=== PATIENT | female | born 1950 | race Caucasian/White ===

== ENCOUNTER 2018-05-15 17:02 | Inpatient (IN) | payer MEDICARE ==
[2018-05-15] MEDS ORDERED: SODIUM CHLORIDE 0.9% 1,000 ML IV ONE ×2 (17:21→18:42)
[2018-05-15] MEDS ORDERED: ONDANSETRON 4 MG/2 ML VIAL IVP STA (17:22)
--- NOTE | 2018-05-15 17:37 | ED ---
General Adult HPI - General Chief complaint: Abdominal Pain Stated complaint: Abd.pain Time Seen by Provider: 05/15/18 17:05 Source: patient, EMS, RN notes reviewed Mode of arrival: EMS Limitations: no limitations - History of Present Illness Initial comments: This is a 67-year-old female who presents to the emergency department from [facility]. Patient states she woke up this morning and had nausea vomiting and diarrhea and then started having some abdominal pain. Patient states she went to [facility] at that point time. [facility] states that the patient had a possible twisting of the large bowel and malrotation of the cecum radiology read it as not able to discern whether was congenital or an internal hernia. Patient also had findings compatible with a colitis of the ascending and transverse colon. Currently patient states abdominal pain is much improved and she is mostly just nauseated. Patient denies any chest pain difficulty breathing or shortness of breath per patient denies any lightheadedness dizziness or near syncopal episode. Patient denies any blood or black stools. - Related Data Home Medications Medication Instructions Recorded Confirmed Aspirin EC [Ecotrin Low Dose] 81 mg PO DAILY 05/15/18 05/15/18 Naproxen Sodium [Aleve] 220 mg PO DAILY 05/15/18 05/15/18 amLODIPine [Norvasc] 5 mg PO DAILY 05/15/18 05/15/18 Allergies Allergy/AdvReac Type Severity Reaction Status Date / Time No Known Allergies Allergy Verified 05/15/18 17:30 Review of Systems ROS Statement: Those systems with pertinent positive or pertinent negative responses have been documented in the HPI. ROS Other: All systems not noted in ROS Statement are negative. Past Medical History Past Medical History: Hyperlipidemia, Hypertension, Osteoarthritis (OA) History of Any Multi-Drug Resistant Organisms: None Reported Past Surgical History: Appendectomy, Hysterectomy, Tonsillectomy Past Psychological History: Depression Smoking Status: Former smoker Past Alcohol Use History: Rare Past Drug Use History: None Reported General Exam - General Exam Comments Initial Comments: GENERAL: Patient is well-developed and well-nourished. Patient is nontoxic and well- hydrated and is in mild distress. ENT: Neck is soft and supple. No significant lymphadenopathy is noted. Oropharynx is clear. Moist mucous membranes. Neck has full range of motion without eliciting any pain. EYES: The sclera were anicteric and conjunctiva were pink and moist. Extraocular movements were intact and pupils were equal round and reactive to light. Eyelids were unremarkable. PULMONARY: Unlabored respirations. Good breath sounds bilaterally. No audible rales rhonchi or wheezing was noted. CARDIOVASCULAR: There is a regular rate and rhythm without any murmurs gallops or rubs. ABDOMEN: Mildly tender diffusely no point tenderness no rebound no guarding. No palpable organomegaly was noted. There is no palpable pulsatile mass. SKIN: Skin is clear with no lesions or rashes and otherwise unremarkable. NEUROLOGIC: Patient is alert and oriented x3. Cranial nerves II through XII are grossly intact. Motor and sensory are also intact. Normal speech, volume and content. Symmetrical smile. MUSCULOSKELETAL: Normal extremities with adequate strength and full range of motion. No lower extremity swelling or edema. No calf tenderness. LYMPHATICS: No significant lymphadenopathy is noted PSYCHIATRIC: Normal psychiatric evaluation. Normal interpersonal interactions appears functionally intact in deals appropriately with others. No signs of depression. No signs of anxiety. Limitations: no limitations Course Vital Signs 05/15/18 17:10 Temperature 99.3 F Pulse Rate 56 L Respiratory 18 Rate Blood Pressure 148/78 O2 Sat by Pulse 97 Oximetry Medical Decision Making - Medical Decision Making I spoke with Dr. Neff when the patient arrived I saw her. Dr. Neff came down and saw the patient and wanted the patient to be admitted to her service and she will see the patient again in the morning. Disposition Clinical Impression: Abdominal pain, Gastroenteritis, Colitis Disposition: ADMITTED IP TO THIS [facility] Referrals: Gigi Hatfield MD [Primary Care Provider] - 1-2 days Time of Disposition: 18:42
[2018-05-15] MEDS ORDERED: HYDROmorphone 1 MG/ML 1 ML SYRINGE IVP PRN (18:11)
--- NOTE | 2018-05-15 18:11 | P.GSHP ---
History of Present Illness H&P Date: 05/15/18 Chief Complaint: Abdominal pain, nausea, vomiting The patient is a 67-year-old female who developed abdominal pain this morning about 8:00 with associated nausea, vomiting, diarrhea the diarrhea persisted until about noon time. It then subsided. There was no blood in the stool or dark tarry stool. No blood in the emesis. The nausea persisted. She went into the emergency department in [facility] and a CT was done reporting possible twisting of the cecum. She is having some belching and passing flatus. It's uncomfortable in the right lower quadrant but not as much as earlier today. The patient's fairly comfortable if she just lays still. She thinks the discomfort is from retching so hard. Main complaint now is nausea. No previous episodes of anything like this in the past. No one else is been ill. No cough, fever or chills. No previous antibiotics. The patient has had previous total abdominal hysterectomy with incidental appendectomy. In questioning her she denied being told that there was any problem with the large bowel being "floppy " - Review of Systems All systems: negative Past Medical History Past Medical History: Hyperlipidemia, Hypertension, Osteoarthritis (OA) History of Any Multi-Drug Resistant Organisms: None Reported Past Surgical History: Appendectomy, Hysterectomy, Tonsillectomy Past Psychological History: Depression Smoking Status: Former smoker Past Alcohol Use History: Rare Past Drug Use History: None Reported Medications and Allergies Home Medications Medication Instructions Recorded Confirmed Type Aspirin EC [Ecotrin Low Dose] 81 mg PO DAILY 05/15/18 05/15/18 History Naproxen Sodium [Aleve] 220 mg PO DAILY 05/15/18 05/15/18 History amLODIPine [Norvasc] 5 mg PO DAILY 05/15/18 05/15/18 History Allergies Allergy/AdvReac Type Severity Reaction Status Date / Time No Known Allergies Allergy Verified 05/15/18 17:30 Surgical - Exam Osteopathic Statement: *. No significant issues noted on an osteopathic structural exam other than those noted in the History and Physical/Consult. Vital Signs Temp Pulse Resp BP Pulse Ox 99.3 F 56 L 18 148/78 97 05/15/18 17:10 05/15/18 17:10 05/15/18 17:10 05/15/18 17:10 11/16/18 17:10 - General well developed, no distress - ENT normal mucosa - Neck trachea midline, no lymphadectomy - Respiratory normal expansion, normal respiratory effort, clear to auscultation - Cardiovascular Rhythm: regular Abnormal Heart Sounds: no systolic murmur - Abdomen Abdomen: soft, tender (Mild tenderness in the right lower quadrant to deep palpation. No tenderness to percussion), bowel sounds (Slightly hypoactive), no guarding, no rebound, no distended Results - Imaging CT scan - abdomen: report reviewed, image reviewed CT scan - pelvis: report reviewed, image reviewed (No obstructive pattern. No free air or free fluid. Little hard for me to discern any significant swirling of the mesentery) Assessment and Plan (1) Abdominal pain Status: Acute Code(s): R10.9 - UNSPECIFIED ABDOMINAL PAIN SNOMED Code(s): 57972553 (2) Nausea and vomiting Status: Acute Code(s): R11.2 - NAUSEA WITH VOMITING, UNSPECIFIED SNOMED Code (s): 33045520 (3) Diarrhea Status: Acute Code(s): R19.7 - DIARRHEA, UNSPECIFIED SNOMED Code(s): 49199736 Plan: At present she has a nonsurgical abdomen. I would recommend admission. Hydrate , bowel rest, antibiotics and pain medications as necessary. Serial exams and x -rays. This was discussed with her and Dr. Caed. Questions were encouraged and answered. Further recommendations to follow.
[2018-05-15] MEDS ORDERED: ONDANSETRON 4 MG/2 ML VIAL IVP PRN ×2 (18:14→18:45)
[2018-05-15] MEDS ORDERED: PROCHLORPERAZINE 5 MG TAB PO PRN (18:14)
[2018-05-15 22:58] VITALS: BMI 26.4
--- NOTE | 2018-05-16 07:21 | XR ---
EXAMINATION TYPE: XR abdomen 2V , 3 VIEWS DATE OF EXAM ORDERED: 05/16/2018 HISTORY: rule out bowel obstruction. COMPARISON: None. FINDINGS: The lung bases are clear. Within the abdomen, the abdominal gas pattern is within normal limits. There is no evidence of obstru ction or free air. There is a moderate dextroscoliosis. IMPRESSION: NO ACUTE INTRA-ABDOMINAL ABNORMALITY.
[2018-05-16 08:27] LABS: Basophils % (A) 0 %; Eosinophils # (A) 0.1 k/uL (0-0.7); Eosinophils % (A) 1 %; HCT 41.4 % (34.0-46.0); HGB 13.6 gm/dL (11.4-16.0); Lymphocytes # (A) 1.9 k/uL (1.0-4.8); Lymphocytes % (A) 17 %; MCH 31.4 pg (25.0-35.0); MCHC 32.9 g/dL (31.0-37.0); MCV 95.5 fL (80.0-100.0); Mean Platelet Volume 7.4; Monocytes # (A) 0.8 k/uL (0-1.0); Monocytes % (A) 7 %; Neutrophils % (A) 72 %; Platelet Count 297 k/uL (150-450); RBC 4.33 m/uL (3.80-5.40); RDW 13.3 % (11.5-15.5); WBC 11.1 k/uL (3.8-10.6)
[2018-05-16 08:36] LABS: Albumin 3.7 g/dL (3.5-5.0); Calcium 8.9 mg/dL (8.4-10.2); Potassium 4.2 mmol/L (3.5-5.1); Total Bilirubin 0.4 mg/dL (0.2-1.3); Total Protein 6.4 g/dL (6.3-8.2)
[2018-05-16] MEDS ORDERED: PANTOPRAZOLE 40 MG/10 ML VIAL IV SCH (09:00)
--- NOTE | 2018-05-16 10:36 | P.PN ---
Subjective Progress Note Date: 05/16/18 Principal diagnosis: Abdominal pain, nausea, vomiting, diarrhea The patient was admitted through the ER last night with abdominal pain, nausea, vomiting, diarrhea. Her symptoms totally resolved overnight. She feels great. She wants to eat. Passing some flatus. No further diarrhea. In further discussion, the patient volunteers that she's had some episodic diarrhea long with nausea that occur every 3-4 weeks for the last 3-6 months. Typically that will resolve fairly quickly after she is "cleaned out ". Yesterday the pain was worse along with the nausea and vomiting. Denies any family history of inflammatory bowel disease, celiac disease. Objective - Vital Signs Vital signs: Vital Signs Temp 98.9 F 05/16/18 07:00 Pulse 70 05/16/18 07:00 Resp 18 05/16/18 07:00 BP 134/69 05/16/18 07:00 Pulse Ox 97 05/16/18 07:00 Intake & Output 05/15/18 05/16/18 05/16/18 18:59 06:59 18:59 Intake Total 1200 Balance 1200 Weight 74.389 kg 74.389 kg Intake: Intake, IV Titration 1200 Amount Sodium Chloride 0.9% 1, 1200 000 ml @ 100 mls/hr IV . Q10H ONE Rx#:[id number] Other: Voiding Method Toilet # Voids 3 - Constitutional General appearance: Present: cooperative, no acute distress - Respiratory Respiratory: bilateral: CTA - Gastrointestinal General gastrointestinal: Present: normal bowel sounds, soft. Absent: distended , hyperactive bowel sounds, tenderness - Labs CBC & Chem 7: 05/16/18 06:32 05/16/18 06:32 Labs: Abnormal Lab Results - Last 24 Hours (Table) 05/16/18 05/16/18 Range/Units 06:32 06:32 WBC 11.1 H (3.8-10.6) k/uL Neutrophils # 8.0 H (1.3-7.7) k/uL BUN 20 H (7-17) mg/dL Assessment and Plan (1) Abdominal pain Current Visit: Yes Status: Acute Code(s): R10.9 - UNSPECIFIED ABDOMINAL PAIN SNOMED Code(s): 62001530 (2) Nausea and vomiting Current Visit: No Status: Acute Code(s): R11.2 - NAUSEA WITH VOMITING, UNSPECIFIED SNOMED Code(s): 04757200 (3) Diarrhea Current Visit: No Status: Acute Code(s): R19.7 - DIARRHEA, UNSPECIFIED SNOMED Code(s): 21240187 Plan: Her symptoms have currently resolved. Her x-ray this morning was unremarkable. White count was decreased at 11,000 versus 14,[address] [facility]. A diet will be initiated. If she is able to tolerate that, we'll discharge her after supper. He can follow her up as an outpatient for endoscopy to rule out anything such as early inflammatory bowel disease or gluten enteropathy. Further recommendations to follow.
[2018-05-16] MEDS ORDERED: ASPIRIN 81 MG PO SCH (10:45)
[2018-05-16] MEDS ORDERED: NAPROXEN 250 MG TAB PO SCH (10:45)
[2018-05-16] MEDS ORDERED: amLODIPine 5 MG TAB PO SCH (10:45)
[2018-05-16 14:14] VITALS: TEMP 98.9
[2018-05-16 14:27] VITALS: BP 123/67; PULSE 66; RESP 20
== END 2018-05-16 18:31 | disposition home or self-care (01) | DRG 392 ==
LOC: EC 17:02 → 4SSUR 18:11
PROVIDERS: ADMIT Surgery; ATTEND Surgery
DX: R10.9 Unspecified abdominal pain (principal); E78.5 Hyperlipidemia, unspecified; I10 Essential (primary) hypertension; Z87.891 Personal history of nicotine dependence; Z90.710 Acquired absence of both cervix and uterus; R11.2 Nausea with vomiting, unspecified; R19.7 Diarrhea, unspecified; Z79.1 Long term (current) use of non-steroidal anti-inflammatories (NSAID); Z79.82 Long term (current) use of aspirin; Z79.899 Other long term (current) drug therapy; M19.90 Unspecified osteoarthritis, unspecified site
CPT/HCPCS: 74019; 80053; 85025; 96361; 96374; 96375; 99285

== ENCOUNTER 2018-07-18 17:30 | Inpatient (IN) | payer MEDICARE ==
[2018-07-19] MEDS: SODIUM CHLORIDE 0.9% 1,000 ML IV SCH (09:30)
[2018-07-19 10:01] LABS: Glucose,Whole Blood 110 mg/dL (75-99)
[2018-07-19] MEDS ORDERED: SODIUM CHLORIDE 0.9% 1,000 ML IV SCH (10:30)
[2018-07-19 10:51] VITALS: BMI 25.4
[2018-07-19] MEDS ORDERED: ALPRAZolam 0.25 MG TAB PO PRN (11:17)
[2018-07-19] MEDS ORDERED: NALOXONE 0.4 MG/ML 1 ML VIAL IV PRN (11:17)
[2018-07-19] MEDS ORDERED: ACETAMINOPHEN TAB 325 MG TAB PO PRN (11:17)
--- NOTE | 2018-07-19 11:17 | P.HPIM ---
History of Present Illness H&P Date: 07/19/18 This is a 68-year-old female who is a patient of Dr. Gigi Loera. Patient has history of hypertension and family history of coronary artery disease with her father. Father suffered a DE at the age of 49 and test with CHF 59. Patient has history of chronic back pain and knee pain which she uses medical marijuana. Last use was on Friday. Patient presented to the hospital with intermittent bolus of abdominal pain and nausea and diarrhea. Initially her pain was in the right upper quadrant. She was scheduled for EGD and a colonoscopy of outpatient through her primary care physician. However due to her elevated troponin surgery recommended that the patient have a heart cath prior to any surgical intervention. EKG does not reveal any acute changes. Patient has been transferred here for a cardiac cath In approximately around noon. Patient states that she does not have any chest discomfort or difficulty breathing. Patient states that she was having some epigastric pain however that has subsided. Review of Systems Constitutional: Denies chills, Denies fever Eyes: denies blurred vision, denies pain Ears, nose, mouth and throat: Denies headache, Denies nasal congestion, Denies nasal discharge, Denies sore throat Cardiovascular: Denies chest pain, Denies decreased exercise tolerance, Denies leg edema, Denies palpitations, Denies shortness of breath Respiratory: Denies cough, Denies dyspnea Gastrointestinal: Reports abdominal pain, Denies change in bowel habits, Denies diarrhea, Denies nausea, Denies vomiting Genitourinary: Denies dysuria, Denies hematuria Musculoskeletal: Denies myalgias Integumentary: Denies pruritus, Denies rash Neurological: Denies numbness, Denies weakness Psychiatric: Denies anxiety, Denies depression Endocrine: Denies fatigue, Denies weight change Past Medical History Past Medical History: Hyperlipidemia, Hypertension, Osteoarthritis (OA) History of Any Multi-Drug Resistant Organisms: None Reported Past Surgical History: Appendectomy, Hysterectomy, Tonsillectomy Additional Past Surgical History / Comment(s): R bunyonectomy Past Anesthesia/Blood Transfusion Reactions: No Reported Reaction Past Psychological History: Depression Smoking Status: Never smoker Past Alcohol Use History: Rare Past Drug Use History: Marijuana Additional Drug Use History / Comment(s): medical marijuana - Past Family History Father Family Medical History: Myocardial Infarction (DE) Mother Family Medical History: Thyroid Disorder Additional Family Medical History / Comment(s): scoliosis Medications and Allergies Home Medications Medication Instructions Recorded Confirmed Type Aspirin EC [Ecotrin Low Dose] 81 mg PO DAILY 05/15/18 05/15/18 History Naproxen Sodium [Aleve] 220 mg PO DAILY 05/15/18 05/15/18 History amLODIPine [Norvasc] 5 mg PO DAILY 05/15/18 05/15/18 History Allergies Allergy/AdvReac Type Severity Reaction Status Date / Time No Known Allergies Allergy Verified 05/15/18 17:30 Physical Exam Vitals: Vital Signs Temp Pulse Resp BP BP Pulse Ox 07/19/18 10:20 60 12 93 L 07/19/18 10:10 63 10 L 118/79 96 07/19/18 10:06 98.6 F 13 118/79 96 Intake and Output 07/18/18 07/19/18 07/19/18 22:59 06:59 14:59 Intake Total 75 Balance 75 Intake: IV 75 Sodium Chloride 0.9% 1, 75 000 ml @ 75 mls/hr IV . [id number] [facility] Rx#:[id number] Other: Weight 71.4 kg - Constitutional General appearance: average body habitus, cooperative, no acute distress - EENT Eyes: anicteric sclerae, EOMI, PERRLA ENT: hearing grossly normal, NA/AT Ears: bilateral: normal - Neck Neck: no lymphadenopathy, normal ROM, no rigidity - Respiratory Respiratory: bilateral: CTA, negative: diminished, dullness, rales, rhonchi, wheezing, prolonged expiration, prolonged inspiration - Cardiovascular Rhythm: regular Heart sounds: normal: S1, S2 Abnormal Heart Sounds: no systolic murmur, no diastolic murmur, no rub, no S3 Gallop, no S4 Gallop, no click, no other - Gastrointestinal General gastrointestinal: normal bowel sounds, no organomegaly, soft, no tenderness - Integumentary Integumentary: normal, normal turgor - Neurologic Neurologic: CNII-XII intact - Musculoskeletal Musculoskeletal: gait normal, generalized weakness - Psychiatric Psychiatric: A&O x's 3, appropriate affect, intact judgment & insight Results Labs: Abnormal Lab Results - Last 24 Hours (Table) 07/19/18 Range/Units 09:58 POC Glucose (mg/dL) 110 H (75-99) mg/dL Thrombosis Risk Factor Assmnt - Choose All That Apply Any of the Below Risk Factors Present?: No Each Risk Factor Represents 2 Points: Age 61-74 years Other congenital or acquired thrombophilia - If yes, enter type in comment: No Thrombosis Risk Factor Assessment Total Risk Factor Score: 2 Thrombosis Risk Factor Assessment Level: Low Risk Assessment and Plan Plan: 1. Abdominal pain consult surgery. May schedule EGD and colonoscopy for outpatient. 2. Nausea and vomiting. Zofran 4 mg as needed. 3. Elevated troponin. Consult cardiology. Have her drip DC'd at this time. Cardiac cath scheduled for noon. Nitro placed in place. 4. Hypertension. Continue amlodipine 5 mg by mouth. 5. GI prophylaxis. Pepcid 20 mg by mouth 6. DVT prophylaxis. Heparin drip DC'd for cardiac catheterization. Discharge plan: Possible discharge in 1 day pending heart catheterization results. DNP note has been reviewed and discussed with Dr. Andersen and the impression and plan of care has been directed as dictated.
[2018-07-19] MEDS ORDERED: ASPIRIN 325 MG TAB PO STA (11:21)
[2018-07-19] MEDS ORDERED: SODIUM CHLORIDE 0.9% 1,000 ML in EMPTY BAG 1 BAG IV ONE (11:21)
[2018-07-19] MEDS ORDERED: ATORVASTATIN 80 MG TAB PO STA (11:21)
[2018-07-19] MEDS ORDERED: NITROGLYCERIN SL TABS 0.4 MG TAB SUBLINGUAL PRN (11:21)
[2018-07-19] MEDS: ASPIRIN 325 MG TAB PO STA ×2 (11:39)
[2018-07-19] MEDS ORDERED: LIDOCAINE 1% INJ 10MG/ML (20 ML MDV) ONE (12:32)
[2018-07-19] MEDS ORDERED: fentaNYL (PF) 50 MCG/ML 2 ML AMP ONE (12:32)
[2018-07-19] MEDS ORDERED: fentaNYL (PF) 50 MCG/ML 2 ML AMP IVP ONE (12:35)
[2018-07-19] MEDS ORDERED: MIDAZOLAM 2 MG/2 ML VIAL IVP ONE (12:35)
[2018-07-19] MEDS ORDERED: LIDOCAINE 1% (PF) 10MG/ML VIAL SQ ONE (12:38)
[2018-07-19] MEDS ORDERED: IV FLUID CONTINUATION 650 ML IV ONE (12:41)
[2018-07-19] MEDS ORDERED: IOPAMIDOL-370 125ML BTL INJ ONE (13:00)
[2018-07-19] MEDS ORDERED: RX INFO: IV CONTRAST WAS GIVEN 1 EACH MISC MISCELLANE PRN (13:13)
--- NOTE | 2018-07-19 13:21 | P.CARDCATH ---
Date of Procedure: 07/19/18 Preoperative Diagnosis: Positive troponins, recurrent abdominal and chest pains Postoperative Diagnosis: Minimal coronary artery disease Procedure(s) Performed: Left heart catheterization without left ventriculography Description of Procedure: HISTORY: This is a 68-year-old female was admitted to [facility] with complaints of recurrent abdominal pain, nausea vomiting. Patient also had a blood test which showed abnormal troponin values. Her EKG did not reveal any acute changes except PVCs. Her echo showed normal LV function. Patient was seen by surgical consult. They wanted to make sure that patient doesn't have an underlying ischemic heart disease, because of abnormal troponin, before proceeding with GI evaluation. CONSENT:I have discussed the risks, benefits and alternative therapies for the above-mentioned procedure and for both sedation/analgesia as well as necessary blood product administration, if indicated, as they pertain to this patient. The patient has indicated understanding and acceptance of the risks and procedures discussed. PROCEDURE: Patient was brought to the lab in a fasting state. Patient was given some IV sedation. The right groin is infiltrated with lidocaine and right femoral artery was entered using Seldinger technique. A 6-Indonesian catheter was left in place and selective coronary arteriography was performed. Patient tolerated the procedure well. Femoral angiogram was performed and Angio-Seal was applied for hemostasis. No immediate complications were noted and patient was transferred to [facility] in a stable condition Conscious Sedation: Versed 1mg Fentanyl 50 g Duration 16minutes HEMODYNAMICS: The aortic pressure is about 110/70. Left ventricular end- diastolic pressure is 4 to 8. There is no gradient across the aortic valve. SELECTIVE CORONARY ARTERIOGRAPHY: LEFT MAIN: Long and free of occlusive disease THE LEFT ANTERIOR DESCENDING CORONARY ARTERY:. There is mild calcification left anterior descending coronary artery. Mild intimal plaque is noted in the LAD and also the diagonal branch. The diagonal branch is a good caliber vessel with mild plaque in the origin and not chemically significant obstructive disease THE LEFT CIRCUMFLEX AND IS CORONARY ARTERY:. This is a moderate caliber vessel with a small OM branch. Circumflex coronary artery has mild intimal plaque without any significant obstructive disease THE RIGHT CORONARY ARTERY:. This is a dominant vessel giving rise to PDA and PLV. Again this vessel has mild intimal plaque without any Sigmund focal lesions LEFT VENTRICULOGRAPHY: Not performed FINAL IMPRESSION: Mild diffuse plaque and calcification without any clinically significant obstructive disease PLAN: Risk factor modification and medical therapy PROGNOSIS:. Fair
[2018-07-19] MEDS ORDERED: NAPROXEN 250 MG TAB PO PRN ×2 (15:54)
[2018-07-19] MEDS: FAMOTIDINE 20 MG TAB PO SCH (20:33)
[2018-07-20] MEDS: SODIUM CHLORIDE 0.9% 1,000 ML IV SCH (02:43)
[2018-07-20 07:39] VITALS: BP 120/69; PULSE 61; RESP 14; TEMP 98.5
[2018-07-20 08:40] LABS: Basophils % (A) 0 %; Eosinophils # (A) 0.3 k/uL (0-0.7); Eosinophils % (A) 3 %; HCT 39.9 % (34.0-46.0); HGB 13.1 gm/dL (11.4-16.0); Lymphocytes # (A) 1.3 k/uL (1.0-4.8); Lymphocytes % (A) 14 %; MCH 31.2 pg (25.0-35.0); MCHC 32.9 g/dL (31.0-37.0); MCV 94.8 fL (80.0-100.0); Mean Platelet Volume 7.5; Monocytes # (A) 0.7 k/uL (0-1.0); Monocytes % (A) 7 %; Neutrophils # (A) 6.5 k/uL (1.3-7.7); Neutrophils % (A) 70 %; Platelet Count 241 k/uL (150-450); RBC 4.21 m/uL (3.80-5.40); RDW 13.2 % (11.5-15.5); WBC 9.2 k/uL (3.8-10.6)
[2018-07-20 08:49] LABS: Potassium 3.6 mmol/L (3.5-5.1)
[2018-07-20] MEDS ORDERED: amLODIPine 5 MG TAB PO SCH (09:00)
[2018-07-20] MEDS: FAMOTIDINE 20 MG TAB PO SCH (09:39)
--- NOTE | 2018-07-20 09:52 | P.DS ---
Providers Date of admission: 07/19/18 09:50 Expected date of discharge: 07/20/18 Attending physician: Mili Marino Consults: 07/19/18 10:42 Consult Physician Routine Consulting Provider: Alycia Goins Consult Reason/Comments: chest pain, positive trop Do you want consulting provider notified?: Already Contacted Primary care physician: Stated None Hospital Course: This is a 68-year-old female who is a patient of Dr. Gigi Loera. Patient has history of hypertension and family history of coronary artery disease with her father. Father suffered a [place] at the age of 49 and test with CHF 61. Patient has history of chronic back pain and knee pain which she uses medical marijuana. Last use was on Friday. Patient presented to the hospital with intermittent bolus of abdominal pain and nausea and diarrhea. Initially her pain was in the right upper quadrant. She was scheduled for EGD and a colonoscopy of outpatient through her primary care physician. However due to her elevated troponin surgery recommended that the patient have a heart cath prior to any surgical intervention. EKG does not reveal any acute changes. Patient has been transferred here for a cardiac cath In approximately around noon. Patient states that she does not have any chest discomfort or difficulty breathing. Patient states that she was having some epigastric pain however that has subsided. 07/20: Patient underwent heart catheterization with Dr. Goins visit found mild diffuse plaque and calcification without any clinically significant obstructive disease. Plan for risk factor modification medical therapy. Patient will be discharged home today in stable condition. She does have EGD scheduled on Friday with Dr. Neff. We will not make any medication changes at this time but patient has been instructed to hold aspirin and avoid Aleve and all nonsteroidal anti-inflammatories. She denies having any chest pain at this time and states she only had epigastric discomfort when she came in. She had her breakfast this morning without any difficulty. Patient will be discharged home today in stable condition. Discharge diagnoses: 1. Epigastric pain, scheduled for EGD Friday with Dr. Neff. 2. Nausea and vomiting, resolved. 3. Elevated troponin without acute coronary disease. 4. Hypertension. Discharge plan: Home. Impression and plan of care have been directed as dictated by the signing physician. Moriah Munroe nurse practitioner acting as scribe for signing physician. Patient Condition at Discharge: Good Plan - Discharge Summary New Discharge Prescriptions: Continue amLODIPine [Norvasc] 5 mg PO DAILY Aspirin [Adult Low Dose Aspirin EC] 81 mg PO DAILY #0 Discontinued Naproxen Sodium [Aleve] 880 mg PO DAILY Discharge Medication List amLODIPine [Norvasc] 5 mg PO DAILY 05/15/18 [History] Aspirin [Adult Low Dose Aspirin EC] 81 mg PO DAILY #0 07/20/18 [Rx] Follow up Appointment(s)/Referral(s): Gigi Hatfield MD [REFERRING] - 1 Week
--- NOTE | 2018-07-20 10:56 | P.PN ---
Subjective This is a pleasant 68-year-old female past medical history significant for hypertension and dyslipidemia. She underwent cardiac catheterization with Dr. Goins yesterday secondary to abnormal troponins. Catheterization revealed mild diffuse intimal plaque and calcification without any clinically significant obstructive disease. She is seen and examined this morning resting comfortably in bed in no acute distress. She states she has been up ambulating with no significant chest discomfort. Right groin soft, nontender with no evidence of bleeding or ecchymosis. Distal pulses strong and intact. Blood pressure 120/69 heart rate 61 afebrile maintaining oxygen saturation on room air. Laboratory data reviewed, WBC 9.2, hemoglobin 13.1, platelets 241, sodium 137, potassium 3.6, creatinine 0.81. Currently maintained on amlodipine 5 mg daily. GENERAL: Well-appearing, well-nourished and in no acute distress. NECK: Supple without JVD or thyromegaly. LUNGS: Breath sounds clear to auscultation bilaterally. Respiration equal and unlabored. No wheezes, rales or rhonchi. HEART: Regular rate and rhythm without murmurs, rubs or gallops. S1 and S2 heard. EXTREMITIES: Normal range of motion, no edema. No clubbing or cyanosis. Peripheral pulses intact. Right groin soft, dry and intact. No evidence of hematoma or ecchymosis. ASSESSMENT Troponin elevation s/p cardiac catheterization Hypertension PLAN Stable from a cardiac perspective. May proceed with outpatient endoscopy/colonoscopy as schedule for Friday. Follow up with Dr. Goins in 1-week for groin check. Nurse Practitioner note has been reviewed, I agree with a documented findings and plan of care. Patient was seen and examined. Objective - Vital Signs Vital signs: Vital Signs Temp 98.5 F 07/20/18 07:37 Pulse 61 07/20/18 07:37 Resp 14 07/20/18 07:37 BP 120/69 07/20/18 07:37 Pulse Ox 98 07/20/18 07:37 Intake & Output 07/19/18 07/20/18 07/20/18 18:59 06:59 18:59 Intake Total 625 1640 Output Total 450 Balance 625 1190 Weight 71.4 kg Intake: IV 625 20 Sodium Chloride 0.9% 1, 525 20 000 ml @ 75 mls/hr IV . [id number] [facility] Rx#:[id number] Oral 1620 Output: Urine 450 Other: # Voids 1 2 - Labs CBC & Chem 7: 07/20/18 08:12 07/20/18 08:12 Labs: Abnormal Lab Results - Last 24 Hours (Table) 07/20/18 Range/Units 08:12 BUN 18 H (7-17) mg/dL Glucose 122 H (74-99) mg/dL
== END 2018-07-20 12:02 | disposition home or self-care (01) | DRG 287 ==
LOC: 2SICU 07-19 09:50 → 4SSUR 07-19 21:44
PROVIDERS: ADMIT Internal Medicine; ATTEND Internal Medicine
PROC: B2111ZZ Fluoroscopy of Multiple Coronary Arteries using Low Osmolar Contrast (ICD-10-PCS; 2018-07-19)
PROC: 4A023N7 Measurement of Cardiac Sampling and Pressure, Left Heart, Percutaneous Approach (ICD-10-PCS; principal; 2018-07-19 12:20)
DX: R07.9 Chest pain, unspecified (principal); R77.9 Abnormality of plasma protein, unspecified; R10.13 Epigastric pain; I10 Essential (primary) hypertension; E78.5 Hyperlipidemia, unspecified; F32.9 Major depressive disorder, single episode, unspecified; G89.29 Other chronic pain; M19.90 Unspecified osteoarthritis, unspecified site; M25.569 Pain in unspecified knee; M54.9 Dorsalgia, unspecified; R10.11 Right upper quadrant pain; R11.2 Nausea with vomiting, unspecified; Z79.82 Long term (current) use of aspirin; Z79.899 Other long term (current) drug therapy; Z90.710 Acquired absence of both cervix and uterus; Z90.49 Acquired absence of other specified parts of digestive tract; Z82.49 Family history of ischemic heart disease and other diseases of the circulatory system; Z83.49 Family history of other endocrine, nutritional and metabolic diseases; Z82.69 Family history of other diseases of the musculoskeletal system and connective tissue
CPT/HCPCS: 80048; 85025; 93458

== ENCOUNTER 2018-09-30 09:10 | Day surgery (SDC) | payer MEDICARE ==
[2018-09-25 13:23] VITALS: BMI 25.4
[~2018-09-30 09:10] MED LIST: LACTATED RINGERS 1,000 ML IV SCH
[2018-09-30 09:41] VITALS: TEMP 98.4
[2018-09-30] MEDS ORDERED: LIDOCAINE 1% 20 ML VIAL (10MG/ML) FOR IV START INTRADERMA ONE (09:51)
[2018-09-30] MEDS ORDERED: LIDOCAINE 1% INJ 10MG/ML (20 ML MDV) ONE (09:52)
[2018-09-30] MEDS ORDERED: GLYCOPYRROLATE 0.2 MG/ML 2 ML VIAL ONE (09:52)
[2018-09-30] MEDS ORDERED: PROPOFOL 10 MG/ML 20 ML VIAL IV ONE (09:52)
[2018-09-30 10:58] VITALS: BP 170/110; PULSE 74; RESP 16
[2018-09-30] MEDS: HYDROmorphone 1 MG/ML 1 ML SYRINGE IVP STA ×2 (11:29→11:34)
[2018-09-30] MEDS ORDERED: ONDANSETRON 4 MG/2 ML VIAL IVP ONE (12:04)
--- NOTE | 2018-09-30 12:06 | XR ---
"2 view abdomen HISTORY: Rule out perforation, vomiting 2 views of the abdomen on 3 images Lateral decubitus view is limited, air-filled loops of small and large bowel are present without obst ruction. No evident pneumoperitoneum. There is overlying artifact present. There is a scoliosis, dege nerative disc change. Lung bases are clear. IMPRESSION: Lateral decubitus view is limited. Repeat will be performed at no additional charge the p atient should be requested. A Yellow level critical message alert has been initiated for Miko Peacock MD via the [employer] 0 | Critical Results System on 09/30/2018 12:03 PM. This message alert has been sent to Miko Peacock MD via the preferences provided by the clinician for the receipt of Radiology Critical Findings. [facility] ID [id number]."
--- NOTE | 2018-09-30 12:26 | P.PCN ---
Date of Procedure: 09/30/18 Procedure(s) Performed: PREOPERATIVE DIAGNOSIS: Abdominal pain, nausea vomiting, change in bowel habits with frequent diarrhea POSTOPERATIVE DIAGNOSIS: Gastritis with small ulcerations, mild distal esophagitis, diverticulosis with tortuous colon PROCEDURE: 1. EGD with biopsy 2. Colonoscopy with random biopsy AN[place]: [facility] [place]ON: Miko Peacock M.D. SPECIMENS: Gastric ulcer, distal esophagus, random colon ENDOSCOPIC PROCEDURE: The patient was on the endoscopy table in the left decubitus position. The Olympus gastroscope was inserted into the oropharynx and passed under direct visualization to the region of the third portion of the duodenum. From that point the scope was slowly withdrawn inspecting all surfaces carefully. There were no neoplastic inflammatory or polypoid lesions throughout the duodenum. The pylorus was widely patent. The stomach was carefully inspected. There was evidence of some old blood within the stomach. The patient had gastritis present with a few small superficial ulcerations involving the prepyloric and antral region. Biopsies of the small ulcers took place. Retroflexion revealed a normal hiatus. The patient's distal esophagus had a single small linear erosion measuring less than 1 cm. The remainder the esophagus appear normal. A biopsy of the distal esophagitis took place. The patient was kept on the endoscopy table in the left decubitus position. The Olympus colonoscope was inserted into the anus and passed under direct visualization to the base of the cecum. The appendiceal orifice was visualized. From that point the scope was slowly withdrawn inspecting all surfaces carefully. There were no neoplastic inflammatory or polypoid lesions throughout the cecum, ascending, transverse, descending, sigmoid and rectum. There was mild diverticulosis noted in the sigmoid colon. The sigmoid colon was somewhat tortuous and spastic in nature. The patient's prep was somewhat suboptimal with some retained liquid and solid stool seen scattered throughout. Random biopsies of the colon took place to rule out microscopic colitis. Digital rectal examination was normal. The patient was taken to the recovery room in stable condition per anesthesia guidelines. RECOMMENDATIONS: Await biopsy results. Begin antiacid therapy. Minimize NSAID use.
== END 2018-09-30 13:55 | disposition home or self-care (01) ==
LOC: ORWHC2ENDO 09:10
PROVIDERS: ATTEND Surgery
DX: K29.50 Unspecified chronic gastritis without bleeding (principal); K20.9 Esophagitis, unspecified; K57.90 Diverticulosis of intestine, part unspecified, without perforation or abscess without bleeding; Q43.8 Other specified congenital malformations of intestine; I10 Essential (primary) hypertension; Z79.82 Long term (current) use of aspirin; Z79.899 Other long term (current) drug therapy
CPT/HCPCS: 88305; 74019; 45380; 43239; J2405; J2001; J1170; J2704

== ENCOUNTER 2018-10-19 08:33 | Observation (INO) | payer MEDICARE ==
[2018-10-19] MEDS ORDERED: SODIUM CHLORIDE 0.9% 1,000 ML IV STA (08:58)
[2018-10-19] MEDS ORDERED: METOCLOPRAMIDE 5 MG/ML 2 ML VIAL IVP STA (08:58)
[2018-10-19] MEDS ORDERED: diphenhydrAMINE 50 MG/ML 1 ML VIAL IVP STA (08:58)
[2018-10-19] MEDS ORDERED: FAMOTIDINE 20 MG/2 ML VIAL IV STA (08:59)
--- NOTE | 2018-10-19 09:02 | ED ---
General Adult HPI - General Chief complaint: Nausea/Vomiting/Diarrhea Stated complaint: Vomiting Time Seen by Provider: 10/19/18 08:51 Source: patient, RN notes reviewed Mode of arrival: wheelchair Limitations: no limitations - History of Present Illness Initial comments: Patient is a pleasant 68-year-old female presenting to the emergency Department with vomiting. Onset was 7 AM this morning. Patient does have history of similar episodes multiple times over the past 6 months. Patient had diarrhea 2 days ago however none since that time. Patient has had several episodes of vomiting this morning and has continued nausea. Patient did not take any medication at home. Patient does have some discomfort in the epigastric region. Patient states this is similar to previous vomiting episodes. No chest pain. Patient has had recent cardiac workup. No fevers. Patient denies alcohol or marijuana use. Patient is not diabetic. Patient denies any incontinence. - Related Data Home Medications Medication Instructions Recorded Confirmed amLODIPine [Norvasc] 5 mg PO DAILY 05/15/18 10/19/18 Atorvastatin [Lipitor] 20 mg PO DAILY 10/19/18 10/19/18 Naproxen Sodium [Aleve] 220 mg PO BID PRN 10/19/18 10/19/18 Omeprazole 20 mg PO DAILY 10/19/18 10/19/18 Previous Rx's Medication Instructions Recorded Aspirin [Adult Low Dose Aspirin EC] 81 mg PO DAILY #0 07/20/18 Allergies Allergy/AdvReac Type Severity Reaction Status Date / Time No Known Allergies Allergy Verified 10/19/18 09:10 Review of Systems ROS Statement: Those systems with pertinent positive or pertinent negative responses have been documented in the HPI. ROS Other: All systems not noted in ROS Statement are negative. Constitutional: Denies: fever Eyes: Denies: eye pain ENT: Denies: ear pain Respiratory: Denies: cough Cardiovascular: Denies: chest pain Endocrine: Denies: fatigue Gastrointestinal: Reports: as per HPI, abdominal pain, nausea, vomiting. Denies: constipation Genitourinary: Denies: dysuria Musculoskeletal: Denies: back pain Skin: Denies: rash Neurological: Denies: weakness Past Medical History Past Medical History: Hyperlipidemia, Hypertension, Osteoarthritis (OA) Additional Past Medical History / Comment(s): n/v, diarrhea History of Any Multi-Drug Resistant Organisms: None Reported Past Surgical History: Appendectomy, Hysterectomy, Tonsillectomy Additional Past Surgical History / Comment(s): R bunionectomy Past Anesthesia/Blood Transfusion Reactions: No Reported Reaction Past Psychological History: Depression Smoking Status: Never smoker - Past Family History Father Family Medical History: Myocardial Infarction ([place]) Mother Family Medical History: Thyroid Disorder Additional Family Medical History / Comment(s): scoliosis General Exam Limitations: no limitations General appearance: alert, in no apparent distress Head exam: Present: atraumatic Eye exam: Present: normal appearance Neck exam: Present: normal inspection Respiratory exam: Present: normal lung sounds bilaterally Cardiovascular Exam: Present: regular rate, normal rhythm Expanded Peripheral pulses: 2+: Posterior Tibialis (R), Posterior Tibialis (L), Dorsalis Pedis (R), Dorsalis Pedis (L) GI/Abdominal exam: Present: soft, tenderness (Mild tenderness in the epigastric region). Absent: distended, guarding, rebound, rigid Extremities exam: Present: normal inspection Back exam: Present: normal inspection Neurological exam: Present: alert Psychiatric exam: Present: normal affect, normal mood Skin exam: Present: normal color Course Vital Signs 10/19/18 10/19/18 10/19/18 08:41 11:43 13:00 Temperature 97.6 F Pulse Rate 77 82 Respiratory 26 H 16 16 Rate Blood Pressure 174/95 167/94 O2 Sat by Pulse 100 98 Oximetry - Reevaluation(s) Reevaluation #1: 10/19/18 11:23 Patient reevaluated and still complains of feeling nauseated and sore. Abdomen nontender. 10/19/18 14:04 Patient again reevaluated and states her symptoms have improved however starting to worsen again. Patient requests morphine and Zofran stating that usually helps her. Case was discussed with Dr. martínez, covering for Dr. Loera, who will admit. Medical Decision Making - Lab Data Result diagrams: 10/19/18 09:50 10/19/18 09:50 Lab Results 10/19/18 10/19/18 10/19/18 Range/Units 09:31 09:50 09:50 WBC 14.6 H (3.8-10.6) k/uL RBC 5.07 (3.80-5.40) m/uL Hgb 15.4 (11.4-16.0) gm/dL Hct 48.2 H (34.0-46.0) % MCV 95.1 (80.0-100.0) fL MCH 30.3 (25.0-35.0) pg MCHC 31.9 (31.0-37.0) g/dL RDW 13.7 (11.5-15.5) % Plt Count 356 (150-450) k/uL Neutrophils % 85 % Lymphocytes % 8 % Monocytes % 3 % Eosinophils % 2 % Basophils % 0 % Neutrophils # 12.4 H (1.3-7.7) k/uL Lymphocytes # 1.2 (1.0-4.8) k/uL Monocytes # 0.5 (0-1.0) k/uL Eosinophils # 0.3 (0-0.7) k/uL Basophils # 0.1 (0-0.2) k/uL PT (9.0-12.0) sec INR (<1.2) APTT (22.0-30.0) sec Sodium 141 (137-145) mmol/L Potassium 4.5 (3.5-5.1) mmol/L Chloride 106 (98-107) mmol/L Carbon Dioxide 23 (22-30) mmol/L Anion Gap 12 mmol/L BUN 15 (7-17) mg/dL Creatinine 0.66 (0.52-1.04) mg/dL Est GFR (CKD-EPI)AfAm >90 (>60 ml/min/1.73 sqM) Est GFR (CKD-EPI)NonAf >90 (>60 ml/min/1.73 sqM) Glucose 161 H (74-99) mg/dL Calcium 9.9 (8.4-10.2) mg/dL Total Bilirubin 0.6 (0.2-1.3) mg/dL AST 27 (14-36) U/L ALT 36 (9-52) U/L Alkaline Phosphatase 141 H (38-126) U/L Total Protein 7.5 (6.3-8.2) g/dL Albumin 4.8 (3.5-5.0) g/dL Amylase 50 (30-110) U/L Lipase 60 (23-300) U/L Urine Color Light Yellow Urine Appearance Clear (Clear) Urine pH 7.5 (5.0-8.0) Ur Specific [place] 1.010 (1.001-1.035) Urine Protein Trace H (Negative) Urine Glucose (UA) Trace H (Negative) Urine Ketones Negative (Negative) Urine Blood Negative (Negative) Urine Nitrite Negative (Negative) Urine Bilirubin Negative (Negative) Urine Urobilinogen <2.0 (<2.0) mg/dL Ur Leukocyte Esterase Negative (Negative) 10/19/18 Range/Units 09:50 WBC (3.8-10.6) k/uL RBC (3.80-5.40) m/uL Hgb (11.4-16.0) gm/dL Hct (34.0-46.0) % MCV (80.0-100.0) fL MCH (25.0-35.0) pg MCHC (31.0-37.0) g/dL RDW (11.5-15.5) % Plt Count (150-450) k/uL Neutrophils % % Lymphocytes % % Monocytes % % Eosinophils % % Basophils % % Neutrophils # (1.3-7.7) k/uL Lymphocytes # (1.0-4.8) k/uL Monocytes # (0-1.0) k/uL Eosinophils # (0-0.7) k/uL Basophils # (0-0.2) k/uL PT 9.7 (9.0-12.0) sec INR 0.9 (<1.2) APTT 22.0 (22.0-30.0) sec Sodium (137-145) mmol/L Potassium (3.5-5.1) mmol/L Chloride (98-107) mmol/L Carbon Dioxide (22-30) mmol/L Anion Gap mmol/L BUN (7-17) mg/dL Creatinine (0.52-1.04) mg/dL Est GFR (CKD-EPI)AfAm (>60 ml/min/1.73 sqM) Est GFR (CKD-EPI)NonAf (>60 ml/min/1.73 sqM) Glucose (74-99) mg/dL Calcium (8.4-10.2) mg/dL Total Bilirubin (0.2-1.3) mg/dL AST (14-36) U/L ALT (9-52) U/L Alkaline Phosphatase (38-126) U/L Total Protein (6.3-8.2) g/dL Albumin (3.5-5.0) g/dL Amylase (30-110) U/L Lipase (23-300) U/L Urine Color Urine Appearance (Clear) Urine pH (5.0-8.0) Ur Specific [place] (1.001-1.035) Urine Protein (Negative) Urine Glucose (UA) (Negative) Urine Ketones (Negative) Urine Blood (Negative) Urine Nitrite (Negative) Urine Bilirubin (Negative) Urine Urobilinogen (<2.0) mg/dL Ur Leukocyte Esterase (Negative) - Radiology Data Radiology results: image reviewed (Abdominal x-ray shows nonobstructive pattern) Disposition Clinical Impression: Intractable nausea and vomiting Disposition: ADMITTED IP TO THIS HOSP Is patient prescribed a controlled substance at d/c from ED?: No Referrals: Gigi Hatfield MD [Primary Care Provider] - 1-2 days Decision Time: 14:04
[2018-10-19 10:16] LABS: Appearance,Urine Clear (Clear); Bilirubin,Urine Negative (Negative); Blood,Urine Negative (Negative); Color,Urine Light Yellow; Glucose,Urine (UA) Trace (Negative); Ketones,Urine Negative (Negative); Leukocyte Esterase,Urine Negative (Negative); Nitrite,Urine Negative (Negative); PH, Urine 7.5 (5.0-8.0); Protein,Urine Trace (Negative); Urobilinogen,Urine <2.0 mg/dL (<2.0)
[2018-10-19 10:18] LABS: Basophils # (A) 0.1 k/uL (0-0.2); Basophils % (A) 0 %; Eosinophils # (A) 0.3 k/uL (0-0.7); Eosinophils % (A) 2 %; HCT 48.2 % (34.0-46.0); HGB 15.4 gm/dL (11.4-16.0); Lymphocytes # (A) 1.2 k/uL (1.0-4.8); Lymphocytes % (A) 8 %; MCH 30.3 pg (25.0-35.0); MCHC 31.9 g/dL (31.0-37.0); MCV 95.1 fL (80.0-100.0); Monocytes # (A) 0.5 k/uL (0-1.0); Monocytes % (A) 3 %; Neutrophils # (A) 12.4 k/uL (1.3-7.7); Neutrophils % (A) 85 %; Platelet Count 356 k/uL (150-450); RBC 5.07 m/uL (3.80-5.40); RDW 13.7 % (11.5-15.5); WBC 14.6 k/uL (3.8-10.6)
[2018-10-19 10:19] LABS: ALT 36 U/L (9-52); AST 27 U/L (14-36); Albumin 4.8 g/dL (3.5-5.0); Alkaline Phosphatase 141 U/L (38-126); Amylase 50 U/L (30-110); Anion Gap 12 mmol/L; Blood Urea Nitrogen 15 mg/dL (7-17); Calcium 9.9 mg/dL (8.4-10.2); Carbon Dioxide 23 mmol/L (22-30); Chloride 106 mmol/L (98-107); Glucose 161 mg/dL (74-99); Lipase 60 U/L (23-300); Potassium 4.5 mmol/L (3.5-5.1); Sodium 141 mmol/L (137-145); Total Bilirubin 0.6 mg/dL (0.2-1.3); Total Protein 7.5 g/dL (6.3-8.2)
[2018-10-19 10:26] LABS: INR 0.9 (<1.2); Prothrombin Time 9.7 sec (9.0-12.0)
--- NOTE | 2018-10-19 10:32 | XR ---
EXAMINATION TYPE: XR KUB DATE OF EXAM: 10/19/2018 COMPARISON: NONE HISTORY: Pain TECHNIQUE: Single supine KUB image of the abdomen is obtained FINDINGS: Small bowel demonstrates no evidence for dilatation or air fluid levels. Gas and fecal material is seen in non-distended colon. No convincing evidence for pneumoperitoneum. No unusual calcifications. The lung bases are clear. The osseous structures are intact. Scoliotic curvature of the lumbar spine convex to the right. IMPRESSION: 1. Overall nonobstructive bowel gas pattern.
[2018-10-19] MEDS ORDERED: ONDANSETRON 4 MG/2 ML VIAL IVP STA ×2 (11:23→14:04)
[2018-10-19] MEDS ORDERED: DICYCLOMINE 10 MG/ML 2 ML AMP IM STA (11:23)
[2018-10-19] MEDS ORDERED: MORPHINE SULFATE 4 MG/ML SYRINGE IV STA (14:04)
[2018-10-19] MEDS ORDERED: NALOXONE 0.4 MG/ML 1 ML VIAL IV PRN (14:05)
[2018-10-19] MEDS ORDERED: MORPHINE SULFATE 4 MG/ML SYRINGE IV PRN (14:05)
[2018-10-19] MEDS ORDERED: ONDANSETRON 4 MG/2 ML VIAL IVP PRN (14:05)
[2018-10-19] MEDS: SODIUM CHLORIDE 0.9% 1,000 ML IV SCH ×2 (14:58→23:52)
[2018-10-19] MEDS: PANTOPRAZOLE 40 MG/10 ML VIAL IV SCH (15:58)
[2018-10-19] MEDS ORDERED: NAPROXEN 250 MG TAB PO PRN (17:49)
[2018-10-19] MEDS ORDERED: PANTOPRAZOLE 40 MG TABLET PO SCH (18:00)
[2018-10-19] MEDS: ASPIRIN 81 MG PO SCH (18:12)
[2018-10-19] MEDS: ATORVASTATIN 20 MG TAB PO SCH (18:12)
[2018-10-19] MEDS: amLODIPine 5 MG TAB PO SCH (18:12)
[2018-10-19] MEDS ORDERED: ENOXAPARIN 40 MG/0.4 ML SYRINGE SQ SCH (22:45)
[2018-10-19] MEDS: DICYCLOMINE 20 MG TAB PO SCH (23:52)
--- NOTE | 2018-10-20 00:29 | HP ---
HISTORY AND PHYSICAL DATE OF ADMISSION: 10/19/2018 DATE OF SERVICE: 10/19/2018 PRESENTING COMPLAINT: Abdominal pain, nausea, vomiting, diarrhea. HISTORY OF PRESENTING COMPLAINT: This is a pleasant 68-year-old patient who follows with Dr. Gigi Hatfield. Chronic stable medical conditions include GERD, hypertension, hyperlipidemia, osteoarthritis. The patient did have an EGD on September [address] Peacock that showed some gastric ulcers and gastritis. Patient presents with a conglomeration of symptoms. They started way back in January and she gets them maybe once a month. Typically the patient will have a bout of nausea, vomiting, abdominal cramping and diarrhea, and this could last for about a good 12 hours or more, then it settles down. The patient keeps repeatedly having these episodes. The patient had yet another episode today in a similar fashion with nausea, vomiting, abdominal pain, cramping, diarrhea. She got morphine in the ER. Symptoms are greatly improved right now. Patient does have a formed bowel movement otherwise daily. REVIEW OF SYSTEMS: CONSTITUTIONAL: Tired. HEENT: None. RESPIRATORY: None. CARDIOVASCULAR: None. GASTROINTESTINAL: As above. GENITOURINARY: None. MUSCULOSKELETAL: Arthritic pain in joints. DERMATOLOGICAL: None. HEMATOLOGICAL: None. LYMPHATICS: None. PSYCHIATRY: None. NEUROLOGICAL: None. PAST MEDICAL HISTORY: 1. GERD. 2. Hyperlipidemia. 3. Hypertension. 4. Osteoarthritis. 5. Gastric ulcers. 6. Distal esophagitis. 7. Colonic diverticulosis. 8. Tortuous colon. PAST SURGICAL HISTORY: 1. Appendectomy. 2. Hysterectomy. 3. Orthopedic surgery. 4. Tonsillectomy. SOCIAL HISTORY: The patient lives with her son, Chaot. 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 No smoking. Does medical marijuana. FAMILY HISTORY: Myocardial infarction, scoliosis. HOME MEDICATIONS: 1. Lipitor 20 mg a day. 2. Norvasc 5 mg a day. 3. Omeprazole 20 mg a day. 4. Naproxen 220 mg b.i.d. p.r.n. 5. Aspirin 81 mg a day. ALLERGIES: NONE. PHYSICAL EXAMINATION: Temperature 97.6, pulse 77, respiration 26, blood pressure 174/95, pulse ox 100% on room air. GENERAL APPEARANCE: Average build. Lying in bed. A bit anxious-appearing. EYES: Pupils equal. Conjunctivae normal. HEENT: External appearance of nose and ears normal. Oral cavity normal. NECK: JVD not raised. Mass not palpable. RESPIRATORY: Effort normal. LUNGS: Fair air entry. CARDIOVASCULAR: First and second sounds normal. No edema. ABDOMEN: Mild tenderness. No guarding or rigidity. Liver and spleen not palpable. LYMPHATIC: No lymph node palpable in neck or axillae. PSYCHIATRY: Alert and oriented x3. Mood and affect slightly anxious-appearing. NEUROLOGICAL: Pupils equal. Cranial nerves grossly intact. Power and sensation grossly intact. INVESTIGATIONS: White count 14.6, hemoglobin 15.4. Potassium 4.5. BUN and creatinine are normal. ASSESSMENT: 1. This is a patient who gets an episode about once a month which is a combination of abdominal pain which is severe, nausea, vomiting, diarrhea. Otherwise, patient's stools are normal and daily. Recent EGD did show a torturous colon and some gastric ulcers and gastritis and duodenitis. It seems at this point the patient may have a hyperacidity syndrome that could be present. At the same time, we need to rule out neuroendocrine tumors of the GI tract with such an episodic presentation. Irritable bowel syndrome is in the differential. 1. Gastroesophageal reflux disease. 2. Hyperlipidemia. 3. Essential hypertension. 4. Gastritis and peptic ulcer disease. Patient does take naproxen. PLAN: Will stop patient's morphine. Will use Bentyl. Will get a GI opinion. Further workup can be done as an outpatient. For tonight we will give patient some IV fluids. Care was discussed at length with the patient. She agrees with the plan. We will observe the patient overnight, and she should be able to be discharged home tomorrow after being seen by GI. This is not a surgical presentation. Care was discussed with the patient. Questions were answered. MMODL / IJN: [id number] /
[2018-10-20] MEDS: SODIUM CHLORIDE 0.9% 1,000 ML IV SCH ×2 (06:13→16:26)
[2018-10-20] MEDS: DICYCLOMINE 20 MG TAB PO SCH ×3 (07:53→17:48)
[2018-10-20] MEDS: ASPIRIN 81 MG PO SCH (07:54)
[2018-10-20] MEDS: PANTOPRAZOLE 40 MG/10 ML VIAL IV SCH (07:54)
[2018-10-20] MEDS: ATORVASTATIN 20 MG TAB PO SCH (07:54)
[2018-10-20] MEDS: amLODIPine 5 MG TAB PO SCH (07:54)
--- NOTE | 2018-10-20 11:11 | P.GSCN ---
<Viola Almaraz - Last Filed: 10/20/18 11:02> History of Present Illness Consult date: 10/20/18 Reason for Consult: Intractable nausea and vomiting Requesting physician: Venkat Head History of present illness: CHIEF COMPLAINT: Nausea and vomiting HISTORY OF PRESENT ILLNESS: 68-year-old female who presented to emergency room with nausea and vomiting x 1 day. Patient also experiencing epi gastric pain. Patient reports having similar episodes about once a month for the past 9 months. She has been evaluated by Dr. Peacock in the past and underwent EGD and colonoscopy on 09/30/2018 revealing gastritis with small ulcerations, mild distal esophagitis, and diverticulosis with tortuous colon. Pathology was negative. This morning, the patient feels much better. She denies epigastric pain. Denies nausea or vomiting. Tolerating clear liquid diet. PAST MEDICAL HISTORY: See list. PAST SURGICAL HISTORY: See list. SOCIAL HISTORY: No illicit drug use. REVIEW OF SYSTEMS: CONSTITUTIONAL: Denies fever or chills. HEENT: Denies blurred vision, vision changes, or eye pain. Denies hemoptysis CARDIOVASCULAR: Denies chest pain or pressure. RESPIRATORY: No shortness of breath. GASTROINTESTINAL: Refer to HPI for pertinent findings HEMATOLOGIC: Denies bleeding disorders. GENITOURINARY: Denies any blood in urine. SKIN: Denies pruitis. Denies rash. PHYSICAL EXAM: VITAL SIGNS: Reviewed. GENERAL: Well-developed in no acute distress. HEENT: No sclera icterus. Extraocular movements grossly intact. Moist buccal mucosa. Head is atraumatic, normocephalic. ABDOMEN: Soft. Nondistended. Nontender. NEUROLOGIC: Alert and oriented. Cranial nerves II through XII grossly intact. LABORATORY DATA: WBC 14.6. Hemoglobin 15.4. Bilirubin 0.6. AST 27. ALT 36. Alkaline phosphatase 141. Amylase 50. Lipase 60. IMAGING: KUB X-Ray: Overall nonobstructive bowel gas pattern ASSESSMENT: 1. Epigastric pain, nausea, vomiting, acute on chronic 2. Recent EGD and colonoscopy revealing gastritis with small ulcerations, mild distal esophagitis, and diverticulosis with tortuous colon PLAN: 1. No surgical intervention recommended 2. Await GI consultation 3. Diet per GI and primary team Nurse practitioner note has been reviewed by physician. Signing provider agrees with the documented findings, assessment, and plan of care. Past Medical History Past Medical History: GERD/Reflux, Hyperlipidemia, Hypertension, Osteoarthritis (OA) Additional Past Medical History / Comment(s): Previous episodes of n/v, diarrhea, 09/30/18 EGD/colonoscopy showed gastritis/ small ulcerations/ distal esophagitis/diverticulosis. History of Any Multi-Drug Resistant Organisms: None Reported Past Surgical History: Appendectomy, Hysterectomy, Orthopedic Surgery, Tonsillectomy Additional Past Surgical History / Comment(s): 09/30/18 EGD with bx and colonoscopy with bx, R bunionectomy Past Anesthesia/Blood Transfusion Reactions: No Reported Reaction Smoking Status: Never smoker - Past Family History Father Family Medical History: Myocardial Infarction ([place]) Mother Family Medical History: Thyroid Disorder Additional Family Medical History / Comment(s): scoliosis Medications and Allergies Home Medications Medication Instructions Recorded Confirmed Type amLODIPine [Norvasc] 5 mg PO DAILY 05/15/18 10/19/18 History Aspirin [Adult Low Dose Aspirin EC] 81 mg PO DAILY #0 07/20/18 10/19/18 Rx Atorvastatin [Lipitor] 20 mg PO DAILY 10/19/18 10/19/18 History Omeprazole 20 mg PO DAILY 10/19/18 10/19/18 History Dicyclomine [Bentyl] 10 mg PO Q6H PRN #30 capsule 10/20/18 Rx Allergies Allergy/AdvReac Type Severity Reaction Status Date / Time No Known Allergies Allergy Verified 10/19/18 09:10 Surgical - Exam Vital Signs Temp Pulse Resp BP Pulse Ox 97.6 F 77 26 H 174/95 100 10/19/18 08:41 10/19/18 08:41 10/19/18 08:41 10/19/18 08:41 10/19/18 08:41 Results - Labs 10/19/18 09:50 10/19/18 09:50 <Miko Peacock - Last Filed: 10/20/18 16:55> History of Present Illness History of present illness: As above. Patient's pain has once again resolved. Appreciate GI evaluation. At the time of the patient's last evaluation we suggested outpatient GI consult if symptoms recurred. We'll defer to them at this time. We'll sign off. Please call if needed. Surgical - Exam Vital Signs Temp Pulse Resp BP Pulse Ox 97.6 F 77 26 H 174/95 100 10/19/18 08:41 10/19/18 08:41 10/19/18 08:41 10/19/18 08:41 10/19/18 08:41 Results - Labs 10/19/18 09:50 10/19/18 09:50
--- NOTE | 2018-10-20 11:49 | P.CONS ---
History of Present Illness - Reason for Consult Consult date: 10/20/18 Nausea vomiting Requesting physician: Matt Clement - Chief Complaint Nausea vomiting - History of Present Illness 68-year-old female admitted with acute on chronic nausea vomiting. Past medical history of chronic marijuana usage 50 years, GERD, hyperlipidemia, hypertension, depression, arthritis, heart catheterization June 2018 evaluation of abnormal troponin revealed mild diffuse intimal plaque and calcification without significant obstructive disease. Status post EGD colonoscopy evaluation [address] Peacock for evaluation abdominal pain nausea vomiting with findings of gastritis small ulcerations mild distal esophagitis tortuous colon colonic diverticulosis. Biopsies negative for H. pylori and/or significant acute findings. White count 14.6. Hemoglobin 15.4. Platelets 356. INR 0.9. BUN 15. Creatinine 0.6. Sodium 141 potassium 4.5. LFTs stable total bilirubin 0.6. AST 27. ALT 36. AP 141 lipase 60. KUB overall nonobstructive bowel gas pattern. Denies hematemesis hematochezia melena fever or chills. Denies facial flushing. [place] [facility] [place]. Admitted with intractable nonbloody diarrhea and nausea vomiting that seems to occur on a monthly basis since January 2018 with unclear etiology. She has lost 55 pounds with slight change in her appetite over the last several months. No rashes fever or chills, no changes in medications diet or recent travels. No history of personal or familial inflammatory bowel disease or GI cancers. Pain is described as crampy pressure like sometimes in the lower abdomen sometimes in the midepigastric region. Diarrhea seems to precede nausea vomiting however she's had a few episodes were nausea vomiting has preceded the diarrhea. Diarrhea usually lasts 1-2 days several times during the day as well as the nausea vomiting. These symptoms do not awaken her through the night. No changes in her marijuana practices smokes couple times a week. Patient states she had a CT of the abdomen earlier this year upon review of medical records CT result could not be found. In between episodes of nausea and then diarrhea patient passes formed nonbloody bowel movements in between without abdominal pain. No history of these types of symptoms. Review of Systems Constitutional: Denies fever, chills, sweats, weight gain, or loss. HEENT: Negative for migraines, blurred vision or loss, earaches, drainage, tinnitus, oral mucosal lesions, dysphagia, or odynophagia. CARDIAC: Negative for chest pain, arrhythmias, or palpitation. RESPIRATORY: Negative for shortness of breath, hemoptysis, cough, or sputum production. GI: See HPI for pertinent findings. : Negative for hematuria, urgency, frequency, polyuria, or dysuria. GYNc: Negative vaginal discharge. MUSCULOSKELETAL: Negative for muscle aches, swelling, arthritis, and arthralgias. NEUROLOGIC: Negative for stroke or TIA. ENDOCRINE: Negative for thyroid problems. SKIN: Negative for rash or itching. PSYCHIATRIC: Negative history for depression and anxiety Past Medical History Past Medical History: GERD/Reflux, Hyperlipidemia, Hypertension, Osteoarthritis (OA) Additional Past Medical History / Comment(s): Previous episodes of n/v, diarrhea, 09/30/18 EGD/colonoscopy showed gastritis/ small ulcerations/ distal esophagitis/diverticulosis. History of Any Multi-Drug Resistant Organisms: None Reported Past Surgical History: Appendectomy, Hysterectomy, Orthopedic Surgery, Tonsillectomy Additional Past Surgical History / Comment(s): 09/30/18 EGD with bx and colonoscopy with bx, R bunionectomy Past Anesthesia/Blood Transfusion Reactions: No Reported Reaction Smoking Status: Never smoker - Past Family History Father Family Medical History: Myocardial Infarction ([place]) Mother Family Medical History: Thyroid Disorder Additional Family Medical History / Comment(s): scoliosis Medications and Allergies Home Medications Medication Instructions Recorded Confirmed Type amLODIPine [Norvasc] 5 mg PO DAILY 05/15/18 10/19/18 History Aspirin [Adult Low Dose Aspirin EC] 81 mg PO DAILY #0 07/20/18 10/19/18 Rx Atorvastatin [Lipitor] 20 mg PO DAILY 10/19/18 10/19/18 History Naproxen Sodium [Aleve] 220 mg PO BID PRN 10/19/18 10/19/18 History Omeprazole 20 mg PO DAILY 10/19/18 10/19/18 History Allergies Allergy/AdvReac Type Severity Reaction Status Date / Time No Known Allergies Allergy Verified 10/19/18 09:10 Physical Exam Vitals: Vital Signs Temp Pulse Pulse Resp BP BP Pulse Ox 10/20/18 06:02 99.0 F 66 18 102/52 95 10/19/18 22:00 98.2 F 72 20 105/66 97 10/19/18 15:24 98.4 F 74 16 182/83 99 10/19/18 15:00 98.7 F 77 20 175/93 98 10/19/18 13:00 82 16 167/94 98 10/19/18 11:43 16 Intake and Output 10/19/18 10/20/18 10/20/18 22:59 06:59 14:59 Intake Total 1000 Balance 1000 Intake: Amount of Fluid Infused ( 1000 ml) Other: # Voids 2 2 General appearance: The patient is alert, oriented, in no acute distress. HET: Head is normocephalic and atraumatic. Pupils are equal and reactive. Oropharynx is clear without lesions. Neck: Supple without lymphadenopathy. Trachea midline. Heart: S1 S2. Regular rate and rhythm. Lungs: No crackles or wheezes are heard. Abdomen: Soft, nontender, nondistended with bowel sounds. No peritoneal signs. No palpable organomegaly or masses. Extremities: Normal skin color and turgor. No cyanosis, rash, ulceration, clubbing, or edema. Radial and pedal pulses are 2/4 bilaterally. Neurological: No focal deficits. Strength and sensation are grossly intact. Results CBC & Chem 7: 10/19/18 09:50 10/19/18 09:50 Labs: Abnormal Lab Results - Last 24 Hours (Table) 10/19/18 10/19/18 10/19/18 Range/Units 09:31 09:50 09:50 WBC 14.6 H (3.8-10.6) k/uL Hct 48.2 H (34.0-46.0) % Neutrophils # 12.4 H (1.3-7.7) k/uL Glucose 161 H (74-99) mg/dL Alkaline Phosphatase 141 H (38-126) U/L Urine Protein Trace H (Negative) Urine Glucose (UA) Trace H (Negative) Abdominal x-ray: report reviewed (Dr. Gold) Assessment and Plan (1) Intractable nausea and vomiting Narrative/Plan: 68-year-old female long-standing marijuana usage with a past medical history of hypertension heart catheterization July 18 no significant occlusive disease presents with intractable nausea vomiting nonbloody diarrhea associated with intermittent lower sometimes midepigastric crampy abdominal pain nonradiating which lasted for approximate 1-2 days happens on a monthly basis since January 2018 without clear etiology. Differentials to consider but not excluded are cannabinoid-induced nausea vomiting abdominal pain from chronic long-standing usage, celiac sprue, nonocclusive mesenteric ischemia, functional irritable bowel syndrome-D. Infectious parasitic pathology felt to be less likely. Current Visit: Yes Status: Acute Code(s): R11.2 - NAUSEA WITH VOMITING, UNSPECIFIED SNOMED Code(s): 717836372 Plan: 1. Celiac panel. Sed rate CRP. Stool studies including giardia antigen. Dr. Gold recommend CT abdominal imaging with emphasis on evaluation of vasculature. 2. Further direction will be based on clinical course and CT review. Continue Bentyl 20 mg 4 times daily. 3. Supportive measures GI prophylaxis. Light diet as tolerated. Thank you for this kind referral and the opportunity to participate in the care of your patient. This consultation was discussed with Dr. Gold. The impression and plan of care have been directed as dictated.
[2018-10-20] MEDS: IOPAMIDOL-300 CONTRAST 30 ML VIAL (ORAL USE) PO PRN ×2 (12:29→13:30)
[2018-10-20 14:19] VITALS: BMI 24.2
[2018-10-20 14:25] VITALS: BP 117/69; PULSE 59; RESP 16; TEMP 98.8
--- NOTE | 2018-10-20 15:02 | CT ---
EXAMINATION TYPE: CT abdomen pelvis w con DATE OF EXAM: 10/20/2018 COMPARISON: Outside CT 05/15/2018 HISTORY: 68-year-old female Nausea and vomiting for 9 months TECHNIQUE: Contiguous axial scanning of the abdomen and pelvis following administration of 100 ml Omn ipaque 300 IV contrast. Delayed images through the kidneys and coronal/sagittal reconstructions perf ormed. CT DLP: 1135 mGycm Automated exposure control for dose reduction was used. FINDINGS: Heart normal size without pericardial effusion. Lung bases clear without pleural effusion. Ectatic lower descending thoracic aorta at 2.7 cm. Focal moderate atherosclerotic calcifications at the origin of the SMA. The celiac axis appears paten t. The left gastric artery is very small and not well evaluated. There may be a replaced or accessory right hepatic artery from the SMA. Mild atherosclerotic calcifications within the abdominal aorta an d iliac arteries. Small amount of focal fat along the anterior falciform ligament. No biliary ductal dilatation. Portal venous system is patent. The upper SMV and IMV branches appear patent on the delayed images. Gallbladder, adrenal glands, kidneys, spleen, and pancreas show no gross abnormality. No dilated small bowel, free fluid, or free air. No mesenteric or retroperitoneal lymphadenopathy. Mild overall stool burden. No pericolonic inflammatory change. The cecum is low hanging in the pelvis . Mild circumferential bladder wall thickening. Uterus surgically absent. Neither ovary clearly visuali zed and may be absent or obscured by adjacent bowel loops. No abnormal fluid collection in the pelvis or pelvic lymphadenopathy. Bones: Mild degenerative changes of the hips. Degenerative disc disease and facet arthropathy through out the visualized spine. Grade 1 retrolistheses at L1-L2, L2-L3, and L3-L4. IMPRESSION: 1. FOCAL MODERATE ATHEROSCLEROTIC CALCIFICATIONS AT THE ORIGIN OF THE SMA. THE LEFT GASTRIC ARTERY WELL THE JESSENIA ARE VERY SMALL AND NOT WELL ASSESSED ON THIS CONVENTIONAL ABDOMINAL CT. 2. THERE MAY BE AN ACCESSORY OR REPLACED RIGHT HEPATIC ARTERY FROM THE SMA. 3. OTHERWISE, NO SIGNIFICANT STENOSIS OR VISCERAL ARTERIAL OCCLUSION IDENTIFIED. 4. THE PORTAL VENOUS SYSTEM APPEARS PATENT ESPECIALLY WHEN CORRELATING WITH THE DELAYED KIDNEY IMAGES . 5. MILD CIRCUMFERENTIAL BLADDER WALL THICKENING. CORRELATE TO EXCLUDE CYSTITIS.
[2018-10-20 17:21] LABS: Gliadin AB IgA, Unit <0.2 U/mL
--- NOTE | 2018-10-21 06:11 | DS ---
DISCHARGE SUMMARY DATE OF ADMISSION: 10/19/2018 DATE OF DISCHARGE: 10/20/2018 FINAL DIAGNOSES: 1. Episode of abdominal pain, nausea, vomiting, diarrhea, need to rule out a neuroendocrine tumor of the GI tract. 2. Irritable bowel syndrome possible. 3. Gastroesophageal reflux disease. 4. Hyperlipidemia. 5. Essential hypertension. 6. Gastritis and peptic ulcer disease per recent endoscopy. HOSPITAL COURSE: This patient presents with monthly episodes of what appears to be nausea, vomiting, diarrhea, abdominal pain, and otherwise she is totally normal. Such episodic presentation did raise the concern for underlying neuroendocrine tumor of the GI tract. I discussed this with Dr. Gold today. Also discussed this with the patient. In the meantime, did try the patient on Bentyl to which her symptoms are responding. The patient recently had a EGD, colonoscopy by Dr. Peacock, was found to have gastritis and peptic ulcer disease, small gastric ulcers. Hence patient naproxen has been discontinued. CT scan of the abdomen and pelvis unremarkable. Care was discussed with the patient. Symptoms are greatly improved. On examination, temperature 98.8, pulse 59, respirations 16, blood pressure 117/69, pulse ox 96% on room air. ABDOMEN: Soft, nontender. CONSULTATION: Dr. Peacock from General Surgery; Dr. Gold from GI. DISCHARGE MEDICATIONS: 1. Norvasc 5 mg a day. 2. Aspirin 81 mg a day. 3. Lipitor 20 mg a day. 4. Omeprazole 20 mg daily. 5. Bentyl 10 mg q.6 p.r.n. Naproxen discontinued. Follow up with Dr. Hatfield as needed. Follow up with Dr. Gold on 11/10/2018. MMODL / IJN: [id number] /
== END 2018-10-20 19:23 | disposition home or self-care (01) ==
LOC: EC 08:33 → 4MS4W 14:05
PROVIDERS: ADMIT Hospitalist; ATTEND Hospitalist
DX: R11.2 Nausea with vomiting, unspecified (principal); R19.7 Diarrhea, unspecified; R10.13 Epigastric pain; I10 Essential (primary) hypertension; E78.5 Hyperlipidemia, unspecified; M19.90 Unspecified osteoarthritis, unspecified site; K21.0 Gastro-esophageal reflux disease with esophagitis; K57.90 Diverticulosis of intestine, part unspecified, without perforation or abscess without bleeding; F32.9 Major depressive disorder, single episode, unspecified; K29.70 Gastritis, unspecified, without bleeding; K27.9 Peptic ulcer, site unspecified, unspecified as acute or chronic, without hemorrhage or perforation; Z79.82 Long term (current) use of aspirin; Z79.899 Other long term (current) drug therapy; Z82.49 Family history of ischemic heart disease and other diseases of the circulatory system; Z83.49 Family history of other endocrine, nutritional and metabolic diseases; Z90.49 Acquired absence of other specified parts of digestive tract; Z90.710 Acquired absence of both cervix and uterus
CPT/HCPCS: 96376 ×3; 96361 ×2; 96372 ×2; 96375 ×2; 96374; 99285; 36415; 80053; 85652; 82150; 83690; 85025; 85610; 85730; 86140; 81003; 83516 ×4; 87045; 87329; 83630; 87046; 74018; 74177; G0378 ×2; J2270; J1200; J0500; J2765; J2405; J1650; C9113 ×2; Q9967

== ENCOUNTER 2021-05-24 16:59 | Emergency (ER) | payer MEDICARE, OTHER ==
[2021-05-24 17:05] VITALS: TEMP 98.4
[2021-05-24] MEDS ORDERED: METOCLOPRAMIDE 5 MG/ML 2 ML VIAL IVP STA (17:37)
[2021-05-24] MEDS ORDERED: diphenhydrAMINE 50 MG/ML 1 ML VIAL IVP STA (17:37)
[2021-05-24] MEDS ORDERED: SODIUM CHLORIDE 0.9% 2,000 ML IV STA (17:37)
--- NOTE | 2021-05-24 18:09 | ED ---
General Adult HPI - General Chief complaint: Nausea/Vomiting/Diarrhea Stated complaint: gastroparesis, vomiting Time Seen by Provider: 05/24/21 17:07 Source: patient Mode of arrival: ambulatory Limitations: no limitations - History of Present Illness Initial comments: 70-year-old female with a past medical history of hyperlipidemia, hypertension, GERD, gastroparesis presents to the emergency room for nausea vomiting. Patient states she is having a gastroparesis flare. States she was at her mom's house and had just eaten Thanksgiving dinner when she started to have a gastroparesis flare. Patient states she does have nausea medicine at home but because she was at her mom's she did not want to go home and get it. She therefore came to the emergency room. Patient does admit to mild abdominal pain which is consistent with previous flares. Denies fevers.Patient has no other complaints at this time including shortness of breath, chest pain, headache, or visual changes. - Related Data Home Medications Medication Instructions Recorded Confirmed amLODIPine [Norvasc] 5 mg PO DAILY 05/15/18 10/19/18 Atorvastatin [Lipitor] 20 mg PO DAILY 10/19/18 10/19/18 Omeprazole 20 mg PO DAILY 10/19/18 10/19/18 Previous Rx's Medication Instructions Recorded Aspirin [Adult Low Dose Aspirin EC] 81 mg PO DAILY #0 07/20/18 Dicyclomine [Bentyl] 10 mg PO Q6H PRN #30 capsule 10/20/18 Allergies Allergy/AdvReac Type Severity Reaction Status Date / Time No Known Allergies Allergy Verified 10/19/18 09:10 Review of Systems ROS Statement: Those systems with pertinent positive or pertinent negative responses have been documented in the HPI. ROS Other: All systems not noted in ROS Statement are negative. Past Medical History Past Medical History: GERD/Reflux, Hyperlipidemia, Hypertension, Osteoarthritis (OA) Additional Past Medical History / Comment(s): Previous episodes of n/v, diarrhea, 09/30/18 EGD/colonoscopy showed gastritis/ small ulcerations/ distal esophagitis/diverticulosis. History of Any Multi-Drug Resistant Organisms: None Reported Past Surgical History: Appendectomy, Hysterectomy, Orthopedic Surgery, Tonsillectomy Additional Past Surgical History / Comment(s): 09/30/18 EGD with bx and colonoscopy with bx, R bunionectomy Past Anesthesia/Blood Transfusion Reactions: No Reported Reaction Past Psychological History: Depression Past Alcohol Use History: Rare Past Drug Use History: Marijuana - Past Family History Father Family Medical History: Myocardial Infarction ([place]) Mother Family Medical History: Thyroid Disorder Additional Family Medical History / Comment(s): scoliosis General Exam Limitations: no limitations General appearance: alert, in no apparent distress Head exam: Present: atraumatic Eye exam: Present: normal appearance, PERRL, EOMI. Absent: scleral icterus, conjunctival injection ENT exam: Present: normal exam, mucous membranes moist Neck exam: Present: normal inspection, full ROM. Absent: tenderness Respiratory exam: Present: normal lung sounds bilaterally. Absent: respiratory distress, wheezes Cardiovascular Exam: Present: regular rate, normal rhythm. Absent: normal heart sounds GI/Abdominal exam: Present: soft, normal bowel sounds. Absent: distended, tenderness Neurological exam: Present: alert Course Vital Signs 05/24/21 17:00 Temperature 98.4 F Pulse Rate 104 H Respiratory 22 Rate Blood Pressure 166/86 O2 Sat by Pulse 98 Oximetry Medical Decision Making - Medical Decision Making Vitals are stable. CBC does show leukocytosis however this is likely reactive to vomiting. CMP unremarkable. X-ray KUB is unremarkable. No sign of obstruction. Patient was reevaluated after nausea medication given. Had significant improvement in symptoms. Patient can be discharged home to follow up with primary care. She will return here for any worsening symptoms. - Lab Data Result diagrams: 05/24/21 19:05 05/24/21 19:05 Lab Results 05/24/21 05/24/21 Range/Units 19:05 19:05 WBC 18.8 H (3.8-10.6) k/uL RBC 4.80 (3.80-5.40) m/uL Hgb 15.8 (11.4-16.0) gm/dL Hct 46.7 H (34.0-46.0) % MCV 97.2 (80.0-100.0) fL MCH 33.0 (25.0-35.0) pg MCHC 33.9 (31.0-37.0) g/dL RDW 13.1 (11.5-15.5) % Plt Count 324 (150-450) k/uL MPV 7.6 Neutrophils % 89 % Lymphocytes % 6 % Monocytes % 3 % Eosinophils % 0 % Basophils % 0 % Neutrophils # 16.8 H (1.3-7.7) k/uL Lymphocytes # 1.2 (1.0-4.8) k/uL Monocytes # 0.6 (0-1.0) k/uL Eosinophils # 0.0 (0-0.7) k/uL Basophils # 0.1 (0-0.2) k/uL Sodium 137 (137-145) mmol/L Potassium 3.5 (3.5-5.1) mmol/L Chloride 102 (98-107) mmol/L Carbon Dioxide 19 L (22-30) mmol/L Anion Gap 16 mmol/L BUN 15 (7-17) mg/dL Creatinine 0.71 (0.52-1.04) mg/dL Est GFR (CKD-EPI)AfAm >90 (>60 ml/min/1.73 sqM) Est GFR (CKD-EPI)NonAf 88 (>60 ml/min/1.73 sqM) Glucose 167 H (74-99) mg/dL Calcium 9.3 (8.4-10.2) mg/dL Total Bilirubin 0.6 (0.2-1.3) mg/dL AST 32 (14-36) U/L ALT 26 (4-34) U/L Alkaline Phosphatase 152 H (38-126) U/L Total Protein 7.8 (6.3-8.2) g/dL Albumin 4.9 (3.5-5.0) g/dL Lipase 63 (23-300) U/L Disposition Clinical Impression: Nausea & vomiting Disposition: HOME SELF-CARE Condition: Good Instructions (If sedation given, give patient instructions): Acute Nausea and Vomiting (ED) Additional Instructions: Please take your home nausea medications. Follow-up with your doctor tomorrow. If you have worsening symptoms return to the emergency room. Is patient prescribed a controlled substance at d/c from ED?: No Referrals: Giig Hatfield MD [Primary Care Provider] - 1-2 days Time of Disposition: 20:02
--- NOTE | 2021-05-24 19:05 | XR ---
EXAMINATION TYPE: XR KUB DATE OF EXAM: 05/24/2021 COMPARISON: 10/19/2018 HISTORY: 70 years Female. STUDY INDICATION GIVEN: pain . TECHNIQUE: Upright AP abdominal radiograph IMPRESSION: No pneumoperitoneum or pneumatosis. No intestinal obstruction. Moderate scattered stool throughout the colon. No abnormal calcifications or organomegaly. S-shaped scoliosis of the spine is stable in appearance. No acute osseous abnormality. Degenerative changes are seen throughout the spine. Mild bilateral hip joint osteoarthrosis. Lung base atelectasis and/or scarring is stable in appearance compared to prior. At the inferior boundaries of the x-ray there is partial visualization of a radiopaque device, clinic al correlation recommended.
[2021-05-24 19:13] LABS: Basophils # (A) 0.1 k/uL (0-0.2); Basophils % (A) 0 %; Eosinophils % (A) 0 %; HCT 46.7 % (34.0-46.0); HGB 15.8 gm/dL (11.4-16.0); Lymphocytes # (A) 1.2 k/uL (1.0-4.8); Lymphocytes % (A) 6 %; MCHC 33.9 g/dL (31.0-37.0); MCV 97.2 fL (80.0-100.0); Mean Platelet Volume 7.6; Monocytes # (A) 0.6 k/uL (0-1.0); Monocytes % (A) 3 %; Neutrophils # (A) 16.8 k/uL (1.3-7.7); Neutrophils % (A) 89 %; Platelet Count 324 k/uL (150-450); RDW 13.1 % (11.5-15.5); WBC 18.8 k/uL (3.8-10.6)
[2021-05-24 19:25] LABS: ALT 26 U/L (4-34); AST 32 U/L (14-36); African American GFR (CKD) >90 (>60 ml/min/1.73 sqM); Albumin 4.9 g/dL (3.5-5.0); Alkaline Phosphatase 152 U/L (38-126); Anion Gap 16 mmol/L; Blood Urea Nitrogen 15 mg/dL (7-17); Calcium 9.3 mg/dL (8.4-10.2); Carbon Dioxide 19 mmol/L (22-30); Chloride 102 mmol/L (98-107); Glucose 167 mg/dL (74-99); Lipase 63 U/L (23-300); Non-African American GFR(CKD) 88 (>60 ml/min/1.73 sqM); Potassium 3.5 mmol/L (3.5-5.1); Sodium 137 mmol/L (137-145); Total Bilirubin 0.6 mg/dL (0.2-1.3); Total Protein 7.8 g/dL (6.3-8.2)
[2021-05-24] MEDS ORDERED: ONDANSETRON 4 MG/2 ML VIAL IVP STA (19:53)
[2021-05-24 20:15] VITALS: BP 122/72; PULSE 85; RESP 16
== END 2021-05-24 20:15 | disposition home or self-care (01) ==
LOC: EC 16:59
DX: R11.2 Nausea with vomiting, unspecified (principal); I10 Essential (primary) hypertension; E78.5 Hyperlipidemia, unspecified; K21.9 Gastro-esophageal reflux disease without esophagitis; M19.90 Unspecified osteoarthritis, unspecified site; F12.90 Cannabis use, unspecified, uncomplicated; Z79.82 Long term (current) use of aspirin; Z79.899 Other long term (current) drug therapy
CPT/HCPCS: 36415; 80053; 83690; 85025; 74018; 99284; 96374; 96375; J1200; J2765

== ENCOUNTER → 2023-04-22 | Outpatient (CLI) | payer MEDICARE, OTHER ==
--- NOTE | 2023-04-23 12:57 | MR ---
EXAMINATION TYPE: MR lumbar spine wo con DATE OF EXAM: 04/22/2023 5:15 PM CLINICAL INDICATION:Female, 72 years old with history of M41.26 IDIOPATHIC SCOLIOSIS, LUMBAR REGION,M 47.8178,M47.816, Low back pain that radiates down both legs. COMPARISON: None TECHNIQUE: Multi planar, multi sequence imaging was performed utilizing: T1-weighted, T2-weighted, a nd turbo inversion recovery imaging of the lumbar spine. IV Contrast: . (None if empty) FINDINGS: Alignment: The lumbar vertebral bodies have preserved heights and scoliosis alignment Cord: The conus medullaris and the distal spinal cord appear unremarkable with regards to their signa l intensity and morphology. Bones/Discs: Multiple level degeneration changes throughout the spine with disc space narrowing, scol iosis, osteophytes, disc desiccation and facet joint arthropathy. Suspected synovial cyst at the leve l of the left L4-L5 facet joint. Measuring 11 mm in the paraspinal muscles. Pseudoarthrosis of the sp inous processes and lower lumbar spine. Some reactive bony edema most pronounced in the upper lumbar spine at the T12-L1 adjoining endplates and T10-T11 adjoining endplates.. T12-L1: Central and left central disc sequestration which impresses upon the spinal cord. series 411 image 6. Facet joint arthropathy with moderate to severe right and severe left neural foraminal steno sis. L1-L2: Disc bulge and facet joint arthropathy result in mild spinal canal and severe left and mild to moderate right neural foraminal stenosis. L2-L3: Disc bulge and facet joint arthropathy result in mild spinal canal and moderate severe left an d moderate right neural foraminal stenosis. L3-L4: Disc bulge and facet joint arthropathy result in moderate spinal canal and moderate to severe bilateral neural foraminal stenosis. L4-L5: Disc bulge and facet joint arthropathy result in mild spinal canal and moderate to severe righ t and mild to moderate left bilateral neural foraminal stenosis. L5-S1: The disc is rounded posterior morphology without significant spinal canal stenosis. Facet join t arthropathy with moderate severe left and moderate. Bilateral neural foraminal stenosis. No significant spinal canal or neural foraminal stenosis in the remainder of the visualized levels. Other findings: None. IMPRESSION: 1. T12-L1 sequestration which mildly impresses upon the anterior spinal cord. Disc material is at th e level of T12. 2. Severe Degeneration changes of the spine as described above with ultra levels of severe spinal ca nal stenosis. 3. Findings suggestive of Baastrup's disease.
== END | disposition home or self-care (01) ==
LOC: RADMRIMAIN 16:25
PROVIDERS: ATTEND Physical Medicine & Rehabilitation
DX: M48.062 Spinal stenosis, lumbar region with neurogenic claudication (principal); M51.17 Intervertebral disc disorders with radiculopathy, lumbosacral region; M47.26 Other spondylosis with radiculopathy, lumbar region; M41.26 Other idiopathic scoliosis, lumbar region
CPT/HCPCS: 72148

== ENCOUNTER → 2023-06-24 | Outpatient (CLI) | payer MEDICARE, OTHER ==
--- NOTE | 2023-06-24 08:02 | MR ---
EXAMINATION TYPE: MR brain/cspine wo/w DATE OF EXAM: 06/24/2023 7:32 AM CLINICAL INDICATION:Female, 73 years old with history of M62.81 muscle weakness R29.6 repeated falls; PHH, Unsteady gait, weakness, falls COMPARISON: None. TECHNIQUE: Multi planar, multi sequence imaging was performed through the brain including: T1, T2, Inversion rec overy, Diffusion weighted imaging, and gradient echo imaging. No gadolinium was given. Multi planar, multi sequence imaging was performed utilizing: T1-weighted, T2-weighted, and turbo inv ersion recovery imaging of the cervical spine. IV Contrast: 7 cc Gadavist FINDINGS: The delatorre-white junctions, ventricular system, and cisterns appear unremarkable minimal deep white mat ter changes few scattered foci and left external capsule/insular cortex white matter.. Midline struct ures show no abnormality. Diffusion-weighted imaging shows no evidence of restricted diffusion. The s usceptibility weighted images do not reveal any evidence for micro-hemorrhage. The bone marrow signal is within normal limits. Paranasal sinuses and mastoid air cells: No significant paranasal sinus disease. Visualized orbits: Orbital contents are intact. Alignment: The cervical vertebral bodies have preserved heights. Alignment is within normal limits gi clarence patient positioning. Bones: Scattered Modic endplate changes with osteophytes and disc space narrowing. Multilevel degener ative disc disease is noted and most pronounced at the C3-C7 vertebral levels. Cord: The spinal cord is unremarkable with regards to their signal intensity and morphology. Discs: Intervertebral disc signal is maintained. C2-C3: No significant disc pathology. The spinal canal is patent. Bilateral facet and uncovertebral joint arthropathy are present with moderate left and no significant right neural foraminal stenosis. C3-C4: A disc osteophyte complex is present with mild spinal canal stenosis. Bilateral facet and unc overtebral joint arthropathy are present with moderate to severe bilateral neural foraminal stenosis. C4-C5: A disc osteophyte complex is present with moderate spinal canal stenosis. Bilateral facet and uncovertebral joint arthropathy are present with severe right and moderate to severe left neural for aminal stenosis. C5-C6: No significant disc pathology. The spinal canal is patent. Bilateral facet and uncovertebral joint arthropathy are present with severe bilateral neural foraminal stenosis. C6-C7: A disc osteophyte complex is present with mild spinal canal stenosis. Bilateral facet and unco vertebral joint arthropathy are present with severe bilateral neural foraminal stenosis. C7-T1: No significant disc pathology. The spinal canal is patent. Bilateral facet and uncovertebral joint arthropathy are present with moderate bilateral neural foraminal stenosis. Other: None. IMPRESSION: 1. No evidence for disc herniation. 2. Spinal canal stenosis worse at C4-C5 with moderate spinal canal stenosis. 3. Severe disc degeneration with associated osteoarthritic changes with multilevel moderate and stacy re neural foraminal stenosis. 4. No evidence of intracranial mass or acute/subacute infarct. 5. Minimal Nonspecific white matter changes, likely secondary to small vessel ischemic disease.
== END | disposition home or self-care (01) ==
LOC: RADMRIMAIN 06:21
PROVIDERS: ATTEND Psychiatry & Neurology Neurology
DX: M50.31 Other cervical disc degeneration, high cervical region (principal); M62.81 Muscle weakness (generalized); R29.6 Repeated falls; M48.02 Spinal stenosis, cervical region; M47.812 Spondylosis without myelopathy or radiculopathy, cervical region; R90.82 White matter disease, unspecified
CPT/HCPCS: 70553; 72156; A9585

== ENCOUNTER → 2023-07-16 | Outpatient (CLI) | payer MEDICARE, OTHER ==
--- NOTE | 2023-07-18 09:27 | MR ---
EXAMINATION TYPE: MR thoracic spine wo con DATE OF EXAM: 07/16/2023 COMPARISON: NONE HISTORY: 73-year-old female [id number], Back pain, numbness and tingling. Scoliosis. TECHNIQUE: Multiplanar, multisequence images of the thoracic spine were obtained without IV contrast. FINDINGS: There is a prominent levoconvex scoliosis centered at the thoracolumbar junction. Severe degenerative disc disease towards the right along the side of concavity along with prominent edematous Modic type I endplate change. This corresponds to the right T10-T11 level. Counting sequence shows moderate to advanced spondylotic changes in the cervical spine. Moderate to s evere spinal canal stenosis from disc osteophyte complex and thickened ligamentum flavum at C4-C5 imp ressing upon to both the dorsal and ventral cord. Additional moderate spinal canal narrowing at C3-C4 with abutment of both the dorsal and ventral cord. Moderate to advanced degenerative disc disease throughout the remainder of the thoracic spine with de siccated, narrowed, and bulging disks throughout. Corresponding facet arthropathy and ligamentum flavum thickening. There is grade 1 anterolisthesis at T10-T11 and T11-T12. Vertebral body heights are preserved. No suspicious bone marrow placement. Changes result in mild multilevel spinal canal stenoses with variable abutment of both the dorsal and ventral cord. However, the combination of disc osteophyte complex, grade 1 anterolisthesis, facet arthropathy, liga mentum flavum thickening at T10-T11 contributes to a more moderate to severe spinal canal stenosis wi th circumferential narrowing of the cord and abnormal cord signal change at this level. At T12-L1, there is a central disc extrusion with superior migration of disc material. There is moderate multilevel neural foraminal stenoses on both sides though severe on the right at T9 -T10, T10-T11, and T11-T12. Ectasia lower descending thoracic aorta. 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 IMPRESSION: 1. Degenerated levoconvex scoliosis at the thoracolumbar junction. Resultant severe degenerative disc disease and extensive edematous Modic type I endplate change was right at T10-T11. 2. Moderate to advanced multilevel degenerative disc disease and facet arthropathy throughout. Degene rative grade 1 anterolisthesis T10-T11 and T11-T12. 3. Mild spinal canal stenoses throughout the thoracic spine. However, moderate to severe at T10-T11 w ith circumferential narrowing of the cord and abnormal cord signal change here, likely chronic compre ssive myelomalacia. 4. Moderate multilevel neural foraminal stenoses on both sides. However, severe on the right from T9 through T12 levels. 5. Central disc extrusion at T12-L1 with superior migration of disc material. Mildly narrowing the sp inal canal. 6. Moderate to advanced spondylotic change also seen in the cervical spine on the counting series. Re isac to recent cervical spine MRI of 06/24/2023.
== END | disposition home or self-care (01) ==
LOC: RADMRIMAIN 11:27
PROVIDERS: ATTEND Orthopaedic Surgery Orthopaedic Surgery of the Spine
DX: M47.894 Other spondylosis, thoracic region (principal); M41.85 Other forms of scoliosis, thoracolumbar region; M47.812 Spondylosis without myelopathy or radiculopathy, cervical region; M50.321 Other cervical disc degeneration at C4-C5 level; M25.78 Osteophyte, vertebrae; M48.02 Spinal stenosis, cervical region; M48.04 Spinal stenosis, thoracic region; M99.72 Connective tissue and disc stenosis of intervertebral foramina of thoracic region
CPT/HCPCS: 72146

== ENCOUNTER → 2023-08-13 | Outpatient (CLI) | payer MEDICARE, OTHER ==
[2023-08-13 16:54] LABS: INR 0.9 (<1.2); Partial Thromboplastin Time 25.2 sec (22.0-30.0); Prothrombin Time 9.8 sec (10.0-12.5)
[2023-08-14 03:46] LABS: Basophils # (A) 0.06 X 10*3/uL (0.00-0.10); Basophils % (A) 0.7 %; Eosinophils # (A) 0.67 X 10*3/uL (0.04-0.35); Eosinophils % (A) 7.8 %; HGB 14.3 g/dL (12.0-15.0); Lymphocytes # (A) 2.02 X 10*3/uL (0.90-5.00); Lymphocytes % (A) 23.5 %; MCH 31.6 pg (27.0-32.0); MCHC 31.8 g/dL (32.0-37.0); MCV 99.3 FL (80.0-97.0); Monocytes # (A) 0.88 X 10*3/uL (0.20-1.00); Monocytes % (A) 10.3 %; NRBC Per 100 WBC 0 X 10*3/uL (0.00-0.01); Neutrophils # (A) 4.92 X 10*3/uL (1.80-7.70); Neutrophils % (A) 57.4 %; Platelet Count 397 X 10*3/uL (140-440); RBC 4.53 X 10*6/uL (4.10-5.20); RDW 12.9 % (11.5-14.5); WBC 8.58 X 10*3/uL (4.50-10.00)
[2023-08-14 03:48] LABS: Blood Urea Nitrogen 13.5 mg/dL (9.0-27.0); Calcium 9.4 mg/dL (8.7-10.3); Carbon Dioxide 24.4 mmol/L (21.6-31.8); Chloride 101 mmol/L (96-109); Glucose 87 mg/dL (70-110); Potassium 4.4 mmol/L (3.5-5.5); Sodium 139 mmol/L (135-145)
[2023-08-14 04:28] LABS: Appearance,Urine Cloudy (Clear); Bilirubin,Urine Negative (Negative); Blood,Urine Negative (Negative); Color,Urine Yellow (Yellow); Ketones,Urine Negative (Negative); Nitrite,Urine Positive (Negative); Specific Gravity,Urine 1.009 (1.001-1.030); Urobilinogen,Urine 0.2 E.U./DL
[2023-08-14 04:47] LABS: Bacteria,Urine 4+ (None Seen)
--- NOTE | 2023-08-14 10:54 | XR ---
EXAMINATION TYPE: XR chest 2V DATE OF EXAM: 08/14/2023 9:19 AM CLINICAL INDICATION:Female, 73 years old with history of 2V CH XR; COMPARISON: Chest radiographs from 08/13/2023 TECHNIQUE: XR chest 2V Frontal and lateral views of the chest. FINDINGS: Lungs/Pleura: There is no evidence of pleural effusion, focal consolidation, or pneumothorax. Pulmonary vascularity: Unremarkable. Heart/mediastinum: Cardiomediastinal silhouette is unremarkable. Musculoskeletal: No acute osseous pathology. IMPRESSION: No acute cardiopulmonary disease/process.
== END | disposition home or self-care (01) ==
LOC: LABPAT 14:56
PROVIDERS: ATTEND Orthopaedic Surgery Orthopaedic Surgery of the Spine
DX: Z01.818 Encounter for other preprocedural examination (principal); M48.04 Spinal stenosis, thoracic region; Z22.322 Carrier or suspected carrier of Methicillin resistant Staphylococcus aureus
CPT/HCPCS: 36415; 71046; 80048; 81001; 85025; 85610; 85730; 86850; 86900; 86901; 87070

== ENCOUNTER 2023-08-20 11:36 | Day surgery (SDC) | payer MEDICARE, OTHER ==
[2023-08-20 13:18] LABS: Glucose,Whole Blood 110 mg/dL (70-110)
[2023-08-20] MEDS: LACTATED RINGERS 1,000 ML IV ONE ×5 (13:24→17:01)
[2023-08-20] MEDS ORDERED: ONDANSETRON 4 MG/2 ML VIAL ONE (13:25)
[2023-08-20] MEDS: ONDANSETRON 4 MG/2 ML VIAL IVP ONE (13:32)
[2023-08-20] MEDS ORDERED: PHENYLEPHRINE 10 MG/ML VIAL ONE (16:28)
[2023-08-20] MEDS ORDERED: fentaNYL (PF) 50 MCG/ML 2 ML AMP ONE (16:28)
[2023-08-20] MEDS ORDERED: SUCCINYLCHOLINE CHLORIDE 200 MG/10 ML VIAL IV ONE (16:28)
[2023-08-20] MEDS ORDERED: NEOSTIGMINE 1 MG/ML 10 ML VIAL ONE (16:28)
[2023-08-20] MEDS ORDERED: ROCURONIUM 10 MG/ML (5 ML VIAL) IV ONE (16:28)
[2023-08-20] MEDS ORDERED: GLYCOPYRROLATE 0.2 MG/ML 2 ML VIAL ONE (16:28)
[2023-08-20] MEDS ORDERED: PROPOFOL 10 MG/ML 20 ML VIAL IV ONE (16:28)
[2023-08-20] MEDS ORDERED: MIDAZOLAM 2 MG/2 ML VIAL ONE (16:28)
[2023-08-20] MEDS ORDERED: LIDOCAINE 1% INJ 10MG/ML (20 ML MDV) ONE (16:28)
--- NOTE | 2023-08-20 16:28 | P.HPOR ---
History of Present Illness H&P Date: 08/20/23 Chief Complaint: Lower extremity weakness and repeated falling Patient is a very pleasant 73-year-old female who has been having significant difficulty with her back and her lower extremities. She has been having worsening symptoms since March of last year. Over the past month she has had significant advancement and has been having falling. She says she fell maybe 60 times over the past 6 months. She says that she is having more difficulty and having use a walker. She says her legs do not feel as though she can control them very well. She is not having trouble with bowel or bladder function. She feels weakness at her proximal thighs and her proximal legs. She was found to have evidence of significant changes at her lumbar spine as well as severe stenosis at T10-11. The T10-11 area showed evidence of thoracic myelomalacia which correlated with her myelopathic myelopathy symptoms. With her significant weakness we discussed various treatment options including possibly surgery. The patient denies any specific trauma but she has had multiple falls. She feels weak at the bilateral extremities worse on the left than the right. She denies any chest pain shortness of breath. Review of Systems As stated per HPI Past Medical History Past Medical History: GERD/Reflux, Hyperlipidemia, Hypertension, Osteoarthritis (OA) Additional Past Medical History / Comment(s): hx. of gastritis/ small ulcerations/ distal esophagitis/diverticulosis. hiatal hernia, frequent falls recently related to back, lots of bruises, legs are numb & tingling, can't really feel feet, just started A/B for UTI today History of Any Multi-Drug Resistant Organisms: None Reported Past Surgical History: Appendectomy, Hysterectomy, Orthopedic Surgery, Tonsillectomy Additional Past Surgical History / Comment(s): 09/30/18 EGD with bx and colonoscopy with bx, R bunionectomy Past Anesthesia/Blood Transfusion Reactions: No Reported Reaction Additional Past Anesthesia/Blood Transfusion Reaction / Comment(s): no hx. of transfusion reaction Smoking Status: Former smoker - Past Family History Father Family Medical History: Myocardial Infarction ([place]) Mother Family Medical History: Thyroid Disorder Additional Family Medical History / Comment(s): scoliosis Medications and Allergies Home Medications Medication Instructions Recorded Confirmed Type amLODIPine [Norvasc] 5 mg PO DAILY 05/15/18 08/20/23 History Atorvastatin [Lipitor] 40 mg PO HS 10/19/18 08/20/23 History Omeprazole 40 mg PO BID 10/19/18 08/20/23 History Gabapentin [Neurontin] 300 mg PO TID 08/18/23 08/20/23 History Metoclopramide [Reglan] 5 mg PO QAM 08/18/23 08/20/23 History Montelukast [Singulair] 10 mg PO DAILY 08/18/23 08/20/23 History Naproxen [Naprosyn] 500 mg PO BID 08/18/23 08/20/23 History Nitrofurantoin Monohyd/M-Cryst 100 mg PO Q12HR 08/19/23 08/20/23 History [Macrobid] Allergies Allergy/AdvReac Type Severity Reaction Status Date / Time No Known Allergies Allergy Verified 08/20/23 13:06 Physical Examination Osteopathic Statement: *. No significant issues noted on an osteopathic structural exam other than those noted in the History and Physical/Consult. - L Spine: dermatomal strength & reflexes bilateral Strength: hip flexion: 3/5 Strength: hip extension: 3/5 (There is significant weakness bilateral lower extr emities. She barely is able to lift her leg up off the bed on the right. She has significant difficulty lifting her leg off the bed on the left. May be 3 out of 5 strength with hip flexion and knee extension bilaterally.) Strength: ankle dorsiflexion: 3/5 (Significant weakness bilaterally with dorsiflexion and plantarflexion. No pain with internal and external rotation. Abdomen soft nontender back. Back is clear.) Results MRI findings with severe stenosis at T10-11. There is significant degenerative scoliosis. There is degenerative disc disease throughout her lumbar spine. There is mild to moderate foraminal stenosis in her lumbar spine. Assessment and Plan Assessment: Thoracic myelopathy Severe thoracic stenosis T10-11 Bilateral lower extremity weakness Significant gait abnormality with difficulty ambulating resulting in multiple falls due to her myelopathy and myelomalacia Plan: The patient has significant thoracic myelopathy and lower extremity weakness. This is causing her significant troubles with her ambulation and weakness in her bilateral lower extremities. She has been going through this for the past several months and we have discussed this case with her in the office. We discussed the issues with her spinal cord dysfunction and spinal cord injury and the changes within her spinal cord itself. We believe that that is directly affecting her lower extremity function. She does have significant changes of her lumbar spine with scoliosis and degenerative disc disease but she does not have severe stenosis at her lower lumbar spine. I think that the primary issues with her lower extremity stem from her thoracic myelopathy and myelomalacia. I discussed this with her at length. I think that she could have some benefit with decompression at T10-11. We also discussed possibility of decompression and extended thoracolumbar fusion to address the curve. I think that we should see how it does with the decompression at the area of severe stenosis and thoracic myelopathy as this gives her the most chance of improving her function in her lower extremities. We discussed this at length. I discussed the risk complications alternatives and benefits. I discussed the risk of bleeding risk infection risk and need for further surgery risk of decrease or loss of motion loss of function nerve damage dural tear the possibly of continued weakness in her lower extremity as well as the likelihood that she will not regain all of her function back and her lower extremities was explained to her at length. I repeatedly answered her quite questions and explained this to her. She seemed to understand and chooses to proceed with surgical intervention for decompression laminectomy at T10-11. Will plan to plan to proceed with surgery.
[2023-08-20] MEDS: GELATIN SPONGE,ABSORB (LARGE) 1 EACH SPONGE MISCELLANE ONE (16:31)
[2023-08-20] MEDS: ceFAZolin 1,000 MG in SODIUM CHLORIDE 0.9% IRRIGATIO 1,000 ML IRRIGATION PRN (16:31)
[2023-08-20] MEDS: THROMBIN (BOVINE) 5,000 UNIT VIAL MISCELLANE ONE (16:31)
[2023-08-20] MEDS: LIDOCAINE 1%-EPI 1:100,000 50 ML VIAL SQ ONE (16:59)
[2023-08-20] MEDS: methylPREDNISolone ACETATE 40 MG/ML 1 ML VIAL INJ ONE ×2 (17:19→17:42)
[2023-08-20] MEDS ORDERED: BENZOCAINE/MENTHOL LOZENG 1 EACH LOZENGE MUCOUS MEM PRN (17:47)
[2023-08-20] MEDS ORDERED: ONDANSETRON 4 MG/2 ML VIAL IVP PRN (17:47)
[2023-08-20] MEDS ORDERED: ACETAMINOPHEN TAB 500 MG TAB PO PRN (17:47)
[2023-08-20] MEDS ORDERED: HYDROmorphone 1 MG/ML 1 ML SYRINGE IVP PRN (17:47)
[2023-08-20] MEDS ORDERED: CYCLOBENZAPRINE 10 MG TAB PO PRN (17:47)
[2023-08-20] MEDS ORDERED: IBUPROFEN 600 MG TAB PO PRN (17:47)
[2023-08-20] MEDS ORDERED: HYDROmorphone 0.5 MG/0.5 ML SYRINGE IVP PRN (17:47)
--- NOTE | 2023-08-20 17:56 | P.OP ---
Date of Procedure: 08/20/23 Preoperative Diagnosis: Thoracic myelopathy, severe stenosis T10-11, lower extremity weakness, gait abnormality with recent frequent falls due to myelopathy, myelomalacia at the thoracic spine, scoliosis Postoperative Diagnosis: Same Anesthesia: GETA Pathology: none sent Condition: stable Disposition: PACU Description of Procedure: BRIEF OPERATIVE NOTE Preoperative Diagnosis:Thoracic myelopathy, severe stenosis T10-11, lower extremity weakness, gait abnormality with recent frequent falls due to myelopathy, myelomalacia at the thoracic spine, scoliosis Postoperative Diagnosis:Thoracic myelopathy, severe stenosis T10-11, lower extremity weakness, gait abnormality with recent frequent falls due to myelopathy, myelomalacia at the thoracic spine, scoliosis Procedure: Laminectomy and decompression T10-11 with foraminotomy Surgeon: Dr. Rodriguez Die Turner: Isaac BENTON who is present throughout the entire the case persistence during positioning, dissection, exposure, visualization, and all crucial elements of the case as well as closure. Anesthesia: General anesthesia Estimated blood loss: Approximately 50 cc Complications: None apparent Components implanted: None Disposition: To recovery room in good stable condition. OPERATIVE INDICATIONS The patient has been having issues in their lower back and lower extremities. T he patient was having significant difficulty with her mobilization and ambulation. She has been having increasing difficulty since March but she feels she may has been having difficulty for almost a year. Over the past month she has been having significant worsening where she has had recurrent falls and she feels she is falling more than 60 times over the past 6 months. She is having greater difficulty with her ambulation and mobilization and feels weak in her bilateral lower extremities. She is found to have evidence of significant scoliosis at her lumbar spine. She has significant degenerative changes. She has mild to moderate foraminal stenosis of her lumbar spine. Her more significant issues seem to be that of severe stenosis at T10-11. She was having evidence of severe stenosis at T10-11 with evidence of myelomalacia at that level. This seemed to be causing her myelopathy and thus the difficulty and myelopathic symptoms in her lower extremities. The patient has been through conservative treatment. We discussed various treatment options including surgery, and the patient wishes to proceed with surgery we discussed possibility of decompression and fusion at multiple levels including potential stabilization through her curvature or the possibility of addressing the severe myelopathy and stenosis at T10-11 alone. We felt that she could do well with laminectomy de compression at T10-11. We discussed the risk, patient's alternatives and benefits of surgery including but not limited to, risk of bleeding risk of infection, risk of need for further surgery, risk of decreased, loss of motion, loss of function, nerve damage, paralysis, heart attack, blindness and . OPERATIVE SUMMARY After discussing all the risks, patient alternatives and benefits at length, the patient elected to proceed with surgical intervention, signed informed consent, and presented for their procedure. The patient was seen and examined in the preoperative holding area and the surgical site was marked. The patient was given antibiotics and brought to the operating room. The patient was sedated and intubated by anesthesia in standard fashion. The patient was positioned on to the operating room table in a prone position on the appropriate frame which was well-padded and well molded. We were careful to pad any bony prominences and pressure points. We were careful to maintain the patient's cervical spine and good neutral alignment and position throughout. The patient was prepped and draped in a normal standard fashion. An appropriate timeout and keystone protocol performed. We were able to proceed with the surgery. Fluoroscopy was utilized to establish the appropriate level. The local wound area was infiltrated with local anesthetic. We used C arm guidance to the as positively establish the level at T10-11 referencing from the last vertebral body as L5 and extending up to T10-11. An incision was made at the midline longitudinally over the appropriate levels at T 1011. Dissection was taken down subcutaneously to the level of the fascia which was split midline. Dissection was taken over the lamina. Intraoperative fluoroscopy was taken which showed a marker at the appropriate level positively at T10-11. With the appropriate level positively confirmed, we were able to proceed with laminectomy. The wound was copiously irrigated and suctioned dry as had been done periodically throughout the case. I performed a laminectomy with a combination of curettes and a high-speed bur and Kerrison rongeurs. There was severe stenosis at that level centrally. There was also evidence of a cystic structure on the right side at the facet joint which was removed to provide further decompression. A small medial facetectomy was performed again further access. A partial foraminotomy was also performed. Significant portions of the ligamentum flavum were taken down. I was able to achieve excellent central decompression at T10-11. The level did not appear to be grossly destabilized. There is no evidence of dural tear or leak. Good hemostasis maintained. The wound was copiously irrigated and suctioned dry. Good decompression and discectomy was noted. We were able to proceed with closure. The epidural area was infiltrated 40 mg Depo-Medrol. The fascia was closed for a watertight closure. The subcuticular tissue was closed with absorbable suture. The wound was cleaned and dried and dressed with the appropriate dressing. The drapes were broken down. The patient was gently rolled back onto their hospital bed being careful to maintain their cervical spine and good neutral alignment and position. They were woken up by anesthesia, extubated, and brought to the recovery room in good stable condition. The patient will be admitted to the hospital for observation and for appropriate postoperative care, medical management and monitoring. We will continue to follow them closely about the postoperative course.
--- NOTE | 2023-08-20 18:30 | FL ---
EXAMINATION TYPE: FL guidance operating room, XR thoracic spine 2V Intraoperative/procedural fluorosc opic services were provided. Total fluoroscopy time is 24 seconds with a total of 6 submitted images to PACS. Please see the operative/procedural note for further details. DAP: 4.694 Gycm2
[2023-08-20] MEDS: GABAPENTIN 300 MG CAP PO SCH (19:49)
[2023-08-20] MEDS: SODIUM CHLORIDE 0.9% 1,000 ML IV SCH (19:49)
[2023-08-20] MEDS: NITROFURANTOIN MONOHYD/M-CRYST 100 MG CAP PO SCH (19:49)
[2023-08-20] MEDS: ATORVASTATIN 40 MG TAB PO SCH (19:49)
[2023-08-20] MEDS ORDERED: NAPROXEN 500 MG PO SCH (21:00)
[2023-08-20] MEDS: HYDROcodone/APAP 5-325MG 1 EACH TAB PO PRN (21:50)
[2023-08-21] MEDS: PANTOPRAZOLE 40 MG TABLET PO SCH (06:08)
[2023-08-21] MEDS: MONTELUKAST 10 MG TAB PO SCH (08:06)
[2023-08-21] MEDS: amLODIPine 5 MG TAB PO SCH (08:06)
[2023-08-21] MEDS: METOCLOPRAMIDE 5 MG TAB PO SCH (08:06)
--- NOTE | 2023-08-21 09:59 | P.PN ---
Progress Note - Text Progress Note Date: 08/21/23 Postoperative day #1 Patient is seen and examined today at bedside. The patient has some pain around the surgical site as expected. Pain is being controlled with medication. He has been up with physical therapy and is mobilizing well with her walker. She voids but she has significant postvoid residual. She had 800 cc postvoid residual. Physical Exam Afebrile with stable vital signs Abdomen is soft nontender. Chest has good excursion deep and space expiration The incision site is clean dry and intact. No erythema there is no purulence. Extremities have not had neurologic change from prior to surgery. Calves and thighs were soft nontender without evidence of DVT. Assessment/Plan Postoperative day #1 status post decompression laminectomy at T10-11 for her severe stenosis with thoracic myelopathy and myelomalacia with lower extremity weakness Gait abnormality with difficulty ambulating due to lower extremity weakness from her myelopathy Urinary retention, likely due to myelopathy Patient is progressing as expected from the surgery. We will continue to increase the patient's mobilization with therapy. She seems to ambulate well but has frequent falls at home. We still need to consider the possibility of placement however she would like to go home and is making good progress with physical therapy. The patient has urinary retention. It is difficult to know how long it has been going on with her as she says she is able to void normally. She is able to void on her own but scanning shows that she has significant post residual retention. This is likely due to her myelopathy and her thoracic spine. She does have changes at her urine which may be contributing as well. She is currently on Macrobid. She will have a Da Silva catheter placed to try to give her some bladder rest and see if she is able to void well tomorrow. We will continue pain control with oral or IV medications. We'll continue to follow patient closely.
[2023-08-21] MEDS: TAMSULOSIN 0.4 MG CAP.ER.24H PO SCH (11:23)
--- NOTE | 2023-08-21 11:44 | P.CONS ---
History of Present Illness - Reason for Consult UTI - History of Present Illness Patient is admitted for decompression laminectomy T10-11 for thoracic myelopathy and myelomalacia with lower extremity weakness. Patient is presently clinically doing well. Pain is fairly controlled patient is passing gas does have bowel sounds. Patient is on nitrofurantoin for UTI that was diagnosed to be pulled 2 days before hospitalization for symptoms of increased urinary frequency. Patient is otherwise clinically doing well. Patient blood pressure is low normal which is expected for surgery patient takes amlodipine at home. REVIEW OF SYSTEMS: CONSTITUTIONAL: No fever, no malaise, no fatigue. HEENT: No recent visual problems or hearing problems. Denied any sore throat. CARDIOVASCULAR: No chest pain, orthopnea, PND, no palpitations, no syncope. PULMONARY: No shortness of breath, no cough, no hemoptysis. GASTROINTESTINAL: No diarrhea, no nausea, no vomiting, no abdominal pain. NEUROLOGICAL: No headaches, no weakness, no numbness. HEMATOLOGICAL: Denies any bleeding or petechiae. GENITOURINARY: Denies any burning micturition, frequency, or urgency. MUSCULOSKELETAL/RHEUMATOLOGICAL: Denies any joint pain, swelling, or any muscle pain. ENDOCRINE: Denies any polyuria or polydipsia. The rest of the 14-point review of systems is negative. PHYSICAL EXAMINATION: GENERAL: The patient is alert and oriented x3, not in any acute distress. Well developed, well nourished. HEENT: Pupils are round and equally reacting to light. EOMI. No scleral icterus. No conjunctival pallor. Normocephalic, atraumatic. No pharyngeal erythema. No thyromegaly. CARDIOVASCULAR: S1 and S2 present. No murmurs, rubs, or gallops. PULMONARY: Chest is clear to auscultation, no wheezing or crackles. ABDOMEN: Soft, nontender, nondistended, normoactive bowel sounds. No palpable organomegaly. MUSCULOSKELETAL: No joint swelling or deformity. EXTREMITIES: No cyanosis, clubbing, or pedal edema. NEUROLOGICAL: Still has some lower extremity weakness SKIN: No rashes. Assessment and plan -Perioperative hypotension expected postoperatively hold off on amlodipine for a day probably can resume tomorrow -UTI that was diagnosed before hospitalization continue 1 more day of antibiotic completing 3 days of therapy with nitrofurantoin. -Gastroesophageal reflux disease -Hyperlipidemia -Status post laminectomy and decompression surgery T11-12: Pain management DVT prophylaxis as per primary service Past Medical History Past Medical History: GERD/Reflux, Hyperlipidemia, Hypertension, Osteoarthritis (OA) Additional Past Medical History / Comment(s): hx. of gastritis/ small ulcerations/ distal esophagitis/diverticulosis. hiatal hernia, frequent falls recently related to back, lots of bruises, legs are numb & tingling, can't really feel feet, just started A/B for UTI today History of Any Multi-Drug Resistant Organisms: None Reported Past Surgical History: Appendectomy, Hysterectomy, Orthopedic Surgery, Tonsillectomy Additional Past Surgical History / Comment(s): 09/30/18 EGD with bx and colonoscopy with bx, R bunionectomy Past Anesthesia/Blood Transfusion Reactions: No Reported Reaction Additional Past Anesthesia/Blood Transfusion Reaction / Comm: no hx. of transfusion reaction Past Psychological History: Depression Additional Psychological History / Comment(s): Pt resides with son, Chato. She is independent. She works for [email or web address]. Smoking Status: Former smoker Past Alcohol Use History: Rare Additional Past Alcohol Use History / Comment(s): smoked for a year @age of 20 Past Drug Use History: Marijuana Additional Drug Use History / Comment(s): doesn't use anymore, only topical prn - Past Family History Father Family Medical History: Myocardial Infarction ([place]) Mother Family Medical History: Thyroid Disorder Additional Family Medical History / Comment(s): scoliosis Medications and Allergies Home Medications Medication Instructions Recorded Confirmed Type amLODIPine [Norvasc] 5 mg PO DAILY 05/15/18 08/20/23 History Atorvastatin [Lipitor] 40 mg PO HS 10/19/18 08/20/23 History Omeprazole 40 mg PO BID 10/19/18 08/20/23 History Gabapentin [Neurontin] 300 mg PO TID 08/18/23 08/20/23 History Metoclopramide [Reglan] 5 mg PO QAM 08/18/23 08/20/23 History Montelukast [Singulair] 10 mg PO DAILY 08/18/23 08/20/23 History Naproxen [Naprosyn] 500 mg PO BID 08/18/23 08/20/23 History Nitrofurantoin Monohyd/M-Cryst 100 mg PO Q12HR 08/19/23 08/20/23 History [Macrobid] Allergies Allergy/AdvReac Type Severity Reaction Status Date / Time No Known Allergies Allergy Verified 08/20/23 13:06 Physical Exam Vitals: Vital Signs Temp Pulse Pulse Resp BP Pulse Ox 08/21/23 06:56 99.5 F 98 18 109/71 91 L 08/21/23 02:01 98.9 F 98 18 116/66 91 L 08/20/23 18:58 80 16 138/70 97 08/20/23 18:45 76 16 140/70 99 08/20/23 18:30 76 16 124/71 100 08/20/23 18:15 75 16 114/65 96 08/20/23 18:03 97.2 F L 77 16 118/60 98 08/20/23 13:12 98.0 F 100 16 137/69 95 Intake and Output 08/20/23 08/21/23 08/21/23 22:59 06:59 14:59 Intake Total 951 Output Total 50 1350 Balance 901 -1350 Intake: IV 951 Output: Urine 1350 Straight 1350 Estimated Blood Loss 50 Other: Voiding Method Toilet # Voids 3 Weight 63.1 kg
[2023-08-21] MEDS: KETOROLAC 15 MG/ML 1 ML VIAL IVP PRN (13:48)
[2023-08-22 08:17] VITALS: RESP 17
--- NOTE | 2023-08-22 10:43 | P.DS ---
Providers Date of admission: 08/20/2023 Expected date of discharge: 08/22/23 Attending physician: Katie Rodriguez Consults: 08/20/23 17:47 Consult Physician Routine Consulting Provider: Hernandez Mariano Consult Reason/Comments: Medical management Do you want consulting provider notified?: Yes Primary care physician: Gigi Hatfield - Discharge Diagnosis(es) (1) Myelopathy concurrent with and due to spinal stenosis of thoracic region Current Visit: Yes Status: Acute (2) Lower extremity weakness Current Visit: Yes Status: Acute (3) Frequent falls Current Visit: Yes Status: Acute (4) Myelomalacia Current Visit: Yes Status: Acute (5) Hyperlipidemia Current Visit: Yes Status: Acute (6) Urinary tract infection Current Visit: Yes Status: Acute (7) GERD (gastroesophageal reflux disease) Current Visit: Yes Status: Acute (8) Status post laminectomy Current Visit: Yes Status: Acute (9) Scoliosis Current Visit: Yes Status: Acute (10) Thoracic stenosis Current Visit: Yes Status: Acute (11) Gait abnormality Current Visit: Yes Status: Acute Hospital Course: This is a pleasant 73-year-old female who presented with T10-11 severe thoracic spinal stenosis, thoracic myelopathy, lower extremity weakness, gait abnormality with multiple recent falls due to myelopathy, thoracic myelomalacia, and scoliosis who failed outpatient conservative therapy. She was admitted for T10- 11 laminectomy and decompression with foraminotomy. The patient tolerated the procedure well and did well postoperatively. He does feel her mobility has improved as compared to Friday prior to surgical intervention. She does co ntinue to have a significantly unsteady gait with lower extremity weakness and heaviness. She has been working with physical therapy. She is utilizing a walker to aid in ambulation. She does have a walker at home. Given her improvement, she feels she is ready for discharge home today. She would be willing to discharge home with home care. Condition on day of discharge stable. Patient will be discharged home. Patient was cleared preoperatively for surgery by Dr. Gigi Hatfield. Patient currently denies any nausea, vomiting, fever, or chills. Patient is eating without difficulty. Patient may shower Optifoam dressing intact. Patient may remove Optifoam dressing in 3 days and shower without a dressing at that time. Patient should refrain from driving until at least after their first follow-up appointment in the office. Patient should avoid excessive bending, lifting, and twisting; no lifting greater than 10 pounds. She is strongly encouraged to continue utilizing a walker to aid in ambulation. She was able to void independently yesterday postoperatively but had approximately 800 postvoid residual. Da Silva catheter was reinserted. This has been discontinued this morning. Patient is currently planning for a voiding trial. We did discuss if she is able to void but has too high of a post residual void we would plan for reinsertion of Da Silva catheter with plans to fo llow-up with urology. Discussed with the patient that some of her difficulties with significant post residual could be in relation to her myelopathy at her thoracic cord. That she must be cleared by medicine prior to discharge home. If she is unable to void independently or has significant post residual after voiding, we will plan for medicine to clear her for discharge with Da Silva catheter most likely with Flomax prescription. MAPS has been reviewed today, 09/20/2023, with an Overall Overdose Risk Score of 000. An "Opiod Start Talking" Form has been signed and placed in the patient's chart. A prescription has been written for Hydrocodone 5 mg / 325 mg, 1 tab, every 8 hours, as needed for acute pain, dispense #21. Prescription is sent to the [facility] pharmacy located within [facility] per request of the patient. Patient's other medical diagnoses include hyperlipidemia, urinary tract infection, and GERD. She will be discharged home with home health services. Physical Exam on day of discharge: Patient is awake, alert, and oriented 3 Vital signs stable Good chest excursion with deep inspiration and expiration Abdomen soft nontender No signs or symptoms of DVT; no calf pain Extensor hallucis longus, plantarflexion, and dorsiflexion positive sustained bilateral lower extremities Neurovascularly intact bilateral lower extremities No pain with palpation around the surgical site at the thoracic spine Incision is clean and intact with 1 small area of dried blood at the lower thoracic spine; no erythema, purulence, or signs of infection Optifoam dressing intact Procedures: T10-11 laminectomy and decompression with foraminotomy Patient Condition at Discharge: Stable Plan - Discharge Summary Discharge Rx Participant: Yes New Discharge Prescriptions: New HYDROcodone/APAP 5-325MG [[place] 5] 1 each PO Q8HR PRN #21 tab PRN Reason: Pain No Action amLODIPine [Norvasc] 5 mg PO DAILY Omeprazole 40 mg PO BID Atorvastatin [Lipitor] 40 mg PO HS Metoclopramide [Reglan] 5 mg PO QAM Montelukast [Singulair] 10 mg PO DAILY Gabapentin [Neurontin] 300 mg PO TID Naproxen [Naprosyn] 500 mg PO BID Nitrofurantoin Monohyd/M-Cryst [Macrobid] 100 mg PO Q12HR Discharge Medication List amLODIPine [Norvasc] 5 mg PO DAILY 05/15/18 [History] Atorvastatin [Lipitor] 40 mg PO HS 10/19/18 [History] Omeprazole 40 mg PO BID 10/19/18 [History] Gabapentin [Neurontin] 300 mg PO TID 08/18/23 [History] Metoclopramide [Reglan] 5 mg PO QAM 08/18/23 [History] Montelukast [Singulair] 10 mg PO DAILY 08/18/23 [History] Naproxen [Naprosyn] 500 mg PO BID 08/18/23 [History] Nitrofurantoin Monohyd/M-Cryst [Macrobid] 100 mg PO Q12HR 08/19/23 [History] HYDROcodone/APAP 5-325MG [[place] 5] 1 each PO Q8HR PRN #21 tab 08/22/23 [Rx] Follow up Appointment(s)/Referral(s): Isaac Garcia, BAKARI [PHYSICIAN TRACK REPAIR PERSON] - 2 Weeks (Patient may follow-up with Isaac Garcia PA-C or Dr. Abram Rodriguez at [facility] in 2-3 weeks following discharge. ) Activity/Diet/Wound Care/Special Instructions: 1. Patient may shower with Optifoam dressing intact. 2. Patient may remove Optifoam dressing in 3 days and shower without a dressing at that time. 3. Patient should refrain from driving until at least after their first follow- up appointment in the office. 4. Patient should avoid excessive bending, twisting, lifting; avoid overhead lifting; no lifting greater than 10 pounds 5. Patient is strongly encouraged to continue utilizing a walker to aid in ambulation 6. Take medications as prescribed 7. Do not soak in tub Discharge Disposition: HOME WITH HOME HEALTH SERVICES
[2023-08-22] MEDS ORDERED: CALCIUM CARBONATE 500 MG CHEWABLE PO PRN (11:23)
[2023-08-22 15:13] VITALS: BP 133/76; PULSE 118; TEMP 98.9
--- NOTE | 2023-08-23 21:54 | P.PN ---
Subjective Progress Note Date: 08/22/23 Patient is admitted for decompression laminectomy T10-11 for thoracic myelopathy and myelomalacia with lower extremity weakness. Patient is presently clinically doing well. Pain is fairly controlled patient is passing gas does have bowel sounds. Patient is on nitrofurantoin for UTI that was diagnosed to be pulled 2 days before hospitalization for symptoms of increased urinary frequency. Patient is otherwise clinically doing well. Patient blood pressure is low normal which is expected for surgery patient takes amlodipine at home. 08/22/2023 Patient is seen in follow-up today postoperative day #1 decompression and laminectomy T10-T11. She is reporting minimal back pain rating it about a 5 out of 10 and states that when she is using her new medication the pain is even less. She has been up and ambulating with physical therapy and recommended for home with home care services. She was having issues with urinary retention postoperatively, indwelling catheter has not been removed and patient is able to urinate without difficulty. Postvoid residual is normal. She has not had a bowel movement in 2 days and we are recommending to continue bowel regimen while using narcotics for pain management and patient is agreeable to this plan of care. hemodynamically she is stable and she is cleared medically for discharge home. review of Systems Constitutional: Denied any fatigue denied any fever. Cardio vascular: denied any chest pain, palpitations Gastrointestinal: denied any nausea, vomiting, diarrhea Pulmonary: Denied any shortness of breath cough Neurologic denied any new focal deficits All inpatient medications were reviewed and appropriate changes in these medications as dictated in the interval history and assessment and plan. PHYSICAL EXAMINATION: GENERAL: The patient is alert and oriented x3, not in any acute distress. Well developed, well nourished. HEENT: Pupils are round and equally reacting to light. EOMI. No scleral icterus. No conjunctival pallor. Normocephalic, atraumatic. No pharyngeal erythema. No thyromegaly. CARDIOVASCULAR: S1 and S2 present. No murmurs, rubs, or gallops. PULMONARY: Chest is clear to auscultation, no wheezing or crackles. ABDOMEN: Soft, nontender, nondistended, normoactive bowel sounds. No palpable organomegaly. MUSCULOSKELETAL: No joint swelling or deformity. EXTREMITIES: No cyanosis, clubbing, or pedal edema. NEUROLOGICAL: Still has some lower extremity weakness SKIN: No rashes. Assessment and plan -Perioperative hypotension expected postoperatively recommended to hold amlodipine on discharge and monitor BP at home. -UTI that was diagnosed before hospitalization continue 1 more day of antibiotic completing 3 days of therapy with nitrofurantoin. -Gastroesophageal reflux disease -Hyperlipidemia -Status post laminectomy and decompression surgery T11-12: Pain management DVT prophylaxis as per primary service Medically patient is stable for discharge home. Thank you for this consultation. The impression and plan of care has been dictated by Marcy Soni, Nurse Practitioner as directed. Dr. Chacorta MD I have performed a history and physical examination and medical decision making of this patient, discussed the same with the dictator, and agree with the dictators assessment and plan as written, documented as a scribe. Based on total visit time, I have performed more than 50% of this visit. Objective - Vital Signs Vital signs: Vital Signs Temp 98.3 F 08/22/23 06:50 Pulse 91 08/22/23 06:50 Resp 17 08/22/23 06:50 BP 102/72 08/22/23 06:50 Pulse Ox 94 L 08/22/23 06:50 FiO2 Intake & Output 08/21/23 08/22/23 08/22/23 18:59 06:59 18:59 Output Total 1250 1500 300 Balance -1250 -1500 -300 Output: Urine 1250 1500 300 Straight 550 300 Other: Voiding Method Toilet Assessment and Plan Time with Patient: Less than 30
== END 2023-08-22 14:57 | disposition home health service (06) ==
LOC: OR 11:36 → 4SSUR 18:03 → OR 08-22 14:57
PROVIDERS: ATTEND Orthopaedic Surgery Orthopaedic Surgery of the Spine
DX: M48.04 Spinal stenosis, thoracic region (principal); M51.06 Intervertebral disc disorders with myelopathy, lumbar region; M41.9 Scoliosis, unspecified; I10 Essential (primary) hypertension; E78.5 Hyperlipidemia, unspecified; K21.00 Gastro-esophageal reflux disease with esophagitis, without bleeding; Z90.49 Acquired absence of other specified parts of digestive tract; Z90.89 Acquired absence of other organs; Z90.710 Acquired absence of both cervix and uterus; Z98.890 Other specified postprocedural states; Z87.891 Personal history of nicotine dependence; Z82.49 Family history of ischemic heart disease and other diseases of the circulatory system; Z83.49 Family history of other endocrine, nutritional and metabolic diseases; Z79.899 Other long term (current) drug therapy
CPT/HCPCS: 97530 ×2; 97161; 97166; 72070; 63046; J1030; J0690 ×3; J2405; J1885 ×2

== ENCOUNTER → 2023-12-23 | Outpatient (CLI) | payer MEDICARE, OTHER ==
--- NOTE | 2023-12-28 23:01 | MR ---
EXAMINATION TYPE: MR lumbar spine wo/w con DATE OF EXAM: 12/23/2023 COMPARISON: NONE HISTORY: 73-year-old female Frequent falls, perry leg weakness Technique: Multiplanar, multisequence images of the lumbar spine were obtained before and after admin istration of 6 mL intravenous Gadavist gadolinium contrast. FINDINGS: S-shaped scoliosis of the lumbar spine. Advanced hypertrophic facet arthropathy throughout. Degenerative grade 1 retrolisthesis L1-L2, L2-L3, L3-L4. Grade 1 anterolisthesis L4-L5. 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 Moderate to advanced disc/endplate degenerative change throughout. Bulging discs are present at multi ple levels. Conus medullaris is normal. Heterogeneous marrow signal without suspicious bone marrow replacement. Some edematous Modic type I e ndplate changes present towards the left at L3-L4 and more extensively at T10-T11. At T10-T11, there may be a focal moderate to severe spinal canal stenosis due to disc bulge and ligam entum flavum thickening. Severe right and moderate left neural foraminal stenosis. At T12/L1, diffuse disc bulge with superimposed central disc extrusion with superior migration of dis c material resulting in focal moderate spinal canal stenosis. Severe bilateral neuroforaminal stenosi s. At L1-L2, hypertrophic facet arthropathy with ligamentum flavum thickening, disc osteophyte complex, and grade 1 retrolisthesis. Changes result in mild canal stenosis. Moderate left neural foraminal juan luis nosis. At L2-L3 hypertrophic facet arthropathy with posterior discussed by complex and grade 1 retrolisthesi s. There is mild spinal canal stenosis with moderate left neuroforaminal stenosis. At L3-L4, hypertrophic facet arthropathy with ligamentum flavum thickening, prominent dorsal pleural fat, diffuse disc bulge, grade 1 retrolisthesis. Focal moderate spinal canal stenosis with moderate t o severe right and mild to moderate left neural foraminal stenosis. At L4-L5, severe hypertrophic facet arthropathy with ligament of flavum thickening, diffuse disc bulg e, grade 1 anterolisthesis. There is mild overall spinal canal stenosis with right lateral recess juan luis nosis, severe right neural foraminal stenosis. At L5-S1, hypertrophic facet arthropathy with moderate to severe bilateral neural foraminal stenoses, left greater than right. Ectatic proximal abdominal aorta to 2.8 cm. IMPRESSION: 1. Degenerated S-shaped scoliosis of the lumbar spine. Marked edematous Modic type I endplate change toward the left at T10-T11 and to a lesser extent toward the left at L3-L4. 2. Degenerative grade 1 spondylolisthesis L1-L2, L2-L3, L3-L4, L4-L5. 3. Changes result in moderate to severe spinal canal stenosis at T10-T11 with flattening of both the dorsal and ventral cord. Moderate at L3-L4 and mild at other levels. 4. Right lateral recess stenosis at L4-L5 and variable moderate neural foraminal stenoses as outlined above. Severe at T10-T11, T12-L1, L4-L5, and L5-S1.
== END | disposition home or self-care (01) ==
LOC: RADMRIMAIN 11:27
PROVIDERS: ATTEND Psychiatry & Neurology Neurology
DX: M43.16 Spondylolisthesis, lumbar region (principal); M48.04 Spinal stenosis, thoracic region; M48.062 Spinal stenosis, lumbar region with neurogenic claudication; M41.86 Other forms of scoliosis, lumbar region; M99.72 Connective tissue and disc stenosis of intervertebral foramina of thoracic region; M99.73 Connective tissue and disc stenosis of intervertebral foramina of lumbar region; M47.816 Spondylosis without myelopathy or radiculopathy, lumbar region
CPT/HCPCS: 72158; A9585

== ENCOUNTER → 2024-01-21 | Outpatient (CLI) | payer MEDICARE, OTHER ==
--- NOTE | 2024-01-21 15:55 | MR ---
EXAMINATION TYPE: MR thoracic spine wo con DATE OF EXAM: 01/21/2024 3:40 PM CLINICAL INDICATION:Female, 73 years old with history of M47.817 SPONDYLS W/O MYELOPATHY; PHH, Freque nt falls, Numbness of legs x9 months, Back surgery T10/11 laminectomy COMPARISON: No priors. TECHNIQUE: Multi planar, multi sequence imaging was performed utilizing: T1-weighted, short-tau inver sam recovery and T2-weighted of the thoracic spine. IV Contrast: cc (none if empty) FINDINGS: Multilevel degeneration changes throughout the spine with disc space narrowing osteophyte formation a nd facet joint arthropathy disc bulging at nearly every disc level with osteophytes are present. Ther e is spinal canal stenosis worse at T10-T11 with severe spinal canal stenosis and abnormal cord edema . There is severe bilateral neural foraminal stenosis at T10-T11. Degeneration changes throughout the remainder of the spine also present with multilevel neural forami nal stenosis worse at T9-T10 with severe bilateral, T11-T12 with severe bilateral severe right and mo derate left. At T12-L1 with severe left and moderate to severe right. There is disc extrusion/sequestration at the level of T12 vertebral body with disc material posterior to the vertebral body measuring 18 x 6 x 13 mm with moderate spinal canal stenosis when taking into account facet joint arthropathy. No evidence for bony edema to suggest fracture. Postsurgical changes in the expected T10-T11 region p osteriorly with laminectomy findings. IMPRESSION: 1. T10-T11 degeneration changes with severe spinal canal stenosis remaining. Abnormal cord signal re fransisca present from 07/16/2023. Overall findings of the spinal cord are not significantly changed. Ther e is severe bilateral neural foraminal stenosis at this level. 2. Disc extrusion protrusion/sequestration at the level of T12. Findings similar to prior on 07/16/19. 3. Severe degeneration changes throughout the remainder the spine without significant spinal canal s tenosis other than T10-T11. Neural foraminal stenosis of high-grade stenosis throughout the lower tho racic upper lumbar spine as described above.
== END | disposition home or self-care (01) ==
LOC: RADMRIMAIN 14:50
PROVIDERS: ATTEND Orthopaedic Surgery Orthopaedic Surgery of the Spine
DX: M47.816 Spondylosis without myelopathy or radiculopathy, lumbar region (principal); M47.817 Spondylosis without myelopathy or radiculopathy, lumbosacral region; M48.061 Spinal stenosis, lumbar region without neurogenic claudication; M51.24 Other intervertebral disc displacement, thoracic region; M51.36 Other intervertebral disc degeneration, lumbar region; M51.37 Other intervertebral disc degeneration, lumbosacral region; M62.830 Muscle spasm of back; M50.322 Other cervical disc degeneration at C5-C6 level; M50.321 Other cervical disc degeneration at C4-C5 level; M50.30 Other cervical disc degeneration, unspecified cervical region; M50.323 Other cervical disc degeneration at C6-C7 level; M47.894 Other spondylosis, thoracic region; M51.34 Other intervertebral disc degeneration, thoracic region; M48.04 Spinal stenosis, thoracic region; R29.2 Abnormal reflex; R53.1 Weakness
CPT/HCPCS: 72146

== ENCOUNTER → 2024-07-07 | Outpatient (CLI) | payer MEDICARE, OTHER ==
[2024-07-07 14:59] LABS: Partial Thromboplastin Time 23.1 sec (22.0-30.0); Prothrombin Time 10.7 sec (10.0-12.5)
[2024-07-07 19:56] LABS: BUN/Creat Ratio 24.29 Ratio (12.00-20.00); Chloride 102 mmol/L (96-109); Glucose 99 mg/dL (70-110); Potassium 4.5 mmol/L (3.5-5.5); Sodium 140 mmol/L (135-145)
[2024-07-07 19:57] LABS: ALT 17 U/L (8-44); AST 20 U/L (13-35); Albumin 4.3 g/dL (3.8-4.9); Albumin/Globulin Ratio 2.26 Ratio (1.60-3.17); Alkaline Phosphatase 141 U/L (41-126); Calcium 9.5 mg/dL (8.7-10.3); Carbon Dioxide 24.4 mmol/L (21.6-31.8); Globulin 1.9 g/dL (1.6-3.3); Total Bilirubin 0.3 mg/dL (0.3-1.2); Total Protein 6.2 g/dL (6.2-8.2)
[2024-07-07 20:11] LABS: HCT 37.6 % (37.2-46.3); HGB 11.5 g/dL (12.0-15.0); MCH 25.7 pg (27.0-32.0); MCHC 30.6 g/dL (32.0-37.0); MCV 84.1 FL (80.0-97.0); Mean Platelet Volume 9.5 FL (9.5-12.2); NRBC Per 100 WBC 0 X 10*3/uL (0.00-0.01); Platelet Count 434 X 10*3/uL (140-440); RBC 4.47 X 10*6/uL (4.10-5.20); RDW 17.2 % (11.5-14.5)
== END | disposition home or self-care (01) ==
LOC: LABPAT 13:58
PROVIDERS: ATTEND Orthopaedic Surgery
DX: Z01.818 Encounter for other preprocedural examination (principal); Z22.322 Carrier or suspected carrier of Methicillin resistant Staphylococcus aureus; M17.11 Unilateral primary osteoarthritis, right knee
CPT/HCPCS: 36415; 80053; 85027; 85610; 85730; 87070; 93005

== ENCOUNTER 2024-07-13 07:48 | Inpatient (IN) | payer MEDICARE, OTHER ==
[~2024-07-13 07:48] MED LIST changes: +HYDROmorphone 0.5 MG/0.5 ML SYRINGE IVP PRN; -LACTATED RINGERS 1,000 ML IV SCH; +LIDOCAINE 1% (10MG/ML) FOR IV START INTRADERMA PRN; +fentaNYL (PF) 50 MCG/ML 2 ML AMP IVP PRN
[2024-07-13] MEDS: IV FLUID CONTINUATION 1,000 ML IV ONE (08:23)
[2024-07-13] MEDS: LACTATED RINGERS 1,000 ML IV SCH (08:29)
[2024-07-13] MEDS: DEXAMETHASONE SOD PHOSPHATE 4 MG/ML 1 ML VIAL IV ONE (08:29)
[2024-07-13] MEDS: ONDANSETRON 4 MG/2 ML VIAL IVP ONE (08:30)
[2024-07-13] MEDS: MIDAZOLAM 2 MG/2 ML VIAL IV PRN (08:30)
[2024-07-13] MEDS ORDERED: NALOXONE 0.4 MG/ML 1 ML VIAL IV PRN (08:44)
[2024-07-13] MEDS ORDERED: ONDANSETRON 4 MG/2 ML VIAL IVP PRN (08:44)
[2024-07-13] MEDS ORDERED: bisacodyL 10 MG SUPP RECTAL PRN (08:44)
[2024-07-13] MEDS ORDERED: HYDROmorphone 0.5 MG/0.5 ML SYRINGE IVP PRN ×2 (08:44)
[2024-07-13] MEDS ORDERED: MAGNESIUM HYDROXIDE 2,400 MG/30 ML CUP PO PRN (08:44)
[2024-07-13] MEDS ORDERED: NA PHOS,M-B/NA PHOS,DI-BA 133 ML ENEMA RECTAL PRN (08:44)
[2024-07-13] MEDS ORDERED: HYDROcodone/APAP 7.5-325MG 1 EACH TAB PO PRN (08:46)
[2024-07-13] MEDS ORDERED: SODIUM CHLORIDE 0.9% (PF) 10 ML VIAL ONE (08:57)
[2024-07-13] MEDS ORDERED: PROPOFOL 10 MG/ML 20 ML VIAL IV ONE (08:57)
[2024-07-13] MEDS ORDERED: fentaNYL (PF) 50 MCG/ML 2 ML AMP ONE (08:57)
[2024-07-13] MEDS ORDERED: TRANEXAMIC 1,000 MG/100ML-NACL PREMIX BAG ONE (08:57)
[2024-07-13] MEDS ORDERED: ROPIVACAINE 5 MG/ML 30 ML VIAL ONE (08:57)
[2024-07-13] MEDS: ceFAZolin 1,000 MG in SODIUM CHLORIDE 0.9% 1,000 ML IRRIGATION ONE (09:00)
--- NOTE | 2024-07-13 10:01 | P.ANPRN ---
Procedure Note - Anesthesia - Nerve Block Performed Right Adductor Canal Infusion Time Out Performed: Yes ([id number]) Date of Procedure: 07/13/24 Location of Patient: PreOp Indication: Acute Post-Operative Pain, Dx/Pain Location (right knee), Requested by Surgeon Specifically requested for management of pain by DrPhil: David Lynn Sedation Type: Sedate with meaningful contact maintained Preparation: Sterile Prep, Sterile Dressing Position: Supine Catheter: Indwelling Needle Gauge: 18 Ultrasound used to visualize needle placement: Yes Ultrasound used to observe medication spread: Yes Injectate: 0.5% Ropivacaine (see comment for volume) (20 mL +10 mL of normal saline) Blood Aspirated: No Pain Paresthesia on Injection Noted: No Resistance on Injection: Normal Image Stored and Saved: Yes Events: Uneventful and Well Tolerated Right iPack Single Time Out Performed: Yes Date of Procedure: 07/13/24 Location of Patient: PreOp Indication: Acute Post-Operative Pain, Dx/Pain Location (right knee), Requested by Surgeon Specifically requested for management of pain by : David Lynn Sedation Type: Sedate with meaningful contact maintained Preparation: Sterile Prep Position: Left Lateral Catheter: None Needle Types: Pajunk Needle Gauge: 21 Ultrasound used to visualize needle placement: Yes Ultrasound used to observe medication spread: Yes Injectate: 0.5% Ropivacaine (see comment for volume) (20 mL +10 mL of normal saline) Blood Aspirated: No Pain Paresthesia on Injection Noted: No Resistance on Injection: Normal Image Stored and Saved: Yes Events: Uneventful and Well Tolerated
--- NOTE | 2024-07-13 10:17 | P.OP ---
Date of Procedure: 07/13/24 Preoperative Diagnosis: Severe osteoarthritis, right knee Postoperative Diagnosis: Severe osteoarthritis, right knee Procedure(s) Performed: Right total knee arthroplasty Implants: [employer] Journey II CR Oxinium Bi-cruciate stabalized femoral component size 5, right [employer] Journey nonporous tibial baseplate size 4, right [employer] Journey II, Constrained articular insert, size 9 mm, Size 3-4, right [employer] Journey Isis II resurfacing patellar component, oval, 29 mm All components were cemented using Palacos R bone cement The articulation is Oxinium on polyethylene Anesthesia: spinal Surgeon: David Lynn Plywood Stock Grader #1: Denise Cazares Estimated Blood Loss (ml): 50 Pathology: none sent Condition: stable Disposition: PACU Indications for Procedure: The patient's knee is end-stage, and conservative management has failed. The operation of knee replacement has been discussed at length in the office, as well as potential risks and complications. These are inclusive of, but not limited to: Infection, bleeding, scarring, discomfort, stiffness, blood vessel and nerve damage, need for further surgery, failure to relieve symptoms, persistence, recurrence, or worsening of problems, loosening, dislocation, wear, blood clot, pulmonary embolism, , gait dysfunction, stiffness, and other risks as discussed in the office. Patient elects to proceed and the consent form has been signed. Operative Findings: The operative findings are consistent with severe osteoarthritis of the right knee Description of Procedure: The patient was seen in the preoperative area, the consent was reviewed and the operative site was marked with a skin marker. The patient verified the procedure and the operative site. An adductor canal pain catheter and an iPACK block were placed by anesthesia in the preoperative area. The patient was then brought to the operating room and positioned on the operating room table in the supine position. Preoperative antibiotics and a gram of tranexamic acid were given intravenously. A spinal anesthetic was administered by the anesthesia department. Care was taken to make sure that all pressure points were adequately padded. A tourniquet was placed on the upper thigh and the lower extremity was prepped with ChloraPrep and draped in usual sterile fashion. A universal time-out was then performed which confirmed the patient's name, surgical site, ALLERGIES, and consent. The lower extremity was then exsanguinated and tourniquet was inflated to 250 mmHg. A standard anterior midline approach to the knee was performed. The skin and subcutaneous tissue were sharply dissected down to the patellar tendon. A medial parapatellar arthrotomy was then performed. The knee was then extended, the patellar was everted, and the knee was flexed. The infra-patellar fat pad was removed in order to enhance exposure. The anterior horns of both menisci were excised, and a release was performed to the posterior medial aspect of the knee. On gross visual inspection, there was complete loss of articular cartilage in the medial and patellofemoral joint spaces. There was also significant cartilage damage in the lateral compartment. There were multiple periarticular osteophytes globally about the knee which were then removed with a Ronguer. The femoral canal was then opened with the 9.5 mm intramedullary drill. The 8 mm intramedullary karina was then inserted into the femoral canal with the distal femoral cutting guide set for 5 of valgus. The distal femoral cutting block was then pinned in place. The intramedullary karina was then removed, and the distal femur was then cut. The cutting block was then removed and the cut was checked for symmetry. The resected bone was then measured to confirm the appropriate distal femoral resection. Next, the sizing guide was then placed and set for 3 external rotation based off of the epicondylar axis and Laramie's line. Pins were then placed and the drill holes, and the femur was sized with the sizing stylus. The pins were then removed, and the sizing guide was then removed. The spikes of the appropriate size femoral block was then placed into the predrilled holes, and malleted into place. Two 45 mm pins were then placed into the fixation holes on the cutting block. An wander wing was then used to ensure there would be no notching with the anterior cut. The anterior condyles were cut without notching. The anterior chord cut was then performed, followed by the posterior cut, posterior chamfer cut, and the anterior chamfer cut. The collateral ligaments were protected during the entire process. The cutting block was then removed. Any remaining bone and osteophytes were removed from the femur with a Ronguer. Attention was then directed to the tibia. The remaining ACL was removed with a Ronguer, and the tibia was then gently subluxed forward with a large bent knee retractor. Any remaining menisci were excised. The posterior lateral corner was cauterized in order to coagulate the lateral geniculate artery. The extra medullary tibial cutting guide was then placed, set for the appropriate rotation, slope, and depth of resection. The proximal tibia cutting guide was then pinned in place. Proximal tibia was then cut and sized. A curved osteotome was then used to remove any posterior osteophytes from the distal femur. The femoral trial was placed. The box ream guide was then used to remove the intracondylar femoral bone. The box notch trial was then placed. The tibial trial was placed with the appropriate-sized insert. The knee was able to fully extend and flex to 130 and was stable throughout all range of motion. The knee was then extended and the patella was everted. Patella was then measured, and then using an osteotomy guide, the patella was cut at the appropriate level. The patellar component was sized. The patellar drill guide was placed and the patella was drilled. The patella trial was then placed. The knee was then taken through range of motion with the patella trial and the patella tracked normally using the no thumbs technique. The patella trial was then removed. The knee was then flexed and lug holes were drilled through the femoral trial and the femoral trial was then removed. The tibial was then re-exposed, and the tibial broach guide was then pinned in place after it was set for the appropriate rotation to allow for the most coverage without overhang. The tibia was then reamed and broached. The femoral canal was plugged with autologous bone. The cut surfaces of bone were then irrigated with pulsatile lavage. The knee was also irrigated with Irrisept solution. The components were then opened, the cement was mixed. Cement was placed on the backside of the femoral, tibial, and patellar components. Cement was then applied to the tibial surface and pressurized into the surface using finger pressurization technique. The tibial component was then applied and excess cement was removed after it was impacted securely noted to be flush with the cut surface. In similar fashion, the cement was applied to the cut femoral surface, pressur ized and using finger pressurization the component was impacted in place. Excess cement was removed. The polyethylene spacer was then implanted and locked into position. Patellar component was then applied in a similar technique and the patellar clamp was used to hold patella in place while the cement hardened. The knee was held in full extension while the cement hardened. Once the cement had fully hardened, the knee was reinspected. Any other cement extrusion was removed the final range of motion testing showed range of motion from 0-130 with excellent stability, both medial and laterally and appropriate alignment of the leg. Patella tracked normally. After the cemented hardened, the tourniquet was released and hemostasis was obtained. A second gram of transexamic acid was given intravenously. The knee was again irrigated. The knee was again taken through range of motion and found to be stable throughout all range of motion of 0-130, and the patella tracked normally. The fascia was then closed with 0 Vicryl followed by #2 strata fix suture. The subcutaneous tissue was closed with 3-0 Vicryl and 3-0 monocryl. Exofin glue was used for the skin and placed with the knee in flexion. After the glue had dried, and Optafoam silver impregnated dressing was applied. A lightly compressive dressing was applied using web roll and Jass wrap. Patient was then transferred to the stretcher and taken to recovery room in stable condition. Sponge and needle counts were correct. The events and promotions assistant CHETAN Montana was required due the complexity surgery and the need for a skilled communication assistant. She assisted in positioning, draping, retraction, and closure of the wound.
[2024-07-13] MEDS: ROPIVACAINE 1,100 MG, SODIUM CHLORIDE 0.9% 500 ML 330 ML, EMPTY PAIN BALL 1 EACH MISCELLANE PRN (11:09)
--- NOTE | 2024-07-13 11:31 | XR ---
EXAMINATION TYPE: XR knee limited RT DATE OF EXAM: 07/13/2024 11:25 AM COMPARISON: None. CLINICAL INDICATION: Female, 74 years old with history of Evaluation for Postop abnormality and align ment, pain TECHNIQUE: 2 view(s) obtained. FINDINGS: Tibial and femoral components have been placed. No acute fracture or dislocation evident. Postsurgica l soft tissue changes are present. IMPRESSION: 1. No acute fractures post right knee replacement [facility], , 07/13/2024 11:29 AM
[2024-07-13] MEDS: GABAPENTIN 300 MG CAP PO STA (15:41)
[2024-07-13] MEDS: HYDROmorphone 0.5 MG/0.5 ML SYRINGE IVP PRN (16:00)
[2024-07-13] MEDS: SODIUM CHLORIDE 0.9% 1,000 ML IV SCH (16:05)
[2024-07-13] MEDS: methocarbamoL 750 MG TAB PO SCH (18:07)
[2024-07-13] MEDS: HYDROcodone/APAP 7.5-325MG 1 EACH TAB PO PRN (18:16)
[2024-07-13] MEDS: PANTOPRAZOLE 40 MG TABLET PO SCH (18:16)
[2024-07-13] MEDS: diazePAM 5 MG TAB PO STA (20:44)
[2024-07-13] MEDS: ASPIRIN 325 MG TAB PO SCH (22:17)
[2024-07-13] MEDS: GABAPENTIN 300 MG CAP PO SCH (22:18)
[2024-07-13] MEDS: SENNOSIDES-DOCUSATE SODIUM 1 EACH TAB PO SCH (22:18)
[2024-07-13] MEDS: NAPROXEN 250 MG TAB PO SCH (22:18)
[2024-07-13] MEDS: ATORVASTATIN 40 MG TAB PO SCH (22:18)
--- NOTE | 2024-07-14 07:05 | P.PN ---
Progress Note - Text Progress Note Date: 07/14/24 Postoperative day # 1 status post total knee arthroplasty, on adductor canal perineural catheter placed for postoperative analgesia. Ropivacaine 0.2% 8 mL per hour through ON-Q pump continuous infusion. Pain is well controlled. On visual analog scale 2/10 Patient is taking PRN oral pain medications. Reports knee stiffness which is bothering her. Catheter site: Looks Ok. There is no erythema or tenderness. Continue with the current pain management plan and will follow.
[2024-07-14] MEDS: MONTELUKAST 10 MG TAB PO SCH (08:03)
[2024-07-14] MEDS: METOCLOPRAMIDE 5 MG TAB PO SCH (08:03)
[2024-07-14] MEDS: amLODIPine 10 MG TAB PO SCH (08:04)
[2024-07-14] MEDS: FLUoxetine HCL 20 MG CAP PO SCH (08:04)
[2024-07-14] MEDS: CYCLOBENZAPRINE 10 MG TAB PO PRN (08:04)
[2024-07-14 09:39] LABS: HCT 27.7 % (37.2-46.3); HGB 8.7 g/dL (12.0-15.0); MCH 26.6 pg (27.0-32.0); MCHC 31.4 g/dL (32.0-37.0); MCV 84.7 FL (80.0-97.0); Mean Platelet Volume 10.6 FL (9.5-12.2); NRBC Per 100 WBC 0 X 10*3/uL (0.00-0.01); Platelet Count 280 X 10*3/uL (140-440); RBC 3.27 X 10*6/uL (4.10-5.20); RDW 17.3 % (11.5-14.5); WBC 10.54 X 10*3/uL (4.50-10.00)
--- NOTE | 2024-07-14 11:18 | P.PN ---
Subjective Progress Note Date: 07/14/24 Principal diagnosis: Primary osteoarthritis right knee. Status post total right knee arthroplasty. This is a 74-year-old female who is postop day #1 status post total right knee arthroplasty. She is having some difficulty with independent ADLs and ambulation. She is requesting transfer to inpatient rehab. Vital signs and labs are stable. Objective - Vital Signs Vital signs: Vital Signs Temp 98.0 F 07/14/24 07:13 Pulse 71 07/14/24 07:13 Resp 18 07/14/24 07:13 BP 106/58 07/14/24 07:13 Pulse Ox 97 07/14/24 07:13 FiO2 Intake & Output 07/13/24 07/14/24 07/14/24 18:59 06:59 18:59 Intake Total 651 360 Output Total 50 Balance 601 360 Weight 54.9 kg Intake: IV 651 Oral 360 Output: Estimated Blood Loss 50 Other: Voiding Method Bedpan # Voids 1 1 - Exam This is a 74-year-old female in no acute distress. She is alert and oriented x 3. Exam of the right lower extremity reveals that her dressing is clean, dry and intact. She has full foot and ankle motion without difficulty or pain. Neurovascular status to the lower extremity is intact. - Labs CBC & Chem 7: 07/14/24 03:35 Labs: Abnormal Lab Results - Last 24 Hours (Table) 07/14/24 Range/Units 03:35 WBC 10.54 H (4.50-10.00) X 10*3/uL RBC 3.27 L (4.10-5.20) X 10*6/uL Hgb 8.7 L (12.0-15.0) g/dL Hct 27.7 L (37.2-46.3) % MCH 26.6 L (27.0-32.0) pg MCHC 31.4 L (32.0-37.0) g/dL RDW 17.3 H (11.5-14.5) % Assessment and Plan (1) Osteoarthritis of right knee Current Visit: Yes Status: Acute Code(s): M17.11 - UNILATERAL PRIMARY OSTEOARTHRITIS, RIGHT KNEE SNOMED Code(s): 053645633157465 (2) Status post total right knee replacement Current Visit: Yes Status: Acute Code(s): Z96.651 - PRESENCE OF RIGHT ARTIFICIAL KNEE JOINT SNOMED Code(s): 1937352073858 Plan: The clinical findings are discussed with the patient. We are planning discharge to inpatient rehab on Friday. Continue current care and physical therapy.
[2024-07-14 11:31] LABS: Basophils # (A) 0.03 X 10*3/uL (0.00-0.10); Basophils % (A) 0.3 %; Eosinophils # (A) 0.01 X 10*3/uL (0.04-0.35); Eosinophils % (A) 0.1 %; Lymphocytes # (A) 1.44 X 10*3/uL (0.90-5.00); Lymphocytes % (A) 13.7 %; Monocytes # (A) 1.58 X 10*3/uL (0.20-1.00); Neutrophils # (A) 7.44 X 10*3/uL (1.80-7.70); Neutrophils % (A) 70.5 %
[2024-07-14 17:06] LABS: ALT 13 U/L (8-44); AST 19 U/L (13-35); Albumin 3.6 g/dL (3.8-4.9); Albumin/Globulin Ratio 2.25 Ratio (1.60-3.17); Alkaline Phosphatase 108 U/L (41-126); BUN/Creat Ratio 30.43 Ratio (12.00-20.00); Blood Urea Nitrogen 21.3 mg/dL (9.0-27.0); Calcium 8.2 mg/dL (8.7-10.3); Carbon Dioxide 24.2 mmol/L (21.6-31.8); Chloride 103 mmol/L (96-109); Globulin 1.6 g/dL (1.6-3.3); Glucose 107 mg/dL (70-110); Potassium 3.6 mmol/L (3.5-5.5); Sodium 136 mmol/L (135-145); Total Bilirubin <0.2 mg/dL (0.3-1.2); Total Protein 5.2 g/dL (6.2-8.2)
[2024-07-14 17:17] LABS: Basophils # (A) 0.05 X 10*3/uL (0.00-0.10); Basophils % (A) 0.6 %; Eosinophils # (A) 0.14 X 10*3/uL (0.04-0.35); Eosinophils % (A) 1.6 %; HCT 29.3 % (37.2-46.3); HGB 8.8 g/dL (12.0-15.0); Lymphocytes # (A) 1.97 X 10*3/uL (0.90-5.00); Lymphocytes % (A) 22.4 %; MCH 25.6 pg (27.0-32.0); MCV 85.2 FL (80.0-97.0); Monocytes # (A) 1.37 X 10*3/uL (0.20-1.00); Monocytes % (A) 15.6 %; NRBC Per 100 WBC 0 X 10*3/uL (0.00-0.01); Neutrophils # (A) 5.21 X 10*3/uL (1.80-7.70); Neutrophils % (A) 59.3 %; Platelet Count 271 X 10*3/uL (140-440); RBC 3.44 X 10*6/uL (4.10-5.20); RDW 17.5 % (11.5-14.5); WBC 8.78 X 10*3/uL (4.50-10.00)
--- NOTE | 2024-07-14 22:09 | PN ---
PROGRESS NOTE DATE OF SERVICE: 07/14/2024 CHIEF COMPLAINT: Arthritis of the right knee. HISTORY OF PRESENT ILLNESS: This lady is doing fairly well except for some discomfort. PHYSICAL EXAMINATION: VITAL SIGNS: Normal. CHEST: Clear. CARDIAC: Normal. IMPRESSION: 1. Status post right knee replacement. 2. History of hypertension. 3. Anemia with hemoglobin of 8.7. PLAN: Repeat CBC and follow hemoglobin. MMODL / IJN: [id number] /
--- NOTE | 2024-07-14 22:58 | CONS ---
CONSULTATION CHIEF COMPLAINT: Arthritis of the right knee. HISTORY OF PRESENT ILLNESS: This lady has come in for an elective right knee replacement, where she has apparently had a significant problem with osteoarthritis. She has been unable to fully extend that knee. She is not a patient of mine, but it would appear that she has been treated for hypertension, depression, hyperlipidemia, arthritis, GERD, respiratory problems. REVIEW OF SYSTEMS: She denies any headaches, chest pain, shortness of breath, abdominal pain, neurologic problems, etc. Past medical history, family history, personal and social histories reveal that she is on amlodipine, Prozac, gabapentin, methocarbamol, Lipitor, Reglan, Singulair, Naprosyn, and Prilosec. The remainder of her history is unremarkable. PHYSICAL EXAMINATION: VITAL SIGNS: Normal. HEAD, EARS, EYES, NOSE, MOUTH, AND THROAT: Normal. CHEST: Clear. CARDIAC: Sounds like sinus rhythm with no murmurs or extra sounds. ABDOMEN: Soft, nontender. EXTREMITIES: Normal except for the right knee, where dressing is dry and knee is propped up on a pillow and flexed about 45 degrees. IMPRESSION: She is admitted to the hospital with diagnoses of, 1. Osteoarthritis of the right knee. 2. History of hypertension. 3. History of hyperlipidemia. 4. History of gastritis. RECOMMENDATIONS: None. I will be happy to follow for any medical issues or necessities that come up during her admission. Thank you respectfully, AUBREY / JAIME: [id number] /
--- NOTE | 2024-07-15 13:51 | P.PN ---
Subjective This is a 74-year-old female who is status post right total knee arthroplasty. This is postoperative day #2 and patient is seen and evaluated at bedside today. Patient states that she has chronic spasms of the right leg and this has been contributing to her difficulty with mobilization. Otherwise, patient denies any new complaints today. Objective - Vital Signs Vital signs: Vital Signs Temp 98.8 F 07/15/24 07:04 Pulse 75 07/15/24 07:04 Resp 18 07/15/24 07:04 BP 99/60 07/15/24 07:04 Pulse Ox 95 07/15/24 07:04 FiO2 Intake & Output 07/14/24 07/15/24 07/15/24 18:59 06:59 18:59 Intake Total 780 Balance 780 Intake: Oral 780 Other: Voiding Method Bedpan Bedside Commode Bedpan # Voids 2 6 - Exam Vital signs are stable. Patient is in no acute distress and is alert and oriented 3. Calf is soft and nontender to palpation. Dressing is clean, dry, and intact. Patient has full foot and ankle motion without pain or difficulty. Sensation intact. Neurovascular status and circulatory status are intact. - Labs CBC & Chem 7: 07/14/24 11:26 07/14/24 11:26 Labs: Abnormal Lab Results - Last 24 Hours (Table) 07/14/24 07/14/24 Range/Units 11:26 11:26 RBC 3.44 L (4.10-5.20) X 10*6/uL Hgb 8.8 L (12.0-15.0) g/dL Hct 29.3 L (37.2-46.3) % MCH 25.6 L (27.0-32.0) pg MCHC 30.0 L (32.0-37.0) g/dL RDW 17.5 H (11.5-14.5) % Monocytes # 1.37 H (0.20-1.00) X 10*3/uL BUN/Creatinine Ratio 30.43 H (12.00-20.00) Ratio Calcium 8.2 L (8.7-10.3) mg/dL Total Bilirubin <0.2 L (0.3-1.2) mg/dL Total Protein 5.2 L (6.2-8.2) g/dL Albumin 3.6 L (3.8-4.9) g/dL Assessment and Plan (1) Osteoarthritis of right knee Current Visit: Yes Status: Acute Code(s): M17.11 - UNILATERAL PRIMARY OSTEOARTHRITIS, RIGHT KNEE SNOMED Code(s): 764591756802335 (2) Status post total right knee replacement Current Visit: Yes Status: Acute Code(s): Z96.651 - PRESENCE OF RIGHT ARTIFICIAL KNEE JOINT SNOMED Code(s): 0857595574270 Plan: #1 Continue with routine postoperative care and pain control, leave dressing in place for 7 days. #2 Anticoagulation with aspirin. #3 Physical therapy today. #4 Appreciate input from internal medicine. #5 Anticipate discharge to [facility] on 07/17/2024.
--- NOTE | 2024-07-16 08:56 | P.PN ---
Progress Note - Text Progress Note Date: 07/16/24 Orthopedics: History of present illness: She is a very pleasant 74-year-old female who is seen and examined at bedside for follow-up evaluation of her right knee. She is status post right total knee arthroplasty performed by Dr. David Lynn on 07/13/2024. She states she feels she is doing well postoperatively. She does have some ongoing right knee pain and difficulty with her mobilization. She is planned for discharge to rehabilitation facility tomorrow, 07/17/2024. Her pain is currently adequately controlled. She does not have any complaints at the bedside. Physical Exam Total Knee Arthroplasty: Status post surgical day number 3 Patient is awake, alert, and oriented 3 Vital signs stable Good chest excursion with deep inspiration and expiration No signs or symptoms of DVT; no calf pain Dressing to right knee is clean, dry, and intact; no erythema, purulence, or signs of infection Patient has full foot and ankle motion without difficulty bilateral lower extremities Dorsiflexion, plantar flexion, and extensor hallucis longus positive sustained on the right Neurovascular status left lower extremity intact Assessment: Status post right total knee arthroplasty performed on 07/13/2024 Right knee pain Hypertension Hyperlipidemia Plan: 1. Patient to remain weight-bear as tolerated on the lower extremity; is encouraged to utilize a walker to aid in ambulation as needed; patient may work with physical therapy to increase mobility and ambulation 2. Continue pain control 3. Keep surgical dressing over the right knee clean, dry and intact; may elevate right knee and apply ice over the incision for comfort and support as needed. 4. Patient to continue with anticoagulation therapy aspirin 5. We'll continue to follow the patient; she is currently planning for dis charge to rehabilitation facility tomorrow, 07/17/2024 6. Patient can follow-up with Denise Cazares PA-C or Dr. David Lynn at [facility] in 2-3 weeks following discharge
[2024-07-16 10:18] LABS: Basophils # (A) 0.03 X 10*3/uL (0.00-0.10); Basophils % (A) 0.4 %; Eosinophils # (A) 0.49 X 10*3/uL (0.04-0.35); Eosinophils % (A) 6.4 %; HCT 27.4 % (37.2-46.3); HGB 8.4 g/dL (12.0-15.0); Lymphocytes # (A) 1.55 X 10*3/uL (0.90-5.00); Lymphocytes % (A) 20.3 %; MCH 25.8 pg (27.0-32.0); MCHC 30.7 g/dL (32.0-37.0); MCV 84.3 FL (80.0-97.0); Mean Platelet Volume 10.6 FL (9.5-12.2); Monocytes # (A) 1.06 X 10*3/uL (0.20-1.00); Monocytes % (A) 13.9 %; NRBC Per 100 WBC 0 X 10*3/uL (0.00-0.01); Neutrophils # (A) 4.47 X 10*3/uL (1.80-7.70); Neutrophils % (A) 58.7 %; Platelet Count 254 X 10*3/uL (140-440); RBC 3.25 X 10*6/uL (4.10-5.20); WBC 7.62 X 10*3/uL (4.50-10.00)
[2024-07-17 02:12] VITALS: TEMP 98.1
[2024-07-17 08:02] VITALS: BP 106/62; PULSE 78; RESP 18
--- NOTE | 2024-07-17 11:06 | P.DS ---
Providers Date of admission: 07/14/24 10:44 Expected date of discharge: 07/17/24 Attending physician: David Lynn Consults: 07/13/24 08:44 Consult Physician Routine Consulting Provider: Silas Leyva Consult Reason/Comments: medical management Do you want consulting provider notified?: Yes Primary care physician: Gigi Hatfield - Discharge Diagnosis(es) (1) Osteoarthritis of right knee Patient was admitted to the OR on 07/13/24 to undergo a right total knee arthroplasty. She had failed conservative measures as an outpatient and desired to proceed with elective surgery after given informed consent. She underwent the above procedure which she tolerated well without complication. Postoperative hospital course has remained without complication. On day of discharge she is afebrile, vital signs stable, labs within acceptable ranges, tolerating by mouth meds and diet, voiding without difficulty, positive flatus, denies abdominal pain or calf pain, pain is controlled on oral pain medication and has no new complaints. Wound is benign, neurovascular status is intact, calf is soft and nontender, abdomen soft and nontender. Review of systems is negative for numbness, tingling, fever, chills, chest pain, shortness of breath, nausea, vomiting, dizziness, headaches, slurred speech or other. Current Visit: Yes Status: Acute Priority: Medium Procedures: Right TKA Patient Condition at Discharge: Good Plan - Discharge Summary Discharge Rx Participant: No New Discharge Prescriptions: New Aspirin 325 mg PO BID #60 tab Sennosides [Senokot] 2 tab PO DAILY PRN #60 tablet PRN Reason: Constipation HYDROcodone/APAP 7.5-325MG [[place] 7.5-325] 1 - 2 tab PO Q6H PRN #32 tab PRN Reason: Pain No Action Omeprazole 40 mg PO BID Atorvastatin [Lipitor] 40 mg PO HS Metoclopramide [Reglan] 5 mg PO QAM Montelukast [Singulair] 10 mg PO DAILY Gabapentin [Neurontin] 300 mg PO TID Naproxen [Naprosyn] 500 mg PO BID FLUoxetine HCL [PROzac] 40 mg PO QAM amLODIPine 10 mg PO QAM methocarbamoL 750 mg PO Q8H Discharge Medication List Atorvastatin [Lipitor] 40 mg PO HS 10/19/18 [History] Omeprazole 40 mg PO BID 10/19/18 [History] Gabapentin [Neurontin] 300 mg PO TID 08/18/23 [History] Metoclopramide [Reglan] 5 mg PO QAM 08/18/23 [History] Montelukast [Singulair] 10 mg PO DAILY 08/18/23 [History] Naproxen [Naprosyn] 500 mg PO BID 08/18/23 [History] FLUoxetine HCL [PROzac] 40 mg PO QAM 07/07/24 [History] amLODIPine 10 mg PO QAM 07/07/24 [History] methocarbamoL 750 mg PO Q8H 07/07/24 [History] Aspirin 325 mg PO BID #60 tab 07/13/24 [Rx] Sennosides [Senokot] 2 tab PO DAILY PRN #60 tablet 07/13/24 [Rx] HYDROcodone/APAP 7.5-325MG [[place] 7.5-325] 1 - 2 tab PO Q6H PRN #32 tab 07/15/24 [Rx] Follow up Appointment(s)/Referral(s): David Lynn DO [Doctor of Osteopathic Medicine] - 07/28/24 2:50 pm Activity/Diet/Wound Care/Special Instructions: Weightbearing as tolerated with a walker. Leave dressing intact. Dressing may be removed by home care nurse or by patient in 7 days. Then change dressing twice daily until follow up. May shower with initial dressing intact and after removal. If dressing become saturated, please remove. Recommend use of compression stockings daily until follow up to help prevent swe lling and blood clots. May remove at night before sleeping. Please take aspirin 325mg twice daily for 30 days to prevent blood clots. Please follow [facility] with [facility] and call with any questions or concerns, . Discharge Disposition: TRANSFER TO SNF/ECF
--- NOTE | 2024-07-18 03:05 | PN ---
PROGRESS NOTE CHIEF COMPLAINT: Status post right TKA. HISTORY OF PRESENT ILLNESS: This lady is doing fairly well, but she is not able to strengthen the knee very well. She is not having a great deal of pain. PHYSICAL EXAM: HEAD, EARS, EYES, NOSE, MOUTH, AND THROAT: Normal. CHEST: Clear. CARDIAC: Reveals murmur. ABDOMEN: Soft, nontender. EXTREMITIES: The knee is flexed. IMPRESSION: 1. Status post right knee replacement. 2. Cardiac murmur. PLAN: Echocardiogram. This patient's mother had a TAVR. MMODL / IJN: [id number] /
--- NOTE | 2024-07-18 03:11 | PN ---
PROGRESS NOTE DATE OF SERVICE: 07/16/2024 CHIEF COMPLAINT: Status post right knee replacement. HISTORY OF PRESENT ILLNESS: This lady is doing well. She still is having difficulty extending the knee. PHYSICAL EXAM: CHEST: Clear. CARDIAC: Reveals the murmur. ABDOMEN: Soft, nontender. IMPRESSION: 1. Status post right knee replacement. 2. Cardiac murmur. PLAN: Progress activity and possibly home soon. MMODL / IJN: [id number] /
--- NOTE | 2024-07-20 18:09 | CDI ---
Documentation Clarification Form Date: 07/20/2024 06:00:06 PM From: Tricia Rojo Phone: Admit Date: 07/14/2024 10:44:00 AM Patient Name: Jihan Phillips Visit Number: [id number] Discharge Date: 07/17/2024 03:15:00 PM ATTENTION: The Clinical Documentation Specialists (CDI) and [facility] Coding Staff appreciate your assistance in clarifying documentation. Please respond to the clarification below the line at the bottom and electronically sign. The CDI & [facility] Coding staff will review the response and follow-up if needed. Please note: Queries are made part of the Legal Health Record. If you have any questions, please contact the author of this message via ITS. Doctor/Provider: Silas Leyva Unspecified anemia is documented per Progress Note 07/14. Additional specificity regarding the type of anemia is requested. History/Risk Factors: 74yo F, RT knee OA sp TKA, HTN, HLD, anemia, former smoker Clinical indicators: Hgb: 07/14 03:35 8.7 07/14 11:26 8.8 07/16 8.4 Hct: 07/14 03:35 27.7 07/14 11:26 29.3 07/16 27.4 Treatment: monitored Please clarify the type and acuity of anemia: [ ] Acute blood loss anemia [ ] Acute on chronic blood loss anemia [ ] Unable to determine [ ] Other, please specify (Template Last Revised: July 2020) MTDD
--- NOTE | 2024-08-20 19:16 | MISC ---
MISCELLANOUS REPORT Unable to determine. MMODL / IJN: [id number] /
--- NOTE | 2024-08-20 21:01 | MISC ---
MISCELLANOUS REPORT Unable to determine. MMODL / IJN: [id number] /
== END 2024-07-17 15:15 | DRG 470 ==
LOC: OR 07:48 → 4SSUR 15:56 → OR 07-14 10:44 → 4SSUR 07-14 10:44
PROVIDERS: ADMIT Orthopaedic Surgery; ATTEND Orthopaedic Surgery
PROC: 3E0T3BZ Introduction of Anesthetic Agent into Peripheral Nerves and Plexi, Percutaneous Approach (ICD-10-PCS; 2024-07-13)
PROC: 0SRC069 Replacement of Right Knee Joint with Oxidized Zirconium on Polyethylene Synthetic Substitute, Cemented, Open Approach (ICD-10-PCS; principal; 2024-07-13 09:00)
DX: M17.11 Unilateral primary osteoarthritis, right knee (principal); D64.9 Anemia, unspecified; I10 Essential (primary) hypertension; E78.5 Hyperlipidemia, unspecified; R01.1 Cardiac murmur, unspecified; M21.061 Valgus deformity, not elsewhere classified, right knee; Z79.1 Long term (current) use of non-steroidal anti-inflammatories (NSAID); Z79.899 Other long term (current) drug therapy; Z87.891 Personal history of nicotine dependence
CPT/HCPCS: 64448; 64999; 80053; 85025

== ENCOUNTER → 2024-09-08 | Outpatient (CLI) | payer MEDICARE, OTHER ==
--- NOTE | 2024-09-08 18:02 | MR ---
INDICATION: Patient age:Female; 74 years old; Reason for study: M48.02 SPINAL STENOSIS, CERVICAL REGION; PHH. COMPARISON: MR thoracic spine 01/21/2024, 07/16/2023, MRI brain/C-spine 06/24/2023. TECHNIQUE: Multi planar, multi sequence imaging was performed of the cervical spine. No Gadolinium wa s given. FINDINGS: Alignment: The cervical vertebral bodies have preserved heights. Mild retrolisthesis of C3 on C4 and C4 on C5 again. Bones: Multilevel anterior osteophytosis. No abnormal STIR signal. Cord: The spinal cord is unremarkable with regards to their signal intensity and morphology. Discs: Multilevel disc desiccation is present with disc height loss. C2-C3: No significant disc pathology. The spinal canal is patent. Bilateral facet and uncovertebral joint arthropathy are present with moderate left and no significant right neural foraminal stenosis. C3-C4: A disc osteophyte complex is present with mild spinal canal stenosis. Bilateral facet and unco vertebral joint arthropathy are present with moderate to severe right neural foraminal stenosis. Danae re left neural foraminal stenosis. C4-C5: A disc osteophyte complex is present with moderate spinal canal stenosis. Bilateral facet and uncovertebral joint arthropathy are present with moderate to severe bilateral neural foraminal stenos is. C5-C6: Disc osteophyte complex present with mild effacement of the anterior thecal sac. Mild spinal c anal stenosis. Bilateral facet and uncovertebral joint arthropathy are present with moderate to sever e bilateral neural foraminal stenosis. C6-C7: A disc osteophyte complex is present with mild spinal canal stenosis. Bilateral facet and unco vertebral joint arthropathy are present with moderate right and moderate to severe left neural forami nal stenosis. C7-T1: No significant disc pathology. The spinal canal is patent. Bilateral facet and uncovertebral j oint arthropathy are present with moderate bilateral neural foraminal stenosis. Other: None. IMPRESSION: Overall similar examination with moderate to severe degenerative disc disease with associated osteoar thritic changes as described above. No disc herniation. Spinal canal stenosis is most pronounced from C3 through C5. [facility], , 09/08/2024 6:00 PM
== END | disposition home or self-care (01) ==
LOC: RADMRIMAIN 16:05
PROVIDERS: ATTEND Specialist
DX: M48.02 Spinal stenosis, cervical region (principal); M50.30 Other cervical disc degeneration, unspecified cervical region
CPT/HCPCS: 72141

== ENCOUNTER → 2024-11-04 | Outpatient (CLI) | payer MEDICARE, OTHER ==
--- NOTE | 2024-11-05 22:31 | CT ---
EXAMINATION TYPE: CT CervThorLumbar spine wo con DATE OF EXAM: 11/04/2024 5:36 PM COMPARISON: None. 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 TECHNIQUE: Contrast used: mL of , (none if empty) Oral contrast used: (none if empty) Axial images at 5 mm thick sections. Reconstructed images in the coronal and sagittal planes. FINDINGS: Scoliosis is present with convexity to the right within the lumbar spine. There is some exaggeration of the lordosis within the lumbar spine. Multilevel degenerative disc changes are present. There appe ars to be loss of disc height C3-4 through C6-7. Disc space narrowing is present diffusely throughout the thoracic spine. Vacuum disc phenomenon and loss of disc height is present T12-L1 through L3-4. There is loss of disc height L4-5 and L5-S1. Severe foraminal stenosis is present on the left at L1-L2. Multilevel addition al foraminal stenosis is through the lumbar spine. Postsurgical pedicles screws are present T9-T12. Spondylosis is evident within the cervical spine and to a lesser degree within the thoracic spine. No spondylolisthesis is evident. No obvious spinal canal stenosis present. Some narrowing may be presen t L4-5. No acute fractures are identified. No compression deformities are evident. Foraminal stenosis is with in the mid to lower cervical spine. Some apical scarring is present on the left. IMPRESSION: 1. POSTSURGICAL CHANGES T9-T12 WITH PEDICLE SCREWS. 2. MULTILEVEL DEGENERATIVE DISC CHANGES. 3. THERE ARE MULTIPLE LEVELS OF FORAMINAL STENOSIS THROUGHOUT THE AXIAL SKELETON. THE MOST SEVERE MAY BE AT THE LEFT L1-2 LEVEL [facility], , 11/05/2024 10:28 PM
== END | disposition home or self-care (01) ==
LOC: RADCTMAIN 16:45
PROVIDERS: ATTEND Orthopaedic Surgery
DX: M48.061 Spinal stenosis, lumbar region without neurogenic claudication (principal); G95.9 Disease of spinal cord, unspecified; M47.816 Spondylosis without myelopathy or radiculopathy, lumbar region; Z98.1 Arthrodesis status
CPT/HCPCS: 72125; 72128; 72131

== ENCOUNTER → 2024-12-28 | Outpatient (CLI) | payer MEDICARE, OTHER | END | disposition home or self-care (01) | LOC: LABPAT 15:27 | PROVIDERS: ATTEND Orthopaedic Surgery | DX: Z01.812 Encounter for preprocedural laboratory examination (principal); M50.00 Cervical disc disorder with myelopathy, unspecified cervical region; Z22.322 Carrier or suspected carrier of Methicillin resistant Staphylococcus aureus | CPT/HCPCS: 86850; 86900; 86901; 87070 ==

== ENCOUNTER 2024-12-30 09:41 | Inpatient (IN) | payer MEDICARE, OTHER ==
[2024-12-27 10:35] VITALS: BMI 23.4
[~2024-12-30 09:41] MED LIST changes: +GABAPENTIN 300 MG CAP PO PRN; +TRANEXAMIC 1,000 MG/100ML-NACL 1,000 MG in SALINE 1 100ML.BAG IVPB PRN; -fentaNYL (PF) 50 MCG/ML 2 ML AMP IVP PRN
[2024-12-30] MEDS: IV FLUID CONTINUATION 1,000 ML IV ONE (09:56)
[2024-12-30] MEDS: LACTATED RINGERS 1,000 ML IV SCH (10:11)
[2024-12-30] MEDS: LACTATED RINGERS 1,000 ML IV ONE ×2 (10:11→14:32)
[2024-12-30] MEDS: ACETAMINOPHEN TAB 500 MG TAB PO PRN (10:14)
[2024-12-30] MEDS: ONDANSETRON 4 MG/2 ML VIAL IVP PRN (10:14)
[2024-12-30] MEDS: DEXAMETHASONE SOD PHOSPHATE 4 MG/ML 1 ML VIAL IVP STA (10:40)
[2024-12-30] MEDS ORDERED: HYDROmorphone (PF) 1 MG/ML ONE (11:20)
[2024-12-30] MEDS ORDERED: KETAMINE HCL IN 0.9 % NACL 50 MG/5 ML SYRINGE ONE (11:20)
[2024-12-30] MEDS ORDERED: WATER FOR INJECTION, STERILE 10 ML VIAL IV ONE (11:20)
[2024-12-30] MEDS ORDERED: TRANEXAMIC 1,000 MG/100ML-NACL PREMIX BAG ONE (11:20)
[2024-12-30] MEDS ORDERED: PROPOFOL 10 MG/ML 20 ML VIAL IV ONE (11:20)
[2024-12-30] MEDS ORDERED: SUCCINYLCHOLINE CHLORIDE 200 MG/10 ML VIAL IV ONE (11:20)
[2024-12-30] MEDS ORDERED: LIDOCAINE 1% INJ 10MG/ML (20 ML MDV) ONE (11:20)
[2024-12-30] MEDS ORDERED: MIDAZOLAM 2 MG/2 ML VIAL ONE (11:20)
[2024-12-30] MEDS ORDERED: ePHEDrine 50 MG/ML 1 ML VIAL ONE (11:20)
[2024-12-30] MEDS ORDERED: fentaNYL (PF) 50 MCG/ML 2 ML AMP ONE (11:20)
[2024-12-30] MEDS: GELATIN SPONGE,ABSORB (LARGE) 1 EACH SPONGE MISCELLANE ONE (12:20)
[2024-12-30] MEDS: THROMBIN (BOVINE) 5,000 UNIT VIAL TOPICAL ONE (12:21)
--- NOTE | 2024-12-30 15:11 | P.HPOR ---
History of Present Illness H&P Date: 12/30/24 [facility] PROVIDER: BRYANT Dec 30, 2024 12:00?PM H&P SPINE SURGERY CLINICAL AND RISK REVIEW Jihan Phillips is a 74 yo female presenting for evaluation of Neck pain, UE pain and weakness with radiculopathy. It was my pleasure to have seen and examined Jihan Phillips. In our visit today we have had a chance to go over subjective complaints, physical examination findings and treatments including the natural course history without intervention and various interventional options. The patient's imaging demonstrates the following findings: C3-7 severe spondylosis with severe stenosis, multilevel HNP Severe disc collapse and compression C3-7 Myelomalacia On a physical exam,Jihna Phillips demonstrates the following findings: Cervical myelopathy UE and LE weakness UE radiculopathy I have explained to the patient that as their condition progresses it will cause further neurological deficits and eventual paralysis. Based on the patients imaging, physical exam, and the rapid progression and disabling nature of their symptoms, at this time I recommend surgery in the form of a: C3-7 ANTERIOR CERVICAL DISECTOMY AND FUSION. I discussed the risk and benefits of this procedure at length with Jihan Phillips. The patient has agreed to consider pursuing the procedure above mentioned. Prior to surgery, they should follow up with her PCP (Cardio, ID, IM etc) for clearance. Questions were invited and answered, and the patient wishes to proceed as outlined below. Currently, I am recommending: C3-7 ANTERIOR CERVICAL DISECTOMY AND FUSION Obtain appropriate presurgical workup and clearances as discussed with the patient. Review of surgical risks and benefits as well as an educational packet on the proposed surgical procedure. Risks: All surgical procedures come with inherent risks, including those related to positioning, anesthesia, intraoperative findings, and postoperative complications. It is important to understand that surgery does not come with any guarantee of a successful outcome as complications and adverse events are always possible. The patient was given a handout in the office today discussing the surgical procedure and risks associated with the intervention, both of which were discussed with the patient. These risks include but are not limited to the following: Experiencing same, different or even worse symptoms in back, neck, arms, or legs compared to before surgery. Requiring further surgery or other forms of treatment presently or at some time in the future at same or other levels of the intended spine surgery. On an extreme but fortunately relatively rare basis severe complications such as blindness, stroke, heart attack, temporary and/or permanent nerve injury, paralysis, coma, or may occur, sometimes without known explanation. Surgical complications may include but are not limited to risk of infection, fluid accumulation in the surgical dissection site, including a seroma or hematoma, that requires additional surgery, wound drainage, bleeding, new numbness or weakness, vision changes/loss, spinal fluid leakage, non-healing and/or infected incision, headaches, difficulty or inability to swallow, hoarseness, hemopneumothorax, pneumothorax, impotence, retrograde ejaculation, vaginal dryness; injury to nerves, spinal cord, blood vessels, lymphatics or other vital organs (i.e., bowel injury, injury to the great vessels); heterotopic bone formation; complications related to the hardware such as scre ws, rods, cages including misplaced hardware, device failure, instrumentation at the wrong spine level, hardware fracture/breakage, or hardware loosening; vertebral failure of the spinal column above or below the newly placed hardware; retained surgical instrumentations or devices and the need for further surgery. Medical risks of the planned spine surgery include but are not limited to generalized Infections to the whole body or local areas outside of the surgical site (sepsis), heart attack, bleeding, anaphylaxis, meningitis, seizure, epilepsy, hearing loss, burn garcia, laceration of the head or other areas of the body, bruising, hypersensitivity of the skin, bladder over distension; allergic reaction; shoulder injury related to positioning; fat, blood and air clots to other areas of the body like heart, lungs, brain; failure of internal organs such as lungs, kidneys, liver and excessive bleeding. If blood transfusions are necessary, note that transfusions may cause intolerance reactions such as anaphylaxis or other complex reactions. Despite best efforts, the results of spine surgery might not heal in terms of bone, soft tissues such as skin, fascia, ligaments, and joints. Additionally, in order to achieve best possible results, spine surgery may be carried out beyond the initially planned levels and involve decompression, fusion including insertion of hardware at levels other than the original intended area of surgical interest change some portions of the procedure in order to ensure the best possible outcomes. With spine surgery and spinal fusion, there are different off label uses of instrumentation (devices, implants and hardware) as well as biological substances (bone morphogenic proteins, demineralized bone matrix) as well as using extra bone from allograft sources (i.e. cadaver bone) or autograft (iliac crest bone, ribs, or the spine itself). The patient has been given information about these practices and their inherent risks and benefits. The patient has had a chance to review all the listed information, has been given print outs detailing this information, and has had all his/her questions answered to their satisfaction. It was my pleasure to have seen and examined Jihan Phillips. In our visit today we have had a chance to go over my understanding of our patient's current condition, the natural course history without intervention and various interventional options. Questions were invited and answered, and the patient wishes to proceed as outlined above. I have seen and examined the patient for 25 minutes and we have spent more than 50% of the time in repeat and detailed counseling about the patient's condition, its natural course history without and as much as can be predicted with surgery and re-review of various surgical treatment options. In conclusion, Jihan Phillips and their family requested we proceed with the above suggested surgery and are willing to accept risks and limitations of the suggested surgery as the nature of the disease process and our best attempts at treatment for the condition. In our visit today the patient and I have had a chance to go over my understanding of their current condition, the natural course history without intervention and various interventional options. Questions were invited and answered, and the patient wishes to proceed as outlined above. I will be sure to keep you updated after the patient returns here for further follow-up. Thank you again for your referral. Please do not hesitate to contact me if you have any further questions. Signed and authenticated by: Dec 30, 2024 12:00?PM EDT DO [facility] [address] [facility], [address] [address] This document is confidential, intended only for the named recipient(s) and may contain information that is privileged or exempt from disclosure under applicable law. If you are not the intended recipient(s), you are notified that the dissemination, distribution or copying of this information is strictly prohibited. If you received this message in error, please notify the sender then delete this message. Past Medical History Past Medical History: GERD/Reflux, Hyperlipidemia, Hypertension, Osteoarthritis (OA) Additional Past Medical History / Comment(s): Hx of gastritis/ small ulcerations/ distal esophagitis/diverticulosis/IBS, hiatal hernia. Hx of a slip/fall a week ago. Denies current skin issues. History of Any Multi-Drug Resistant Organisms: None Reported Past Surgical History: Appendectomy, Hysterectomy, Orthopedic Surgery, Tonsill ectomy Additional Past Surgical History / Comment(s): FEB 2024 & JUL 2023 BACK SURGERIES. 09/30/18 EGD with bx and colonoscopy with bx, R bunionectomy, Right TKA 06/2024. Past Anesthesia/Blood Transfusion Reactions: No Reported Reaction Additional Past Anesthesia/Blood Transfusion Reaction / Comment(s): hx of blood transfusion- no reaction Smoking Status: Former smoker - Past Family History Father Family Medical History: Myocardial Infarction (OR) Mother Family Medical History: Thyroid Disorder Additional Family Medical History / Comment(s): scoliosis. Maternal grandparents w/ hx of pancreatic and prostate CA. Medications and Allergies Home Medications Medication Instructions Recorded Confirmed Type Atorvastatin [Lipitor] 40 mg PO HS 10/19/18 12/30/24 History Omeprazole 40 mg PO BID 10/19/18 12/30/24 History Gabapentin [Neurontin] 300 mg PO TID 08/18/23 12/30/24 History Montelukast [Singulair] 10 mg PO HS 08/18/23 12/30/24 History Naproxen [Naprosyn] 500 mg PO BID 08/18/23 12/30/24 History FLUoxetine HCL [PROzac] 40 mg PO QAM 07/07/24 12/30/24 History amLODIPine 5 mg PO QAM 07/07/24 12/30/24 History methocarbamoL 750 mg PO TID 07/07/24 12/30/24 History Allergies Allergy/AdvReac Type Severity Reaction Status Date / Time No Known Allergies Allergy Verified 12/30/24 10:01 Physical Examination Osteopathic Statement: *. No significant issues noted on an osteopathic structural exam other than those noted in the History and Physical/Consult.
[2024-12-30] MEDS ORDERED: HYDROcodone/APAP 5-325MG 1 EACH TAB PO PRN (15:13)
[2024-12-30] MEDS ORDERED: MAGNESIUM HYDROXIDE 2,400 MG/30 ML CUP PO PRN (15:13)
[2024-12-30] MEDS ORDERED: HYDROmorphone 1 MG/ML 1 ML SYRINGE IVP PRN (15:13)
--- NOTE | 2024-12-30 15:15 | P.OP ---
Date of Procedure: 12/30/24 Preoperative Diagnosis: 1. C3-7 SPONDYLOSIS SEVERE WITH HNP AND SEVERE DISC COLLAPSE 2. C3-7 STENOSIS, SEVERE 3. MYELOPATHY, CERVICAL 4. UE AND LE WEAKNESS Postoperative Diagnosis: 1. C3-7 SPONDYLOSIS SEVERE WITH HNP AND SEVERE DISC COLLAPSE 2. C3-7 STENOSIS, SEVERE 3. MYELOPATHY, CERVICAL 4. UE AND LE WEAKNESS Procedure(s) Performed: 1. C3-4 ANTERIOR CERVICAL ARTHRODESIS 2. C4-5 ANTERIOR CERVICAL ARTHRODESIS 3. C5-6 ANTERIOR CERVICAL ARTHRODESIS 4. C6-7 ANTERIOR CERVICAL ARTHRODESIS 5. C3-7 ANTERIOR CERVICAL INSTRUMENTATION 6. C34, C45, C56, C67 INSERTION OF BIOMECHANICAL DEVICE, CAGES x4 USE OF IONM USE OF IO MICROSCOPE Implants: MIKAELA SECURE C 12, 14, 10 MM PLATE SCREW MAGNATOS Anesthesia: FIGUEROAA Surgeon: Harpal Martinez Jukebox Checker #1: Lurdes Renteria (WAS PRESENT AND ASSISTED WITH ALL ASPECTS OF THE CASE FROM POSITION TO DRESSING PLACEMENT) Estimated Blood Loss (ml): 25 IV fluids (ml): 1,200 Urine output (ml): 250 Pathology: none sent Condition: stable Disposition: PACU Indications for Procedure: Jihan Phillips is a 74 yo female presenting for evaluation of Neck pain, UE pain and weakness with radiculopathy. It was my pleasure to have seen and examined Jihan Phillips. In our visit today we have had a chance to go over subjective complaints, physical examination findings and treatments including the natural course history without intervention and various interventional options. The patient's imaging demonstrates the following findings: C3-7 severe spondylosis with severe stenosis, multilevel HNP Severe disc collapse and compression C3-7 Myelomalacia On a physical exam,Jihan Phillips demonstrates the following findings: Cervical myelopathy UE and LE weakness UE radiculopathy I have explained to the patient that as their condition progresses it will cause further neurological deficits and eventual paralysis. Based on the patients imaging, physical exam, and the rapid progression and disabling nature of their symptoms, at this time I recommend surgery in the form of a: C3-7 ANTERIOR CERVICAL DISECTOMY AND FUSION. I discussed the risk and benefits of this procedure at length with Jihan Phillips. The patient has agreed to consider pursuing the procedure above mentioned. Prior to surgery, they should follow up with her PCP (Cardio, ID, IM etc) for clearance. Questions were invited and answered, and the patient wishes to proceed as outlined below. Currently, I am recommending: C3-7 ANTERIOR CERVICAL DISECTOMY AND FUSION Description of Procedure: C3-7 ACDF The patient was seen and examined in the preoperative area. All preoperative protocols were followed. Informed consent was obtained, risks and benefits of the procedure were discussed at length. Risks including bleeding infection d amage to the surrounding tissue and risk of reoperation were discussed with the patient. Risk of anesthesia up to and including was discussed with the patient. These are outlined in the risk review. They were willing to accept these risks and all the risks of surgery. The patient was given a weight-based dose of antibiotics in the form of 2 g Ancef. The patient was seen and evaluated by the anesthesia team who deemed them fit for surgery. The site was marked, the patient was willing to proceed with the procedure. The patient was transferred to the operative suite by the Department of anesthesia. They were then drifted off to sleep by the department anesthesia and GETA was performed. The patient tolerated this well. Da Silva catheter was placed by nursing staff, a-traumatically. Once confirmation of lines and ventilation the patient was transferred to a Supine Timo table very carefully. All bony prominences including wrists, elbows, axilla, chest, hips, and thighs, and feet were padded very well. Special attention was paid to the genitalia, and these were padded accordingly. SCDs were placed on bilateral lower extremities and were connected. Arms were well padded and placed at their side thumbs up. Once in position, again we confirmed good ventilation capabilities and that lines were running appropriately. The patients Cervical spine was then exposed. 1010s were placed outlining the incision site. Standard alcohol was used to clean the incision site and allowed to dry. C-arm was used to bio-breann the patient and confirm level for incision which was marked with a skin marker. Operative briefing was performed with all teams and everyone in agreement to proceed. The patient was then prepped and draped in a normal sterile fashion. Timeout was then performed, and all parties agreed with the procedure to be performed. Transverse skin incision was then made on the RIGHT side of the patient's neck 3 cm and dissection taken down to the platysma which was split transversely. Sub platysma flap was made, and interval identified between SCM and medial structures. Omohyoid was visualized and protected. Blunt dissection taken down to the anterior cervical fascia which was identified. Blunt probe was then placed and lateral image taken which confirmed levels for operation. These levels were then marked with a bovi. Subperiosteal dissection of the longissimus muscles were then done over these levels identifying uncovertebral joints bilaterally. The retractor was then placed deep to these muscles and held in place with a bed arm. Starting at C6-7, [place] pins were placed into C6 and C7 and gentle distraction taken out over the levels. Susan rongeur used to remove disc material. Operating microscope brought in for visualization. Complete discectomy performed at this level with curette, rongure and pituitary. High speed vandana used to remove osteophytes anteriorly and posteriorly until PLL was identified. 6-0 up curette then used to identify the canal and resect the PLL. 2-0 and 3-0 Kerrison used then to remove PLL and disc herniation and performed b/l foraminotomies. Once good decompression was accomplished, meticulous hemostasis was performed. Sizers were then placed under lateral fluoroscopy until the desired height and lordosis. Cage was then selected, packed with autograft and allograft and placed under lateral imaging. Once in good position it was tested and stable. Motors run before and after cage placement were stable. The wound was irrigated, and autograft placed lateral to the cage anteriorly for fusion. The caspar pin was then removed from C7 and placed into C5. Gentle distraction taken out over C5-6 now. Complete discectomy done at C5-6 as described including decompression, b/l foraminotomies and PLL resection. Burring of endplates was minimal, osteophytes removed as described. Spacers were then sized and placed under lateral imaging. Cage selected, packed with graft and placed under lateral images. Once in position, meticulous hemostasis performed, and motors remained stable before and after cage placement. AP image confirmed good placement of cages. The wound was irrigated. The caspar pin was then removed from C6 and placed into C4. Gentle distraction taken out over C4-5 now. Complete discectomy done at C4-5 as described including decompression, b/l foraminotomies and PLL resection. Burring of endplates was minimal, osteophytes removed as described. Spacers were then sized and placed under lateral imaging. Cage selected, packed with graft and placed under lateral images. Once in position, meticulous hemostasis performed, and motors remained stable before and after cage placement. AP image confirmed good placement of cages. The wound was irrigated. The caspar pin was removed from C5 and placed in C3. Gentle distraction taken out over C3-4 now. Complete discectomy done at C3-4 as described including decompression, b/l foraminotomies and PLL resection. Burring of endplates was minimal, osteophytes removed as described. Spacers were then sized and placed under lateral imaging. Cage selected, packed with graft and placed under lateral images. Once in position, meticulous hemostasis performed, and motors remained stable before and after cage placement. AP image confirmed good placement of cages. The wound was irrigated. Anterior instrumentation was then done at each level securing the plate and screws with locking mechanisms. All locking mechanisms were set, and all screws had good purchase. Final AP and lateral images taken confirmed good placement of hardware and good reduction and mosque of height. The wound was then irrigated copiously with NSS. Surgicel placed deep in the wound. A deep drain placed out a separate incision and sewed into place. Layered closure then performed with 3-0 Vicryl in the platysma and subQ tissue. 4-0 Strata fix in the subcuticular tissue. The wound was then cleaned, and dried and skin glue placed. Once glue dried on Opifoam was placed. The patient was then transferred back to their hospital bed a-traumatically. The drain continued to hold suction. They were placed in a soft collar. They were then awakened by the department of anesthesia having tolerated the procedure well without complications.
--- NOTE | 2024-12-30 15:59 | XR ---
Cervical spine Limited HISTORY: Cervical fusion. COMPARISON: None. TECHNIQUE: 33.7 seconds of fluoroscopy and 3 intraoperative spot films were obtained demonstrating ce rvical fusion in progress. IMPRESSION: Fluoroscopic guidance for cervical fusion. [facility], Workstation: MARIO 12/30/2024 3:57 PM
[2024-12-30] MEDS: ONDANSETRON 4 MG/2 ML VIAL IVP ONE (17:57)
[2024-12-30] MEDS: ACETAMINOPHEN TAB 325 MG TAB PO SCH (18:01)
--- NOTE | 2024-12-30 18:49 | CT ---
EXAMINATION TYPE: CT cervical spine wo con CT DLP: 314.2 mGycm, Automated exposure control for dose reduction was used. DATE OF EXAM: 12/30/2024 6:33 PM COMPARISON: Cervical spine fluoroscopic images 12/30/2024, CT cervical thoracolumbar spine 11/04/2024, MR cervical spine 09/08/2024. CLINICAL INDICATION:Female, 74 years old with history of s/p C3-C7 ACDF; PHH, post op, pain TECHNIQUE: Axial CT images from the skull base to the inferior aspect of T2 we obtained without intra venous contrast. Coronal and sagittal reformatted images were also reviewed. FINDINGS: Postsurgical changes to the cervical spine from anterior fusion with intervertebral disc cages from C 3 through C7. Hardware appears intact with appropriate alignment. No acute fracture or dislocation. T here is expected surrounding soft tissue gas and edema. Right anterior cervical approach drainage cat heter identified with tip in the prevertebral space anterior to the C5-C6 disc space. No evidence for significant spinal canal stenosis. Multilevel neural foraminal stenosis secondary to uncovertebral h ypertrophy and bilateral facet arthropathy. Degenerative minimal grade 1 retrolisthesis of C2 on C3. Multilevel disc space narrowing with endplate sclerosis and anterior osteophytosis of the upper thora cic spine. Fusion of the bilateral C2-C3 facet joints. Biapical pleural-parenchymal scarring. Some tracheal adhesions identified. IMPRESSION: Postsurgical changes without evidence of immediate post operative complication. [facility], , 12/30/2024 6:46 PM
[2024-12-30] MEDS: HYDROmorphone 0.5 MG/0.5 ML SYRINGE IVP PRN (20:02)
[2024-12-30] MEDS: HYDROcodone/APAP 7.5-325MG 1 EACH TAB PO PRN (22:56)
[2024-12-31 05:58] LABS: Basophils # (A) 0.01 10*3/uL (0.00-0.10); Basophils % (A) 0.1 %; Eosinophils # (A) 0.00 10*3/uL (0.04-0.35); Eosinophils % (A) 0.0 %; HCT 36.7 % (37.2-46.3); HGB 11.8 g/dL (12.0-15.0); Lymphocytes # (A) 0.57 10*3/uL (0.90-5.00); Lymphocytes % (A) 3.3 %; MCH 26.9 pg (27.0-32.0); MCHC 32.2 g/dL (32.0-37.0); MCV 83.6 fL (80.0-97.0); Monocytes # (A) 1.07 10*3/uL (0.20-1.00); Monocytes % (A) 6.2 %; Neutrophils # (A) 15.61 10*3/uL (1.80-7.70); Neutrophils % (A) 89.8 %; Platelet Count 335 10*3/uL (140-440); RBC 4.39 10*6/uL (4.10-5.20); RDW 18.7 % (11.5-14.5); WBC 17.36 10*3/uL (4.50-10.00)
[2024-12-31 06:07] LABS: African American GFR (CKD) >90 (>60 ml/min/1.73 sqM); Anion Gap 13 mmol/L; Blood Urea Nitrogen 11 mg/dL (7-17); Calcium 9.6 mg/dL (8.4-10.2); Carbon Dioxide 22 mmol/L (22-30); Chloride 98 mmol/L (98-107); Glucose 137 mg/dL (74-99); Non-African American GFR(CKD) >90 (>60 ml/min/1.73 sqM); Potassium 4.0 mmol/L (3.5-5.1); Sodium 133 mmol/L (137-145)
[2024-12-31] MEDS: ONDANSETRON 4 MG/2 ML VIAL IVP PRN (06:08)
--- NOTE | 2024-12-31 08:49 | P.PN ---
Subjective Progress Note Date: 12/31/24 Principal diagnosis: C3-7 severe spondylosis with severe stenosis, multilevel HNP Severe disc collapse and compression C3-7 Myelomalacia Patient seen and examined this morning. Patient has been having difficulty with nausea and vomiting throughout the night. Patient does report some improvement with this symptom. Patient has remained with head of bed at 10 degrees. Inform ed patient and staff to leave patient in this position until nausea resolves and then slowly raise head of bed every hour throughout the day. If her symptoms return please return patient to a flat position. Patient does deny any headache, blurred vision, or dizziness. Inquired with patient about previous surgeries if she had postop nausea, patient denies. Surgical incision to the anterior cervical spine, dressing is clean dry and intact with DUYEN drain present. We will place a hold on physical therapy until nausea is relieved and patient is able to sit upright without symptoms. Encourage patient to utilize incentive spirometer 10 times per hour while awake. Objective - Vital Signs Vital signs: Vital Signs Temp 98.3 F 12/31/24 08:00 Pulse 98 12/31/24 08:00 Resp 20 12/31/24 08:00 BP 135/73 12/31/24 08:00 Pulse Ox 97 12/31/24 08:00 FiO2 Intake & Output 12/30/24 12/31/24 12/31/24 18:59 06:59 18:59 Intake Total 1500 Output Total 875 1010 Balance 625 -1010 Weight 54.43 kg Intake: IV 1500 Output: Drainage 10 Neck 10 Urine 850 1000 Estimated Blood Loss 25 Other: Voiding Method Indwelling Catheter - Exam Physical Examination General: The patient is awake and alert, in no acute distress. Skin: Skin is warm and dry with no obvious rashes or lesions. Surgical incision to the anterior cervical spine, dressing is clean dry and intact with DUYEN drain present. Eye: Pupils are equal, round and reactive to light, extra-ocular movements are intact; there is normal conjunctiva bilaterally. Neck: The neck is supple, there mild tenderness around the incision site. Respiratory: Respirations are non-labored. Gastrointestinal: Soft, non-distended, non-tender abdomen. Back: There is no tenderness to palpation in the midline, paralumbar, parathoracic or buttocks region. There is no obvious deformity. Musculoskeletal: ROM limited secondary to pain and stiffness from surgical procedure. Right: Shoulder abduction 5/5, elbow flexors 5/5, wrist dorsiflexors 5/ 5. finger abductor 5/5, control systems eng 5/5, hip flexor 4/5, knee flexor KENDALL, ankle dorsiflexor 5/5, ankle plantarflexion 5/5 and extensor hallucis 5/5 Left: Shoulder abduction 5/5, elbow flexors 5/5, wrist dorsiflexors 5/5. finger abductor 5/5, control systems eng 5/5, hip flexor 5/5, knee flexor 5/5, ankle dorsiflexor 5/5, ankle plantarflexion 5/5 and extensor hallucis 5/5. Neurological: CN 2-12 intact. There are no obvious motor or sensory deficits. Movement and coordination equal and intact. Sensory exam to light touch intact C5-T1 and intact from L2-S1. Reflexes 2/4 in bilateral upper and lower extremities. Negative Hoffmans, babinski, and clonus signs. Psychiatric: Cooperative, appropriate mood & affect, normal judgment. - Labs CBC & Chem 7: 12/31/24 04:45 12/31/24 04:40 Labs: Abnormal Lab Results - Last 24 Hours (Table) 12/31/24 12/31/24 Range/Units 04:40 04:45 WBC 17.36 H (4.50-10.00) 10*3/uL Hgb 11.8 L (12.0-15.0) g/dL Hct 36.7 L (37.2-46.3) % MCH 26.9 L (27.0-32.0) pg RDW 18.7 H (11.5-14.5) % Immature Gran # 0.10 H (0.00-0.04) 10*3/uL Neutrophils # 15.61 H (1.80-7.70) 10*3/uL Lymphocytes # 0.57 L (0.90-5.00) 10*3/uL Monocytes # 1.07 H (0.20-1.00) 10*3/uL Eosinophils # 0.00 L (0.04-0.35) 10*3/uL Sodium 133 L (137-145) mmol/L Creatinine 0.38 L (0.52-1.04) mg/dL Glucose 137 H (74-99) mg/dL Assessment and Plan Assessment: Postop day 1: C3-C7 anterior cervical discectomy and fusion Plan: -Appreciate consultant electronics and team management. -Activity: Head of bed is currently at 10 degrees, attempt to raise head of bed throughout the day as nausea dissipates. If her symptoms return, place head of bed to a flat position. - We have placed a hold on physical therapy and Occupational Therapy until patient is able to sit upright without symptoms. - Hard cervical collar at all times. -Pain control: Adequate at this time -Meds: reviewed -GI ppx: senna, Miralax - Maintain Da Silva catheter. -DVT PPX: Aspirin 81mg daily -Hygiene: Maintain incision clean and dry. -Drains: Maintain for now. Continue to monitor and record output q shift. -Encourage IS 10x/hr -Dispo: Clinically pending *I reviewed and discussed this case with my attending Dr. Martinez, whom has reviewed this chart and films and is in agreement with assessment and plan of care as outlined above. I have personally seen and examined the patient, performed the documentation and the assessment and plan as written. Number of minutes spent on the visit: 20m.
[2024-12-31] MEDS: SENNOSIDES-DOCUSATE SODIUM 1 EACH TAB PO SCH (10:11)
[2024-12-31] MEDS: SCOPOLAMINE 1 MG/72 HR PATCH TRANSDERM SCH (10:13)
[2024-12-31 12:01] LABS: Glucose,Whole Blood 108 mg/dL (70-110)
[2025-01-01] MEDS: MORPHINE SULFATE 4 MG/ML SYRINGE IVP PRN (08:25)
--- NOTE | 2025-01-01 09:53 | P.PN ---
Subjective Progress Note Date: 01/01/25 Principal diagnosis: C3-7 severe spondylosis with severe stenosis, multilevel HNP Severe disc collapse and compression C3-7 Myelomalacia Patient seen and examined this morning. Patient continues to report episodes of nausea. New orders have been placed. Patient has been refusing pain medication and refusing to eat. Strong encouragement for patient to continue with progressing her activity and increase her oral intake to be able to tolerate pain medications. Patient is stating that her pain is more focused to her right knee and buttock. Patient had a total right knee arthoplasty performed in June [address] Lynn. Patient did not follow up with care and currently is unable to extend her right leg. Right knee manipulation was attempted during her cervical surgery with no success of repositioning with extension. Continue with ice or heat therapy to the right knee for pain management. Encourage patient to utilize incentive spirometer 10 times per hour while awake. Objective - Vital Signs Vital signs: Vital Signs Temp 98.0 F 01/01/25 07:31 Pulse 86 01/01/25 07:31 Resp 17 01/01/25 07:31 BP 162/77 01/01/25 07:31 Pulse Ox 95 01/01/25 07:31 FiO2 Intake & Output 12/31/24 01/01/25 01/01/25 18:59 06:59 18:59 Intake Total 540 Output Total 1345 450 Balance -1345 90 Intake: Oral 540 Output: Drainage 20 0 Neck 20 0 Urine 1325 450 Other: Voiding Method Indwelling Catheter Indwelling Catheter # Bowel Movements 0 - Exam Physical Examination General: The patient is awake and alert, in no acute distress. Skin: Skin is warm and dry with no obvious rashes or lesions. Surgical incision to the anterior cervical spine, dressing is clean dry and intact with DUYEN drain present. Eye: Pupils are equal, round and reactive to light, extra-ocular movements are intact; there is normal conjunctiva bilaterally. Neck: The neck is supple, there mild tenderness around the incision site. Respiratory: Respirations are non-labored. Gastrointestinal: Soft, non-distended, non-tender abdomen. Back: There is no tenderness to palpation in the midline, paralumbar, parathoracic or buttocks region. There is no obvious deformity. Musculoskeletal: ROM limited secondary to pain and stiffness from surgical procedure. Right: Shoulder abduction 5/5, elbow flexors 5/5, wrist dorsiflexors 5/5. finger abductor 5/5, clinical laboratory medical director 5/5, hip flexor 4/5, knee flexor KENDALL, ankle dorsiflexor 5/5, ankle plantarflexion 5/5 and extensor hallucis 5/5 Left: Shoulder abduction 5/5, elbow flexors 5/5, wrist dorsiflexors 5/5. finger abductor 5/5, clinical laboratory medical director 5/5, hip flexor 5/5, knee flexor 5/5, ankle dorsiflexor 5/5, ankle plantarflexion 5/5 and extensor hallucis 5/5. Neurological: CN 2-12 intact. There are no obvious motor or sensory deficits. Movement and coordination equal and intact. Sensory exam to light touch intact C5-T1 and intact from L2-S1. Reflexes 2/4 in bilateral upper and lower extremities. Negative Hoffmans, babinski, and clonus signs. Psychiatric: Cooperative, appropriate mood & affect, normal judgment. - Labs CBC & Chem 7: 12/31/24 04:45 12/31/24 04:40 Assessment and Plan Assessment: Postop day 2: C3-C7 anterior cervical discectomy and fusion Plan: -Appreciate retirement sales consultant and team management. -Activity: Reposition patient q2 2 hours. Patient may be transferred to chair, and to be up for all meals as tolerated. - Daily PT/OT - Hard cervical collar at all times. -Pain control: Adequate at this time -Meds: reviewed -GI ppx: senna, Miralax - Maintain Da Silva catheter. -DVT PPX: Aspirin 81mg daily -Hygiene: Maintain incision clean and dry. -Drains: Maintain for now. Continue to monitor and record output q shift. -Encourage IS 10x/hr -Dispo: Clinically pending *I reviewed and discussed this case with my attending Dr. Martinez, whom has reviewed this chart and films and is in agreement with assessment and plan of care as outlined above. I have personally seen and examined the patient, performed the documentation and the assessment and plan as written. Number of minutes spent on the visit: 20m.
[2025-01-01] MEDS: KETOROLAC 15 MG/ML 1 ML VIAL IVP SCH (11:00)
[2025-01-01] MEDS: METOCLOPRAMIDE 5 MG/ML 2 ML VIAL IVP SCH (11:00)
[2025-01-01 11:02] LABS: Glucose,Whole Blood 130 mg/dL (70-110)
[2025-01-01] MEDS ORDERED: RX INFO: IV CONTRAST WAS GIVEN 1 EACH MISC MISCELLANE PRN (11:34)
[2025-01-01 11:35] LABS: Basophils # (A) 0.05 10*3/uL (0.00-0.10); Basophils % (A) 0.2 %; Eosinophils # (A) 0.00 10*3/uL (0.04-0.35); Eosinophils % (A) 0.0 %; HCT 38.3 % (37.2-46.3); HGB 13.0 g/dL (12.0-15.0); Lymphocytes # (A) 0.76 10*3/uL (0.90-5.00); Lymphocytes % (A) 3.5 %; MCH 27.3 pg (27.0-32.0); MCHC 33.9 g/dL (32.0-37.0); MCV 80.5 fL (80.0-97.0); Monocytes # (A) 1.72 10*3/uL (0.20-1.00); Monocytes % (A) 7.9 %; Neutrophils # (A) 19.11 10*3/uL (1.80-7.70); Neutrophils % (A) 87.3 %; Platelet Count 410 10*3/uL (140-440); RBC 4.76 10*6/uL (4.10-5.20); RDW 18.1 % (11.5-14.5); WBC 21.88 10*3/uL (4.50-10.00)
[2025-01-01 11:48] LABS: ALT 22 U/L (4-34); AST 47 U/L (14-36); African American GFR (CKD) >90 (>60 ml/min/1.73 sqM); Albumin 4.8 g/dL (3.5-5.0); Albumin/Globulin Ratio 1.8; Alkaline Phosphatase 157 U/L (38-126); Anion Gap 18 mmol/L; Blood Urea Nitrogen 10 mg/dL (7-17); Calcium 10.2 mg/dL (8.4-10.2); Carbon Dioxide 20 mmol/L (22-30); Chloride 95 mmol/L (98-107); Globulin 2.7 g/dL; Glucose 132 mg/dL (74-99); Non-African American GFR(CKD) >90 (>60 ml/min/1.73 sqM); Potassium 3.5 mmol/L (3.5-5.1); Sodium 133 mmol/L (137-145); Total Protein 7.5 g/dL (6.3-8.2)
--- NOTE | 2025-01-01 12:01 | CT ---
EXAMINATION TYPE: CODE STROKE: CT brain wo contr DATE OF EXAM: 01/01/2025 11:46 AM COMPARISON: None. CLINICAL INDICATION: Female, 74 years old with history of confusion, code stroke difficulty speaking TECHNIQUE: Brain: Axial CT images of the brain were obtained with coronal and sagittal reformats created and rev iewed. Contrast used: None. Oral contrast used: None. CT DLP: 386.8 mGycm, Automated exposure control for dose reduction was used. FINDINGS: Brain: Extra-axial spaces: No abnormal extra-axial fluid collections. Ventricular system: Dilatation in proportion to cerebral atrophy. Cerebral parenchyma: left basal ganglia/external capsule low attenuating area series 3032 image 24 im age mild scattered cerebral atrophy.. No acute intraparenchymal hemorrhage or mass effect. The delatorre- white junction is well differentiated. Scattered hypoattenuating areas are seen within the white abbi er. Cerebellum: Unremarkable. Mass effect: No evidence of midline shift. Intracranial vasculature: Atherosclerotic calcifications of the intracranial vessels. Soft tissues: Normal. Calvarium/osseous structures: No depressed skull fracture. Paranasal sinuses and mastoid air cells: Mild scattered paranasal sinus disease. Visualized orbits: Orbital contents are intact. IMPRESSION: 1. Hypodense area in the left basal ganglia /external capsule concerning for acute/subacute CVA in th is setting of neurological deficit 2. Nonspecific white matter changes, likely secondary to chronic small vessel ischemic disease. [facility], , 01/01/2025 11:58 AM
[2025-01-01 12:07] LABS: INR 1.0 (<1.2); Partial Thromboplastin Time 22.5 sec (22.0-30.0); Prothrombin Time 10.9 sec (10.0-12.5)
--- NOTE | 2025-01-01 12:47 | CT ---
EXAMINATION TYPE: CT angio head neck DATE OF EXAM: 01/01/2025 12:03 PM COMPARISON: CT brain same day. CLINICAL INDICATION: Female, 74 years old with history of code stroke; PHH, code stroke difficulty sp eaking TECHNIQUE: Axially acquired helical CT angiogram of the head and neck was obtained with contrast. Axi al images are supplemented with 3D reconstructions and MIP images which were post-processed at an in dependent workstation. NASCET criteria used. Contrast used:65ml mL of Isovue 370 with IV Contrast, Oral contrast used: None. CT DLP: 386.8 mGycm, Automated exposure control for dose reduction was used. FINDINGS: CTA HEAD: No evidence of acute intracranial hemorrhage, mass effect, or midline shift. The ventricles, sulci, a nd cisterns are unremarkable. Vertebral arteries: The vertebral arteries are patent. Vertebral artery dominance: Left Basilar artery: The basilar artery is intact. The basilar artery bifurcation is normal. Internal Carotid arteries: The cervical, petrous, cavernous and supraclinoid segments are normal. JENNIFER: Patent with no evidence of aneurysm. ACOM: Present without evidence of aneurysm. MCA: Patent with no evidence of aneurysm. MEDICAL OFFICER PSYCHIATRY: Patent with no evidence of aneurysm. PCOM: Hypoplastic bilaterally. Dural sinuses: Patent. CTA NECK: Right Carotid System: The common carotid artery and external carotid artery are patent. The carotid bifurcation demonstrate s no evidence of hemodynamically significant stenosis. The remaining portions of the internal carotid artery demonstrate normal size without significant narrowing. Left Carotid System: The common carotid artery and external carotid artery are patent. The carotid bifurcation demonstrate s no evidence of hemodynamically significant stenosis. The remaining portions of the internal carotid artery demonstrate normal size without significant narrowing. Vertebral arteries are patent without evidence hemodynamically significant stenosis. Left dominant ve rtebral artery system There is a three-vessel aortic arch. The origins of the great vessels are patent. No evidence of hemo dynamically significant stenosis. Fixation hardware throughout the cervical spine extending from C3-C4 through C6-C7 disc spaces anteri dylan. No significant central canal stenosis. Multilevel degeneration changes of the spine. IMPRESSION: 1. No evidence of dissection of the cervical internal carotid arteries or vertebral arteries. 2. No any evidence of significant stenosis at the carotid bifurcations. 3. No evidence of intracranial high-grade stenosis or intracranial aneurysm. 4. Postsurgical changes of the spine. 5. Left dominant vertebral artery system. [facility], , 01/01/2025 12:44 PM
--- NOTE | 2025-01-01 14:19 | P.CONS ---
History of Present Illness - Reason for Consult Consult date: 01/01/25 Medical management Requesting physician: Harpal Martinez - Chief Complaint Cervical spine surgery - History of Present Illness This is a 74-year-old patient, follows with Dr. Gigi Hatfield. Chronic medical condition include IBS, hyperlipidemia, hypertension, peptic ulcer disease. Patient had surgery on the right knee by Dr. Lynn earlier this year and has a frozen right knee. Unable to extend the same. Patient been having neck pain for some time. Patient also had upper extremity pain weakness radiculopathy. She was found to have C3-C7 severe spondylosis with severe stenosis. And severe disc collapse and compression C3-C7. Myelomalacia. On December 30 patient underwent arthrodesis insertion of biomechanical device cage x 4. Patient also has a anterior DUYEN drain. This morning when I arrived to see the patient code stroke had been called. Patient having significant pain at the operative site. She had been switched over from Dilaudid to morphine which the first 2 she received earlier today. Along with [place]. Patient's speech was found a bit slurred by the nurse. Somewhat restless. No new weakness was noticed. Teleneurology was consulted earlier. Patient had some fluctuation in her mentation. She could tell me that she is in the ER. She said she is here because she has been having falls. She thought it was May and 2025. She has a cervical collar. Has had only 5 to 10 cc output through the DUYEN drain per shift. Review of systems difficult to obtain as patient is rather delirious Social history: Non-smoker. Denies alcohol. Her son lives next-door Physical examination: VITAL SIGNS: 98, 86, 17, 162 x 77, 95% room air this morning GENERAL: BMI 23.4, thin built, somewhat restless moving about. EYES: Pupils equal. Conjunctiva carolin l. HEENT: External appearance of nose and ears normal, oral cavity grossly normal. NECK: Hard collar in place. Anterior DUYEN drain.'s some blood soaking of the dressing.. HEART: First and second heart sounds are normal; no edema. LUNGS: Respiratory rate normal; clear to auscultation. ABDOMEN: Soft, nontender, liver spleen not palpable, no masses palpable. PSYCH: Patient think she is in the ER. She thinks is 2025. She thinks she is here because she has been falling at home.]l. MUSCULOSKELETAL: Cervical hard collar. Evidence of OA in the joints. Right knee is flexed unable to be extended NEUROLOGICAL: [Cranial nerves grossly intact; no facial asymmetry, patient got good power in both the hands. LYMPHATICS: No lymph nodes palpable in the axilla and neck INVESTIGATIONS, reviewed in the clinical context: January 01: White count 21.8 hemoglobin 13 platelets 410 sodium 133 potassium 3.5 BUN 10 creatinine 0.49 December 31: White count 7.3 hemoglobin 11.[address] brain without contrast [January 01] left basal ganglia external capsule low attenuating area series 3032. Reported as hypodense area in the left basal ganglia external capsule concern for acute/subacute CVA. CT angio head and neck: Unremarkable other findings in the full report Assessment plan: - Acute mental status changes. Patient noticed to be delirious with fluctuating mentation. Earlier this morning she was hold her regular conversation with the nurse. Patient then switched from Dilaudid to morphine which patient received 4 mg along with [place]. Patient's speech was only found to be slurred which could well be from the pain medications. Patient has some reported findings in the CT scan. But that does not explain patient's change in mentation delirium. Patient's strength in both the arms is good. I still highly doubt acute stroke. Stroke team has been consulted. Follow-up with them. Neurochecks. Hold off adding any antiplatelet agents given that patient has still has some soaking from the dressing over the neck. Probable acute delirium from pain medications Doubt acute stroke but needs to be ruled out Patient removed to the ICU/telemetry floor has there is a staffing shortage in the ICU. - Leukocytosis. No current evidence of any infection. Will follow-up with Ortho. No respiratory symptoms reported. Will check a UA - Essential hypertension Resume amlodipine 5 mg a day - Depression otherwise specified Prozac 40 mg a day - Hyperlipidemia Lipitor 40 mg nightly - GERD/history of peptic ulcer disease Omeprazole I discussed my thoughts with Dr. Martinez over the phone. Rest follow-up with neurology. Will also order a carotid Doppler and a 2D echo. The Doppler be difficult at this point because of the hard collar. Thank you Dr. Martinez Past Medical History Past Medical History: GERD/Reflux, Hyperlipidemia, Hypertension, Osteoarthritis (OA) Additional Past Medical History / Comment(s): Hx of gastritis/ small ulcerations/ distal esophagitis/diverticulosis/IBS, hiatal hernia. Hx of a slip/fall a week ago. Denies current skin issues. History of Any Multi-Drug Resistant Organisms: None Reported Past Surgical History: Appendectomy, Hysterectomy, Orthopedic Surgery, Tonsillectomy Additional Past Surgical History / Comment(s): FEB 2024 & JUL 2023 BACK SURGERIES. 09/30/18 EGD with bx and colonoscopy with bx, R bunionectomy, Right TKA 06/2024. Past Anesthesia/Blood Transfusion Reactions: No Reported Reaction Additional Past Anesthesia/Blood Transfusion Reaction / Comm: hx of blood transfusion- no reaction Past Psychological History: Depression Additional Psychological History / Comment(s): Managed on medication. Smoking Status: Former smoker Past Alcohol Use History: None Reported Additional Past Alcohol Use History / Comment(s): smoked for a year @ age of 20 Past Drug Use History: None Reported Additional Drug Use History / Comment(s): doesn't use anymore, only topical prn - Past Family History Father Family Medical History: Myocardial Infarction (PR) Mother Family Medical History: Thyroid Disorder Additional Family Medical History / Comment(s): scoliosis. Maternal grandparents w/ hx of pancreatic and prostate CA. Medications and Allergies Home Medications Medication Instructions Recorded Confirmed Type Atorvastatin [Lipitor] 40 mg PO HS 10/19/18 12/30/24 History Omeprazole 40 mg PO BID 10/19/18 12/30/24 History Gabapentin [Neurontin] 300 mg PO TID 08/18/23 12/30/24 History Montelukast [Singulair] 10 mg PO HS 08/18/23 12/30/24 History Naproxen [Naprosyn] 500 mg PO BID 08/18/23 12/30/24 History FLUoxetine HCL [PROzac] 40 mg PO QAM 07/07/24 12/30/24 History amLODIPine 5 mg PO QAM 07/07/24 12/30/24 History methocarbamoL 750 mg PO TID 07/07/24 12/30/24 History Allergies Allergy/AdvReac Type Severity Reaction Status Date / Time No Known Allergies Allergy Verified 12/30/24 10:01 Physical Exam Vitals: Vital Signs Temp Pulse Pulse Resp BP Pulse Ox 01/01/25 08:31 86 94 17 01/01/25 07:31 98.0 F 86 17 162/77 95 12/31/24 23:59 98.2 F 94 14 133/73 95 12/31/24 18:07 98.2 F 88 20 135/87 93 L Intake and Output 12/31/24 01/01/25 01/01/25 22:59 06:59 14:59 Intake Total 540 Output Total 1335 450 Balance -1335 90 Intake: Oral 540 Output: Drainage 10 0 Neck 10 0 Urine 1325 450 Other: Voiding Method Indwelling Catheter Indwelling Catheter # Bowel Movements 0 Results CBC & Chem 7: 01/01/25 11:20 01/01/25 11:20 Labs: Abnormal Lab Results - Last 24 Hours (Table) 01/01/25 01/01/25 01/01/25 Range/Units 11:01 11:20 11:20 WBC 21.88 H (4.50-10.00) 10*3/uL RDW 18.1 H (11.5-14.5) % MPV 9.4 L (9.5-12.2) fL Immature Gran # 0.24 H (0.00-0.04) 10*3/uL Neutrophils # 19.11 H (1.80-7.70) 10*3/uL Lymphocytes # 0.76 L (0.90-5.00) 10*3/uL Monocytes # 1.72 H (0.20-1.00) 10*3/uL Eosinophils # 0.00 L (0.04-0.35) 10*3/uL Sodium 133 L (137-145) mmol/L Chloride 95 L (98-107) mmol/L Carbon Dioxide 20 L (22-30) mmol/L Creatinine 0.49 L (0.52-1.04) mg/dL Glucose 132 H (74-99) mg/dL POC Glucose (mg/dL) 130 H (70-110) mg/dL AST 47 H (14-36) U/L Alkaline Phosphatase 157 H (38-126) U/L
[2025-01-01] MEDS: GABAPENTIN 300 MG CAP PO SCH (15:12)
[2025-01-01] MEDS: PANTOPRAZOLE 40 MG TABLET PO SCH (15:12)
[2025-01-01] MEDS: amLODIPine 5 MG TAB PO SCH (15:12)
[2025-01-01 15:50] LABS: Bilirubin,Urine Negative (Negative); Blood,Urine Large (Negative); Color,Urine Light Yellow; Glucose,Urine (UA) Negative (Negative); Ketones,Urine 3+ (Negative); Leukocyte Esterase,Urine Negative (Negative); Mucus,Urine Rare /hpf; Nitrite,Urine Negative (Negative); PH, Urine 6.5 (5.0-8.0); Protein,Urine 3+ (Negative); RBC,Urine 26 /hpf (0-5); Squamous Epithelial Cell,Urine <1 /hpf (0-4); Urobilinogen,Urine <2.0 mg/dL (<2.0); WBC,Urine 2 /hpf (0-5)
[2025-01-01 15:51] LABS: Specific Gravity,Urine >1.050 (1.001-1.035)
[2025-01-01] MEDS: ATORVASTATIN 40 MG TAB PO SCH (21:41)
[2025-01-01] MEDS: MONTELUKAST 10 MG TAB PO SCH (21:41)
[2025-01-02] MEDS: CYCLOBENZAPRINE 5 MG TAB PO PRN (04:36)
[2025-01-02 07:39] LABS: Basophils # (A) 0.04 10*3/uL (0.00-0.10); Basophils % (A) 0.3 %; Eosinophils # (A) 0.05 10*3/uL (0.04-0.35); Eosinophils % (A) 0.3 %; HCT 35.4 % (37.2-46.3); HGB 11.8 g/dL (12.0-15.0); Lymphocytes # (A) 1.41 10*3/uL (0.90-5.00); Lymphocytes % (A) 9.7 %; MCH 27.0 pg (27.0-32.0); MCHC 33.3 g/dL (32.0-37.0); MCV 81.0 fL (80.0-97.0); Monocytes # (A) 1.73 10*3/uL (0.20-1.00); Monocytes % (A) 11.9 %; Neutrophils # (A) 11.20 10*3/uL (1.80-7.70); Neutrophils % (A) 77.2 %; Platelet Count 304 10*3/uL (140-440); RBC 4.37 10*6/uL (4.10-5.20); RDW 18.9 % (11.5-14.5); WBC 14.51 10*3/uL (4.50-10.00)
[2025-01-02 08:07] LABS: ALT 22 U/L (4-34); AST 48 U/L (14-36); African American GFR (CKD) >90 (>60 ml/min/1.73 sqM); Albumin 3.9 g/dL (3.5-5.0); Alkaline Phosphatase 131 U/L (38-126); Anion Gap 11 mmol/L; Blood Urea Nitrogen 17 mg/dL (7-17); Calcium 9.6 mg/dL (8.4-10.2); Carbon Dioxide 24 mmol/L (22-30); Chloride 98 mmol/L (98-107); Glucose 83 mg/dL (74-99); Non-African American GFR(CKD) 88 (>60 ml/min/1.73 sqM); Potassium 3.0 mmol/L (3.5-5.1); Sodium 133 mmol/L (137-145); Total Protein 6.2 g/dL (6.3-8.2)
--- NOTE | 2025-01-02 11:08 | P.PN ---
Subjective Progress Note Date: 01/02/25 Principal diagnosis: C3-7 severe spondylosis with severe stenosis, multilevel HNP Severe disc collapse and compression C3-7 Myelomalacia Patient seen and examined this morning. Patient is resting comfortably in bed. Patient did have an episode of confusion with loss of his words yesterday morning code stroke was initiated and patient was transferred to [facility]. Upon entering the room this morning patient is alert and oriented. She states that she was aware of her loss of words and did not understand what was going on. Patient states she is feeling much better. She denies any nausea. Surgical incision to the anterior cervical spine, edges are well-approximated with glue intact. DUYEN drain has been removed and new dressing applied. Patient may take breaks from the hard cervical collar while laying in bed. Patient has developed an abrasion under the chin due to the padding being moist. Prescription for new pads will be placed in chart. Continue with ice or heat therapy to the right knee for pain management. Encourage patient to utilize incentive spirometer 10 times per hour while awake. Patient states she does plan on subacute rehab at discharge. Objective - Vital Signs Vital signs: Vital Signs Temp 98.6 F 01/02/25 08:00 Pulse 93 01/02/25 08:00 Resp 18 01/02/25 08:00 BP 118/76 01/02/25 08:00 Pulse Ox 96 01/02/25 08:00 FiO2 Intake & Output 01/01/25 01/02/25 01/02/25 18:59 06:59 18:59 Intake Total 120 Output Total 800 200 0 Balance -680 -200 0 Weight 55 kg Intake: Oral 120 Output: Drainage 0 0 Neck 0 0 Urine 800 200 Other: Voiding Method Indwelling Catheter Indwelling Catheter Indwelling Catheter - Exam Physical Examination General: The patient is awake and alert, in no acute distress. Skin: Skin is warm and dry, there is a small abrasion that has developed under the chin from padding od collar being wet. Surgical incision to the anterior cervical spine, edges are well-approximated with glue intact. DUYEN drain has been removed and new dressing applied. Eye: Pupils are equal, round and reactive to light, extra-ocular movements are intact; there is normal conjunctiva bilaterally. Neck: The neck is supple, there mild tenderness around the incision site. Limited range of motion secondary to surgical procedure and [place] hard cervical collar intact. Respiratory: Respirations are non-labored. Gastrointestinal: Soft, non-distended, non-tender abdomen. Back: There is no tenderness to palpation in the midline, paralumbar, parathor acic or buttocks region. There is no obvious deformity. Musculoskeletal: ROM limited secondary to pain and stiffness from surgical procedure. Right: Shoulder abduction 5/5, elbow flexors 5/5, wrist dorsiflexors 5/5. finger abductor 5/5, oracle database analyst 5/5, hip flexor 4/5, knee flexor KENDALL, ankle dorsiflexor 5/5, ankle plantarflexion 5/5 and extensor hallucis 5/5 Left: Shoulder abduction 5/5, elbow flexors 5/5, wrist dorsiflexors 5/5. finger abductor 5/5, oracle database analyst 5/5, hip flexor 5/5, knee flexor 5/5, ankle dorsiflexor 5/5, ankle plantarflexion 5/5 and extensor hallucis 5/5. Neurological: CN 2-12 intact. There are no obvious motor or sensory deficits. Movement and coordination equal and intact. Sensory exam to light touch intact C5-T1 and intact from L2-S1. Reflexes 2/4 in bilateral upper and lower extremities. Negative Hoffmans, babinski, and clonus signs. Psychiatric: Cooperative, appropriate mood & affect, normal judgment. - Labs CBC & Chem 7: 01/02/25 06:46 01/02/25 06:46 Labs: Abnormal Lab Results - Last 24 Hours (Table) 01/01/25 01/01/25 01/01/25 Range/Units 11:01 11:20 11:20 WBC 21.88 H (4.50-10.00) 10*3/uL Hgb (12.0-15.0) g/dL Hct (37.2-46.3) % RDW 18.1 H (11.5-14.5) % MPV 9.4 L (9.5-12.2) fL Immature Gran # 0.24 H (0.00-0.04) 10*3/uL Neutrophils # 19.11 H (1.80-7.70) 10*3/uL Lymphocytes # 0.76 L (0.90-5.00) 10*3/uL Monocytes # 1.72 H (0.20-1.00) 10*3/uL Eosinophils # 0.00 L (0.04-0.35) 10*3/uL Sodium 133 L (137-145) mmol/L Potassium (3.5-5.1) mmol/L Chloride 95 L (98-107) mmol/L Carbon Dioxide 20 L (22-30) mmol/L Creatinine 0.49 L (0.52-1.04) mg/dL Glucose 132 H (74-99) mg/dL POC Glucose (mg/dL) 130 H (70-110) mg/dL AST 47 H (14-36) U/L Alkaline Phosphatase 157 H (38-126) U/L Total Protein (6.3-8.2) g/dL Ur Specific Bowen (1.001-1.035) Urine Protein (Negative) Urine Ketones (Negative) Urine Blood (Negative) Urine RBC (0-5) /hpf Urine Mucus (None) /hpf 01/01/25 01/02/25 01/02/25 Range/Units 15:00 06:46 06:46 WBC 14.51 H (4.50-10.00) 10*3/uL Hgb 11.8 L (12.0-15.0) g/dL Hct 35.4 L (37.2-46.3) % RDW (11.5-14.5) % MPV (9.5-12.2) fL Immature Gran # 0.08 H (0.00-0.04) 10*3/uL Neutrophils # 11.20 H (1.80-7.70) 10*3/uL Lymphocytes # (0.90-5.00) 10*3/uL Monocytes # 1.73 H (0.20-1.00) 10*3/uL Eosinophils # (0.04-0.35) 10*3/uL Sodium 133 L (137-145) mmol/L Potassium 3.0 L (3.5-5.1) mmol/L Chloride (98-107) mmol/L Carbon Dioxide (22-30) mmol/L Creatinine (0.52-1.04) mg/dL Glucose (74-99) mg/dL POC Glucose (mg/dL) (70-110) mg/dL AST 48 H (14-36) U/L Alkaline Phosphatase 131 H (38-126) U/L Total Protein 6.2 L (6.3-8.2) g/dL Ur Specific Bow[place] >1.050 H (1.001-1.035) Urine Protein 3+ H (Negative) Urine Ketones 3+ H (Negative) Urine Blood Large H (Negative) Urine RBC 26 H (0-5) /hpf Urine Mucus Rare H (None) /hpf Assessment and Plan Assessment: Postop day 3: C3-C7 anterior cervical discectomy and fusion Plan: -Appreciate security consultant and team management. -Activity: Reposition patient q2 2 hours. Patient may be transferred to chair, and to be up for all meals as tolerated. - Daily PT/OT - Hard cervical collar at all times, may remove while laying in bed and for showers. -Pain control: Adequate at this time -Meds: reviewed -GI ppx: senna, Miralax -Discontinue laird cath -DVT PPX: Aspirin 81mg daily -Hygiene: Maintain incision clean and dry. -Encourage IS 10x/hr -Dispo: Anticipate discharge in the next 24 hours. Patient is requesting subacute rehab *I reviewed and discussed this case with my attending Dr. Martinez, whom has reviewed this chart and films and is in agreement with assessment and plan of care as outlined above. I have personally seen and examined the patient, performed the documentation and the assessment and plan as written. Number of minutes spent on the visit: 20m.
--- NOTE | 2025-01-02 15:43 | P.CNNES ---
History of Present Illness Consult date: 01/02/25 Reason for Consult: Code stroke History of Present Illness: The patient is a 74-year-old female who is seen in neurologic consultation on 11/02/2024, in collaboration with Gwen Castillo, via teleneurology. History is obtained from the patient and review of the chart. The patient is status post multilevel cervical spinal fusion. Apparently yesterday morning, the patient was noted by nursing to have some confusion and difficulty with speech. The patient reports that she knew what she wanted to say but could not get her words out. She does recall being confused. A code stroke was called and the patient was sent down for a stat head CT and CT angiogram of the head and neck. This imaging has been reviewed. The radiologist reports an area involving the left basal ganglia, which may be consistent with acute/subacute ischemia. I have reviewed this image and am not certain that this represents acute ischemia. Unfortunately, there was no documentation of any specific events which occurred leading to calling the code stroke. In review of the medical consultation, the patient was reportedly having difficulty with speech and confusion, after receiving 4 mg of morphine. The patient had also reportedly received [place]. The patient herself states that she believes the confusion and difficulty with speech occurred following received bolus of Dilaudid. I am unable to determine, based on the MAR, what meds were received at what times. This morning, the patient reports that she feels back to her baseline. She does recall the events of yesterday. She denies associated headache, vision changes, weakness, numbness and difficulty swallowing. The patient does report that she had severe neck pain while this event was occurring. The patient believes that her symptoms lasted for approximately 2 hours. The patient denies a history of stroke. Past Medical History Past Medical History: GERD/Reflux, Hyperlipidemia, Hypertension, Osteoarthritis (OA) Additional Past Medical History / Comment(s): Hx of gastritis/ small ulcerations/ distal esophagitis/diverticulosis/IBS, hiatal hernia. Hx of a slip/fall a week ago. Denies current skin issues. History of Any Multi-Drug Resistant Organisms: None Reported Past Surgical History: Appendectomy, Hysterectomy, Orthopedic Surgery, Tonsillectomy Additional Past Surgical History / Comment(s): FEB 2024 & JUL 2023 BACK SURGERIES. 09/30/18 EGD with bx and colonoscopy with bx, R bunionectomy, Right TKA 06/2024. Past Anesthesia/Blood Transfusion Reactions: No Reported Reaction Additional Past Anesthesia/Blood Transfusion Reaction / Comment(s): hx of blood transfusion- no reaction Past Psychological History: Depression Additional Psychological History / Comment(s): Managed on medication. Smoking Status: Former smoker Past Alcohol Use History: None Reported Additional Past Alcohol Use History / Comment(s): smoked for a year @ age of 20 Past Drug Use History: None Reported Additional Drug Use History / Comment(s): doesn't use anymore, only topical prn - Past Family History Father Family Medical History: Myocardial Infarction (MT) Mother Family Medical History: Thyroid Disorder Additional Family Medical History / Comment(s): scoliosis. Maternal grandparents w/ hx of pancreatic and prostate CA. Medications and Allergies Home Medications Medication Instructions Recorded Confirmed Type Atorvastatin [Lipitor] 40 mg PO HS 10/19/18 12/30/24 History Omeprazole 40 mg PO BID 10/19/18 12/30/24 History Gabapentin [Neurontin] 300 mg PO TID 08/18/23 12/30/24 History Montelukast [Singulair] 10 mg PO HS 08/18/23 12/30/24 History Naproxen [Naprosyn] 500 mg PO BID 08/18/23 12/30/24 History FLUoxetine HCL [PROzac] 40 mg PO QAM 07/07/24 12/30/24 History amLODIPine 5 mg PO QAM 07/07/24 12/30/24 History methocarbamoL 750 mg PO TID 07/07/24 12/30/24 History Allergies Allergy/AdvReac Type Severity Reaction Status Date / Time No Known Allergies Allergy Verified 12/30/24 10:01 Physical Examination - Vital Signs Vital Signs: Vital Signs Temp Pulse Resp BP Pulse Ox 01/02/25 08:00 98.6 F 93 18 118/76 96 01/02/25 04:00 98.2 F 89 16 103/64 92 L 01/01/25 22:57 99.3 F 85 16 99/62 94 L 01/01/25 20:00 98.8 F 92 18 98/60 95 01/01/25 16:00 99.4 F 93 18 146/78 93 L Intake and Output 01/01/25 01/02/25 01/02/25 22:59 06:59 14:59 Intake Total 120 Output Total 800 200 0 Balance -680 -200 0 Intake: Oral 120 Output: Drainage 0 0 Neck 0 0 Urine 800 200 Other: Voiding Method Indwelling Catheter Indwelling Catheter Indwelling Catheter Weight 55 kg General: The patient is well-nourished, well-developed and in no acute distress. HEENT: Head is atraumatic, normocephalic. Fundus not visualized. There is no scleral icterus. Mucous membranes are moist. Neck: Hard cervical collar is in place Heart: Regular rate and rhythm Lungs: There is no shortness of breath or cough Extremities: Without edema. The patient's right knee is flexed and unable to be extended, as a result of her previous knee surgery. Neurological examination Mental status: The patient is awake, alert and oriented x 3. Speech is clear. There is no dysarthria or aphasia Cranial nerves: Pupils are equal at 4 mm and reactive. Visual corona are full to confrontation. Extraocular movements are intact. There is no nystagmus. Facial sensation is intact. There is no facial asymmetry. Hearing is grossly intact. Uvula and palate are midline. Shoulder shrug is symmetric. Tongue protrudes midline. Motor: Strength is 5/5 throughout, with the exception of left hip flexor at 4/5. Sensation: Intact to light touch throughout. There is no extinction with double simultaneous stimulation. Coordination: [id number], rapid alternating movements and [id number] testing is intact. There is no pronator drift. Deep tendon reflexes: 2+/4+ in the bilateral upper extremities. Bilateral patellar reflexes 3+/4+. Plantar responses are extensor bilaterally. Gait: Not assessed Results CT scan of the brain and CT angiogram images have been personally reviewed. I am not convinced that the reported left basal ganglia acute ischemic infarct is actually present. - Laboratory Findings CBC and BMP: 01/02/25 06:46 01/02/25 06:46 Abnormal Lab Findings: Abnormal Labs 12/31/24 12/31/24 01/01/25 04:40 04:45 11:01 WBC 17.36 H Hgb 11.8 L Hct 36.7 L MCH 26.9 L RDW 18.7 H MPV Immature Gran # 0.10 H Neutrophils # 15.61 H Lymphocytes # 0.57 L Monocytes # 1.07 H Eosinophils # 0.00 L Sodium 133 L Potassium Chloride Carbon Dioxide Creatinine 0.38 L Glucose 137 H POC Glucose (mg/dL) 130 H AST Alkaline Phosphatase Total Protein Ur Specific [place] Urine Protein Urine Ketones Urine Blood Urine RBC Urine Mucus 01/01/25 01/01/25 01/01/25 11:20 11:20 15:00 WBC 21.88 H Hgb Hct MCH RDW 18.1 H MPV 9.4 L Immature Gran # 0.24 H Neutrophils # 19.11 H Lymphocytes # 0.76 L Monocytes # 1.72 H Eosinophils # 0.00 L Sodium 133 L Potassium Chloride 95 L Carbon Dioxide 20 L Creatinine 0.49 L Glucose 132 H POC Glucose (mg/dL) AST 47 H Alkaline Phosphatase 157 H Total Protein Ur Specific [place] >1.050 H Urine Protein 3+ H Urine Ketones 3+ H Urine Blood Large H Urine RBC 26 H Urine Mucus Rare H 01/02/25 01/02/25 06:46 06:46 WBC 14.51 H Hgb 11.8 L Hct 35.4 L MCH RDW MPV Immature Gran # 0.08 H Neutrophils # 11.20 H Lymphocytes # Monocytes # 1.73 H Eosinophils # Sodium 133 L Potassium 3.0 L Chloride Carbon Dioxide Creatinine Glucose POC Glucose (mg/dL) AST 48 H Alkaline Phosphatase 131 H Total Protein 6.2 L Ur Specific [place] Urine Protein Urine Ketones Urine Blood Urine RBC Urine Mucus Assessment and Plan Assessment: 1. Episode of confusion and reported expressive aphasia at which time a code s troke was called. Possible TIA versus medication effect versus small ischemic infarct (less likely) 2. Recent history of multilevel cervical spine surgery with associated pain and use of pain medications 3. History of hypertension 4. History of hyperlipidemia 5. History of previous right knee replacement with chronic flexion of the right knee Plan: 1. Stroke order set has been placed 2. MRI of the brain has been ordered 3. Agree with adjustment of the patient's pain medications 4. Continue atorvastatin 40 mg daily 5. Aspirin 81 mg should be initiated for further stroke prevention 6. Lipid panel, hemoglobin A1c and TSH have been ordered Thank you for allowing us to participate in care of this patient Dr. Ziegler will assume neurologic coverage of this patient as of January 03, 2025 Time with Patient: Greater than 30 (65 minutes were spent caring for this patient today including, obtaining history, examining the patient, reviewing imaging, chart documentation, labs, placing orders and creating this note)
--- NOTE | 2025-01-02 17:18 | P.PN ---
Progress Note - Text Progress Note Date: 01/02/25 - Chief Complaint Cervical spine surgery - History of Present Illness This is a 74-year-old patient, follows with Dr. Gigi Hatfield. Chronic medical condition include IBS, hyperlipidemia, hypertension, peptic ulcer disease. Patient had surgery on the right knee by Dr. Lynn earlier this year and has a frozen right knee. Unable to extend the same. Patient been having neck pain for some time. Patient also had upper extremity pain weakness radiculopathy. She was found to have C3-C7 severe spondylosis with severe stenosis. And severe disc collapse and compression C3-C7. Myelomalacia. On December 30 patient underwent arthrodesis insertion of biomechanical device cage x 4. Patient also has a anterior DUYEN drain. This morning when I arrived to see the patient code stroke had been called. Patient having significant pain at the operative site. She had been switched over from Dilaudid to morphine which the first 2 she received earlier today. Along with [place]. Patient's speech was found a bit slurred by the nurse. Somewhat restless. No new weakness was noticed. Teleneurology was consulted earlier. Patient had some fluctuation in her mentation. She could tell me that she is in the ER. She said she is here because she has been having falls. She thought it was May and 2025. She has a cervical collar. Has had only 5 to 10 cc output through the DUYEN drain per shift. January 02: Patient doing much better today having a full conversation. Good horticulture professor in both the arms. No focal symptoms. [place] Silva catheter to be discontinued. Was up in the chair. Started to eat better. Seen by neurology. Stroke felt to be less likely. MRI of the brain has been ordered. Delirium from yesterday complete resolved felt to be from pain medications. Patient denies any urinary or respiratory symptoms. Had elevated white count yesterday. Has come down to 14.5. No fever. Hold off any antibiotics for now. Active Medications Acetaminophen (Acetaminophen Tab 325 Mg Tab) 650 mg PO Q6HR [facility] Stop: 01/29/25 17:59 Last Admin: 01/02/25 12:29 Dose: 650 mg Hydrocodone Bitart/Acetaminophen (Hydrocodone/Apap 5-325mg 1 Each Tab) 1 each PO Q4HR PRN PRN Reason: Pain Scale 4 - 6 Stop: 01/29/25 15:12 Hydrocodone Bitart/Acetaminophen (Hydrocodone/Apap 7.5-325mg 1 Each Tab) 1 each PO Q4HR PRN PRN Reason: Pain Scale 7 to 10 Stop: 01/29/25 15:17 Last Admin: 01/01/25 09:13 Dose: 1 each Amlodipine Besylate (Amlodipine 5 Mg Tab) 5 mg PO QAM [facility] Last Admin: 01/02/25 08:51 Dose: 5 mg Atorvastatin Calcium (Atorvastatin 40 Mg Tab) 40 mg PO HS [facility] Last Admin: 01/01/25 21:41 Dose: 40 mg Cyclobenzaprine HCl (Cyclobenzaprine 5 Mg Tab) 5 mg PO TID PRN PRN Reason: Muscle Spasm Stop: 01/29/25 15:12 Last Admin: 01/02/25 04:36 Dose: 5 mg Fluoxetine HCl (Fluoxetine Hcl 20 Mg Cap) 40 mg PO QAM [facility] Last Admin: 01/02/25 08:51 Dose: 40 mg Gabapentin (Gabapentin 300 Mg Cap) 300 mg PO TID [facility] Last Admin: 01/02/25 08:51 Dose: 300 mg Lactated Ringer's (Lactated Ringers) 1,000 mls @ 20 mls/hr IV .Q24H [facility] Stop: 01/29/25 09:33 Last Admin: 01/02/25 08:13 Dose: Not Given Ketorolac Tromethamine (Ketorolac 15 Mg/Ml 1 Ml Vial) 15 mg IVP Q6HR [facility] Stop: 01/06/25 09:16 Last Admin: 01/02/25 12:30 Dose: 15 mg Lidocaine HCl (Lidocaine 1% (10mg/Ml) For Iv Start) 0.1 ml INTRADERMA PER PROTOCOL PRN PRN Reason: IV Start Stop: 01/29/25 09:33 Magnesium Hydroxide (Magnesium Hydroxide 2,400 Mg/30 Ml Cup) 2,400 mg PO DAILY PRN PRN Reason: Constipation Stop: 01/29/25 15:12 Metoclopramide HCl (Metoclopramide 5 Mg/Ml 2 Ml Vial) 10 mg IVP Q6HR [facility] Last Admin: 01/02/25 12:30 Dose: 10 mg Miscellaneous Information (Rx Info: Iv Contrast Was Given 1 Each Misc) 1 each MISCELLANE DAILY PRN PRN Reason: Per Protocol Stop: 01/03/25 11:35 Montelukast Sodium (Montelukast 10 Mg Tab) 10 mg PO HS [facility] Last Admin: 01/01/25 21:41 Dose: 10 mg Morphine Sulfate (Morphine Sulfate 4 Mg/Ml Syringe) 4 mg IVP Q3HR PRN PRN Reason: Pain Last Admin: 01/01/25 15:46 Dose: 4 mg Pantoprazole Sodium (Pantoprazole 40 Mg Tablet) 40 mg PO BID [facility] Last Admin: 01/02/25 08:51 Dose: 40 mg Polyethylene Glycol (Polyethylene Glycol 3350 17 Gm Powd.Pack) 17 gm PO DAILY [facility] Stop: 01/30/25 08:59 Last Admin: 01/02/25 08:13 Dose: Not Given Scopolamine (Scopolamine 1 Mg/72 Hr Patch) 1 patch TRANSDERM Q72H [facility] Last Admin: 12/31/24 10:13 Dose: 1 patch Senna/Docusate Sodium (Sennosides-Docusate Sodium 1 Each Tab) 2 each PO DAILY [facility] Stop: 01/30/25 08:59 Last Admin: 01/02/25 08:13 Dose: Not Given Social history: Non-smoker. Denies alcohol. Her son lives next-door Physical examination: VITAL SIGNS: 98.6, 88, 18, 108 x 67, 97% room air GENERAL: BMI 23.4, thin built, awake comfortable EYES: Pupils equal. Conjunctiva carolin l. HEENT: External appearance of nose and ears normal, oral cavity grossly normal. NECK: Hard collar in place. Anterior DUYEN drain.'s some blood soaking of the dressing.. HEART: First and second heart sounds are normal; no edema. LUNGS: Respiratory rate normal; clear to auscultation. ABDOMEN: Soft, nontender, liver spleen not palpable, no masses palpable. PSYCH: AO x 3, mood affect normal MUSCULOSKELETAL: Cervical hard collar. Evidence of OA in the joints. Right knee is flexed unable to be extended NEUROLOGICAL: [Cranial nerves grossly intact; no facial asymmetry, patient got good power in both the hands. INVESTIGATIONS, reviewed in the clinical context: January 02: White count 14.5 hemoglobin 11.8 potassium 3 creatinine 0.68 UA: Negative for nitrate leukoesterase January 01: White count 21.8 hemoglobin 13 platelets 410 sodium 133 potassium 3.5 BUN 10 creatinine 0.49 December 31: White count 7.3 hemoglobin 11.[address] brain without contrast [January 01] left basal ganglia external capsule low attenuating area series 3032. Reported as hypodense area in the left basal ganglia external capsule concern for acute/subacute CVA. CT angio head and neck: Unremarkable other findings in the full report Assessment plan: - Acute mental status changes. Patient noticed to be delirious with fluctuating mentation. Earlier this morning she was hold her regular conversation with the nurse. Patient then switched from Dilaudid to morphine which patient received 4 mg along with [place]. Patient's speech was only found to be slurred which could well be from the pain medications. Patient has some reported findings in the CT scan. But that does not explain patient's change in mentation delirium. Patient's strength in both the arms is good. I still highly doubt acute stroke. Stroke team has been consulted. Follow-up with them. Neurochecks. Hold off adding any antiplatelet agents given that patient has still has some soaking from the dressing over the neck. Probable acute delirium from pain medications Doubt acute stroke but needs to be ruled out Being followed by neurology. Ordered MRI of the brain. - Leukocytosis., Coming down. Possibly reactive No current evidence of any infection. Negative UA. No respiratory symptoms. - Essential hypertension amlodipine 5 mg a day - Depression otherwise specified Prozac 40 mg a day - Hyperlipidemia Lipitor 40 mg nightly - GERD/history of peptic ulcer disease Omeprazole -Acute postprocedure blood loss anemia expected from surgery Ferrous sulfate Discussed with patient Thank you Dr. Martinez Past Medical History Past Medical History: GERD/Reflux, Hyperlipidemia, Hypertension, Osteoarthritis (OA) Additional Past Medical History / Comment(s): Hx of gastritis/ small ulcerations/ distal esophagitis/diverticulosis/IBS, hiatal hernia. Hx of a slip/fall a week ago. Denies current skin issues. History of Any Multi-Drug Resistant Organisms: None Reported Past Surgical History: Appendectomy, Hysterectomy, Orthopedic Surgery, Tonsillectomy Additional Past Surgical History / Comment(s): FEB 2024 & JUL 2023 BACK SURGERIES. 09/30/18 EGD with bx and colonoscopy with bx, R bunionectomy, Right TKA 06/2024. Past Anesthesia/Blood Transfusion Reactions: No Reported Reaction Additional Past Anesthesia/Blood Transfusion Reaction / Comm: hx of blood transfusion- no reaction Past Psychological History: Depression Additional Psychological History / Comment(s): Managed on medication. Smoking Status: Former smoker Past Alcohol Use History: None Reported Additional Past Alcohol Use History / Comment(s): smoked for a year @ age of 20 Past Drug Use History: None Reported Additional Drug Use History / Comment(s): doesn't use anymore, only topical prn
[2025-01-02] MEDS: POTASSIUM CITRATE 10 MEQ TABLET.ER PO SCH (18:13)
--- NOTE | 2025-01-03 09:02 | P.PN ---
Subjective Progress Note Date: 01/03/25 Principal diagnosis: C3-7 severe spondylosis with severe stenosis, multilevel HNP Severe disc collapse and compression C3-7 Myelomalacia Patient seen and examined this morning. Patient is currently having an echocardiogram performed. Patient reports that she feels much improved today. She does report that her pain is managed on current regimen. Surgical dressing to the anterior cervical spine, dressing is clean dry and intact. [place] hard collar is intact. Patient is looking forward to possibly going to subacute rehab pending medical clearance. Patient is cleared from an orthopedic standpoint for discharge when medically stable. Objective - Vital Signs Vital signs: Vital Signs Temp 98.4 F 01/03/25 03:56 Pulse 84 01/03/25 03:56 Resp 16 01/03/25 03:56 BP 107/72 01/03/25 03:56 Pulse Ox 93 L 01/03/25 03:56 FiO2 Intake & Output 01/02/25 01/03/25 01/03/25 18:59 06:59 18:59 Intake Total 240 Output Total 0 500 Balance 240 -500 Weight 56 kg Intake: Oral 240 Output: Drainage 0 Neck 0 Urine 500 Other: Voiding Method Indwelling Catheter Indwelling Catheter - Exam Physical Examination General: The patient is awake and alert, in no acute distress. Skin: Skin is warm and dry, there is a small abrasion that has developed under the chin from padding od collar being wet. Surgical incision to the anterior cervical spine, dressing is clean dry and intact. Eye: Pupils are equal, round and reactive to light, extra-ocular movements are intact; there is normal conjunctiva bilaterally. Neck: The neck is supple, there mild tenderness around the incision site. Li mited range of motion secondary to surgical procedure and [place] hard cervical collar intact. Respiratory: Respirations are non-labored. Gastrointestinal: Soft, non-distended, non-tender abdomen. Back: There is no tenderness to palpation in the midline, paralumbar, parathoracic or buttocks region. There is no obvious deformity. Musculoskeletal: ROM limited secondary to pain and stiffness from surgical procedure. Right: Shoulder abduction 5/5, elbow flexors 5/5, wrist dorsiflexors 5/5. finger abductor 5/5, salt miner 5/5, hip flexor 4/5, knee flexor KENDALL, ankle dorsiflexor 5/5, ankle plantarflexion 5/5 and extensor hallucis 5/5 Left: Shoulder abduction 5/5, elbow flexors 5/5, wrist dorsiflexors 5/5. finger abductor 5/5, salt miner 5/5, hip flexor 5/5, knee flexor 5/5, ankle dorsiflexor 5/5, ankle plantarflexion 5/5 and extensor hallucis 5/5. Neurological: CN 2-12 intact. There are no obvious motor or sensory deficits. Movement and coordination equal and intact. Sensory exam to light touch intact C5-T1 and intact from L2-S1. Reflexes 2/4 in bilateral upper and lower extremities. Negative Hoffmans, babinski, and clonus signs. Psychiatric: Cooperative, appropriate mood & affect, normal judgment. - Labs CBC & Chem 7: 01/02/25 06:46 01/02/25 06:46 Assessment and Plan Assessment: Postop day 4: C3-C7 anterior cervical discectomy and fusion Plan: -Appreciate forestry consultant and team management. -Activity: Reposition patient q2 hours. Patient may be transferred to chair, and to be up for all meals as tolerated. - Daily PT/OT - Hard cervical collar at all times, may remove while laying in bed and for showers. -Pain control: Adequate at this time -Meds: reviewed -GI ppx: senna, Miralax -DVT PPX: TEDS, SCDs -Hygiene: Maintain incision clean and dry. -Encourage IS 10x/hr -Dispo: Patient is requesting subacute rehab at discharge. Patient is cleared from a orthopedic standpoint for discharge when medically stable. *I reviewed and discussed this case with my attending Dr. Martinez, whom has reviewed this chart and films and is in agreement with assessment and plan of care as outlined above. I have personally seen and examined the patient, performed the documentation and the assessment and plan as written. Number of minutes spent on the visit: 20m.
--- NOTE | 2025-01-03 10:28 | MR ---
INDICATION: Patient age:Female; 74 years old; Reason for study: CVA; PH[facility]. COMPARISON: CT brain 01/01/2025, CTA head and neck 01/01/2025, MRI brain C-spine 06/24/2023. TECHNIQUE: Multi planar, multi sequence imaging was performed through the brain without the administr ation intravenous contrast. FINDINGS: Motion degraded exam. The delatorre-white junctions, ventricular system, basal cisterns appear unremarkable. Age-appropriate mil d cerebral volume loss. Diffusion-weighted imaging shows no evidence of restricted diffusion to sugge st acute/subacute infarct. Intracranial arterial flow voids are maintained. Midline structures show n o abnormality. Unchanged few T2/FLAIR hyperintense scattered foci within the minimal deep white matte r and left external capsule/insular cortex white matter.. The susceptibility weighted images do not r eveal any evidence for micro-hemorrhage. The bone marrow signal is within normal limits. The paranasal sinuses and globes are unremarkable. IMPRESSION: 1. No evidence of intracranial mass or acute/subacute infarct. 2. Unchanged minimal nonspecific white matter changes, likely related to small vessel ischemic diseas [facility], , 01/03/2025 10:26 AM
[2025-01-03 11:05] LABS: HCT 34.6 % (37.2-46.3); HGB 11.9 g/dL (12.0-15.0); MCH 28.1 pg (27.0-32.0); MCHC 34.4 g/dL (32.0-37.0); MCV 81.8 fL (80.0-97.0); Platelet Count 306 10*3/uL (140-440); RBC 4.23 10*6/uL (4.10-5.20); RDW 18.7 % (11.5-14.5); WBC 11.47 10*3/uL (4.50-10.00)
[2025-01-03 11:29] LABS: African American GFR (CKD) >90 (>60 ml/min/1.73 sqM); Anion Gap 11 mmol/L; Blood Urea Nitrogen 16 mg/dL (7-17); Calcium 9.5 mg/dL (8.4-10.2); Carbon Dioxide 25 mmol/L (22-30); Chloride 94 mmol/L (98-107); Glucose 91 mg/dL (74-99); Non-African American GFR(CKD) >90 (>60 ml/min/1.73 sqM); Potassium 3.7 mmol/L (3.5-5.1); Sodium 130 mmol/L (137-145)
[2025-01-03] MEDS: FERROUS SULFATE 325 MG TAB PO SCH (12:09)
--- NOTE | 2025-01-03 14:26 | CA ---
Transthoracic Echo Report Name: Jihan Phillips Age: 74 Gender: F : 1950 Exam Date: 01/03/2025 08:02 Exam Location: [facility] Ht (in): 60 Wt (lb): 119 Ordering Physician: Matt Clement MD Attending/Referring Phys: Twisthand Thea Vaughan RDCS Procedure CPT: Indications: possible stroke Cardiac Hx: S/P cervical surgery Technical Quality: Fair Contrast 1: Total Dose (mL): Contrast 2: Total Dose (mL): MEASUREMENTS (Male / Female) Normal Values 2D ECHO LV Diastolic Diameter PLAX 3.7 cm 4.2 - 5.9 / 3.9 - 5.3 cm LV Systolic Diameter PLAX 2.5 cm IVS Diastolic Thickness 0.7 cm 0.6 - 1.0 / 0.6 - 0.9 cm LVPW Diastolic Thickness 1.2 cm 0.6 - 1.0 / 0.6 - 0.9 cm LV Relative Wall Thickness 0.5 LVOT Diameter 2.1 cm LV Diastolic Volume MOD BP 50.6 cm??? 67 - 155 / 56 - 104 cm??? LV Systolic Volume MOD BP 23.1 cm??? 22 - 58 / 19 - 49 cm??? LV Ejection Fraction MOD BP 54.3 % >= 55 % LV Cardiac Index MOD BP 1552.9 cm???/min???m??? LV Diastolic Volume MOD 4C 59.8 cm??? LV Systolic Volume MOD 4C 25.9 cm??? LV Ejection Fraction MOD 4C 56.7 % LV Cardiac Index MOD 4C 1920.5 cm???/min???m??? LV Diastolic Length 4C 6.9 cm LV Systolic Length 4C 6.4 cm LV Diastolic Volume MOD 2C 40.9 cm??? LV Systolic Volume MOD 2C 18.3 cm??? LV Ejection Fraction MOD 2C 55.2 % LV Cardiac Index MOD 2C 1278.1 cm???/min???m??? LV Diastolic Length 2C 6.6 cm LV Systolic Length 2C 5.6 cm LA Volume 25.1 cm??? 18 - 58 / 22 - 52 cm??? LA Volume Index 16.5 cm???/m??? 16 - 28 cm???/m??? DOPPLER AV Peak Velocity 205.2 cm/s AV Peak Gradient 16.8 mmHg AV Mean Velocity 147.2 cm/s AV Mean Gradient 9.5 mmHg AV Velocity Time Integral 36.7 cm LVOT Peak Velocity 92.0 cm/s LVOT Peak Gradient 3.4 mmHg LVOT Velocity Time Integral 16.9 cm LVOT Stroke Volume 55.9 cm??? LVOT Stroke Volume Index 37.4 ml/m??? LVOT Cardiac Index 3164.3 cm???/min???m??? AV Area Cont Eq vti 1.5 cm??? AV Area Cont Eq pk 1.5 cm??? MV Area PHT 6.5 cm??? Mitral E Point Velocity 42.2 cm/s Mitral A Point Velocity 91.8 cm/s Mitral E to A Ratio 0.5 MV Deceleration Time 116.3 ms PV Peak Velocity 52.3 cm/s PV Peak Gradient 1.1 mmHg FINDINGS Left Ventricle Left ventricular ejection fraction is estimated at 55-60 %. Mildly increased posterior wall thickness. Left ventricular cavity size normal. No obvious regional wall motion abnormalities. Right Ventricle Normal right ventricular size and function. Unable to estimate the right ventricular systolic pressure. Right Atrium Right atrium not well visualized. Left Atrium Normal left atrial size. Mitral Valve Mitral valve thickened. Mitral annular calcification. No mitral stenosis, regurgitation or prolapse. Aortic Valve Trileaflet aortic valve. Diffuse thickening (sclerosis) of the aortic valve cusps without reduced excursion. Mild aortic stenosis with a peak gradient of 17 mmHg and a mean gradient of 10 mmHg. Mild aortic regurgitation. Tricuspid Valve Structurally normal tricuspid valve. No tricuspid stenosis. Trace tricuspid regurgitation. Pulmonic Valve Pulmonic valve not well visualized. No pulmonic stenosis. No pulmonic regurgitation. Pericardium No pericardial effusion. Aorta Aortic annulus normal. Ascending aorta not well visualized. CONCLUSIONS Reason for test: Possible stroke Preserved LV size and function Mild aortic stenosis Previewed by: Dr. Arsen Ibanez MD (Electronically Signed) Final Date: 03 January 2025 14:25
--- NOTE | 2025-01-03 20:29 | P.PN ---
Progress Note - Text Progress Note Date: 01/03/25 - Chief Complaint Cervical spine surgery - History of Present Illness This is a 74-year-old patient, follows with Dr. Gigi Hatfield. Chronic medical condition include IBS, hyperlipidemia, hypertension, peptic ulcer disease. Patient had surgery on the right knee by Dr. Lynn earlier this year and has a frozen right knee. Unable to extend the same. Patient been having neck pain for some time. Patient also had upper extremity pain weakness radiculopathy. She was found to have C3-C7 severe spondylosis with severe stenosis. And severe disc collapse and compression C3-C7. Myelomalacia. On December 30 patient underwent arthrodesis insertion of biomechanical device cage x 4. Patient also has a anterior DUYEN drain. This morning when I arrived to see the patient code stroke had been called. Patient having significant pain at the operative site. She had been switched over from Dilaudid to morphine which the first 2 she received earlier today. Along with [place]. Patient's speech was found a bit slurred by the nurse. Somewhat restless. No new weakness was noticed. Teleneurology was consulted earlier. Patient had some fluctuation in her mentation. She could tell me that she is in the ER. She said she is here because she has been having falls. She thought it was May and 2025. She has a cervical collar. Has had only 5 to 10 cc output through the DUYEN drain per shift. January 02: Patient doing much better today having a full conversation. Good oiler and greaser in both the arms. No focal symptoms. Da Silva catheter to be discontinued. Was up in the chair. Started to eat better. Seen by neurology. Stroke felt to be less likely. MRI of the brain has been ordered. Delirium from yesterday complete resolved felt to be from pain medications. Patient denies any urinary or respiratory symptoms. Had elevated white count yesterday. Has come down to 14.5. No fever. Hold off any antibiotics for now. January 03: Patient doing well. No focal weakness. Has been up in the chair. Drainage tube has been removed from the neck. Eating better. Being visited by her brother. Patient's MRI of the brain came back negative. Pain is much better. DC scopolamine patch. Change Reglan to p.o. leukocytosis coming down. Elma to be reactive. Active Medications Acetaminophen (Acetaminophen Tab 325 Mg Tab) 650 mg PO Q6HR [facility] Stop: 01/29/25 17:59 Last Admin: 01/03/25 18:45 Dose: Not Given Hydrocodone Bitart/Acetaminophen (Hydrocodone/Apap 5-325mg 1 Each Tab) 1 each PO Q4HR PRN PRN Reason: Pain Scale 4 - 6 Stop: 01/29/25 15:12 Hydrocodone Bitart/Acetaminophen (Hydrocodone/Apap 7.5-325mg 1 Each Tab) 1 each PO Q4HR PRN PRN Reason: Pain Scale 7 to 10 Stop: 01/29/25 15:17 Last Admin: 01/01/25 09:13 Dose: 1 each Amlodipine Besylate (Amlodipine 5 Mg Tab) 5 mg PO QAM [facility] Last Admin: 01/03/25 09:07 Dose: 5 mg Atorvastatin Calcium (Atorvastatin 40 Mg Tab) 40 mg PO HS [facility] Last Admin: 01/02/25 21:40 Dose: 40 mg Cyclobenzaprine HCl (Cyclobenzaprine 5 Mg Tab) 5 mg PO TID PRN PRN Reason: Muscle Spasm Stop: 01/29/25 15:12 Last Admin: 01/02/25 04:36 Dose: 5 mg Ferrous Sulfate (Ferrous Sulfate 325 Mg Tab) 325 mg PO W/LUNCH [facility] Last Admin: 01/03/25 12:09 Dose: 325 mg Fluoxetine HCl (Fluoxetine Hcl 20 Mg Cap) 40 mg PO QAM [facility] Last Admin: 01/03/25 09:07 Dose: 40 mg Gabapentin (Gabapentin 300 Mg Cap) 300 mg PO TID [facility] Last Admin: 01/03/25 17:09 Dose: 300 mg Lactated Ringer's (Lactated Ringers) 1,000 mls @ 20 mls/hr IV .Q24H [facility] Stop: 01/29/25 09:33 Last Admin: 01/03/25 15:50 Dose: Not Given Ketorolac Tromethamine (Ketorolac 15 Mg/Ml 1 Ml Vial) 15 mg IVP Q6HR [facility] Stop: 01/06/25 09:16 Last Admin: 01/03/25 17:10 Dose: 15 mg Lidocaine HCl (Lidocaine 1% (10mg/Ml) For Iv Start) 0.1 ml INTRADERMA PER PROTOCOL PRN PRN Reason: IV Start Stop: 01/29/25 09:33 Magnesium Hydroxide (Magnesium Hydroxide 2,400 Mg/30 Ml Cup) 2,400 mg PO DAILY PRN PRN Reason: Constipation Stop: 01/29/25 15:12 Metoclopramide HCl (Metoclopramide 10 Mg Tab) 10 mg PO AC-TID [facility] Montelukast Sodium (Montelukast 10 Mg Tab) 10 mg PO HS [facility] Last Admin: 01/02/25 21:40 Dose: 10 mg Morphine Sulfate (Morphine Sulfate 4 Mg/Ml Syringe) 4 mg IVP Q3HR PRN PRN Reason: Pain Last Admin: 01/01/25 15:46 Dose: 4 mg Pantoprazole Sodium (Pantoprazole 40 Mg Tablet) 40 mg PO BID [facility] Last Admin: 01/03/25 09:07 Dose: 40 mg Polyethylene Glycol (Polyethylene Glycol 3350 17 Gm Powd.Pack) 17 gm PO DAILY [facility] Stop: 01/30/25 08:59 Last Admin: 01/03/25 10:56 Dose: Not Given Senna/Docusate Sodium (Sennosides-Docusate Sodium 1 Each Tab) 2 each PO DAILY [facility] Stop: 01/30/25 08:59 Last Admin: 01/03/25 10:57 Dose: Not Given Social history: Non-smoker. Denies alcohol. Her son lives next-door Physical examination: VITAL SIGNS: 9016, 113 x 73, 93% room GENERAL: BMI 23.4, thin built, awake comfortable EYES: Pupils equal. Conjunctiva carolin l. HEENT: External appearance of nose and ears normal, oral cavity grossly normal. NECK: Hard collar in place. Anterior DUYEN drain.'s some blood soaking of the dressing.. HEART: First and second heart sounds are normal; no edema. LUNGS: Respiratory rate normal; clear to auscultation. ABDOMEN: Soft, nontender, liver spleen not palpable, no masses palpable. PSYCH: AO x 3, mood affect normal MUSCULOSKELETAL: Cervical hard collar. Evidence of OA in the joints. Right knee is flexed unable to be extended NEUROLOGICAL: [Cranial nerves grossly intact; no facial asymmetry, patient got good power in both the hands. INVESTIGATIONS, reviewed in the clinical context: January 03: White count 9.4 hemoglobin 9.9 potassium 3.7 creatinine 0.6 January 02: White count 14.5 hemoglobin 11.8 potassium 3 creatinine 0.68 UA: Negative for nitrate leukoesterase January 01: White count 21.8 hemoglobin 13 platelets 410 sodium 133 potassium 3.5 BUN 10 creatinine 0.49 December 31: White count 7.3 hemoglobin 11.[address] brain without contrast [January 01] left basal ganglia external capsule low attenuating area series 3032. Reported as hypodense area in the left basal ganglia external capsule concern for acute/subacute CVA. CT angio head and neck: Unremarkable other findings in the full report Assessment plan: - Acute mental status changes. From delirium. From pain medications. Resolved MRI of the brain negative for acute stroke - Leukocytosis., Coming down. Probable reactive No current evidence of any infection. Negative UA. No respiratory symptoms. - Essential hypertension amlodipine 5 mg a day - Depression otherwise specified Prozac 40 mg a day - Hyperlipidemia Lipitor 40 mg nightly - GERD/history of peptic ulcer disease Omeprazole -Acute postprocedure blood loss anemia expected from surgery Ferrous sulfate Greatly improved. Possibly discharge to SNF Thank you Dr. Martinez Past Medical History Past Medical History: GERD/Reflux, Hyperlipidemia, Hypertension, Osteoarthritis (OA) Additional Past Medical History / Comment(s): Hx of gastritis/ small ulcerations/ distal esophagitis/diverticulosis/IBS, hiatal hernia. Hx of a slip/fall a week ago. Denies current skin issues. History of Any Multi-Drug Resistant Organisms: None Reported Past Surgical History: Appendectomy, Hysterectomy, Orthopedic Surgery, Tonsillectomy Additional Past Surgical History / Comment(s): FEB 2024 & JUL 2023 BACK SURGERIES. 09/30/18 EGD with bx and colonoscopy with bx, R bunionectomy, Right TKA 06/2024. Past Anesthesia/Blood Transfusion Reactions: No Reported Reaction Additional Past Anesthesia/Blood Transfusion Reaction / Comm: hx of blood transfusion- no reaction Past Psychological History: Depression Additional Psychological History / Comment(s): Managed on medication. Smoking Status: Former smoker Past Alcohol Use History: None Reported Additional Past Alcohol Use History / Comment(s): smoked for a year @ age of 20 Past Drug Use History: None Reported Additional Drug Use History / Comment(s): doesn't use anymore, only topical prn
--- NOTE | 2025-01-03 20:36 | P.PN ---
Subjective Progress Note Date: 01/03/25 Patient was initially seen by Dr. Estrada. Please refer to her note for detail. Patient had a stroke code called on Friday, 2 days ago. It was felt possible medication side effect. Patient had a recent C-spine surgery. Patient states she is doing very well. Offers no complaints. No focal symptoms. Objective - Vital Signs Vital signs: Vital Signs Temp 98.5 F 01/03/25 16:00 Pulse 95 01/03/25 16:00 Resp 16 01/03/25 16:00 BP 113/73 01/03/25 16:00 Pulse Ox 93 L 01/03/25 16:00 FiO2 Intake & Output 01/03/25 01/03/25 01/04/25 06:59 18:59 06:59 Intake Total 500 Output Total 500 Balance -500 500 Weight 56 kg Intake: IV 20 Invasive Line 3 20 Oral 480 Output: Urine 500 Other: Voiding Method Indwelling Catheter Bedside Commode Diaper # Voids 1 - Exam Mental status, speech and language functions are all normal. Exam nonfocal. - Labs CBC & Chem 7: 01/03/25 10:42 01/03/25 10:42 Labs: Abnormal Lab Results - Last 24 Hours (Table) 01/03/25 01/03/25 Range/Units 10:42 10:42 WBC 11.47 H (4.50-10.00) 10*3/uL Hgb 11.9 L (12.0-15.0) g/dL Hct 34.6 L (37.2-46.3) % Sodium 130 L (137-145) mmol/L Chloride 94 L (98-107) mmol/L Assessment and Plan Assessment: 1. Episode of confusion and reported expressive aphasia at which time a code stroke was called. Possible TIA versus medication effect versus small ischemic infarct (less likely) 2. Recent history of multilevel cervical spine surgery with associated pain and use of pain medications 3. History of hypertension 4. History of hyperlipidemia 5. History of previous right knee replacement with chronic flexion of the right knee Plan: 1. Stroke order set has been placed 2. MRI of the brain revealed no evidence of intracranial mass or acute/subacute infarct. Unchanged minimal nonspecific white matter changes, likely related to small vessel ischemic disease. I personally reviewed MRI agree. 3. Agree with adjustment of the patient's pain medications 4. Continue atorvastatin 40 mg daily 5. Aspirin 81 mg should be initiated for further stroke prevention. Patient on Protonix for gastric ulcer prophylaxis. 6. Hemoglobin A1c 5.2, TSH 2.12 fasting lipid panel on 07/19/2024 with cholesterol 142, LDL 78, HDL 39, triglycerides 118. 7. CTA of head and neck revealed no evidence of dissection of the cervical internal carotid arteries or vertebral arteries. No evidence of significant stenosis at the carotid bifurcations. No evidence of intracranial high-grade stenosis or intracranial aneurysm. 8. 2D echo revealed preserved LV size and systolic function with EF 55 to 60%. Mildly increased posterior wall thickness. No obvious regional wall motion abnormalities. Normal left atrial size. Trileaflet aortic valve. Mild aortic stenosis. 9. Neurologically clear.
[2025-01-03 23:43] LABS: Cholesterol 250.00 mg/dL (0.00-200.00); HDL Cholesterol 61.00 mg/dL (40.00-60.00); LDL Cholesterol,Calculated 163.4 mg/dL (0.0-131.0); Triglycerides 128.00 mg/dL (0.00-149.00); VLDL Calculation 25.60 mg/dL (5.00-40.00)
[2025-01-03] MEDS: ASPIRIN 81 MG PO SCH (23:59)
[2025-01-04] MEDS: METOCLOPRAMIDE 10 MG TAB PO SCH (06:57)
--- NOTE | 2025-01-04 08:22 | P.PN ---
Subjective Progress Note Date: 01/04/25 Principal diagnosis: C3-7 severe spondylosis with severe stenosis, multilevel HNP Severe disc collapse and compression C3-7 Myelomalacia Patient seen and examined this morning. Patient is resting comfortably in bed. She does report that her pain is managed on current regimen. Surgical dressing has been removed this may be left open to air as there is no active drainage. I ncision is to the right anterior cervical spine, edges are well-approximated with glue intact. Patient is cleared from an orthopedic standpoint for discharge when medically stable. Objective - Vital Signs Vital signs: Vital Signs Temp 98.0 F 01/04/25 07:34 Pulse 86 01/04/25 07:34 Resp 16 01/04/25 07:34 BP 137/80 01/04/25 07:34 Pulse Ox 95 01/04/25 07:34 FiO2 Intake & Output 01/03/25 01/04/25 01/04/25 18:59 06:59 18:59 Intake Total 500 560 240 Balance 500 560 240 Weight 55.5 kg Intake: IV 20 20 Invasive Line 3 20 20 Oral 480 540 240 Other: Voiding Method Bedside Commode Bedside Commode Diaper Diaper # Voids 1 1 1 - Exam Physical Examination General: The patient is awake and alert, in no acute distress. Skin: Skin is warm and dry, there is a small abrasion that has developed under the chin from padding od collar being wet. Surgical incision to the anterior cervical spine, Eye: Pupils are equal, round and reactive to light, extra-ocular movements are intact; there is normal conjunctiva bilaterally. Neck: The neck is supple, there mild tenderness around the incision site. Limited range of motion secondary to surgical procedure and May hard cervical collar intact. Respiratory: Respirations are non-labored. Gastrointestinal: Soft, non-distended, non-tender abdomen. Back: There is no tenderness to palpation in the midline, paralumbar, parathoracic or buttocks region. There is no obvious deformity. Musculoskeletal: ROM limited secondary to pain and stiffness from surgical procedure. Right: Shoulder abduction 5/5, elbow flexors 5/5, wrist dorsiflexors 5/5. finger abductor 5/5, vpk teacher 5/5, hip flexor 4/5, knee flexor KENDALL, ankle dorsiflexor 5/5, ankle plantarflexion 5/5 and extensor hallucis 5/5 Left: Shoulder abduction 5/5, elbow flexors 5/5, wrist dorsiflexors 5/5. finger abductor 5/5, vpk teacher 5/5, hip flexor 5/5, knee flexor 5/5, ankle dorsiflexor 5/5, ankle plantarflexion 5/5 and extensor hallucis 5/5. Neurological: CN 2-12 intact. There are no obvious motor or sensory deficits. Movement and coordination equal and intact. Sensory exam to light touch intact C5-T1 and intact from L2-S1. Reflexes 2/4 in bilateral upper and lower extremities. Negative Hoffmans, babinski, and clonus signs. Psychiatric: Cooperative, appropriate mood & affect, normal judgment. - Labs CBC & Chem 7: 01/03/25 10:42 01/03/25 10:42 Labs: Abnormal Lab Results - Last 24 Hours (Table) 01/02/25 01/03/25 01/03/25 Range/Units 06:46 10:42 10:42 WBC 11.47 H (4.50-10.00) 10*3/uL Hgb 11.9 L (12.0-15.0) g/dL Hct 34.6 L (37.2-46.3) % Sodium 130 L (137-145) mmol/L Chloride 94 L (98-107) mmol/L Cholesterol 250.00 H (0.00-200.00) mg/dL LDL Cholesterol, Calc 163.4 H (0.0-131.0) mg/dL HDL Cholesterol 61.00 H (40.00-60.00) mg/dL Assessment and Plan Assessment: Postop day 5: C3-C7 anterior cervical discectomy and fusion Plan: -Appreciate speech correction consultant and team management. -Activity: Reposition patient q2 hours. Patient may be transferred to chair, and to be up for all meals as tolerated. - Daily PT/OT - Hard cervical collar at all times, may remove while laying in bed and for showers. -Pain control: Adequate at this time -Meds: reviewed -GI ppx: senna, Miralax -DVT PPX: TEDS, SCDs -Hygiene: Maintain incision clean and dry. -Encourage IS 10x/hr -Dispo: Patient is requesting subacute rehab at discharge. Patient is cleared from a orthopedic standpoint for discharge when medically stable. *I reviewed and discussed this case with my attending Dr. Martinez, whom has reviewed this chart and films and is in agreement with assessment and plan of care as outlined above. I have personally seen and examined the patient, performed the documentation and the assessment and plan as written. Number of minutes spent on the visit: 20m.
[2025-01-04] MEDS: BACITRACIN OINT 1 EACH PACKET TOPICAL PRN (16:18)
--- NOTE | 2025-01-04 18:46 | P.PN ---
Progress Note - Text Progress Note Date: 01/04/25 - Chief Complaint Cervical spine surgery - History of Present Illness This is a 74-year-old patient, follows with Dr. Gigi Hatfield. Chronic medical condition include IBS, hyperlipidemia, hypertension, peptic ulcer disease. Patient had surgery on the right knee by Dr. Lynn earlier this year and has a frozen right knee. Unable to extend the same. Patient been having neck pain for some time. Patient also had upper extremity pain weakness radiculopathy. She was found to have C3-C7 severe spondylosis with severe stenosis. And severe disc collapse and compression C3-C7. Myelomalacia. On December 30 patient underwent arthrodesis insertion of biomechanical device cage x 4. Patient also has a anterior DUYEN drain. This morning when I arrived to see the patient code stroke had been called. Patient having significant pain at the operative site. She had been switched over from Dilaudid to morphine which the first 2 she received earlier today. Along with [place]. Patient's speech was found a bit slurred by the nurse. Somewhat restless. No new weakness was noticed. Teleneurology was consulted earlier. Patient had some fluctuation in her mentation. She could tell me that she is in the ER. She said she is here because she has been having falls. She thought it was May and 2025. She has a cervical collar. Has had only 5 to 10 cc output through the DUYEN drain per shift. January 02: Patient doing much better today having a full conversation. Good it desktop support technician in both the arms. No focal symptoms. [place] Silva catheter to be discontinued. Was up in the chair. Started to eat better. Seen by neurology. Stroke felt to be less likely. MRI of the brain has been ordered. Delirium from yesterday complete resolved felt to be from pain medications. Patient denies any urinary or respiratory symptoms. Had elevated white count yesterday. Has come down to 14.5. No fever. Hold off any antibiotics for now. January 03: Patient doing well. No focal weakness. Has been up in the chair. Drainage tube has been removed from the neck. Eating better. Being visited by her brother. Patient's MRI of the brain came back negative. Pain is much better. DC scopolamine patch. Change Reglan to p.o. leukocytosis coming down. [place] to be reactive. January 04: Patient feeling rather well. Pain is controlled. Tolerating diet. Looking to go to rehab. Will need 3 night stay. Orthopedic team requested the change of service to my service. I accepted. Patient is otherwise rather cheerful. Does live alone. Will DC Reglan. Also DC IV Toradol. Changed to naproxen 250 twice daily. Active Medications Acetaminophen (Acetaminophen Tab 325 Mg Tab) 650 mg PO Q6HR [facility] Stop: 01/29/25 17:59 Last Admin: 01/04/25 13:49 Dose: Not Given Hydrocodone Bitart/Acetaminophen (Hydrocodone/Apap 5-325mg 1 Each Tab) 1 each PO Q4HR PRN PRN Reason: Pain Scale 4 - 6 Stop: 01/29/25 15:12 Hydrocodone Bitart/Acetaminophen (Hydrocodone/Apap 7.5-325mg 1 Each Tab) 1 each PO Q4HR PRN PRN Reason: Pain Scale 7 to 10 Stop: 01/29/25 15:17 Last Admin: 01/04/25 16:18 Dose: 1 each Amlodipine Besylate (Amlodipine 5 Mg Tab) [facility] [place] Admin: 01/04/25 08:43 Dose: 5 mg Aspirin (Aspirin 81 Mg) 81 mg PO DAILY [facility] Last Admin: 01/04/25 08:44 Dose: 81 mg Atorvastatin Calcium (Atorvastatin 40 Mg Tab) 40 mg PO HS [facility] Last Admin: 01/03/25 20:45 Dose: 40 mg Bacitracin (Bacitracin Oint 1 Each Packet) 1 each TOPICAL TID PRN; Protocol PRN Reason: Skin Irritation Last Admin: 01/04/25 16:18 Dose: 1 each Cyclobenzaprine HCl (Cyclobenzaprine 5 Mg Tab) 5 mg PO TID PRN PRN Reason: Muscle Spasm Stop: 01/29/25 15:12 Last Admin: 01/02/25 04:36 Dose: 5 mg Ferrous Sulfate (Ferrous Sulfate 325 Mg Tab) 325 mg PO W/LUNCH [facility] Last Admin: 01/04/25 12:07 Dose: 325 mg Fluoxetine HCl (Fluoxetine Hcl 20 Mg Cap) 40 mg PO QAM [facility] Last Admin: 01/04/25 08:44 Dose: 40 mg Gabapentin (Gabapentin 300 Mg Cap) 300 mg PO TID [facility] Last Admin: 01/04/25 16:27 Dose: 300 mg Lactated Ringer's (Lactated Ringers) 1,000 mls @ 20 mls/hr IV .Q24H [facility] Stop: 01/29/25 09:33 Last Admin: 01/04/25 13:49 Dose: Not Given Ketorolac Tromethamine (Ketorolac 15 Mg/Ml 1 Ml Vial) 15 mg IVP Q6HR [facility] Stop: 01/06/25 09:16 Last Admin: 01/04/25 12:07 Dose: 15 mg Lidocaine HCl (Lidocaine 1% (10mg/Ml) For Iv Start) 0.1 ml INTRADERMA PER PROTOCOL PRN PRN Reason: IV Start Stop: 01/29/25 09:33 Magnesium Hydroxide (Magnesium Hydroxide 2,400 Mg/30 Ml Cup) 2,400 mg PO DAILY PRN PRN Reason: Constipation Stop: 01/29/25 15:12 Metoclopramide HCl (Metoclopramide 10 Mg Tab) 10 mg PO AC-TID [facility] Last Admin: 01/04/25 13:49 Dose: Not Given Montelukast Sodium (Montelukast 10 Mg Tab) 10 mg PO HS [facility] Last Admin: 01/03/25 20:45 Dose: 10 mg Morphine Sulfate (Morphine Sulfate 4 Mg/Ml Syringe) 4 mg IVP Q3HR PRN PRN Reason: Pain Last Admin: 01/01/25 15:46 Dose: 4 mg Pantoprazole Sodium (Pantoprazole 40 Mg Tablet) 40 mg PO BID [facility] Last Admin: 01/04/25 08:44 Dose: 40 mg Polyethylene Glycol (Polyethylene Glycol 3350 17 Gm Powd.Pack) 17 gm PO DAILY [facility] Stop: 01/30/25 08:59 Last Admin: 01/04/25 08:44 Dose: Not Given Senna/Docusate Sodium (Sennosides-Docusate Sodium 1 Each Tab) 2 each PO DAILY [facility] Stop: 01/30/25 08:59 Last Admin: 01/04/25 08:44 Dose: Not Given Social history: Non-smoker. Denies alcohol. Her son lives next-door Physical examination: VITAL SIGNS: 98.1, 84, 16, 122/76, 96% room air GENERAL: BMI 23.4, thin built, awake comfortable EYES: Pupils equal. Conjunctiva [place] l. HEENT: External appearance of nose and ears normal, oral cavity grossly normal. NECK: Hard collar in place. Anterior DUYEN drain.'s some blood soaking of the dressing.. HEART: First and second heart sounds are normal; no edema. LUNGS: Respiratory rate normal; clear to auscultation. ABDOMEN: Soft, nontender, liver spleen not palpable, no masses palpable. PSYCH: AO x 3, mood affect normal MUSCULOSKELETAL: Cervical hard collar. Evidence of OA in the joints. Right knee-chronically flexed unable to be extended NEUROLOGICAL: [Cranial nerves grossly intact; no facial asymmetry, patient got good power in both the hands. INVESTIGATIONS, reviewed in the clinical context: January 03: White count 9.4 hemoglobin 9.9 potassium 3.7 creatinine 0.6 January 02: White count 14.5 hemoglobin 11.8 potassium 3 creatinine 0.68 UA: Negative for nitrate leukoesterase January 01: White count 21.8 hemoglobin 13 platelets 410 sodium 133 potassium 3.5 BUN 10 creatinine 0.49 December 31: White count 7.3 hemoglobin 11.[address] brain without contrast [January 01] left basal ganglia external capsule low attenuating area series 3032. Reported as hypodense area in the left basal ganglia external capsule concern for acute/subacute CVA. CT angio head and neck: Unremarkable other findings in the full report Assessment plan: - Acute mental status changes. From delirium. From pain medications. Resolved MRI of the brain negative for acute stroke - Leukocytosis., Coming down. Probable reactive No current evidence of any infection. Negative UA. No respiratory symptoms. - Essential hypertension amlodipine 5 mg a day - Depression otherwise specified Prozac 40 mg a day - Hyperlipidemia Lipitor 40 mg nightly - Chronically flexed right knee following surgery by Dr. David Lynn. Consult Dr. Lynn to see that if any surgical intervention will help - GERD/history of peptic ulcer disease Omeprazole -Acute postprocedure blood loss anemia expected from surgery Ferrous sulfate Stop Reglan. DC IV Toradol. Naproxen. public health social worker looking into placement. Thank you Dr. Martinez Past Medical History Past Medical History: GERD/Reflux, Hyperlipidemia, Hypertension, Osteoarthritis (OA) Additional Past Medical History / Comment(s): Hx of gastritis/ small ulcerations/ distal esophagitis/diverticulosis/IBS, hiatal hernia. Hx of a slip/fall a week ago. Denies current skin issues. History of Any Multi-Drug Resistant Organisms: None Reported Past Surgical History: Appendectomy, Hysterectomy, Orthopedic Surgery, Tonsillectomy Additional Past Surgical History / Comment(s): FEB 2024 & JUL 2023 BACK SURGERIES. 09/30/18 EGD with bx and colonoscopy with bx, R bunionectomy, Right TKA 06/2024. Past Anesthesia/Blood Transfusion Reactions: No Reported Reaction Additional Past Anesthesia/Blood Transfusion Reaction / Comm: hx of blood transfusion- no reaction Past Psychological History: Depression Additional Psychological History / Comment(s): Managed on medication. Smoking Status: Former smoker Past Alcohol Use History: None Reported Additional Past Alcohol Use History / Comment(s): smoked for a year @ age of 20 Past Drug Use History: None Reported Additional Drug Use History / Comment(s): doesn't use anymore, only topical prn
[2025-01-04] MEDS: NAPROXEN 250 MG TAB PO SCH (21:56)
--- NOTE | 2025-01-05 11:44 | P.CNOR ---
History of Present Illness - HPI Consult date: 01/05/25 History of present illness: This is a 74-year-old female who is status post C3-C7 anterior cervical discectomy and fusion by Dr. Martinez. A consult was placed regarding the right knee. Patient underwent right total knee arthroplasty in June [address] David Lynn. Patient has chronic muscle spasms in the right leg that cause her right leg to stay flexed. Patient has chronic stiffness in the right knee and is being followed as an outpatient for this by Dr. David Lynn. Patient states that she is pursuing surgical options for her spine. Patient denies any new symptoms regarding the right knee. Patient denies any fever/chills, chest pain, shortness breath, or abdominal pain. Past Medical History Past Medical History: GERD/Reflux, Hyperlipidemia, Hypertension, Osteoarthritis (OA) Additional Past Medical History / Comment(s): Hx of gastritis/ small ulcerations/ distal esophagitis/diverticulosis/IBS, hiatal hernia. Hx of a sl ip/fall a week ago. Denies current skin issues. History of Any Multi-Drug Resistant Organisms: None Reported Past Surgical History: Appendectomy, Hysterectomy, Orthopedic Surgery, Tonsillectomy Additional Past Surgical History / Comment(s): FEB 2024 & JUL 2023 BACK SURGERIES. 09/30/18 EGD with bx and colonoscopy with bx, R bunionectomy, Right TKA 06/2024. Past Anesthesia/Blood Transfusion Reactions: No Reported Reaction Additional Past Anesthesia/Blood Transfusion Reaction / Comm: hx of blood transfusion- no reaction Past Psychological History: Depression Additional Psychological History / Comment(s): Managed on medication. Smoking Status: Former smoker Past Alcohol Use History: None Reported Additional Past Alcohol Use History / Comment(s): smoked for a year @ age of 20 Past Drug Use History: None Reported Additional Drug Use History / Comment(s): doesn't use anymore, only topical prn - Past Family History Father Family Medical History: Myocardial Infarction (VT) Mother Family Medical History: Thyroid Disorder Additional Family Medical History / Comment(s): scoliosis. Maternal grandparents w/ hx of pancreatic and prostate CA. Medications and Allergies Home Medications Medication Instructions Recorded Confirmed Type Atorvastatin [Lipitor] 40 mg PO HS 10/19/18 12/30/24 History Omeprazole 40 mg PO BID 10/19/18 12/30/24 History Gabapentin [Neurontin] 300 mg PO TID 08/18/23 12/30/24 History Montelukast [Singulair] 10 mg PO HS 08/18/23 12/30/24 History Naproxen [Naprosyn] 500 mg PO BID 08/18/23 12/30/24 History FLUoxetine HCL [PROzac] 40 mg PO QAM 07/07/24 12/30/24 History amLODIPine 5 mg PO QAM 07/07/24 12/30/24 History methocarbamoL 750 mg PO TID 07/07/24 12/30/24 History Gabapentin [Neurontin] 300 mg PO TID #90 cap 01/04/25 Rx HYDROcodone/APAP 7.5-325MG [[place] 1 each PO Q6HR PRN #42 tab 01/04/25 Rx 7.5] Naproxen [Naprosyn] 500 mg PO BID 14 Days #28 tab 01/04/25 Rx cefaDROXiL [Duricef] 500 mg PO Q12HR 5 Days #10 cap 01/04/25 Rx Allergies Allergy/AdvReac Type Severity Reaction Status Date / Time No Known Allergies Allergy Verified 12/30/24 10:01 Physical Examination On exam patient is resting comfortably in bed in no acute distress. Patient is alert and oriented 3. Right lower extremity: Right lower extremity remains in a flexed position. Passive extension of the right knee to 90 degrees. Well-healed surgical scar present. There is no erythema, ecchymosis or effusion. Calf is soft and nontender to palpation. Right lower extremity is warm and well-perfused. Results - Labs Labs: H & H 12/31/24 01/01/25 01/02/25 Range/Units 04:45 11:20 06:46 Hgb 11.8 L 13.0 11.8 L (12.0-15.0) g/dL Hct 36.7 L 38.3 35.4 L (37.2-46.3) % 01/03/25 Range/Units 10:42 Hgb 11.9 L (12.0-15.0) g/dL Hct 34.6 L (37.2-46.3) % Coagulation 01/01/25 Range/Units 11:20 INR 1.0 (<1.2) Result Diagrams: 01/03/25 10:42 01/03/25 10:42 Assessment and Plan (1) History of total right knee replacement Current Visit: Yes Status: Acute Code(s): Z96.651 - PRESENCE OF RIGHT ARTIFICIAL KNEE JOINT SNOMED Code(s): 4242941342719 (2) Muscle spasm Current Visit: Yes Status: Acute Code(s): M62.838 - OTHER MUSCLE SPASM SNOMED Code(s): 61631728 Plan: 1. Patient's questions and concerns are addressed at bedside today. We will continue to follow the patient as an outpatient regarding the right knee. There is no surgical intervention planned.
--- NOTE | 2025-01-05 12:29 | CDI ---
Documentation Clarification Form Date: 01/05/2025 11:50:39 AM From: Precious Gifford RN CCDS Phone: [phone] Admit Date: 01/03/2025 08:43:00 AM Patient Name: Jihan Phillips Visit Number: [id number] Discharge Date: ATTENTION: The Clinical Documentation Specialists (CDI) and [facility] Coding Staff appreciate your assistance in clarifying documentation. Please respond to the clarification below the line at the bottom and electronically sign. The CDI & [facility] Coding staff will review the response and follow-up if needed. Please note: Queries are made part of the Legal Health Record. If you have any questions, please contact the author of this message via ITS. Doctor: Matt Clement Your patient has the documented symptom of Altered Mental Status [insert date, location]. Additional clarification regarding the etiology/cause of this symptom is requested. History/Risk Factors: 74 year old female presented to [facility] for elective cervical fusion. Medial history; Essential hypertension, Depression and HLD. 01/01 Medicine consult. Clinical Indicators: VSS: 01/01: B/P 133/73, HR 94, RR 14, Temp 98.2F Oral, SpO2 % 95% ra Labs: 01/01 Wbc 21.8 Urine 01/01 Light yellow, clear, ph 6.5, specific gravity >1.050, protein 3+, Ketone 3+, Blood large, Rbc 26, CT brain, 01/01: Hypodense area in the left basal ganglia external capsule concerning for acute/subacute CVA in this setting of neurological deficit. Nonspecific white matter changes, likely secondary to chronic small vessel ischemic disease. MRI 01/03: No evidence of intracranial mass or acute / subacute infarct. Unchanged minimal nonspecific white matter changes, likely related to small vessel ischemic disease. Medicine note 01/02: - Acute mental status changes.Patient noticed to be delirious with fluctuating mentation.Earlier this morning she was hold her regular conversation with the nurse.Patient then switched from Dilaudid to morphine which patient received 4mg along with [place].Patient's speech was only found to be slurred which could well be from the pain medications Medicine note 01/04: Acute mental status changes. From delirium. From pain medications. Resolved. Medications take: 12/30 1 [place] 7.5/325 po; 7/5 1 [place] 7.5/325 po; 01/01 08:25 Morphine 4mg IV x 1; 01/11 15:46 Morphine 4mg IV x 1; Treatment: CT Brain, MRI Brain, Neurology consult Please clarify the etiology of the symptom of Altered Mental Status: [ ] Toxic Encephalopathy due to pain medications [ + ] Other condition (please specify) acute metabolic encephalopathy with delirium secondary to pain medication [ ] Unable to determine (Template Last Revised: July 2020) MTDD
--- NOTE | 2025-01-05 18:58 | P.PN ---
Progress Note - Text Progress Note Date: 01/05/25 - Chief Complaint Cervical spine surgery - History of Present Illness This is a 74-year-old patient, follows with Dr. Gigi Hatfield. Chronic medical condition include IBS, hyperlipidemia, hypertension, peptic ulcer disease. Patient had surgery on the right knee by Dr. Lynn earlier this year and has a frozen right knee. Unable to extend the same. Patient been having neck pain for some time. Patient also had upper extremity pain weakness radiculopathy. She was found to have C3-C7 severe spondylosis with severe stenosis. And severe disc collapse and compression C3-C7. Myelomalacia. On December 30 patient underwent arthrodesis insertion of biomechanical device cage x 4. Patient also has a anterior DUYEN drain. This morning when I arrived to see the patient code stroke had been called. Patient having significant pain at the operative site. She had been switched over from Dilaudid to morphine which the first 2 she received earlier today. Along with [place]. Patient's speech was found a bit slurred by the nurse. Somewhat restless. No new weakness was noticed. Teleneurology was consulted earlier. Patient had some fluctuation in her mentation. She could tell me that she is in the ER. She said she is here because she has been having falls. She thought it was May and 2025. She has a cervical collar. Has had only 5 to 10 cc output through the DUYEN drain per shift. January 02: Patient doing much better today having a full conversation. Good whizzer operator in both the arms. No focal symptoms. Da Silva catheter to be discontinued. Was up in the chair. Started to eat better. Seen by neurology. Stroke felt to be less likely. MRI of the brain has been ordered. Delirium from yesterday complete resolved felt to be from pain medications. Patient denies any urinary or respiratory symptoms. Had elevated white count yesterday. Has come down to 14.5. No fever. Hold off any antibiotics for now. January 03: Patient doing well. No focal weakness. Has been up in the chair. Drainage tube has been removed from the neck. Eating better. Being visited by her brother. Patient's MRI of the brain came back negative. Pain is much better. DC scopolamine patch. Change Reglan to p.o. leukocytosis coming down. Drain to be reactive. January 04: Patient feeling rather well. Pain is controlled. Tolerating diet. Looking to go to rehab. Will need 3 night stay. Orthopedic team requested the change of service to my service. I accepted. Patient is otherwise rather cheerful. Does live alone. Will DC Reglan. Also DC IV Toradol. Changed to naproxen 250 twice daily. January 05: Remains comfortable. Pain well-controlled. Eating fair. Looking to go to rehab. After 3 night stay Active Medications Acetaminophen (Acetaminophen Tab 325 Mg Tab) 650 mg PO Q6HR [facility] Stop: 01/29/25 17:59 Last Admin: 01/05/25 16:56 Dose: Not Given Hydrocodone Bitart/Acetaminophen (Hydrocodone/Apap 5-325mg 1 Each Tab) 1 each PO Q4HR PRN PRN Reason: Pain Scale 4 - 6 Stop: 01/29/25 15:12 Hydrocodone Bitart/Acetaminophen (Hydrocodone/Apap 7.5-325mg 1 Each Tab) 1 each PO Q4HR PRN PRN Reason: Pain Scale 7 to 10 Stop: 01/29/25 15:17 Last Admin: 01/04/25 16:18 Dose: 1 each Amlodipine Besylate (Amlodipine 5 Mg Tab) 5 mg PO QAM [facility] Last Admin: 01/05/25 08:33 Dose: 5 mg Aspirin (Aspirin 81 Mg) 81 mg PO DAILY [facility] Last Admin: 01/05/25 08:34 Dose: 81 mg Atorvastatin Calcium (Atorvastatin 40 Mg Tab) 40 mg PO HS [facility] Last Admin: 01/04/25 21:55 Dose: 40 mg Bacitracin (Bacitracin Oint 1 Each Packet) 1 each TOPICAL TID PRN; Protocol PRN Reason: Skin Irritation Last Admin: 01/04/25 16:18 Dose: 1 each Cyclobenzaprine HCl (Cyclobenzaprine 5 Mg Tab) 5 mg PO TID PRN PRN Reason: Muscle Spasm Stop: 01/29/25 15:12 Last Admin: 01/05/25 15:46 Dose: 5 mg Ferrous Sulfate (Ferrous Sulfate 325 Mg Tab) 325 mg PO W/LUNCH [facility] Last Admin: 01/05/25 12:21 Dose: 325 mg Fluoxetine HCl (Fluoxetine Hcl 20 Mg Cap) 40 mg PO QAM [facility] Last Admin: 01/05/25 08:33 Dose: 40 mg Gabapentin (Gabapentin 300 Mg Cap) 300 mg PO TID [facility] Last Admin: 01/05/25 16:57 Dose: 300 mg Lactated Ringer's (Lactated Ringers) 1,000 mls @ 20 mls/hr IV .Q24H [facility] Stop: 01/29/25 09:33 Last Admin: 01/05/25 16:58 Dose: Not Given Lidocaine HCl (Lidocaine 1% (10mg/Ml) For Iv Start) 0.1 ml INTRADERMA PER PROTOCOL PRN PRN Reason: IV Start Stop: 01/29/25 09:33 Magnesium Hydroxide (Magnesium Hydroxide 2,400 Mg/30 Ml Cup) 2,400 mg PO DAILY PRN PRN Reason: Constipation Stop: 01/29/25 15:12 Montelukast Sodium (Montelukast 10 Mg Tab) 10 mg PO HS [facility] Last Admin: 01/04/25 21:58 Dose: 10 mg Morphine Sulfate (Morphine Sulfate 4 Mg/Ml Syringe) 4 mg IVP Q3HR PRN PRN Reason: Pain Last Admin: 01/01/25 15:46 Dose: 4 mg Naproxen (Naproxen 250 Mg Tab) 250 mg PO BID [facility] Last Admin: 01/05/25 08:33 Dose: 250 mg Pantoprazole Sodium (Pantoprazole 40 Mg Tablet) 40 mg PO BID [facility] Last Admin: 01/05/25 08:33 Dose: 40 mg Polyethylene Glycol (Polyethylene Glycol 3350 17 Gm Powd.Pack) 17 gm PO DAILY [facility] Stop: 01/30/25 08:59 Last Admin: 01/05/25 08:34 Dose: Not Given Senna/Docusate Sodium (Sennosides-Docusate Sodium 1 Each Tab) 2 each PO DAILY [facility] Stop: 01/30/25 08:59 Last Admin: 01/05/25 12:21 Dose: 2 each Social history: Non-smoker. Denies alcohol. Her son lives next-door Physical examination: VITAL SIGNS: 98.5, 95, 18, 96 x 65, 95% room air GENERAL: BMI 23.4, thin built, awake comfortable EYES: Pupils equal. Conjunctiva carolin l. HEENT: External appearance of nose and ears normal, oral cavity grossly normal. NECK: Hard collar in place. Anterior DUYEN drain.'s some blood soaking of the dressing.. HEART: First and second heart sounds are normal; no edema. LUNGS: Respiratory rate normal; clear to auscultation. ABDOMEN: Soft, nontender, liver spleen not palpable, no masses palpable. PSYCH: AO x 3, mood affect normal MUSCULOSKELETAL: Cervical hard collar. Evidence of OA in the joints. Right knee-chronically flexed unable to be extended NEUROLOGICAL: [Cranial nerves grossly intact; no facial asymmetry, patient got good power in both the hands. INVESTIGATIONS, reviewed in the clinical context: January 03: White count 9.4 hemoglobin 9.9 potassium 3.7 creatinine 0.6 January 02: White count 14.5 hemoglobin 11.8 potassium 3 creatinine 0.68 UA: Negative for nitrate leukoesterase January 01: White count 21.8 hemoglobin 13 platelets 410 sodium 133 potassium 3.5 BUN 10 creatinine 0.49 December 31: White count 7.3 hemoglobin 11.[address] brain without contrast [January 01] left basal ganglia external capsule low attenuating area series 3032. Reported as hypodense area in the left basal ganglia external capsule concern for acute/subacute CVA. CT angio head and neck: Unremarkable other findings in the full report Assessment plan: - Acute mental status changes. From delirium. From pain medications. Resolved MRI of the brain negative for acute stroke - Leukocytosis., Coming down. Probable reactive No current evidence of any infection. Negative UA. No respiratory symptoms. - Essential hypertension amlodipine 5 mg a day - Depression otherwise specified Prozac 40 mg a day - Hyperlipidemia Lipitor 40 mg nightly - Chronically flexed right knee following surgery by Dr. David Lynn. Consult Dr. Lynn-no further intervention right now. Follow-up outpatient - GERD/history of peptic ulcer disease Omeprazole -Acute postprocedure blood loss anemia expected from surgery Ferrous sulfate Doing well. Stable. Continue current medication. Plan for discharge to rehab tomorrow Thank you Dr. Martinez Past Medical History Past Medical History: GERD/Reflux, Hyperlipidemia, Hypertension, Osteoarthritis (OA) Additional Past Medical History / Comment(s): Hx of gastritis/ small ulcerations/ distal esophagitis/diverticulosis/IBS, hiatal hernia. Hx of a slip/fall a week ago. Denies current skin issues. History of Any Multi-Drug Resistant Organisms: None Reported Past Surgical History: Appendectomy, Hysterectomy, Orthopedic Surgery, Tonsillectomy Additional Past Surgical History / Comment(s): FEB 2024 & JUL 2023 BACK SURGERIES. 09/30/18 EGD with bx and colonoscopy with bx, R bunionectomy, Right TKA 06/2024. Past Anesthesia/Blood Transfusion Reactions: No Reported Reaction Additional Past Anesthesia/Blood Transfusion Reaction / Comm: hx of blood transfusion- no reaction Past Psychological History: Depression Additional Psychological History / Comment(s): Managed on medication. Smoking Status: Former smoker Past Alcohol Use History: None Reported Additional Past Alcohol Use History / Comment(s): smoked for a year @ age of 20 Past Drug Use History: None Reported Additional Drug Use History / Comment(s): doesn't use anymore, only topical prn
--- NOTE | 2025-01-06 13:13 | P.DS ---
Providers Date of admission: 01/03/25 08:43 Expected date of discharge: 01/06/25 Attending physician: Matt Clement Consults: 01/01/25 09:14 Consult Physician Routine Consulting Provider: Matt Clement Consult Reason/Comments: Medical Management Do you want consulting provider notified?: Yes 01/01/25 12:14 Consult Physician Urgent Consulting Provider: Carlos A Verdugo Consult Reason/Comments: AMS, did code stroke Do you want consulting provider notified?: Yes 01/04/25 18:46 Consult Physician Routine Consulting Provider: David Lynn Consult Reason/Comments: Postop flexed right knee Do you want consulting provider notified?: Yes Primary care physician: [facility] Course: - Chief Complaint Cervical spine surgery - History of Present Illness This is a 74-year-old patient, follows with Dr. Gigi Hatfield. Chronic medical condition include IBS, hyperlipidemia, hypertension, peptic ulcer disease. Patient had surgery on the right knee by Dr. Lynn earlier this year and has a frozen right knee. Unable to extend the same. Patient been having neck pain for some time. Patient also had upper extremity pain weakness radiculopathy. She was found to have C3-C7 severe spondylosis with severe stenosis. And severe disc collapse and compression C3-C7. Myelomalacia. On December 30 patient underwent arthrodesis insertion of biomechanical device cage x 4. Patient also has a anterior DUYEN drain. This morning when I arrived to see the patient code stroke had been called. Patient having significant pain at the operative site. She had been switched over from Dilaudid to morphine which the first 2 she received earlier today. Along with [place]. Patient's speech was found a bit slurred by the nurse. Somewhat restless. No new weakness was noticed. Teleneurology was consulted earlier. Patient had some fluctuation in her mentation. She could tell me that she is in the ER. She said she is here because she has been having falls. She thought it was May and 2025. She has a cervical collar. Has had only 5 to 10 cc output through the DUYEN drain per shift. January 02: Patient doing much better today having a full conversation. 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 No focal symptoms. Da Silva catheter to be discontinued. Was up in the chair. Started to eat better. Seen by neurology. Stroke felt to be less likely. MRI of the brain has been ordered. Delirium from yesterday complete resolved felt to be from pain medications. Patient denies any urinary or respiratory symptoms. Had elevated white count yesterday. Has come down to 14.5. No fever. Hold off any antibiotics for now. January 03: Patient doing well. No focal weakness. Has been up in the chair. Drainage tube has been removed from the neck. Eating better. Being visited by her brother. Patient's MRI of the brain came back negative. Pain is much better. DC scopolamine patch. Change Reglan to p.o. leukocytosis coming down. [place] to be reactive. January 04: Patient feeling rather well. Pain is controlled. Tolerating diet. Looking to go to rehab. Will need 3 night stay. Orthopedic team requested the change of service to my service. I accepted. Patient is otherwise rather cheerful. Does live alone. Will DC Reglan. Also DC IV Toradol. Changed to naproxen 250 twice daily. January 05: Remains comfortable. Pain well-controlled. Eating fair. Looking to go to rehab. After 3 night stay January 06: Laying in bed. Comfortable. Eating well. Pain well-controlled. Accepted to go to rehab at [facility]. Per Ortho patient received 5 days of Duricef. Discussion and discharge planning more than 35 minutes Social history: Non-smoker. Denies alcohol. Her son lives next-door Physical examination: VITAL SIGNS: 98.4, 90, 18, 110 x 69, 94% room air GENERAL: BMI 23.4, thin built, awake comfortable EYES: Pupils equal. Conjunctiva carolin l. HEENT: External appearance of nose and ears normal, oral cavity grossly normal. NECK: Hard collar in place. Anterior DUYEN drain.'s some blood soaking of the dressing.. HEART: First and second heart sounds are normal; no edema. LUNGS: Respiratory rate normal; clear to auscultation. ABDOMEN: Soft, nontender, liver spleen not palpable, no masses palpable. PSYCH: AO x 3, mood affect normal MUSCULOSKELETAL: Cervical hard collar. Evidence of OA in the joints. Right knee-chronically flexed unable to be extended NEUROLOGICAL: [Cranial nerves grossly intact; no facial asymmetry, patient got good power in both the hands. INVESTIGATIONS, reviewed in the clinical context: January 03: White count 9.4 hemoglobin 9.9 potassium 3.7 creatinine 0.6 January 02: White count 14.5 hemoglobin 11.8 potassium 3 creatinine 0.68 UA: Negative for nitrate leukoesterase January 01: White count 21.8 hemoglobin 13 platelets 410 sodium 133 potassium 3.5 BUN 10 creatinine 0.49 December 31: White count 7.3 hemoglobin 11.[address] brain without contrast [January 01] left basal ganglia external capsule low attenuating area series 3032. Reported as hypodense area in the left basal ganglia external capsule concern for acute/subacute CVA. CT angio head and neck: Unremarkable other findings in the full report Assessment plan: - Acute mental status changes. From delirium. From pain medications. Resolved MRI of the brain negative for acute stroke - Duricef for 5 days per Ortho possibly further incision. - Essential hypertension amlodipine 5 mg a day - Depression otherwise specified Prozac 40 mg a day - Hyperlipidemia Lipitor 40 mg nightly - Chronically flexed right knee following surgery by Dr. David Lynn. Consult Dr. Lynn-no further intervention right now. Follow-up outpatient - GERD/history of peptic ulcer disease Omeprazole -Acute postprocedure blood loss anemia expected from surgery Ferrous sulfate Disposition: [facility] for rehab Past Medical History Past Medical History: GERD/Reflux, Hyperlipidemia, Hypertension, Osteoarthritis (OA) Additional Past Medical History / Comment(s): Hx of gastritis/ small ulcerations/ distal esophagitis/diverticulosis/IBS, hiatal hernia. Hx of a slip/fall a week ago. Denies current skin issues. History of Any Multi-Drug Resistant Organisms: None Reported Past Surgical History: Appendectomy, Hysterectomy, Orthopedic Surgery, Tonsillectomy Additional Past Surgical History / Comment(s): FEB 2024 & JUL 2023 BACK SURGERIES. 09/30/18 EGD with bx and colonoscopy with bx, R bunionectomy, Right TKA 06/2024. Past Anesthesia/Blood Transfusion Reactions: No Reported Reaction Additional Past Anesthesia/Blood Transfusion Reaction / Comm: hx of blood transfusion- no reaction Past Psychological History: Depression Additional Psychological History / Comment(s): Managed on medication. Smoking Status: Former smoker Past Alcohol Use History: None Reported Additional Past Alcohol Use History / Comment(s): smoked for a year @ age of 20 Past Drug Use History: None Reported Additional Drug Use History / Comment(s): doesn't use anymore, only topical prn Plan - Discharge Summary Discharge Rx Participant: No New Discharge Prescriptions: New Naproxen [Naprosyn] 500 mg PO BID 14 Days #28 tab Aspirin 81 mg PO DAILY tab Ferrous Sulfate [Iron (65 MG Elemental)] 325 mg PO W/LUNCH tab Sennosides-Docusate Sodium [Senokot-S] 2 each PO DAILY tab Acetaminophen Tab [Tylenol] 650 mg PO Q6HR tab cefaDROXiL [Duricef] 500 mg PO Q12HR 5 Days #10 cap Gabapentin [Neurontin] 300 mg PO TID #90 cap HYDROcodone/APAP 7.5-325MG [[place] 7.5] 1 each PO Q6HR PRN #42 tab PRN Reason: Pain Cyclobenzaprine [Flexeril] 5 mg PO TID PRN tab PRN Reason: Muscle Spasm Continue Omeprazole 40 mg PO BID Atorvastatin [Lipitor] 40 mg PO HS Montelukast [Singulair] 10 mg PO HS FLUoxetine HCL [PROzac] 40 mg PO QAM amLODIPine 5 mg PO QAM Discontinued Gabapentin [Neurontin] 300 mg PO TID Naproxen [Naprosyn] 500 mg PO BID methocarbamoL 750 mg PO TID Discharge Medication List Atorvastatin [Lipitor] 40 mg PO HS 10/19/18 [History] Omeprazole 40 mg PO BID 10/19/18 [History] Montelukast [Singulair] 10 mg PO HS 08/18/23 [History] FLUoxetine HCL [PROzac] 40 mg PO QAM 07/07/24 [History] amLODIPine 5 mg PO QAM 07/07/24 [History] Gabapentin [Neurontin] 300 mg PO TID #90 cap 01/04/25 [Rx] HYDROcodone/APAP 7.5-325MG [[place] 7.5] 1 each PO Q6HR PRN #42 tab 01/04/25 [Rx] Naproxen [Naprosyn] 500 mg PO BID 14 Days #28 tab 01/04/25 [Rx] cefaDROXiL [Duricef] 500 mg PO Q12HR 5 Days #10 cap 01/04/25 [Rx] Acetaminophen Tab [Tylenol] 650 mg PO Q6HR tab 01/06/25 [Rx] Aspirin 81 mg PO DAILY tab 01/06/25 [Rx] Cyclobenzaprine [Flexeril] 5 mg PO TID PRN tab 01/06/25 [Rx] Ferrous Sulfate [Iron (65 MG Elemental)] 325 mg PO W/LUNCH tab 01/06/25 [Rx] Sennosides-Docusate Sodium [Senokot-S] 2 each PO DAILY tab 01/06/25 [Rx] Follow up Appointment(s)/Referral(s): Gigi Hatfield MD [Primary Care Provider] - 1 Week (Discharge nurse @ Office will call you with your appointment date and time) Harpal Martinez DO [Doctor of Osteopathic Medicine] - 01/13/25 3:00 pm David Lynn DO [Doctor of Osteopathic Medicine] - 01/17/25 2:45 pm (s/p Right Knee arthroplasty performed in Jun 2024.) Activity/Diet/Wound Care/Special Instructions: Spine Discharge and Recovery Instructions Date of Surgery: 12/30/2024 Diagnosis: Cervical spondylosis with stenosis Procedure: C3-C7 ACDF Medications: See medication list All medication refills should be obtained through your primary care doctor or your clinic spine surgeon. Please discuss prescription refills at your follow up appointment. Do not call the hospital for medication refills. Activity: Encourage ambulation with assist of walker, Up and about 6-8x daily PT/OT daily work on balance, strength and mobility Up in chair with all meals Shower daily Brace: Use brace when up and about, do not wear in bed or shower Dressing: Leave your dressing in place for a total of 3 days post operatively. Then you may remove your dressing and leave open to air. Keep the area clean and if not able to keep area clean, then cover with sterile gauze and tape. Showering: You may shower 3 days after your procedure allowing soap and water to run over incision. Do not scrub. Do not soak. Blot dry. Follow up: Please confirm a follow up appointment with your surgeon 2 weeks post operatively. Please make an appointment to follow up with your PCP in 1-2 weeks after surgery for evaluation '3 phase, 3-week plan' POST OP WEEKS 1-3 1. Lifting/carrying/pushing/pulling limited to less than 5 pounds. 2. Do not sit for longer than 15 minutes at one time. Get up and walk around. Prolonged sitting is NOT advised. If you lay down, see if you can tolerate laying down on you front (belly side) 3. Walk for periods of 15 minutes = 1 mile but no longer; do it multiple times times each day. 4. Ice your low back after activity. POST OP WEEKS 3-6 1. Lifting limited to less than 20 pounds. 2. Do not sit for longer than 30 minutes at a time. Frequently change positions. Use a sit-to stand workstation or take frequent breaks from sitting if you have returned to work. 3. Walk for 30 minutes each day. If possible, do these three or more times a day POST OP WEEKS 6+ At your 6-week appointment we will give you a physical therapy referral to focus on a core stabilization and strengthening program. You should also work on leg & buttock strengthening, hamstring & quadriceps stretching, and continue a low impact aerobic activity program such as swimming, walking, or riding a stationary bicycle. During the initial 6 weeks after your surgery, you are at the highest risk of re-injuring your spine. You should generally avoid BLT's (bending, lifting and twisting combination motions) and follow the above guidelines to reduce the chance of reinjury. You can anticipate post op appointments in our office at approximately 3 weeks and 6 weeks after your surgery. INCISION CARE: If your incision is not draining you do NOT need to cover it with a dressing. Keep your incision clean, dry and intact. In most cases, we apply skin glue, hans or sutures to the incision at the time of surgery. This will be like a crust or have the appearance of a scab and will fall off in time on its own. The stitches or hans need to be removed at 3 weeks post op appointment. You may begin to shower 3 days after surgery (this allows the glue to silva well). However, please avoid scrubbing the incision site or peeling off any of the skin glue. This will ensure optimal healing of your incision. Also, during this time avoid soaking the incision area in water - this includes swimming pools, hot tubs or baths. No ointments, lotions or oil s on the incision until your surgeon allows. Leave hans, sutures or glue in place. Neurological dysfunction that comes on suddenly can also be a sign of a stroke. Below some common symptoms of a stroke are listed: B - balance difficulty such as sudden onset walking or leaning to one side - NEW E - eye problem such as sudden double vision or trouble seeing on one side - NEW F - Facial weakness or numbness on one side - NEW A - Arm or leg weakness or numbness on one side - NEW S - Slurred speech or difficulty with word finding - NEW T - Time is BRAIN! Call 911 as soon as you recognize these symptoms Diet: Consume a regular diet rich in vegetables and lean protein such as chicken or fish. You should consume in a ratio of approximately 20% fats|40% carbohydrates|40%protein. Vegetables, sweet potatoes, brown rice or quinoa are examples of good carbohydrates. Chips, white bread, cookies and sweets/sugar are examples of bad carbohydrates. Limit your bad carbs, go wild with good carbs. 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 (1) Get Active. Physical activity can help people lose weight, control high blood pressure and cholesterol, feel emotionally better, and sleep better. (2) Control Cholesterol. Avoid a diet high in saturated fat, trans fat, & cholesterol. Limit whole milk & cream, ice cream, butter, egg yolks, processed meats (like sausage and hot dogs), and fatty meats. Choose healthy foods that are low in saturated fat, trans fat and cholesterol which include: Fruits and vegetables, fiber rich grain products (like whole grain pasta and brown rice), lean meat such as chicken, fish, nuts, seeds, and legumes. (3) Eat Better. Eat small portions. Shop at the grocery with a list and do not stray from it. Tips for a healthy diet include: Limit sodium intake to less than 1500mg daily, avoid prepackaged, processed, and fast foods, choose a diet rich in fruits, vegetables, and whole grain, high fiber foods, and limit saturated & cholesterol in your diet. (4) Manage Blood Pressure. If you have high blood pressure, you should have a cuff at home so that you can check your blood pressure regularly. Be sure you have a good cuff. An arm one is generally better than a wrist one. Bring the cuff to a doctor's appointment to validate that the measurements that your cuff are taking are accurate. Take your blood pressure twice daily when you are sitting down and relaxing. Record the numbers in a log and bring this log with you to your doctors' appointments. (5) Lose Weight if your BMI is above 25. A healthy BMI is between 19-25. To calculate Your BMI, you may use a Standard BMI Calculator on the NIH BMI website: <www.nhlbi.nih.gov/guidelines/obesity/BMI/bmicalc.htm>. Weigh oneself daily. If you are overweight, set a goal to lose weight. A pound a week loss if needed is a good target. (6) Reduce Blood Sugar. Limit foods and liquids with "added sugars." (Added sugars include sucrose, fructose, glucose, maltose, dextrose, high fructose corn syrup, corn syrup, concentrated fruit juice and honey). (7) Stop Smoking. If you smoke, quitting smoking is one of the best things that you can do for your health. Smoking increases your risk of heart attack, stroke, and peripheral vascular disease, which is a build-up of plaque in your arteries. Please discard all the cigarettes and lighters in your house. Have a plan for what you will do when you have the urge to smoke. Direct and second- hand smoke shortens your life as well as the lives of your family, friends and others around you. For your health and the health of those around you, please consider quitting! Proper Bending Body Mechanics: Maintain a wide stance with one foot slightly in front of the other. Keep your back straight. Bend utilizing the strength in your hips and knees. Do not bend at the waist. Maintain the lifted object at your waist-level close to your body. Avoid lifting weight that causes immediately pain or pain anywhere in the body afterwards. Smoking/Nicotine If there was ever one thing that you could do to increase your overall health, decrease your risk of cardiovascular problems by about 39% the second you make the choice, it is to STOP SMOKING. Your body's most instant gratification is the second you stop smoking. We have all heard the studies, read the articles but it is true, smoking is extremely bad for your overall health, and moreover it is detrimental to your bone health. Nicotine, IN ANY FORM, kills bone cells, prevents your body from healing fractures, and significantly prolongs healing after surgery. In spine surgery specifically, it increases your risk of not healing your bones to create a fusion and increases your risk of having a revision surgery due to this up to 60%. I know it is hard. I know it feels impossible. But there are ways. Take control of your life. We are here to help you through it. And when you are ready, ask us and we can direct you to help if you desire. Use the START Plan to Quit Smoking (please visit the GetMyRxguQitio.org website listed below for more information): S = Set a quit date. Choose a date within the next 2 weeks, so you have enough time to prepare without losing your motivation to quit. If you mainly smoke at work, quit on the weekend, so you have a few days to adjust to the change. T = Tell family, friends, and co-workers that you plan to quit. Let your friends and family in on your plan to quit smoking and tell them you need their support and encouragement to stop. Look for a quit ludy who wants to stop smoking as well. You can help each other get through the rough times. A = Anticipate and plan for the challenges you'll face while quitting. Most people who begin smoking again do so within the first 3 months. You can help yourself make it through by preparing ahead for common challenges, such as nicotine withdrawal and cigarette cravings. R = Remove cigarettes and other tobacco products from your home, car, and work. Throw away all your cigarettes (no emergency pack!), lighters, ashtrays, and matches. Wash your clothes and freshen up anything that smells like smoke. Shampoo your car, clean your drapes and carpet, and steam your furniture. T = Talk to your doctor about getting help to quit. Your doctor can prescribe medication to help with withdrawal and suggest other alternatives. If you can't see a doctor, you can get many products over the counter at your local pharmacy or grocery store, including the nicotine patch, nicotine lozenges, and nicotine gum. Resources for Quitting Smoking: <https://www.[place].gov/documents/[facility]/Quit_Tobacco_Resources_for_patients_313 480_7.pdf> Supplementation: Take recommended dosages of Vitamin D and Calcium to help fortify your bones and help them to heal. See your health maintenance packet for dosages and recommended levels. DVT/VTE prophylaxis: You will be given compression stockings from the hospital. Wear these daily for the first two weeks after surgery. You may take them off at night. You may be prescribed a medication to help thin your blood. Take this as directed. If you are not prescribed this medication, early and frequent ambulation has been shown to be the best prophylaxis to deep vein thrombosis and sequelae related to this event. Discharge Disposition: TRANSFER TO SNF/ECF
[2025-01-06 14:50] VITALS: BP 94/61; PULSE 78; RESP 17; TEMP 98.3
== END 2025-01-06 15:10 | DRG 92 ==
LOC: OR 09:41 → 4SSUR 17:25 → 3SCARD 01-01 13:06 → OR 01-03 08:43 → 4SSUR 01-05 21:01
PROVIDERS: ADMIT Hospitalist; ATTEND Hospitalist
DX: G92.8 Other toxic encephalopathy (principal); D62 Acute posthemorrhagic anemia; F05 Delirium due to known physiological condition; G95.89 Other specified diseases of spinal cord; I10 Essential (primary) hypertension; F32.A Depression, unspecified; M47.12 Other spondylosis with myelopathy, cervical region; M50.01 Cervical disc disorder with myelopathy, high cervical region; R47.01 Aphasia; M47.22 Other spondylosis with radiculopathy, cervical region; M50.11 Cervical disc disorder with radiculopathy, high cervical region; M48.02 Spinal stenosis, cervical region; T40.605A Adverse effect of unspecified narcotics, initial encounter; D72.829 Elevated white blood cell count, unspecified; E78.5 Hyperlipidemia, unspecified; K58.9 Irritable bowel syndrome, unspecified; R29.6 Repeated falls; K21.9 Gastro-esophageal reflux disease without esophagitis; K44.9 Diaphragmatic hernia without obstruction or gangrene; Z79.899 Other long term (current) drug therapy; Z79.1 Long term (current) use of non-steroidal anti-inflammatories (NSAID); Z87.891 Personal history of nicotine dependence; Z96.651 Presence of right artificial knee joint; W19.XXXA Unspecified fall, initial encounter
CPT/HCPCS: 70551; 72040; 72125; 80048; 85025; 85027; 93306

== ENCOUNTER 2024-12-30 09:41 | Day surgery (SDC) | payer MEDICARE, OTHER | END 2025-01-02 23:29 | disposition other institution (70) | LOC: OR 09:41 | PROVIDERS: ATTEND Hospitalist | DX: M50.00 Cervical disc disorder with myelopathy, unspecified cervical region (principal); M47.12 Other spondylosis with myelopathy, cervical region; M48.02 Spinal stenosis, cervical region; K21.9 Gastro-esophageal reflux disease without esophagitis; E78.5 Hyperlipidemia, unspecified; I10 Essential (primary) hypertension; M19.90 Unspecified osteoarthritis, unspecified site; Z79.899 Other long term (current) drug therapy | CPT/HCPCS: 22554; 22585 ×3; 22853 ×4; 72040; 72125; C1713; C1762; Q4100; J1100; J0690; J2405; J1171; 80048; 85025; 93306 ==

== ENCOUNTER 2025-01-15 12:31 | Inpatient (IN) | payer MEDICARE, OTHER ==
[2025-01-15 12:43] LABS: Glucose,Whole Blood 85 mg/dL (70-110)
[2025-01-15] MEDS: NALOXONE 0.4 MG/ML 1 ML VIAL IVP STA (12:53)
--- NOTE | 2025-01-15 12:53 | ED ---
General Adult HPI - General Chief complaint: Neuro Symptoms/Deficit Stated complaint: AMS Time Seen by Provider: 01/15/25 12:35 Source: patient, EMS Mode of arrival: EMS Limitations: altered mental status, physical limitation - History of Present Illness Initial comments: Dictation was produced using [employer] dictation software. please excuse any grammatical, word or spelling errors. Chief Complaint: 74-year-old female presents to the emergency department altered mental status History of Present Illness: Patient 74-year-old female presents to the emergency department for altered mental status. Patient currently at [facility]. She is rehabilitating from recent cervical spine surgery. Patient according to nurse who received report from EMS got her medications at around 6:45 AM. Allegedly this was the last time she was seen normal. At around 8 she was found to be altered. Patient supposedly is alert and oriented times 3 out of 4 at baseline. At around 8 AM she was found to be ANO x 0 and somnolent and lethargic. At the bedside patient arousable and able to provide some history of present illness states that she has no complaints at the moment. However she is slow to answer questions. The ROS documented in this emergency department record has been reviewed and confirmed by me. Those systems with pertinent positive or negative responses have been documented in the HPI. All other systems are other negative and/or noncontributory. - Related Data Home Medications Medication Instructions Recorded Confirmed Atorvastatin [Lipitor] 40 mg PO HS 10/19/18 12/30/24 Omeprazole 40 mg PO BID 10/19/18 12/30/24 Montelukast [Singulair] 10 mg PO HS 08/18/23 12/30/24 FLUoxetine HCL [PROzac] 40 mg PO QAM 07/07/24 12/30/24 amLODIPine 5 mg PO QAM 07/07/24 12/30/24 Previous Rx's Medication Instructions Recorded Gabapentin [Neurontin] 300 mg PO TID #90 cap 01/04/25 HYDROcodone/APAP 7.5-325MG [[place] 1 each PO Q6HR PRN #42 tab 01/04/25 7.5] Naproxen [Naprosyn] 500 mg PO BID 14 Days #28 tab 01/04/25 cefaDROXiL [Duricef] 500 mg PO Q12HR 5 Days #10 cap 01/04/25 Acetaminophen Tab [Tylenol] 650 mg PO Q6HR tab 01/06/25 Aspirin 81 mg PO DAILY tab 01/06/25 Cyclobenzaprine [Flexeril] 5 mg PO TID PRN tab 01/06/25 Ferrous Sulfate [Iron (65 MG 325 mg PO W/LUNCH tab 01/06/25 Elemental)] Sennosides-Docusate Sodium 2 each PO DAILY tab 01/06/25 [Senokot-S] Allergies Allergy/AdvReac Type Severity Reaction Status Date / Time No Known Allergies Allergy Verified 12/30/24 10:01 Review of Systems ROS Statement: Those systems with pertinent positive or pertinent negative responses have been documented in the HPI. ROS Other: All systems not noted in ROS Statement are negative. Past Medical History Past Medical History: GERD/Reflux, Hyperlipidemia, Hypertension, Osteoarthritis (OA) Additional Past Medical History / Comment(s): Hx of gastritis/ small ulcerations/ distal esophagitis/diverticulosis/IBS, hiatal hernia. Hx of a slip/fall a week ago. Denies current skin issues. History of Any Multi-Drug Resistant Organisms: None Reported Past Surgical History: Appendectomy, Hysterectomy, Orthopedic Surgery, Tonsillectomy Additional Past Surgical History / Comment(s): FEB 2024 & JUL 2023 BACK SURGERIES. 09/30/18 EGD with bx and colonoscopy with bx, R bunionectomy, Right TKA 06/2024. Past Anesthesia/Blood Transfusion Reactions: No Reported Reaction Additional Past Anesthesia/Blood Transfusion Reaction / Comment(s): hx of blood transfusion- no reaction Past Psychological History: Depression Smoking Status: Former smoker Past Alcohol Use History: None Reported Past Drug Use History: None Reported - Past Family History Father Family Medical History: Myocardial Infarction ([place]) Mother Family Medical History: Thyroid Disorder Additional Family Medical History / Comment(s): scoliosis. Maternal grandparents w/ hx of pancreatic and prostate CA. General Exam - General Exam Comments Initial Comments: PHYSICAL EXAM: General Impression: Alert and oriented x2/3, not in acute distress, c-collar in place HEENT: Normocephalic atraumatic, extra-ocular movements intact, pupils equal and reactive to light bilaterally, mucous membranes moist. Cardiovascular: Heart regular rate and rhythm Chest: Able to complete full sentences, no retractions, no tachypnea Abdomen: abdomen soft, non-tender, non-distended, no organomegaly Musculoskeletal: Pulses present and equal in all extremities, no peripheral edema, chronic contracture to the right knee Motor: no focal deficits noted Neurological: CN II-XII grossly intact, no focal motor or sensory deficits noted Skin: Intact with no visualized rashes Psych: Normal affect and mood Limitations: altered mental status, physical limitation Course Vital Signs 01/15/25 01/15/25 01/15/25 12:33 12:53 13:30 Temperature 98.7 F Pulse Rate 85 87 Respiratory 18 16 20 Rate Blood Pressure 148/86 135/79 O2 Sat by Pulse 96 95 Oximetry - Reevaluation(s) Reevaluation #1: 01/15/25 12:52 Patient seen and evaluated the bedside. Gag reflex was tested. Patient did have a gag and immediately awoken secondary to noxious stimuli to the oropharynx. Reevaluation #2: 01/15/25 13:32 For his obtained from brother. States that he went there at around 11 AM to pick her up to take her out for the day when she was found to be altered. Sounds as though she was slow to respond. The grandson was there today and states that she was answering one-word. According to brother she had a similar episode immediately after the surgery that medical staff attributed to medication adverse effect. EKG Findings - EKG Comments: EKG Findings:: My EKG interpretation: Ventricular rate 87, sinus rhythm, W[place] 165, QRS 82, QTc 423. No [place] prolongation, no QTC prolongation, no ST or T-wave changes noted. Overall, this EKG is unremarkable Medical Decision Making - Medical Decision Making Was pt. sent in by a medical professional or institution (, PA, INSTRUCTIONAL MATERIAL DIRECTOR, urgent care, hospital, or correction...) When possible be specific @ -No Did you speak to anyone other than the patient for history (EMS, parent, family, police, friend...)? What history was obtained from this source @ -See above Did you review nursing and triage notes (agree or disagree)? Why? @ -I reviewed and agree with nursing and triage notes Were old charts reviewed (outside hosp., previous admission, EMS record, old EKG, old radiological studies, urgent care reports/EKG's, correction records)? Report findings @ -No old charts were reviewed Differential Diagnosis (chest pain, altered mental status, abdominal pain women, abdominal pain men, vaginal bleeding, musculoskeletal, weakness, fever, dyspnea, syncope, headache, dizziness, GI bleed, back pain, seizure, CVA, palpatations, mental health)? @ -Differential Altered Mental Status: Hypoglycemia, DKA, hypercapnia, ETOH, overdose, CO poisoning, trauma, myxedema coma, HTN encephalopathy, infection, encephalitis, psychosis, intercranial hemorrhage, hepatic encephalopathy, meningitis, CVA, this is not meant to be an all-inclusive list EKG interpreted by me (3pts min.). @ -See above X-rays interpreted by me (1pt min.). @ -None done CT interpreted by me (1pt min.). @ -CT brain is nonacute U/S interpreted by me (1pt. min.). @ -None done What testing was considered but not performed or refused? (CT, X-rays, U/S, labs)? Why? @ -None What meds were considered but not given or refused? Why? @ -None Was smoking cessation discussed for >3mins.? @ -No Were there social determinants of health that impacted care today? How? (Homelessness, low income, unemployed, alcoholism, drug addiction, transportation, low edu. Level, literacy, decrease access to med. care, custodial, rehab)? @ -No Was there de-escalation of care discussed even if they declined (Discuss DNR or withdrawal of care, Hospice)? DNR status @ -No What co-morbidities impacted this encounter? (DM, HTN, Smoking, COPD, CAD, Cancer, CVA, ARF, Chemo, Hep., AIDS, mental health diagnosis, sleep apnea, morbid obesity)? @ -None Was patient admitted / discharged? Hospital course, mention meds given and route, prescriptions, significant lab abnormalities, going to OR and other pertinent info. @ -75-year-old female presents to the emergency department altered mental status. Vital signs upon arrival are within acceptable limits. Patient is somnolent however arousable. She is alert and oriented times 2 out of 4. According family this is outside of her baseline she is usually high functioning has meaningful conversation. Apparently this is her second episode post surgery. Nonetheless she is in no acute distress with stable vital signs. Laboratory evaluation obtained. Labs within acceptable limits except for UTI. Urine drug screen positive for opiates benzodiazepines and marijuana. Patient given Rocephin. Did you discuss the management of the patient with other professionals (darren schmitz i.e. , PA, INSTRUCTIONAL MATERIAL DIRECTOR, lab, RT, psych nurse, medical social worker, on call, teacher, parole hearing officer, clinical case manager)? Give summary @ -Case discussed with hospitalist for admission Was critical care preformed (if so, how long)? @ -No Undiagnosed new problem with uncertain prognosis? @ -No Drug Therapy requiring intensive monitoring for toxicity (Heparin, Nitro, Insulin, Cardizem)? @ -No Were any procedures done? @ -No Diagnosis/symptom? Acute, or Chronic, or Acute on Chronic? Uncomplicated (with out systemic symptoms) or Complicated (systemic symptoms)? @ -UTI complicated by altered mental status Side effects of treatment? @ -No Exacerbation, Progression, or Severe Exacerbation? @ -No Poses a threat to life or bodily function? How? (Chest pain, [place], [place], pneumonia, PE, COPD, DKA, ARF, appy, cholecystitis, CVA, Diverticulitis, Homicidal, Suicidal, threat to staff... and all critical care pts) @ -yes - Lab Data Result diagrams: 01/15/25 13:16 01/15/25 13:16 Lab Results 01/15/25 01/15/25 01/15/25 Range/Units 12:41 13:16 13:16 WBC 12.66 H (4.50-10.00) 10*3/uL RBC 3.74 L (4.10-5.20) 10*6/uL Hgb 10.6 L (12.0-15.0) g/dL Hct 32.4 L (37.2-46.3) % MCV 86.6 (80.0-97.0) fL MCH 28.3 (27.0-32.0) pg MCHC 32.7 (32.0-37.0) g/dL Plt Count 422 (140-440) 10*3/uL MPV 9.0 L (9.5-12.2) fL Immature Gran % (Auto) 0.6 % Neutrophils % 73.9 % Lymphocytes % 11.8 % Monocytes % 10.5 % Eosinophils % 2.5 % Basophils % 0.7 % Immature Gran # 0.08 H (0.00-0.04) 10*3/uL Neutrophils # 9.34 H (1.80-7.70) 10*3/uL Lymphocytes # 1.50 (0.90-5.00) 10*3/uL Monocytes # 1.33 H (0.20-1.00) 10*3/uL Eosinophils # 0.32 (0.04-0.35) 10*3/uL Basophils # 0.09 (0.00-0.10) 10*3/uL PT 10.7 (10.0-12.5) sec INR 1.0 (<1.2) APTT 23.6 (22.0-30.0) sec Sodium (137-145) mmol/L Potassium (3.5-5.1) mmol/L Chloride (98-107) mmol/L Carbon Dioxide (22-30) mmol/L Anion Gap mmol/L BUN (7-17) mg/dL Creatinine (0.52-1.04) mg/dL Est GFR (CKD-EPI)AfAm (>60 ml/min/1.73 sqM) Est GFR (CKD-EPI)NonAf (>60 ml/min/1.73 sqM) Glucose (74-99) mg/dL POC Glucose (mg/dL) 85 (70-110) mg/dL POC Glu Bankruptcy Paralegal ID Tito Mcallister Plasma Lactic Acid Rob (0.7-2.0) mmol/L Calcium (8.4-10.2) mg/dL Magnesium (1.6-2.3) mg/dL Total Bilirubin (0.2-1.3) mg/dL AST (14-36) U/L ALT (4-34) U/L Alkaline Phosphatase (38-126) U/L Total Protein (6.3-8.2) g/dL Albumin (3.5-5.0) g/dL Urine Color Urine Appearance (Clear) Urine pH (5.0-8.0) Ur Specific [place] (1.001-1.035) Urine Protein (Negative) Urine Glucose (UA) (Negative) Urine Ketones (Negative) Urine Blood (Negative) Urine Nitrite (Negative) Urine Bilirubin (Negative) Urine Urobilinogen (<2.0) mg/dL Ur Leukocyte Esterase (Negative) Urine RBC (0-5) /hpf Urine WBC (0-5) /hpf Ur Squamous Epith Cells (0-4) /hpf Urine Opiates Screen (NotDetected) Ur Oxycodone Screen (NotDetected) Urine Methadone Screen (NotDetected) Ur Barbiturates Screen (NotDetected) U Tricyclic Antidepress (NotDetected) Ur Phencyclidine Scrn (NotDetected) Ur Amphetamines Screen (NotDetected) U Methamphetamines Scrn (NotDetected) U Benzodiazepines Scrn (NotDetected) Urine Cocaine Screen (NotDetected) U Marijuana (THC) Screen (NotDetected) 01/15/25 01/15/25 01/15/25 Range/Units 13:16 13:40 15:25 WBC (4.50-10.00) 10*3/uL RBC (4.10-5.20) 10*6/uL Hgb (12.0-15.0) g/dL Hct (37.2-46.3) % MCV (80.0-97.0) fL MCH (27.0-32.0) pg MCHC (32.0-37.0) g/dL Plt Count (140-440) 10*3/uL MPV (9.5-12.2) fL Immature Gran % (Auto) % Neutrophils % % Lymphocytes % % Monocytes % % Eosinophils % % Basophils % % Immature Gran # (0.00-0.04) 10*3/uL Neutrophils # (1.80-7.70) 10*3/uL Lymphocytes # (0.90-5.00) 10*3/uL Monocytes # (0.20-1.00) 10*3/uL Eosinophils # (0.04-0.35) 10*3/uL Basophils # (0.00-0.10) 10*3/uL PT (10.0-12.5) sec INR (<1.2) APTT (22.0-30.0) sec Sodium 138 (137-145) mmol/L Potassium 4.5 (3.5-5.1) mmol/L Chloride 103 (98-107) mmol/L Carbon Dioxide 23 (22-30) mmol/L Anion Gap 12 mmol/L BUN 17 (7-17) mg/dL Creatinine 0.46 L (0.52-1.04) mg/dL Est GFR (CKD-EPI)AfAm >90 (>60 ml/min/1.73 sqM) Est GFR (CKD-EPI)NonAf >90 (>60 ml/min/1.73 sqM) Glucose 79 (74-99) mg/dL POC Glucose (mg/dL) (70-110) mg/dL POC Glu Bankruptcy Paralegal ID Plasma Lactic Acid Rob 0.7 (0.7-2.0) mmol/L Calcium 9.6 (8.4-10.2) mg/dL Magnesium 2.3 (1.6-2.3) mg/dL Total Bilirubin 0.4 (0.2-1.3) mg/dL AST 23 (14-36) U/L ALT 18 (4-34) U/L Alkaline Phosphatase 131 H (38-126) U/L Total Protein 5.9 L (6.3-8.2) g/dL Albumin 3.7 (3.5-5.0) g/dL Urine Color Colorless Urine Appearance Clear (Clear) Urine pH 7.5 (5.0-8.0) Ur Specific [place] 1.011 (1.001-1.035) Urine Protein Negative (Negative) Urine Glucose (UA) Negative (Negative) Urine Ketones Trace H (Negative) Urine Blood Negative (Negative) Urine Nitrite Negative (Negative) Urine Bilirubin Negative (Negative) Urine Urobilinogen <2.0 (<2.0) mg/dL Ur Leukocyte Esterase Small H (Negative) Urine RBC 1 (0-5) /hpf Urine WBC 17 H (0-5) /hpf Ur Squamous Epith Cells <1 (0-4) /hpf Urine Opiates Screen Detected H (NotDetected) Ur Oxycodone Screen Not Detected (NotDetected) Urine Methadone Screen Not Detected (NotDetected) Ur Barbiturates Screen Not Detected (NotDetected) U Tricyclic Antidepress Not Detected (NotDetected) Ur Phencyclidine Scrn Not Detected (NotDetected) Ur Amphetamines Screen Not Detected (NotDetected) U Methamphetamines Scrn Not Detected (NotDetected) U Benzodiazepines Scrn Detected H (NotDetected) Urine Cocaine Screen Not Detected (NotDetected) U Marijuana (THC) Screen Detected H (NotDetected) Disposition Clinical Impression: UTI (urinary tract infection) Disposition: ADMITTED IP TO THIS HOSP Condition: Fair Referrals: Gigi Hatfield MD [Primary Care Provider] - 1-2 days Decision Time: 16:08
[2025-01-15 13:28] LABS: Basophils # (A) 0.09 10*3/uL (0.00-0.10); Basophils % (A) 0.7 %; Eosinophils # (A) 0.32 10*3/uL (0.04-0.35); Eosinophils % (A) 2.5 %; HCT 32.4 % (37.2-46.3); HGB 10.6 g/dL (12.0-15.0); Lymphocytes # (A) 1.50 10*3/uL (0.90-5.00); Lymphocytes % (A) 11.8 %; MCH 28.3 pg (27.0-32.0); MCHC 32.7 g/dL (32.0-37.0); MCV 86.6 fL (80.0-97.0); Monocytes # (A) 1.33 10*3/uL (0.20-1.00); Monocytes % (A) 10.5 %; Neutrophils # (A) 9.34 10*3/uL (1.80-7.70); Neutrophils % (A) 73.9 %; Platelet Count 422 10*3/uL (140-440); RBC 3.74 10*6/uL (4.10-5.20); RDW 19.2 % (11.5-14.5); WBC 12.66 10*3/uL (4.50-10.00)
[2025-01-15 13:31] LABS: ALT 18 U/L (4-34); AST 23 U/L (14-36); African American GFR (CKD) >90 (>60 ml/min/1.73 sqM); Albumin 3.7 g/dL (3.5-5.0); Alkaline Phosphatase 131 U/L (38-126); Anion Gap 12 mmol/L; Blood Urea Nitrogen 17 mg/dL (7-17); Calcium 9.6 mg/dL (8.4-10.2); Carbon Dioxide 23 mmol/L (22-30); Chloride 103 mmol/L (98-107); Glucose 79 mg/dL (74-99); Magnesium 2.3 mg/dL (1.6-2.3); Non-African American GFR(CKD) >90 (>60 ml/min/1.73 sqM); Potassium 4.5 mmol/L (3.5-5.1); Sodium 138 mmol/L (137-145); Total Protein 5.9 g/dL (6.3-8.2)
[2025-01-15 13:32] LABS: INR 1.0 (<1.2); Partial Thromboplastin Time 23.6 sec (22.0-30.0); Prothrombin Time 10.7 sec (10.0-12.5)
--- NOTE | 2025-01-15 13:53 | CT ---
EXAMINATION TYPE: CT brain wo con CT DLP: 1129.4 mGycm, Automated exposure control for dose reduction was used. DATE OF EXAM: 01/15/2025 1:35 PM COMPARISON: CT brain and CTA had neck 01/01/2025, MRI brain 01/03/2025 CLINICAL INDICATION:Female, 74 years old with history of ams, AMS TECHNIQUE: Brain: Multiple axial CT images of the brain were obtained without IV contrast. . Coronal and sagitta l reformats reviewed. FINDINGS: Brain: Extra-axial spaces: No abnormal extra-axial fluid collections. Ventricular system: Within normal limits Cerebral parenchyma: No acute intraparenchymal hemorrhage or mass effect. The delatorre-white junction is well differentiated. Scattered hypoattenuating areas are seen within the periventricular white matte r. Similar hyperattenuating areas within the left external capsule/insular cortex. Cerebellum: Unremarkable. Mass effect: No evidence of midline shift. Intracranial vasculature: unremarkable Soft tissues: Normal. Calvarium/osseous structures: No depressed skull fracture. Paranasal sinuses and mastoid air cells: Clear Visualized orbits: Orbital contents are intact. IMPRESSION: 1. No acute intracranial process. 2. Nonspecific white matter changes, likely secondary to chronic small vessel ischemic disease. [facility], , 01/15/2025 1:51 PM
[2025-01-15 15:33] LABS: Bilirubin,Urine Negative (Negative); Blood,Urine Negative (Negative); Color,Urine Colorless; Glucose,Urine (UA) Negative (Negative); Ketones,Urine Trace (Negative); Leukocyte Esterase,Urine Small (Negative); Nitrite,Urine Negative (Negative); PH, Urine 7.5 (5.0-8.0); Protein,Urine Negative (Negative); RBC,Urine 1 /hpf (0-5); Specific Gravity,Urine 1.011 (1.001-1.035); Squamous Epithelial Cell,Urine <1 /hpf (0-4); Urobilinogen,Urine <2.0 mg/dL (<2.0); WBC,Urine 17 /hpf (0-5)
[2025-01-15 15:41] LABS: Barbiturate Screen,Urine Not Detected (NotDetected); Benzodiazepines Screen,Urine Detected (NotDetected); Opiate Screen,Urine Detected (NotDetected); Oxycodone Screen, Urine Not Detected (NotDetected); Phencyclidine Screen,Urine Not Detected (NotDetected); Tricyclic Antidepressant,Urine Not Detected (NotDetected); Urn Cannabinoid Scrn Detected (NotDetected)
[2025-01-15] MEDS: cefTRIAXone IN SWFI 1,000 MG/10 ML SYRINGE IVP STA (15:45)
[2025-01-15] MEDS: SODIUM CHLORIDE 0.9% 1,000 ML IV ONE (15:50)
[2025-01-15] MEDS ORDERED: NALOXONE 0.4 MG/ML 1 ML VIAL IV PRN (16:04)
[2025-01-15] MEDS: SODIUM CHLORIDE 0.9% 1,000 ML IV SCH (20:22)
--- NOTE | 2025-01-15 20:38 | P.HPIM ---
History of Present Illness H&P Date: 01/15/25 Chief Complaint: Delirious Pleasant 74-year-old female patient, follows with Dr. Gigi Hatfield. Chronic medical condition include IBS, hyperlipidemia, hypertension, peptic ulcer disease. Had surgery on the right knee by Dr. Lynn earlier this year and has a frozen right knee. Unable to extend the same.-Follow-up with Dr. Hansen for the same. Patient been having neck pain for some time. Patient also had upper extremity pain weakness radiculopathy. She was found to have C3-C7 severe spondylosis with severe stenosis. And severe disc collapse and compression C3-C7. Myelomalacia. On December 30, 2024 patient underwent arthrodesis insertion of biomechanical device cage x 4. By Dr. Harpal Martinez. Patient also has a anterior DUYEN drain.. Patient discharged with a hard cervical collar. On January 06. To rehab. [facility] When she was discharged patient eating well. Pain is well-controlled. Patient was today noted to follow commands but is able to answer questions appropriately. Anxious appearing. Patient did respond to having some dysuria and urinary frequency. Urine drug screen was positive for opiates, benzodiazepine, marijuana. Had a white count of 12.6. Given a dose of IV ceftriaxone in the ER for UTI. CT brain was unremarkable. Clinically there is no new focal weakness. Patient has a chronically flexed right knee. Also last admission patient I had an episode of acute delirium. It was felt to be from pain medications. When the patient was discharged her pain was also well-controlled. At this point patient is able to get up with assist with a belt. Trouble walking because of the right knee being flexed. f Review of system could not be obtained as patient not really able to talk. Social history: Non-smoker. Denies alcohol. Her son lives next-door. Patient is currently in rehab at [facility] Physical examination: VITAL SIGNS:: 97.8, 102, 20, 134 x 69, 95% room air GENERAL: BMI 23.4, thin built, awake anxious EYES: Pupils equal. Conjunctiva carolin l. HEENT: External appearance of nose and ears normal, oral cavity grossly normal. NECK: Hard collar in place. Anterior DUYEN drain.'s some blood soaking of the dr santoyo.. HEART: First and second heart sounds are normal; no edema. LUNGS: Respiratory rate normal; clear to auscultation. ABDOMEN: Soft, nontender, liver spleen not palpable, no masses palpable. PSYCH: Patient not really able to talk though making some sounds MUSCULOSKELETAL: Cervical hard collar. Evidence of OA in the joints. Right knee-chronically flexed unable to be extended NEUROLOGICAL: [Not really able to speak except for making sounds. May say occasional words. Right knee is chronically flexed INVESTIGATIONS, reviewed in the clinical context: January 15: White count 12.6 hemoglobin 10.6 platelets 422 potassium 4.5 creatinine 0.46 lactic acid 0.7 UA: Small small leukoesterase WBC 17 Urine drug screen positive for opiates, benzodiazepines, marijuana Recent investigations January 03: White count 9.4 hemoglobin 9.9 potassium [address] brain without contrast [January 01] left basal ganglia external capsule low attenuating area series 3032. Reported as hypodense area in the left basal ganglia external capsule concern for acute/subacute CVA. CT angio head and neck [January 01]: Unremarkable other findings in the full report Assessment plan: - Acute mental status changes. From delirium. Note that with patient has [place]. Less likely but possible from UTI. Note that the urinary findings are not very striking. There is no fever. To some leukocytosis. Hold [place]. MRI brain negative. Consult neurology - Acute UTI with possible cystitis. Patient does does not ahead he has to urinary frequency and dysuria IV ceftriaxone. -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 Harpal Martinez on December 30. Consult Dr. Martinez - Essential hypertension amlodipine 5 mg a day - Depression otherwise specified Prozac 40 mg a day - Hyperlipidemia Lipitor 40 mg nightly - Chronically flexed right knee following surgery by Dr. David Lynn. Patient due to follow-up with Dr. Lynn outpatient - GERD/history of peptic ulcer disease Omeprazole -Recent acute postprocedure blood loss anemia expected from surgery Ferrous sulfate -Full code Discussed with the son at the bedside. Hold [place]. IV ceftriaxone. IV fluids. Past Medical History Past Medical History: GERD/Reflux, Hyperlipidemia, Hypertension, Osteoarthritis (OA) Additional Past Medical History / Comment(s): Hx of gastritis/ small ulcerations/ distal esophagitis/diverticulosis/IBS, hiatal hernia. Hx of a slip/fall a week ago. Denies current skin issues. History of Any Multi-Drug Resistant Organisms: None Reported Past Surgical History: Appendectomy, Hysterectomy, Orthopedic Surgery, Tonsillectomy Additional Past Surgical History / Comment(s): FEB 2024 & JUL 2023 BACK SURGERIES. 09/30/18 EGD with bx and colonoscopy with bx, R bunionectomy, Right TKA 06/2024. Past Anesthesia/Blood Transfusion Reactions: No Reported Reaction Additional Past Anesthesia/Blood Transfusion Reaction / Comment(s): hx of blood transfusion- no reaction Past Psychological History: Depression Smoking Status: Former smoker Past Alcohol Use History: None Reported Past Drug Use History: None Reported - Past Family History Father Family Medical History: Myocardial Infarction ([place]) Mother Family Medical History: Thyroid Disorder Additional Family Medical History / Comment(s): scoliosis. Maternal grandparents w/ hx of pancreatic and prostate CA. Medications and Allergies Home Medications Medication Instructions Recorded Confirmed Type Atorvastatin [Lipitor] 40 mg PO HS@2100 10/19/18 01/15/25 History Omeprazole 40 mg PO BID@0800,1700 10/19/18 01/15/25 History Montelukast [Singulair] 10 mg PO HS@2100 08/18/23 01/15/25 History FLUoxetine HCL [PROzac] 40 mg PO DAILY@0800 07/07/24 01/15/25 History amLODIPine 5 mg PO DAILY@0800 07/07/24 01/15/25 History Cyclobenzaprine [Flexeril] 5 mg PO TID PRN tab 01/06/25 01/15/25 Rx Acetaminophen Oral Susp [Tylenol] 650 mg PO Q6H PRN 01/15/25 01/15/25 History Acetaminophen Suppository [Tylenol 650 mg RECTAL Q6H PRN 01/15/25 01/15/25 History Suppository] Acetaminophen Tab [Tylenol] 650 mg PO Q6HR PRN 01/15/25 01/15/25 History Aspirin 81 mg PO DAILY@0800 01/15/25 01/15/25 History Baclofen 10 mg PO Q6H PRN 01/15/25 01/15/25 History Ensure Max 330 ml PO DAILY@1400 01/15/25 01/15/25 History Ferrous Sulfate [Iron (65 MG 325 mg PO DAILY@1200 01/15/25 01/15/25 History Elemental)] Gabapentin [Neurontin] 300 mg PO TID@0600,1400,2200 01/15/25 01/15/25 History HYDROcodone/APAP 7.5-325MG [[place] 1 tab PO Q6H PRN 01/15/25 01/15/25 History 7.5] Magnesium Hydroxide [Milk of 7,200 mg PO DAILY PRN 01/15/25 01/15/25 History Magnesia Concentrate] Na Phos,M-B/Na Phos,Di-Ba [Fleet 133 ml RECTAL DAILY PRN 01/15/25 01/15/25 History Adult] Naproxen 500 mg PO BID@0800,1700 01/15/25 01/15/25 History Sennosides-Docusate Sodium 2 tab PO DAILY@0800 01/15/25 01/15/25 History [Senokot-S] bisacodyL [Dulcolax] 10 mg RECTAL DAILY PRN 01/15/25 01/15/25 History Allergies Allergy/AdvReac Type Severity Reaction Status Date / Time No Known Allergies Allergy Verified 01/15/25 17:48 Physical Exam Vitals: Vital Signs Temp Pulse Resp BP Pulse Ox 01/15/25 20:14 97.8 F 102 H 20 134/69 01/15/25 13:30 87 20 135/79 95 01/15/25 12:53 16 01/15/25 12:33 98.7 F 85 18 148/86 96 Intake and Output 01/15/25 01/15/25 01/15/25 06:59 14:59 22:59 Other: Weight 63.503 kg Results CBC & Chem 7: 01/15/25 13:16 01/15/25 13:16 Labs: Abnormal Lab Results - Last 24 Hours (Table) 01/15/25 01/15/25 01/15/25 Range/Units 13:16 13:16 15:25 WBC 12.66 H (4.50-10.00) 10*3/uL RBC 3.74 L (4.10-5.20) 10*6/uL Hgb 10.6 L (12.0-15.0) g/dL Hct 32.4 L (37.2-46.3) % MPV 9.0 L (9.5-12.2) fL Immature Gran # 0.08 H (0.00-0.04) 10*3/uL Neutrophils # 9.34 H (1.80-7.70) 10*3/uL Monocytes # 1.33 H (0.20-1.00) 10*3/uL Creatinine 0.46 L (0.52-1.04) mg/dL Alkaline Phosphatase 131 H (38-126) U/L Total Protein 5.9 L (6.3-8.2) g/dL Urine Ketones Trace H (Negative) Ur Leukocyte Esterase Small H (Negative) Urine WBC 17 H (0-5) /hpf Urine Opiates Screen Detected H (NotDetected) U Benzodiazepines Scrn Detected H (NotDetected) U Marijuana (THC) Screen Detected H (NotDetected)
[2025-01-15] MEDS: LACTATED RINGERS 1,000 ML IV SCH (21:57)
[2025-01-15] MEDS: ENOXAPARIN 40 MG/0.4 ML SYRINGE SQ SCH (21:57)
[2025-01-15] MEDS: MONTELUKAST 10 MG TAB PO SCH (21:57)
[2025-01-15] MEDS: ATORVASTATIN 40 MG TAB PO SCH (21:57)
[2025-01-15] MEDS: GABAPENTIN 300 MG CAP PO SCH (21:57)
[2025-01-15] MEDS: NAPROXEN 250 MG TAB PO SCH (23:01)
[2025-01-16] MEDS: ACETAMINOPHEN ORAL SUSP (PEDS) 3,840 MG/120 ML BOTTLE PO PRN (04:22)
[2025-01-16 07:28] LABS: Basophils # (A) 0.07 10*3/uL (0.00-0.10); Basophils % (A) 0.5 %; Eosinophils # (A) 0.34 10*3/uL (0.04-0.35); Eosinophils % (A) 2.7 %; HCT 34.8 % (37.2-46.3); HGB 11.2 g/dL (12.0-15.0); Lymphocytes # (A) 1.57 10*3/uL (0.90-5.00); Lymphocytes % (A) 12.3 %; MCH 28.1 pg (27.0-32.0); MCHC 32.2 g/dL (32.0-37.0); MCV 87.4 fL (80.0-97.0); Monocytes # (A) 1.41 10*3/uL (0.20-1.00); Monocytes % (A) 11.0 %; Neutrophils # (A) 9.35 10*3/uL (1.80-7.70); Neutrophils % (A) 73.2 %; Platelet Count 442 10*3/uL (140-440); RBC 3.98 10*6/uL (4.10-5.20); RDW 19.5 % (11.5-14.5); WBC 12.78 10*3/uL (4.50-10.00)
[2025-01-16 07:46] LABS: African American GFR (CKD) >90 (>60 ml/min/1.73 sqM); Anion Gap 10 mmol/L; Blood Urea Nitrogen 9 mg/dL (7-17); Calcium 9.6 mg/dL (8.4-10.2); Carbon Dioxide 25 mmol/L (22-30); Chloride 104 mmol/L (98-107); Glucose 81 mg/dL (74-99); Non-African American GFR(CKD) >90 (>60 ml/min/1.73 sqM); Potassium 4.2 mmol/L (3.5-5.1); Sodium 139 mmol/L (137-145)
[2025-01-16] MEDS: SENNOSIDES-DOCUSATE SODIUM 1 EACH TAB PO SCH (08:59)
[2025-01-16] MEDS: ASPIRIN 81 MG PO SCH (09:00)
[2025-01-16] MEDS: amLODIPine 5 MG TAB PO SCH (09:00)
[2025-01-16] MEDS: PANTOPRAZOLE 40 MG TABLET PO SCH (09:01)
--- NOTE | 2025-01-16 09:49 | P.CNOR ---
History of Present Illness - [facility] Consult date: 01/16/25 Requesting physician: Arjun Sousa Consult reason: other (Recent cervical surgery) History of present illness: History of Presenting Illness Patient is a pleasant 74-year-old female who was brought in EMS from [facility] due to altered mental status. Our services have been consulted due to recent procedure performed on 12/30/2024, C3-C7 ACDF. Patient was discharged to [facility] for for subacute rehab. Patient seen and examined this morning. Patient is alert and oriented x 4. Patient is sitting up in bed and has just finished breakfast. Patient reports that she is doing well. She denies any pain to the cervical spine. Patient denies any numbness or tingling into the bilateral upper extremities. [place] hard collar is intact. Surgical incision to the anterior cervical spine, edges are well-approximated. Overall patient states that she is happy with her progress and plan of care. Patient denies any needs at this time. Review of Systems Pertinent positives and negatives as discussed in HPI, a complete review of systems was performed and all other systems are negative. Physical Examination General: The patient is awake and alert, in no acute distress Skin: Skin is warm and dry with no obvious rashes or lesions. Well-healing anterior cervical incision, edges are well-approximated. Neck: The neck is supple, there is no tenderness and ROM intact. [place] hard cervical collar intact. Cardiovascular: There is a regular rate and rhythm. Respiratory: Respirations are non-labored. Gastrointestinal: Soft, non-distended, non-tender abdomen. Back: There is no tenderness to palpation in the midline, paralumbar, parathoracic or buttocks region. There is no obvious deformity. Musculoskeletal: ROM limited secondary to stiffness from surgical procedure. Right: shoulder abduction 5/5, elbow flexors 5/5, wrist dorsiflexors 5/5. finger abductor 5/5, body hanger 5/5, hip flexor 5/5, knee flexor 5/5, ankle dorsiflexor 5/5, ankle plantarflexion 5/5 and extensor hallucis 5/5. Left: shoulder abduction 5/5, elbow flexors 5/5, wrist dorsiflexors 5/5. finger abductor 5/5, body hanger 5/5, hip flexor 5/5, knee flexor 5/5, ankle dorsiflexor 5/5, ankle plantarflexion 5/5 and extensor hallucis 5/5. Neurological: CN 2-12 intact. There are no obvious motor or sensory deficits. Movement and coordination equal and intact. Sensory exam to light touch intact C5-T1 and intact from L2-S1. Reflexes 2/4 in bilateral upper and lower extremities. Negative Hoffmans, babinski, and clonus signs. Psychiatric: Cooperative, appropriate mood & affect, normal judgment. Assessment Altered mental status Status post C3-C7 ACDF Multiple medical comorbidities Plan At this time we do not recommend any emergent/urgent orthopedic surgical intervention. Patient may follow-up with Dr. Martinez's office for her post op appt. Orthopedics is signing off at this time. Please do not hesitate to contact us for any further questions. 1. Soft cervical collar will be ordered, patient to wear at all times, although may remove for showers. 2. Appreciate medical management 3. PT/OT - weightbearing as tolerated with a walker as needed. 4. Appreciate consult. I reviewed and discussed this case with my attending Dr. Martinez, whom has reviewed this chart and films and is in agreement with assessment and plan of care as outlined above. I have personally seen and examined the patient, performed the documentation and the assessment and plan as written. Number of minutes spent on the visit: 30m. Past Medical History Past Medical History: GERD/Reflux, Hyperlipidemia, Hypertension, Osteoarthritis (OA) Additional Past Medical History / Comment(s): Hx of gastritis/ small ulc erations/ distal esophagitis/diverticulosis/IBS, hiatal hernia. Hx of a slip/fall a week ago. Denies current skin issues. History of Any Multi-Drug Resistant Organisms: None Reported Past Surgical History: Appendectomy, Hysterectomy, Orthopedic Surgery, Tonsillectomy Additional Past Surgical History / Comment(s): FEB 2024 & JUL 2023 BACK SURGERIES. 09/30/18 EGD with bx and colonoscopy with bx, R bunionectomy, Right TKA 06/2024. Arthrodesis insertion of biomechanical cage (december 30 2024) Past Anesthesia/Blood Transfusion Reactions: No Reported Reaction Additional Past Anesthesia/Blood Transfusion Reaction / Comm: hx of blood transfusion- no reaction Past Psychological History: Depression Additional Psychological History / Comment(s): Managed on medication. Smoking Status: Former smoker Past Alcohol Use History: None Reported Additional Past Alcohol Use History / Comment(s): smoked for a year @ age of 20 Past Drug Use History: None Reported Additional Drug Use History / Comment(s): doesn't use anymore, only topical prn - Past Family History Father Family Medical History: Myocardial Infarction ([place]) Mother Family Medical History: Thyroid Disorder Additional Family Medical History / Comment(s): scoliosis. Maternal grandparents w/ hx of pancreatic and prostate CA. Medications and Allergies Home Medications Medication Instructions Recorded Confirmed Type Atorvastatin [Lipitor] 40 mg PO HS@2100 10/19/18 01/15/25 History Omeprazole 40 mg PO BID@0800,1700 10/19/18 01/15/25 History Montelukast [Singulair] 10 mg PO HS@2100 08/18/23 01/15/25 History FLUoxetine HCL [PROzac] 40 mg PO DAILY@0800 07/07/24 01/15/25 History amLODIPine 5 mg PO DAILY@0800 07/07/24 01/15/25 History Cyclobenzaprine [Flexeril] 5 mg PO TID PRN tab 01/06/25 01/15/25 Rx Acetaminophen Oral Susp [Tylenol] 650 mg PO Q6H PRN 01/15/25 01/15/25 History Acetaminophen Suppository [Tylenol 650 mg RECTAL Q6H PRN 01/15/25 01/15/25 History Suppository] Acetaminophen Tab [Tylenol] 650 mg PO Q6HR PRN 01/15/25 01/15/25 History Aspirin 81 mg PO DAILY@0800 01/15/25 01/15/25 History Baclofen 10 mg PO Q6H PRN 01/15/25 01/15/25 History Ensure Max 330 ml PO DAILY@1400 01/15/25 01/15/25 History Ferrous Sulfate [Iron (65 MG 325 mg PO DAILY@1200 01/15/25 01/15/25 History Elemental)] Gabapentin [Neurontin] 300 mg PO TID@0600,1400,2200 01/15/25 01/15/25 History HYDROcodone/APAP 7.5-325MG [[place] 1 tab PO Q6H PRN 01/15/25 01/15/25 History 7.5] Magnesium Hydroxide [Milk of 7,200 mg PO DAILY PRN 01/15/25 01/15/25 History Magnesia Concentrate] Na Phos,M-B/Na Phos,Di-Ba [Fleet 133 ml RECTAL DAILY PRN 01/15/25 01/15/25 History Adult] Naproxen 500 mg PO BID@0800,1700 01/15/25 01/15/25 History Sennosides-Docusate Sodium 2 tab PO DAILY@0800 01/15/25 01/15/25 History [Senokot-S] bisacodyL [Dulcolax] 10 mg RECTAL DAILY PRN 01/15/25 01/15/25 History Allergies Allergy/AdvReac Type Severity Reaction Status Date / Time No Known Allergies Allergy Verified 01/15/25 17:48 Results - Labs Labs: Abnormal Lab Results - Last 24 Hours (Table) 01/15/25 01/15/25 01/15/25 Range/Units 13:16 13:16 15:25 WBC 12.66 H (4.50-10.00) 10*3/uL RBC 3.74 L (4.10-5.20) 10*6/uL Hgb 10.6 L (12.0-15.0) g/dL Hct 32.4 L (37.2-46.3) % RDW (11.5-14.5) % Plt Count (140-440) 10*3/uL MPV 9.0 L (9.5-12.2) fL Immature Gran # 0.08 H (0.00-0.04) 10*3/uL Neutrophils # 9.34 H (1.80-7.70) 10*3/uL Monocytes # 1.33 H (0.20-1.00) 10*3/uL Creatinine 0.46 L (0.52-1.04) mg/dL Alkaline Phosphatase 131 H (38-126) U/L C-Reactive Protein (<1.0) mg/dL Total Protein 5.9 L (6.3-8.2) g/dL Urine Ketones Trace H (Negative) Ur Leukocyte Esterase Small H (Negative) Urine WBC 17 H (0-5) /hpf Urine Opiates Screen Detected H (NotDetected) U Benzodiazepines Scrn Detected H (NotDetected) U Marijuana (THC) Screen Detected H (NotDetected) 01/16/25 01/16/25 Range/Units 06:56 06:56 WBC 12.78 H (4.50-10.00) 10*3/uL RBC 3.98 L (4.10-5.20) 10*6/uL Hgb 11.2 L (12.0-15.0) g/dL Hct 34.8 L (37.2-46.3) % RDW 19.5 H (11.5-14.5) % Plt Count 442 H (140-440) 10*3/uL MPV 8.9 L (9.5-12.2) fL Immature Gran # (0.00-0.04) 10*3/uL Neutrophils # 9.35 H (1.80-7.70) 10*3/uL Monocytes # 1.41 H (0.20-1.00) 10*3/uL Creatinine 0.46 L (0.52-1.04) mg/dL Alkaline Phosphatase (38-126) U/L C-Reactive Protein 1.4 H (<1.0) mg/dL Total Protein (6.3-8.2) g/dL Urine Ketones (Negative) Ur Leukocyte Esterase (Negative) Urine WBC (0-5) /hpf Urine Opiates Screen (NotDetected) U Benzodiazepines Scrn (NotDetected) U Marijuana (THC) Screen (NotDetected) H & H 01/15/25 01/16/25 Range/Units 13:16 06:56 Hgb 10.6 L 11.2 L (12.0-15.0) g/dL Hct 32.4 L 34.8 L (37.2-46.3) % Coagulation 01/15/25 Range/Units 13:16 INR 1.0 (<1.2) Result Diagrams: 01/16/25 06:56 01/16/25 06:56
[2025-01-16] MEDS: FERROUS SULFATE 325 MG TAB PO SCH (12:36)
[2025-01-16] MEDS ORDERED: PROTEIN SUPPLEMENT PO SCH (14:00)
--- NOTE | 2025-01-16 14:32 | P.CNNES ---
History of Present Illness Consult date: 01/16/25 Requesting physician: Matt Clement Reason for Consult: altered mentation History of Present Illness: This is a 74-year-old woman who presents the emergency department from her nursing facility because of altered mental status. Patient brother is at bedside who provides the history Esau that the patient had a recent cervical fusion on 12/30/2024 and initially she was on Dilaudid and Sagola and last time that was used was on 704 or 705 of this year according to the brother. It seems that while at the nursing facility she was confused and had difficulty getting her words out. She has not been having any benzos for the last 1 week. She does use marijuana but it has been may be 2 weeks that she has not had it. According to the brother she had similar episode close to about 2 weeks ago and she had MRI of the brain which was negative for any acute process. Patient does not have any history of seizure. He does not have any history of stroke. Denies any new focal deficit. Patient does acknowledge she has been having urinary frequency but denies any pain or any smell to the urine. She has chronic low back pain and she had surgeries of the back as well as knee surgery and has leg weakness right more than left. According to the patient and her brother it seems that the patient was evaluated by neurologist as an outpatient over [facility] in [place] and she was told she does not have a history of multiple sclerosis. Some of the workup during this hospital visit consisted of: CRP is less than 0.5. I reviewed the rest of the lab workup Urine analysis the nitrate and leukocyte Estrace nitrate was negative and leukocyte esterase was small and urine white blood cells 17. CT of the head is reported as no acute intracranial process. I personally reviewed the CT and I agree with the report. Urine drug screen is positive for opiates, benzo as well as marijuana Review of Systems As per HPI. Past Medical History Past Medical History: GERD/Reflux, Hyperlipidemia, Hypertension, Osteoarthritis (OA) Additional Past Medical History / Comment(s): Hx of gastritis/ small ulcerations/ distal esophagitis/diverticulosis/IBS, hiatal hernia. Hx of a slip/fall a week ago. Denies current skin issues. History of Any Multi-Drug Resistant Organisms: None Reported Past Surgical History: Appendectomy, Hysterectomy, Orthopedic Surgery, Tonsillectomy Additional Past Surgical History / Comment(s): FEB 2024 & JUL 2023 BACK SURGERIES. 09/30/18 EGD with bx and colonoscopy with bx, R bunionectomy, Right TKA 06/2024. Arthrodesis insertion of biomechanical cage (december 30 2024) Past Anesthesia/Blood Transfusion Reactions: No Reported Reaction Additional Past Anesthesia/Blood Transfusion Reaction / Comment(s): hx of blood transfusion- no reaction Past Psychological History: Depression Additional Psychological History / Comment(s): Managed on medication. Smoking Status: Former smoker Past Alcohol Use History: None Reported Additional Past Alcohol Use History / Comment(s): smoked for a year @ age of 20 Past Drug Use History: None Reported Additional Drug Use History / Comment(s): doesn't use anymore, only topical prn - Past Family History Father Family Medical History: Myocardial Infarction ([place]) Mother Family Medical History: Thyroid Disorder Additional Family Medical History / Comment(s): scoliosis. Maternal grandparents w/ hx of pancreatic and prostate CA. Medications and Allergies Home Medications Medication Instructions Recorded Confirmed Type Atorvastatin [Lipitor] 40 mg PO HS@2100 10/19/18 01/15/25 History Omeprazole 40 mg PO BID@0800,1700 10/19/18 01/15/25 History Montelukast [Singulair] 10 mg PO HS@2100 08/18/23 01/15/25 History FLUoxetine HCL [PROzac] 40 mg PO DAILY@0800 07/07/24 01/15/25 History amLODIPine 5 mg PO DAILY@0800 07/07/24 01/15/25 History Cyclobenzaprine [Flexeril] 5 mg PO TID PRN tab 01/06/25 01/15/25 Rx Acetaminophen Oral Susp [Tylenol] 650 mg PO Q6H PRN 01/15/25 01/15/25 History Acetaminophen Suppository [Tylenol 650 mg RECTAL Q6H PRN 01/15/25 01/15/25 History Suppository] Acetaminophen Tab [Tylenol] 650 mg PO Q6HR PRN 01/15/25 01/15/25 History Aspirin 81 mg PO DAILY@0800 01/15/25 01/15/25 History Baclofen 10 mg PO Q6H PRN 01/15/25 01/15/25 History Ensure Max 330 ml PO DAILY@1400 01/15/25 01/15/25 History Ferrous Sulfate [Iron (65 MG 325 mg PO DAILY@1200 01/15/25 01/15/25 History Elemental)] Gabapentin [Neurontin] 300 mg PO TID@0600,1400,2200 01/15/25 01/15/25 History HYDROcodone/APAP 7.5-325MG [Sagola 1 tab PO Q6H PRN 01/15/25 01/15/25 History 7.5] Magnesium Hydroxide [Milk of 7,200 mg PO DAILY PRN 01/15/25 01/15/25 History Magnesia Concentrate] Na Phos,M-B/Na Phos,Di-Ba [Fleet 133 ml RECTAL DAILY PRN 01/15/25 01/15/25 History Adult] Naproxen 500 mg PO BID@0800,1700 01/15/25 01/15/25 History Sennosides-Docusate Sodium 2 tab PO DAILY@0800 01/15/25 01/15/25 History [Senokot-S] bisacodyL [Dulcolax] 10 mg RECTAL DAILY PRN 01/15/25 01/15/25 History Allergies Allergy/AdvReac Type Severity Reaction Status Date / Time No Known Allergies Allergy Verified 01/15/25 17:48 Physical Examination - Vital Signs Vital Signs: Vital Signs Temp Pulse Pulse Resp BP BP BP 01/16/25 07:46 98.3 F 66 18 143/78 01/16/25 01:04 99.5 F 89 18 132/74 01/15/25 21:30 98.1 F 67 16 158/90 01/15/25 20:49 94 18 141/76 01/15/25 20:14 99.5 F 102 H 20 134/69 Pulse Ox 01/16/25 07:46 96 01/16/25 01:04 97 01/15/25 21:30 96 01/15/25 20:49 96 01/15/25 20:14 Intake and Output 01/15/25 01/16/25 01/16/25 22:59 06:59 14:59 Output Total 125 Balance -125 Output: Urine 125 Other: Voiding Method Diaper Diaper External Catheter External Catheter # Voids 1 # Bowel Movements 1 1 Weight 63.503 kg GENERAL: The patient is sitting in a recliner chair and is not in acute distress. HENT: Has cervical collar. NEUROLOGICAL: Higher mental function: The patient is awake, alert, oriented to self, place and time. Patient is following commands. No aphasia and no neglect. Cranial nerves: The pupils are round, equal and reactive to light and accommodation. Visual corona are full to confrontation throughout. Extraocular movement is intact no nystagmus is noted. Facial sensation is normal to touch throughout. The facial strength is normal throughout. Hearing is normal bilaterally to hand rub. Tongue is midline and moved [id number] without any difficulty. No dysarthria is noted. Shoulder shrug is normal bilaterally. Motor: The strength is 5 over 5 throughout uppers while lowers is significant weakness and worse on right > left. Increase tone in the lowers. Cerebellum: Normal finger to nose ilaterally. Sensation: Sensation is normal to touch throughout. Reflexes (right/left): 1+ in uppers while lower hard to assess. Results - Laboratory Findings CBC and BMP: 01/16/25 06:56 01/16/25 06:56 Abnormal Lab Findings: Abnormal Labs 01/15/25 01/15/25 01/15/25 13:16 13:16 15:25 WBC 12.66 H RBC 3.74 L Hgb 10.6 L Hct 32.4 L RDW Plt Count MPV 9.0 L Immature Gran # 0.08 H Neutrophils # 9.34 H Monocytes # 1.33 H Creatinine 0.46 L Alkaline Phosphatase 131 H C-Reactive Protein Total Protein 5.9 L Urine Ketones Trace H Ur Leukocyte Esterase Small H Urine WBC 17 H Urine Opiates Screen Detected H U Benzodiazepines Scrn Detected H U Marijuana (THC) Screen Detected H 01/16/25 01/16/25 06:56 06:56 WBC 12.78 H RBC 3.98 L Hgb 11.2 L Hct 34.8 L RDW 19.5 H Plt Count 442 H MPV 8.9 L Immature Gran # Neutrophils # 9.35 H Monocytes # 1.41 H Creatinine 0.46 L Alkaline Phosphatase C-Reactive Protein 1.4 H Total Protein Urine Ketones Ur Leukocyte Esterase Urine WBC Urine Opiates Screen U Benzodiazepines Scrn U Marijuana (THC) Screen Assessment and Plan Assessment: This is a 74-year-old woman who presents from her nursing facility because of co nfusion and had speech difficult. Her urine drug screen was positive for opiates, benzos and marijuana. Patient states that she has not had marijuana maybe in 2 weeks. According to the brother she had similar presentation about 2 weeks ago and had MRI which was unremarkable for any acute process Acute encephalopathy with speech difficulty of unknown exact etiology. CT of the head is unremarkable for any acute process. Questionable acute UTI which I feel is unlikely but if she does that can cause some of her symptoms. Also her polysubstance use with benzos opiates can cause confusion--currently mentation is improved Recent cervical fusion about 2 weeks ago Bilateral lower extremity weakness (right > left) Chronic low back pain Knee replacement Marijuana use Plan: I ordered a routine EEG. Her ammonia level (B12, folate Patient had a recent TSH which was normal order no need for repeat one Had a similar episode just about 2.5 weeks ago and had an MRI of the brain on 01/03/2025 which was unremarkable for any acute process. If still having confusion then recommend a repeat MRI Brain. Please avoid opiated/sedative On discharge recommend the patient to follow-up with her outpatient neurologist over [place]. The plan is discussed with patient and her brother who is at bedside. Thank you for the consultation. Dr. Ziegler will resume neurology service tomorrow A.M. Time with Patient: Greater than 30
[2025-01-16] MEDS: BACLOFEN 10 MG TAB PO PRN (16:33)
--- NOTE | 2025-01-16 19:49 | P.PN ---
Progress Note - Text Progress Note Date: 01/16/25 Chief Complaint: Delirious Pleasant 74-year-old female patient, follows with Dr. Gigi Hatfield. Chronic medical condition include IBS, hyperlipidemia, hypertension, peptic ulcer disease. Had surgery on the right knee by Dr. Lynn earlier this year and has a frozen right knee. Unable to extend the same.-Follow-up with Dr. Hansen for the same. Patient been having neck pain for some time. Patient also had upper extremity pain weakness radiculopathy. She was found to have C3-C7 severe spondylosis with severe stenosis. And severe disc collapse and compression C3-C7. Myelomalacia. On December 30, 2024 patient underwent arthrodesis insertion of biomechanical device cage x 4. By Dr. Harpal Martinez. Patient also has a anterior DUYEN drain.. Patient discharged with a hard cervical collar. On January 06. To rehab. [facility] When she was discharged patient eating well. Pain is well-controlled. Patient was today noted to follow commands but is able to answer questions appropriately. Anxious appearing. Patient did respond to having some dysuria and urinary frequency. Urine drug screen was positive for opiates, benzodiazepine, marijuana. Had a white count of 12.6. Given a dose of IV ceftriaxone in the ER for UTI. CT brain was unremarkable. Clinically there is no new focal weakness. Patient has a chronically flexed right knee. Also last admission patient I had an episode of acute delirium. It was felt to be from pain medications. When the patient was discharged her pain was also well-controlled. At this point patient is able to get up with assist with a belt. Trouble walking because of the right knee being flexed. f January 16: Patient is back to her normal self. Likely cause was [place] which she has received the place. Plain is well-controlled with Tylenol and naproxen. Will change the naproxen to 250 mg Q8. She should be able to return to rehab tomorrow. Will switch to oral Omnicef for UTI. Patient does have urinary frequency. Active Medications Acetaminophen (Acetaminophen Oral Susp (Peds) 3,840 Mg/120 Ml Bottle) 650 mg PO Q6H PRN PRN Reason: Fever and/ or Pain Last Admin: 01/16/25 04:22 Dose: 650 mg Amlodipine Besylate (Amlodipine 5 Mg Tab) 5 mg PO DAILY@0800 [facility] Last Admin: 01/16/25 09:00 Dose: 5 mg Aspirin (Aspirin 81 Mg) 81 mg PO DAILY@0800 [facility] Last Admin: 01/16/25 09:00 Dose: 81 mg Atorvastatin Calcium (Atorvastatin 40 Mg Tab) 40 mg PO HS@2100 [facility] Last Admin: 01/15/25 21:57 Dose: 40 mg Baclofen (Baclofen 10 Mg Tab) 10 mg PO Q6H PRN PRN Reason: Muscle Spasm/Stiffness Last Admin: 01/16/25 16:33 Dose: 10 mg Bisacodyl (Bisacodyl 10 Mg Supp) 10 mg RECTAL DAILY PRN PRN Reason: Constipation Enoxaparin Sodium (Enoxaparin 40 Mg/0.4 Ml Syringe) 40 mg SQ DAILY [facility] Last Admin: 01/16/25 09:00 Dose: 40 mg Ferrous Sulfate (Ferrous Sulfate 325 Mg Tab) 325 mg PO DAILY@1200 [facility] Last Admin: 01/16/25 12:36 Dose: 325 mg Fluoxetine HCl (Fluoxetine Hcl 20 Mg Cap) 40 mg PO DAILY@0800 [facility] Last Admin: 01/16/25 09:00 Dose: 40 mg Gabapentin (Gabapentin 300 Mg Cap) 300 mg PO TID@0600,1400,2200 [facility] Last Admin: 01/16/25 13:16 Dose: 300 mg Lactated Ringer's (Lactated Ringers) 1,000 mls @ 130 mls/hr IV .Q7H42M [facility] Last Admin: 01/16/25 12:41 Dose: 130 mls/hr Montelukast Sodium (Montelukast 10 Mg Tab) 10 mg PO HS@2100 [facility] Last Admin: 01/15/25 21:57 Dose: 10 mg Naloxone HCl (Naloxone 0.4 Mg/Ml 1 Ml Vial) 0.2 mg IV Q2M PRN PRN Reason: Opioid Reversal Naproxen (Naproxen 250 Mg Tab) 500 mg PO BID@0800,1700 [facility] Last Admin: 01/16/25 16:30 Dose: Not Given Pantoprazole Sodium (Pantoprazole 40 Mg Tablet) 40 mg PO BID@0800,1700 [facility] Last Admin: 01/16/25 16:33 Dose: 40 mg Senna/Docusate Sodium (Sennosides-Docusate Sodium 1 Each Tab) 2 each PO DAILY@0800 [facility] Last Admin: 01/16/25 08:59 Dose: 2 each Social history: Non-smoker. Denies alcohol. Her son lives next-door. Patient is currently in rehab at [facility] Physical examination: VITAL SIGNS:: 97.8, 102, 20, 134 x 69, 95% room air GENERAL: BMI 23.4, thin built, awake anxious EYES: Pupils equal. Conjunctiva carolin l. HEENT: External appearance of nose and ears normal, oral cavity grossly normal. NECK: Hard collar in place. Anterior DUYEN drain.'s some blood soaking of the dressing.. HEART: First and second heart sounds are normal; no edema. LUNGS: Respiratory rate normal; clear to auscultation. ABDOMEN: Soft, nontender, liver spleen not palpable, no masses palpable. PSYCH: AO x 3, mood affect slightly anxious MUSCULOSKELETAL: Cervical hard collar. Evidence of OA in the joints. Right knee-chronically flexed unable to be extended NEUROLOGICAL: [Not really able to speak except for making sounds. May say occasional words. Right knee is chronically flexed INVESTIGATIONS, reviewed in the clinical context: January 16: White count 12.7 hemoglobin 11.2 potassium 4.2 creatinine 0.46 CRP 1.4 January 15: White count 12.6 hemoglobin 10.6 platelets 422 potassium 4.5 creatinine 0.46 lactic acid 0.7 UA: Small small leukoesterase WBC 17 Urine drug screen positive for opiates, benzodiazepines, marijuana Recent investigations January 03: White count 9.4 hemoglobin 9.9 potassium [address] brain without contrast [January 01] left basal ganglia external capsule low attenuating area series 3032. Reported as hypodense area in the left basal ganglia external capsule concern for acute/subacute CVA. CT angio head and neck [January 01]: Unremarkable other findings in the full report Assessment plan: - Acute mental status changes. From delirium. Likely from [place]. Possible contribution from UTI.: Improved Note that the urinary findings are not very striking. There is no fever. To some leukocytosis. [place] discontinued Consult neurology - Acute UTI with possible cystitis. Patient does does not ahead he has to urinary frequency and dysuria IV ceftriaxone.. Switch to oral Omnicef -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 Harpal Martinez on December 30. Consult Dr. Martinez - Essential hypertension amlodipine 5 mg a day - Depression otherwise specified Prozac 40 mg a day - Hyperlipidemia Lipitor 40 mg nightly - Chronically flexed right knee following surgery by Dr. David Lynn. Patient due to follow-up with Dr. Lynn outpatient - GERD/history of peptic ulcer disease Omeprazole -Recent acute postprocedure blood loss anemia expected from surgery Ferrous sulfate -Full code Doing well. Follow-up with neuro. Pain controlled. Oral Omnicef. For UTI. Hopefully should be able to be discharged tomorrow when cleared by neuro, after they evaluate the EEG.. Past Medical History Past Medical History: GERD/Reflux, Hyperlipidemia, Hypertension, Osteoarthritis (OA) Additional Past Medical History / Comment(s): Hx of gastritis/ small ulcerations/ distal esophagitis/diverticulosis/IBS, hiatal hernia. Hx of a slip/fall a week ago. Denies current skin issues. History of Any Multi-Drug Resistant Organisms: None Reported Past Surgical History: Appendectomy, Hysterectomy, Orthopedic Surgery, Tonsillectomy Additional Past Surgical History / Comment(s): FEB 2024 & JUL 2023 BACK SURGERIES. 09/30/18 EGD with bx and colonoscopy with bx, R bunionectomy, Right TKA 06/2024. Past Anesthesia/Blood Transfusion Reactions: No Reported Reaction Additional Past Anesthesia/Blood Transfusion Reaction / Comment(s): hx of blood transfusion- no reaction Past Psychological History: Depression Smoking Status: Former smoker Past Alcohol Use History: None Reported Past Drug Use History: None Reported
[2025-01-16] MEDS: CEFDINIR 300 MG CAP PO SCH (21:04)
[2025-01-16] MEDS: NAPROXEN 250 MG TAB PO SCH (21:05)
--- NOTE | 2025-01-17 19:18 | P.PN ---
Subjective Pleasant 74-year-old female patient, follows with Dr. Gigi Hatfield. Chronic medical condition include IBS, hyperlipidemia, hypertension, peptic ulcer disease. Had surgery on the right knee by Dr. Lynn earlier this year and has a frozen right knee. Unable to extend the same.-Follow-up with Dr. Hansen for the same. Patient been having neck pain for some time. Patient also had upper extremity pain weakness radiculopathy. She was found to have C3-C7 severe spondylosis with severe stenosis. And severe disc collapse and compression C3-C7. Myelomalacia. On December 30, 2024 patient underwent arthrodesis insertion of biomechanical device cage x 4. [address] Dr[address] Harpal Martinez. Patient also has a anterior DUYEN drain.. Patient discharged with a hard cervical collar. On January 06. To rehab. [facility] When she was discharged patient eating well. Pain is well-controlled. Patient was today noted to follow commands but is able to answer questions appropriately. Anxious appearing. Patient did respond to having some dysuria and urinary frequency. Urine drug screen was positive for opiates, benzodiazepine, marijuana. Had a white count of 12.6. Given a dose of IV ceftriaxone in the ER for UTI. CT brain was unremarkable. Clinically there is no new focal weakness. Patient has a chronically flexed right knee. Also last admission patient I had an episode of acute delirium. It was felt to be from pain medications. When the patient was discharged her pain was also well-controlled. At this point patient is able to get up with assist with a belt. Trouble walking because of the right knee being flexed. f January 16: Patient is back to her normal self. Likely cause was [place] which she has received the place. Plain is well-controlled with Tylenol and naproxen. Will change the naproxen to 250 mg Q8. She should be able to return to rehab tomorrow. Will switch to oral Omnicef for UTI. Patient does have urinary frequ ency. 01/17 Patient currently awake alert oriented time place person, her mentation is sharp She had cervical neck surgery about 3 weeks ago No urinary symptoms like dysuria urgency. She has frequent urination but she is also on IV fluids Urine culture is growing gram-negative bacilli EEG done and still pending She remains on cefdinir, we lowered Ringer lactate 130 down 75 metoprolol. WBC 12.7 which is stable labs look stable Objective - Vital Signs Vital signs: Vital Signs Temp 98.0 F 01/17/25 07:29 Pulse 85 01/17/25 09:28 Resp 18 01/17/25 09:28 BP 133/75 01/17/25 07:29 Pulse Ox 98 01/17/25 07:29 FiO2 Intake & Output 01/16/25 01/17/25 01/17/25 18:59 06:59 18:59 Output Total 300 1275 700 Balance -300 -1275 -700 Output: Urine 300 1275 700 Other: Voiding Method Diaper Diaper Diaper External Catheter External Catheter External Catheter # Voids 1 1 # Bowel Movements 1 - Exam GENERAL: The patient is alert and oriented x3, not in any acute distress. Well developed, well nourished. HEENT: Pupils are round and equally reacting to light. EOMI. No scleral icterus. No conjunctival pallor. Normocephalic, atraumatic. No pharyngeal erythema. No thyromegaly. CARDIOVASCULAR: S1 and S2 present. No murmurs, rubs, or gallops. PULMONARY: Chest is clear to auscultation, no wheezing , no crackles. ABDOMEN: Soft, nontender, nondistended, normoactive bowel sounds. No palpable organomegaly. MUSCULOSKELETAL: No joint swelling or deformity. EXTREMITIES: No cyanosis, clubbing, or pedal edema. NEUROLOGICAL: Gross neurological examination did not reveal any focal deficits. SKIN: No rashes. no petechiae. - Labs CBC & Chem 7: 01/16/25 06:56 01/16/25 06:56 Labs: Microbiology - Last 24 Hours (Table) 01/15/25 15:25 Urine Culture - Preliminary Urine,Voided Gram Neg Bacilli Assessment and Plan Assessment: Assessment plan: - Acute mental status changes. From delirium. Likely from [place]. Possible contribution from UTI.: Improved Note that the urinary findings are not very striking. There is no fever. To some leukocytosis. [place] discontinued Consult neurology - Acute UTI with possible cystitis. Patient does does not ahead he has to urinary frequency and dysuria IV ceftriaxone.. Switch to oral Omnicef -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 Harpal Martinez on December 30. Consult Dr. Martinez - Essential hypertension amlodipine 5 mg a day - Depression otherwise specified Prozac 40 mg a day - Hyperlipidemia Lipitor 40 mg nightly - Chronically flexed right knee following surgery by Dr. David Lynn. Patient due to follow-up with Dr. Lynn outpatient - GERD/history of peptic ulcer disease Omeprazole -Recent acute postprocedure blood loss anemia expected from surgery Ferrous sulfate -Full code
--- NOTE | 2025-01-17 20:16 | P.PN ---
Subjective Progress Note Date: 01/17/25 Patient was initially seen by Dr. Carlos A Verdugo. Please refer to his note for details. Patient is a 74-year-old female with altered mental status. There is possibility of UTI versus medication induced (benzo and opiates in system). Patient had a recent MRI brain 2.5 to 3 weeks ago and was negative. Patient was seen for follow-up. Patient states she is feeling much better. Confusion has completely resolved. She is feeling "good". She denies headache any numbness or tingling. She does still get spasm in the right knee. Patient has history of right knee surgery in June 2024. She also had cervical spinal surgery on 12/30/2024. She has not been able to walk because of the surgeries. Some of the workup during this hospital visit consisted of: CRP is less than 0.5. I reviewed the rest of the lab workup Urine analysis the nitrate and leukocyte Estrace nitrate was negative and leukocyte esterase was small and urine white blood cells 17. CT of the head is reported as no acute intracranial process. I personally reviewed the CT and I agree with the report. Urine drug screen is positive for opiates, benzo as well as marijuana Objective - Vital Signs Vital signs: Vital Signs Temp 97.4 F L 01/17/25 14:00 Pulse 92 01/17/25 14:00 Resp 18 01/17/25 14:00 BP 116/74 01/17/25 14:00 Pulse Ox 97 01/17/25 14:00 FiO2 Intake & Output 01/17/25 01/17/25 01/18/25 06:59 18:59 06:59 Output Total 1275 1350 Balance -1275 -1350 Output: Urine 1275 1350 Other: Voiding Method Diaper Diaper External Catheter External Catheter # Voids 1 1 # Bowel Movements 0 - Exam Patient's mental status, speech and language functions are completely normal. She knows it is December 2024 and that she is [facility] imported on [place]. Patient is very sharp. Cranial nerves are normal. Muscle strength is normal in the arms and legs except right knee was not checked because of recent surgery. Ankles are normal. - Labs CBC & Chem 7: 01/16/25 06:56 01/16/25 06:56 Labs: Microbiology - Last 24 Hours (Table) 01/15/25 15:25 Urine Culture - Preliminary Urine,Voided Gram Neg Bacilli Assessment and Plan Assessment: This is a 74-year-old woman who presents from her nursing facility because of confusion and had speech difficult. Her urine drug screen was positive for opiates, benzos and marijuana. Patient states that she has not had marijuana maybe in 2 weeks. According to the brother she had similar presentation about 2 weeks ago and had MRI which was unremarkable for any acute process Acute encephalopathy with speech difficulty of unknown exact etiology. CT of the head is unremarkable for any acute process. Questionable acute UTI, or pain medications or polysubstance use with urine positive for benzos opiates, which can cause confusion--currently mentation is completely back to normal. Recent cervical fusion about 2 weeks ago Bilateral lower extremity weakness (right > left) Chronic low back pain Knee replacement Marijuana use Plan: Dr. Verdugo recommended an EEG, however I do not see it in the system ordered. I discussed with the patient patient states her mentation is completely back to normal and she wanted to cancel the EEG. Ammonia is 10, B12 762, folate 25.20, all normal Patient had a recent TSH which was normal order no need for repeat one Had a similar episode just about 2.5 weeks ago and had an MRI of the brain on 01/03/2025 which was unremarkable for any acute process. No indication to rep eat MRI at this time. Please avoid opiated/sedative Recommend abstinence from marijuana. On discharge recommend the patient to follow-up with her outpatient neurologist over [place]. Neurology will sign off. Please reconsult if any questions.
[2025-01-17] MEDS: LACTATED RINGERS 1,000 ML IV SCH (20:19)
[2025-01-18 08:18] VITALS: BP 120/75; PULSE 82; RESP 18; TEMP 98.2
--- NOTE | 2025-01-18 12:20 | P.DS ---
Providers Date of admission: 01/17/25 10:10 Attending physician: Matt Clement Consults: 01/15/25 16:04 Consult Physician Routine Consulting Provider: Harpal Martinez Consult Reason/Comments: recent neck surgery Do you want consulting provider notified?: Yes 01/15/25 20:22 Consult Physician Routine Consulting Provider: Carlos A Verdugo Consult Reason/Comments: Altered mentation Do you want consulting provider notified?: Yes Primary care physician: Gigi Hatfield Hospital Course: Diagnoses: Metabolic encephalopathy, secondary to [place] with some elements of urinary tract Acute urinary tract infection Chronic leukocytosis Bilateral lower extremity weakness, improving Substance abuse 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 Harpal Martinez on December 30. And dyslipidemia Chronic anemia Hospital course: Pleasant 74-year-old female patient, follows with Dr. Gigi Hatfield. Chronic medical condition include IBS, hyperlipidemia, hypertension, peptic ulcer disease. Had surgery on the right knee by Dr. Lynn earlier this year and has a frozen right knee. Unable to extend the same.-Follow-up with Dr. Hansen for the same. Patient was found to have altered mental status of unknown etiology and acute urinary tract infection baseline. Over the last 48 hours her mentation was Fully awake and oriented and sign of the case. Also Dr. Martinez saw her and they recommended no further intervention and just follow up with his office for postop care Patient was found to have acute urinary tract infection secondary to E. coli and Klebsiella in the urine culture was sensitive to antibiotics. Patient treated with cefdinir, she is going to be discharged on Ceftin x 3 days based on sensitivity currently with no UTI signs and symptoms upon discharge. Other than patient fully awake oriented denies any specific complaint. Eager to be discharged today. Discontinue [place] upon discharge continue with Tylenol as needed Cleared for discharge by all consultants as above Problems and management plan were discussed with the patient and he verbalized understanding and acceptance Patient was found stable and can be discharged home in guarded prognosis however he needs follow-up as an outpatient. Patient was instructed to follow up with PCP within one week and patient agrees Patient was instructed to follow-up with her neurologist in [place] and she agrees. Also she was instructed to follow-up with Dr. Martinez Physical exam Gen: patient is a AAOx3, no distress CVS: S1-S2, RRR, no murmur Lungs: B/L CTA, no wheezing Abdomen: soft, no distention, no tenderness, positive bowel sounds Extremity: no leg edema or induration Time spent more than 35 minutes Patient Condition at Discharge: Fair Plan - Discharge Summary Discharge Rx Participant: No New Discharge Prescriptions: No Action Omeprazole 40 mg PO BID@0800,1700 Atorvastatin [Lipitor] 40 mg PO HS@2100 Montelukast [Singulair] 10 mg PO HS@2100 FLUoxetine HCL [PROzac] 40 mg PO DAILY@0800 Na Phos,M-B/Na Phos,Di-Ba [Fleet Adult] 133 ml RECTAL DAILY PRN PRN Reason: Constipation Naproxen 500 mg PO BID@0800,1700 Baclofen 10 mg PO Q6H PRN PRN Reason: Muscle Spasm/Stiffness Acetaminophen Oral Susp [Tylenol] 650 mg PO Q6H PRN PRN Reason: Fever And/ Or Pain Acetaminophen Tab [Tylenol] 650 mg PO Q6HR PRN PRN Reason: Fever And/ Or Pain Sennosides-Docusate Sodium [Senokot-S] 2 tab PO DAILY@0800 Gabapentin [Neurontin] 300 mg PO TID@0600,1400,2200 Ensure Max 330 ml PO DAILY@1400 amLODIPine 5 mg PO DAILY@0800 Cyclobenzaprine [Flexeril] 5 mg PO TID PRN tab PRN Reason: Muscle Spasm bisacodyL [Dulcolax] 10 mg RECTAL DAILY PRN PRN Reason: Constipation Acetaminophen Suppository [Tylenol Suppository] 650 mg RECTAL Q6H PRN PRN Reason: Fever And/ Or Pain Ferrous Sulfate [Iron (65 MG Elemental)] 325 mg PO DAILY@1200 Magnesium Hydroxide [Milk of Magnesia Concentrate] 7,200 mg PO DAILY PRN PRN Reason: Constipation HYDROcodone/APAP 7.5-325MG [[place] 7.5] 1 tab PO Q6H PRN PRN Reason: Pain Aspirin 81 mg PO DAILY@0800 Discharge Medication List Atorvastatin [Lipitor] 40 mg PO HS@2100 10/19/18 [History] Omeprazole 40 mg PO BID@0800,1700 10/19/18 [History] Montelukast [Singulair] 10 mg PO HS@2100 08/18/23 [History] FLUoxetine HCL [PROzac] 40 mg PO DAILY@0800 07/07/24 [History] amLODIPine 5 mg PO DAILY@0800 07/07/24 [History] Acetaminophen Oral Susp [Tylenol] 650 mg PO Q6H PRN 01/15/25 [History] Acetaminophen Suppository [Tylenol Suppository] 650 mg RECTAL Q6H PRN 01/15/25 [History] Acetaminophen Tab [Tylenol] 650 mg PO Q6HR PRN 01/15/25 [History] Aspirin 81 mg PO DAILY@0801/15/25 [History] Baclofen 10 mg PO Q6H PRN 01/15/25 [History] Ensure Max 330 ml PO DAILY@1400 01/15/25 [History] Ferrous Sulfate [Iron (65 MG Elemental)] 325 mg PO DAILY@1200 01/15/25 [History] Gabapentin [Neurontin] 300 mg PO TID@0600,1400,2200 01/15/25 [History] Magnesium Hydroxide [Milk of Magnesia Concentrate] 7,200 mg PO DAILY PRN 01/15/25 [History] Na Phos,M-B/Na Phos,Di-Ba [Fleet Adult] 133 ml RECTAL DAILY PRN 01/15/25 [History] Sennosides-Docusate Sodium [Senokot-S] 2 tab PO DAILY@0800 01/15/25 [History] bisacodyL [Dulcolax] 10 mg RECTAL DAILY PRN 01/15/25 [History] cefuroxime axetiL [Ceftin] 500 mg PO BID 3 Days #6 tab 01/18/25 [Rx] Follow up Appointment(s)/Referral(s): Gigi Hatfield MD [Primary Care Provider] - 1-2 days Harpal Martinez DO [Doctor of Osteopathic Medicine] - 1 Week Activity/Diet/Wound Care/Special Instructions: Heart healthy diet activity is restricted till you see your doctor Persistent atrial fibrillation, on Eliquis. Was not on anticoagulation prior to admission for unknown reason Discharge Disposition: HOME WITH HOME HEALTH SERVICES
== END 2025-01-18 15:37 | DRG 689 ==
LOC: EC 12:31 → 4SSUR 16:04 → OBSVTOIN 01-17 10:10
PROVIDERS: ADMIT Hospitalist; ATTEND Hospitalist
DX: N39.0 Urinary tract infection, site not specified (principal); G93.41 Metabolic encephalopathy; F32.A Depression, unspecified; I10 Essential (primary) hypertension; D64.9 Anemia, unspecified; G89.29 Other chronic pain; B96.20 Unspecified Escherichia coli [E. coli] as the cause of diseases classified elsewhere; B96.1 Klebsiella pneumoniae [K. pneumoniae] as the cause of diseases classified elsewhere; M54.50 Low back pain, unspecified; E78.5 Hyperlipidemia, unspecified; K21.9 Gastro-esophageal reflux disease without esophagitis; K58.9 Irritable bowel syndrome, unspecified; K44.9 Diaphragmatic hernia without obstruction or gangrene; Z79.82 Long term (current) use of aspirin; Z79.1 Long term (current) use of non-steroidal anti-inflammatories (NSAID); Z79.899 Other long term (current) drug therapy; Z87.891 Personal history of nicotine dependence; Z96.651 Presence of right artificial knee joint
CPT/HCPCS: 36415; 51701; 70450; 80048; 80053; 80306; 81001; 82140; 82607; 82746; 83605; 83735; 85025; 85610; 85730; 86140; 87077; 87086; 87186; 93005; 96374; 96375; 99285